=== PATIENT | male | born 1965 | race Caucasian/White ===

== ENCOUNTER → 2017-08-13 12:47 | Outpatient (CLI) | payer MEDICAID, SELFPAY ==
[2017-08-13 14:33] LABS: Absolute Lymphocyte Count 1.48 X10^3/ul (0.83-4.51); Basophil# 0.02 X10^3/uL; Basophil% 0.2 % (0-1); Eosinophil# 0.46 X10^3/uL; Eosinophils% 3.9 % (0-5); Hematocrit 51.7 % (40-54); Hemoglobin 17.4 g/dl (13.0-16.5); Lymphocyte # 1.48 X10^3/ul (4.0); Lymphocyte % 12.6 % (19-41); Mean Corp Hgb Conc 33.7 g/gl (32-36); Mean Corpuscular Hgb 31.1 pg (27.0-32.0); Mean Corpuscular Volume 92.3 fL (80-94); Mean Platelet Vol. 11.7 fl (6.2-12.0); Neutrophil % 76.9 % (47-70); POSITIVE COUNT NO; POSITIVE DIFFERENTIAL NO; POSITIVE MORPHOLOGY NO; Platelet Count 194 K/mm3 (150-450); RBC Distribution Width CV 15.6 % (11.6-14.6); RBC Distribution Width SD 52.6 fl (35.1-43.9); White Blood Count 11.7 K/mm3 (4.4-11.0)
[2017-08-13 14:40] LABS: Hemoglobin A1c 6.8 % (4.2-6.3)
[2017-08-13 14:49] LABS: ALB/GLOB Ratio 0.7 RATIO (0.9-2.4); AST(SGOT) 23 U/L (15-37); Alanine Aminotransfer ALT/SGPT 30 U/L (16-61); Albumin, Serum 3.4 g/dL (3.2-5.0); Alkaline Phosphatase 85 U/L (45-117); Anion Gap 10 (5-15); BUN 13 mg/dL (7-18); BUN/Creat Ratio 13.3 RATIO (10-20); Calcium,Total 8.8 mg/dL (8.5-10.1); Chloride 102 mmol/L (98-107); Cholesterol 190 mg/dL (200); Creatinine, Serum 0.98 mg/dL (0.70-1.30); EST Glomerular Filtration Rate 86 mL/min (>60); Est Glom Filt Rate - Afr Amer 104 mL/min (>60); Globulin 4.8 g/dL (2.2-4.2); Glucose 110 mg/dL (74-106); High Density Lipoprotein 32 mg/dL; Potassium 4.3 mmol/L (3.5-5.1); Protein, Total 8.2 g/dL (6.4-8.2); Sodium Level 139 mmol/L (136-145); Thyroid Stim Hormone (TSH) 0.92 uIU/mL (0.358-3.74)
[2017-08-14 12:23] LABS: Vitamin D,25 Hydroxy 32.2 ng/mL (29.95-100.01)
== END ==
PROVIDERS: Family Provider Family Medicine; PCP Family Medicine; Visit Provider Family Medicine
DX: M54.9 Dorsalgia, unspecified (principal); I73.9 Peripheral vascular disease, unspecified; R73.09 Other abnormal glucose
CPT/HCPCS: 36415; 80053; 82306; 82465; 83036; 83718; 84443; 85025

== ENCOUNTER 2018-04-28 09:37 | Emergency (ER) | payer MEDICAID, SELFPAY ==
[2018-04-28 09:38] VITALS: BP 185/101; PULSE 85; RESP 24; TEMP 36.6; O2SAT 97; BMI 60.7
--- NOTE | 2018-04-28 10:00 | VDLE_ITS ---
Reason For Study: LEG SWELLING Procedure LEFT Exam performed portable in ED. GSV is normal. A preliminary report was called and/or faxed CFV is compressible, spontaneous, phasic, to Dr. Garcia. competent, and demonstrates normal augmentation. FV is compressible, spontaneous, phasic, competent and demonstrates normal augmentation. POP V is compressible, spontaneous, phasic, competent and demonstrates normal augmentation. T/P Trunk is compressible. PTV is compressible. LT PerV is compressible. Hypoechoic structure noted Lt medial pop space measuring 5.0 x 1.3 cm in transverse. Non-vascular. Interpretation Summary Deep veins of the left lower extremity are patent and compressible segmentally. There is no evidence of left lower extremity deep vein thrombosis. Valvular competence appears intact within the proximal deep venous system on the left . The left greater saphenous vein appears patent and compressible segmentally. A non-vascular, hypoechoic structure is noted in the left medial popliteal space, measuring 5.0 cm x 1.3 cm. This probably represents a popliteal cyst. Clinical correlation is advised. Ordering Physician: Froy Garcia Referring Physician: Mark Anthony Marcelo MD Performed By: Janki Manzano RVT
--- NOTE | 2018-04-28 10:03 | ED.VISSUMM ---
- ER Visit Summary Date of Service: 04/28/18 Chief Complaint: Left-sided hip pain History of Present Illness: The patient is a 53 M presenting for evaluation secondary to left-sided hip pain. Patient reports that over the course of the last 3 days he had atraumatic onset of left sided hip pain. Patient does endorse that he has had some increased mobility recently as he recently moved, but he denies any trip slips falls or other inciting factors. Patient states that he has a continuous ache in his left hip that is worse with movement and has been causing him some sleep difficulty. He states he is never really had any prior similar episodes in the past. He denies any recent injections or surgeries. Denies any unexplained fevers night sweats or unintended weight loss. He denies any radiation to the legs weakness or paresthesias. Patient does state that he has some asymmetric swelling of the left leg which he has somewhat had in the past but this seems worse than typical. He denies any history of DVT or PE. Review of systems otherwise negative. Physical Examination: Vital signs notable blood pressure 185/101. Morbidly obese male no acute distress sitting on the side of bed. Head normocephalic. Heart regular rate and rhythm no murmurs. Lung sounds clear. Abdomen was soft. Lower extremity exam shows reproducible tenderness to palpation near the left SI joint. 5 out of 5 strength of the hip knee ankle and foot. There is pain with internal and external rotation and hip. 2+ left-sided lower extremity edema with 1+ right-sided lower extremity edema. Chronic skin changes noted bilaterally. Test Results: Hip and pelvis x-ray shows a questionable avulsion of the left inferior pubic ramus. Left leg duplex was found to be negative Emergency Department Course and Treatment: Patient presented secondary to to hip pain. Patient's legs were found to be asymmetrically swollen so I did perform a duplex ultrasound that was negative. Hip and pelvis x-ray shows a possible avulsion of the patient's inferior pubic ramus, but this is atraumatic hip pain, and the patient has very reproducible pain in his SI area versus his left buttock. I do not believe that the cause of the patient's symptoms and it likely is chronic. Patient will be placed on a course of anti-inflammatories as well as a muscle relaxer. He was recommended range of motion and follow-up with primary care. Disposition: Discharge Impression: 1. Left hip strain This note was generated with [employer] dictation software. It may contain incorrect words, spelling, and punctuation that were not noted in review of the chart prior to signing ED Disposition - Plan for ED Patient: Disposition: Home or Assisted Living Diagnosis: Strain of left hip Instructions: ED Sprain Hip Prescriptions: Naproxen [Naprosyn] 500 mg PO BID PRN #20 tab Cyclobenzaprine [Flexeril] 10 mg PO TID PRN #20 tab PRN Reason: Muscle Spasm Referrals: Mark Anthony Marcelo MD [Primary Care Provider] - 3-5 Days if not improving
[2018-04-28] MEDS: Ketorolac 30 MG/ML Syringe IM (10:14)
--- NOTE | 2018-04-28 10:20 | RAD_ITS ---
STUDY: X-RAY - LEFT HIP REASON FOR EXAM: Male, 53 years old. 2 day history of acute left hip pain. TECHNIQUE: 2 views of the hip. COMPARISON: None. FINDINGS: Normal femoral head, neck, intertrochanteric region and visualized proximal femur. Normal acetabulum. Normal hip joint. Tiny bony density seen adjacent to the inferior pubic ramus on the left side. This may represent an avulsion fracture. RAD/HIP, UNI W/ Pelvis 2-3 Views IMPRESSION: Possible tiny avulsion fracture involving the inferior pubic ramus on the left side. Electronically Signed: Diony Denney MD at 10:53 EST , Service support ,
[2018-04-28 11:37] VITALS: BP 149/93; RESP 17
== END 2018-04-28 11:38 | disposition home or self-care (01) ==
PROVIDERS: Emergency Provider Emergency Medicine; Family Provider Family Medicine; PCP Family Medicine
DX: S76.012A Strain of muscle, fascia and tendon of left hip, initial encounter (principal); X50.3XXA Overexertion from repetitive movements, initial encounter; Y93.E6 Activity, residential relocation; Y92.9 Unspecified place or not applicable; Y99.9 Unspecified external cause status; E66.01 Morbid (severe) obesity due to excess calories; R60.0 Localized edema; E11.9 Type 2 diabetes mellitus without complications; Z72.0 Tobacco use
CPT/HCPCS: 73502; 93971; 96372; 99282

== ENCOUNTER 2018-05-28 17:44 | Emergency (ER) | payer MEDICAID, SELFPAY ==
[2018-05-28 17:44] VITALS: BP 160/85; PULSE 89; RESP 20; TEMP 36.3; O2SAT 97; BMI 60.7
[2018-05-28] MEDS: Morphine 4 MG/ML Syringe IM (19:34)
--- NOTE | 2018-05-28 19:34 | RAD_ITS ---
STUDY: X-RAY - PELVIS AND LEFT HIP REASON FOR EXAM: Male, 53 years old. Left hip pain. TECHNIQUE: 4 views of the pelvis and hip. COMPARISON: Pelvis and left hip, April 28, 2018. FINDINGS: There is a non-specific bowel gas pattern. Normal visualized soft tissue structures. There are degenerative changes of the lumbar spine. Normal bilateral iliac wings, sacroiliac joints and visualized sacrum. Normal bilateral superior and inferior pubic rami. Normal pubic symphysis. Normal bilateral ischial tuberosities. Densities in small bony density adjacent to the left tissue tuberosity. Normal visualized left femoral head. Normal left acetabulum. There is mild articular joint space narrowing of the left hip. RAD/HIP, UNI W/ Pelvis 2-3 Views IMPRESSION: Mild degenerative change left hip no fracture or dislocation. There is no change from April 28, 2018. Electronically Signed: Ayad Fontaine DO at 19:49 EDT Tel [phone], Service support ,
[2018-05-28 19:36] VITALS: BP 150/92; PULSE 91; RESP 20; O2SAT 96
--- NOTE | 2018-05-28 20:07 | ED.DCSUM_ITS ---
- ER Visit Summary Date of Service: 05/28/18 Chief Complaint: Left hip pain History of Present Illness: The patient is a 53 M who presents with left hip pain that began yesterday. Patient states that he has had similar pain in the past and was diagnosed with a muscular strain. Patient states the pain became worse again yesterday. Patient describes the pain is sharp, aching, and stabbing. Patient states pain is worse with movement. Patient states he has weakness in his right leg but not his left. Patient admits to some low back pain. Physical Examination: Vital signs are stable. Patient is afebrile. Patient is in no acute distress. Musculoskeletal exam reveals tenderness over the posterior aspect of the left hip. There is no deformity noted. There is no pain with internal and external rotation. There is some edema of the lower extremities bilaterally, worse on the left. There is no calf tenderness.. Pedal pulses are equal bilaterally. Sensation was intact to light touch in all digits. Capillary refill was less than 2 seconds in all digits. The remaining physical exam is within normal limits. Test Results: X-rays of the left hip were obtained. There is no acute fracture. There is some degenerative arthritis noted. This was interpreted by the radiologist and reviewed by myself. Emergency Department Course and Treatment: Patient was given an injection of morphine here. Patient felt better on reevaluation. Patient was able to ambulate here in the emergency department. Patient was instructed to use ice to the area. Patient was given a prescription for short course of [place]. Patient was instructed to follow-up with his primary care physician in 5-7 days. Patient understood and was agreeable with the plan. All questions were answered. Disposition: Discharge home Impression: Left hip strain This note was generated with [employer] dictation software. It may contain incorrect words, spelling, and punctuation that were not noted in review of the chart prior to signing ED Disposition - Plan for ED Patient: Disposition: Home or Assisted Living Diagnosis: Morbid obesity, Muscle strain of left hip Instructions: ED Sprain Hip Prescriptions: Hydrocodone Bitart/Apap 5-325 [[place] 5MG-325MG] 1 tab PO Q6H PRN PRN 3 Days #10 tab PRN Reason: Pain Referrals: Mark Anthony Marcelo MD [Primary Care Provider] -
[2018-05-28 21:54] VITALS: BP 140/91; PULSE 92; RESP 15; O2SAT 94
== END 2018-05-28 21:56 | disposition home or self-care (01) ==
PROVIDERS: Emergency Provider Emergency Medicine; Family Provider Family Medicine; PCP Family Medicine
DX: S76.012A Strain of muscle, fascia and tendon of left hip, initial encounter (principal); X58.XXXA Exposure to other specified factors, initial encounter; Y93.9 Activity, unspecified; Y92.89 Other specified places as the place of occurrence of the external cause; Y99.9 Unspecified external cause status; E66.9 Obesity, unspecified; E11.9 Type 2 diabetes mellitus without complications; Z72.0 Tobacco use; M54.5 Low back pain; R53.1 Weakness; M16.12 Unilateral primary osteoarthritis, left hip
CPT/HCPCS: 73502; 96372; 99282

== ENCOUNTER 2018-07-12 17:40 | Emergency (ER) | payer MEDICAID, SELFPAY ==
[2018-07-12 17:41] VITALS: BP 143/89; PULSE 89; RESP 18; TEMP 36.5; O2SAT 96; BMI 54.0
--- NOTE | 2018-07-12 18:56 | CT_ITS ---
STUDY: CT OF THE HIP WITHOUT CONTRAST, RIGHT REASON FOR EXAM: Male, 53 years old. Pain RADIATION DOSAGE (If Supplied By Facility): CTDIvol = ( 47.54 ) mGy, DLP = ( 1697.59 ) mGycm. Individualized dose optimization techniques were used for this CT.? TECHNIQUE: Axial CT images of the hip were performed without contrast followed by sagittal and coronal reconstructions. Individualized dose optimization techniques were used for this CT. COMPARISON: None. FINDINGS: Degenerative sacroiliac joint changes. Moderate right hip osteoarthritis. 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 No acute fractures. Pelvic sidewall is intact. Surrounding musculature is intact. No fluid collections are seen. CT/Extremity Lower without Contra IMPRESSION: Moderate right hip osteoarthritis. 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 Consider MRI correlation if clinically indicated. Degenerative sacroiliac joint changes. Electronically Signed: Bernardino Gifford MD at 19:40 EDT Tel , Service support ,
--- NOTE | 2018-07-12 18:59 | ED.DCSUM_ITS ---
- ER Visit Summary Date of Service: 07/12/18 Chief Complaint: Right hip pain History of Present Illness: The patient is a 53 M who presents for right hip pain for 3 days. Patient denies any trauma to the hip. He has a history of chronic left hip pain, but for the last 3 days he has been having severe right- sided hip pain, which is new for him. Pain radiates to the right knee and sometimes up the back to the right shoulder. It is worse with walking and weightbearing. Worse with movement. She has been trying his home pain regimen, which includes Flexeril and nonnarcotic pain medications without any relief. He saw his primary care doctor today and had a CT of the hip ordered, however the outpatient radiology service was closed when he arrived. Physical Examination: Patient is awake and alert sitting in bed, appears uncomfortable, afebrile and hemodynamically stable. Patient has midline tenderness in the sacral region and the paraspinal musculature of the right lower back. Tenderness to palpation of the right hip. Pain with any range of motion. Sensation, motor and circulation intact distally. Exam significantly limited secondary to body habitus. Test Results: Clinical Impression(s) from Imaging Studies Lower Extremity CT 07/12/18 18:56 IMPRESSION: Moderate right hip osteoarthritis. 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 Consider MRI correlation if clinically indicated. Degenerative sacroiliac joint changes. Electronically Signed: Bernardino Gifford MD at 19:40 EDT Tel , Service support , Medications Given Discontinued Medications Hydrocodone Bitart/Acetaminophen ([place] 5mg-325mg) 2 tablet PO X1 ONE Stop: 07/12/18 18:58 Last Admin: 07/12/18 19:11 Dose: 2 tablet Emergency Department Course and Treatment: Patient had a outpatient CT of the right hip ordered by his primary care doctor, however the outpatient radiology center was closed when patient arrived. He was supposed to be seen as an outpatient in the emergency department. This was discussed with the patient, and he opted for ER evaluation. Patient was given a [place] for his pain. CT of the right hip was performed and showed osteoarthritis and mild avascular necrosis. There was no pathologic fractures. Patient was feeling better after the pain medication. He was advised to follow-up with his primary care doctor regarding the results and further management. Patient was given a small prescription for [place] for his severe pain so that he can ambulate, as he is having significant pain with weightbearing. Patient discharged home. Treatment Plan: [] Disposition: [] Impression: Degenerative changes of the right hip, severe right hip pain This note was generated with [employer] dictation software. It may contain incorrect words, spelling, and punctuation that were not noted in review of the chart prior to signing ED Disposition - Plan for ED Patient: Disposition: Home or Assisted Living Instructions: ED Degenerative Joint Disease Prescriptions: Hydrocodone Bitart/Apap 5-325 [[place] 5MG-325MG] 1 tab PO Q6H PRN PRN 3 Days #10 tab PRN Reason: Pain Referrals: Mark Anthony Marcelo MD [Primary Care Provider] - As soon as possible Additional Instructions: Continue your pain medications that you normally take for your back and hip pain. You may use the norco for severe pain. Please follow-up with Dr. Marcelo as soon as possible to discuss the results of your CT scan and to discuss the next step in managing your hip pain. If you have any worsening of your condition or any new concerning symptoms, please return immediately to the emergency department for another evaluation.
[2018-07-12] MEDS: HYDROcodone Bitartrate/Apap 5/325 Tablet PO (19:11)
[2018-07-12 20:20] VITALS: RESP 18
[2018-07-12 20:58] VITALS: RESP 18
== END 2018-07-12 20:59 | disposition home or self-care (01) ==
PROVIDERS: Emergency Provider Emergency Medicine; Family Provider Family Medicine; PCP Family Medicine
DX: M25.551 Pain in right hip (principal); M87.9 Osteonecrosis, unspecified; M16.11 Unilateral primary osteoarthritis, right hip
CPT/HCPCS: 73700; 99283

== ENCOUNTER → 2018-07-17 07:59 | Outpatient (CLI) | payer MEDICAID, SELFPAY ==
[2018-07-12 17:41] VITALS: BMI 54.0
--- NOTE | 2018-07-17 08:05 | MRI_ITS ---
We are attempting to reach Mark Anthony Marcelo to discuss findings. An addendum with communication details will be sent when the communication is complete. STUDY: MRI RIGHT HIP REASON FOR EXAM: Male, 53 years old. Pain. TECHNIQUE: Standardized fat and water weighted pulse sequences were obtained in all 3 orthogonal planes. COMPARISON: None. FINDINGS: Normal hip joint without articular joint space narrowing. Normal acetabulum. Normal labrum. Bone marrow edema is identified in the right femoral head and neck, right superior pubic ramus, right acetabulum, and in both iliac bones near the sacroiliac joint. Normal gluteus minimus, medius and iliopsoas tendons and distal insertions. There is no trochanteric, iliopsoas or iliopectineal bursitis. Normal pubic symphysis. Normal ischial tuberosity. Normal origin of the hamstring tendons. Normal visualized soft tissue structures of the pelvis. MRI/Lower Ext Joint Only (Routine) IMPRESSION: Patchy areas of bone marrow edema as described. Underlying neoplasm is a possibility. Electronically Signed: Macario Robbins, at 10:57 EDT Tel , Service support ,
== END ==
PROVIDERS: Family Provider Family Medicine; PCP Family Medicine; Referring Provider Family Medicine; Visit Provider Family Medicine
DX: M87.051 Idiopathic aseptic necrosis of right femur (principal)
CPT/HCPCS: 73721

== ENCOUNTER → 2018-07-21 09:24 | Outpatient (CLI) | payer MEDICAID, SELFPAY ==
[2018-07-12 17:41] VITALS: BMI 54.0
--- NOTE | 2018-07-21 09:27 | NM_ITS ---
CLINICAL: 53-year-old male with reported history of right hip and lower extremity pain. WHOLE BODY 99m Tc MDP RADIONUCLIDE BONE SCINTIGRAPHY COMPARISON: Plain film radiograph report left hip 05/28/2018, CT of the right hip report 07/12/2018 FINDINGS: Following the intravenous administration of 25.5 mCi of 99m Tc MDP, whole body bone images reveal: 1. Increased radiopharmaceutical concentration is defined in the distal left clavicle, the right proximal clavicle, the right occipital calvarium, the right posterior sixth rib, the right mid-distal femoral diaphysis and metaphysis, the left proximal tibial metaphysis, the left sacroiliac joint and sacral ala, posterior sacrum and right sacroiliac joint. 2. Facilitated uptake is noted in the right proximal femur to include the femoral head and neck. 3. An increase in tracer distribution is visualized in the lateral glenohumeral compartments of both shoulders, the acromioclavicular and sternoclavicular compartment of the right shoulder, bilateral knees. 4. The remaining skeletal structures are scintigraphically unremarkable with normal-appearing renal images and urinary bladder activity identified. Enhanced radiotracer concentration is definably bilateral maxillary and left mandible most consistent with periodontal disease and/or periostitis. NM/Bone Scan Whole Body IMPRESSION: 1. The increased radiopharmaceutical concentration identified in the distal left clavicle, right proximal clavicle, right occipital skull, right posterior sixth rib, right mid to distal femoral diaphysis and distal right femoral metaphysis, the left proximal tibial metaphysis, bilateral sacroiliac joints, posterior segment left sacral ala likely represents osseous metastatic disease. Correlation with plain film radiography may be of benefit in the right femur, bilateral clavicles. 2. Femoral head and neck increased uptake likely represents the rib vascularization phase of osteonecrosis corresponding to the anatomic findings described on CT of the right hip report dated 07/12/2018. 3. Degenerative arthritis appears expressed in the bilateral shoulders, right and left knees. Electronically Signed: Amrit Wilson DO at 14:51 EDT Tel , Service support ,
== END ==
PROVIDERS: Family Provider Family Medicine; PCP Family Medicine; Referring Provider Family Medicine; Visit Provider Family Medicine
DX: R93.89 Abnormal findings on diagnostic imaging of other specified body structures (principal)
CPT/HCPCS: 78306

== ENCOUNTER → 2018-07-21 13:27 | Outpatient (CLI) | payer MEDICAID, SELFPAY ==
[2018-07-12 17:41] VITALS: BMI 54.0
[2018-07-21 15:41] LABS: Absolute Lymphocyte Count 1.04 X10^3/ul (0.83-4.51); Absolute Neutrophil Count 8.5 X10^3/uL (2.0-7.7); Basophil# 0.03 X10^3/uL; Basophil% 0.3 % (0-1); Eosinophils% 1.9 % (0-5); Hematocrit 45.3 % (40-54); Hemoglobin 15.2 g/dl (13.0-16.5); Lymphocyte # 1.04 X10^3/ul (4.0); Lymphocyte % 9.8 % (19-41); Mean Corp Hgb Conc 33.6 g/gl (32-36); Mean Corpuscular Hgb 30.2 pg (27.0-32.0); Mean Corpuscular Volume 89.9 fL (80-94); Mean Platelet Vol. 11.3 fl (6.2-12.0); Monocyte# 0.83 X10^3/uL; Monocyte% 7.8 % (0-10); Neutrophil # 8.47 X10^3/uL (2.7-7.7); Neutrophil % 79.7 % (47-70); Platelet Count 291 K/mm3 (150-450); RBC Distribution Width CV 15.5 % (11.6-14.6); RBC Distribution Width SD 51.1 fl (35.1-43.9); Red Blood Count 5.04 M/mm3 (4.6-6.2); White Blood Count 10.6 K/mm3 (4.4-11.0)
[2018-07-21 15:42] LABS: POSITIVE COUNT NO; POSITIVE DIFFERENTIAL NO; POSITIVE MORPHOLOGY NO
[2018-07-21 15:55] LABS: ALB/GLOB Ratio 0.6 RATIO (0.9-2.4); AST(SGOT) 29 U/L (15-37); Alanine Aminotransfer ALT/SGPT 27 U/L (16-61); Albumin, Serum 2.9 g/dL (3.2-5.0); Alkaline Phosphatase 114 U/L (45-117); Anion Gap 8 (5-15); BUN 12 mg/dL (7-18); BUN/Creat Ratio 13.7 RATIO (10-20); Calcium,Total 9.2 mg/dL (8.5-10.1); Chloride 102 mmol/L (98-107); Creatinine, Serum 0.88 mg/dL (0.70-1.30); EST Glomerular Filtration Rate 97 mL/min (>60); Est Glom Filt Rate - Afr Amer 118 mL/min (>60); Glucose 102 mg/dL (74-106); Potassium 4.2 mmol/L (3.5-5.1); Protein, Total 7.9 g/dL (6.4-8.2); Sodium Level 137 mmol/L (136-145)
[2018-07-21 15:58] LABS: Erythrocyte Sedimentation Rate 86 mm/hr (0-20)
[2018-07-23 16:07] LABS: PROEL- A/G Ratio 0.7 (0.7-1.7); PROEL- Albumin 2.9 g/dL (2.9-4.4); PROEL- Alpha-1 Globulin 0.4 g/dL (0.0-0.4); PROEL- Alpha-2 Globulin 1.3 g/dL (0.4-1.0); PROEL- Beta Globulin 1.3 g/dL (0.7-1.3); PROEL- Gamma Globulin 1.2 g/dL (0.4-1.8); PROEL- Globulin, Total 4.3 g/dL (2.2-3.9); PROEL- TOTAL PROTEIN 7.2 g/dL (6.0-8.5)
[2018-07-26 13:48] LABS: Complement C3 212 mg/dL (82-167)
[2018-07-27 10:48] LABS: ANTINUCLEAR ANTIBODIES DIRECT Negative (Negative)
== END ==
PROVIDERS: Family Provider Family Medicine; PCP Family Medicine; Referring Provider Family Medicine; Visit Provider Family Medicine
DX: R93.89 Abnormal findings on diagnostic imaging of other specified body structures (principal)
CPT/HCPCS: 36415; 78306; 80053; 84165; 85025; 85652; 86038; 86140; 86160

== ENCOUNTER 2018-07-26 17:16 | Inpatient (IN) | payer MEDICAID, SELFPAY ==
[2018-07-26 17:17] VITALS: BP 116/90; PULSE 63; RESP 14; TEMP 37.1; O2SAT 96; BMI 53.1
[2018-07-26 17:24] VITALS: BP 119/88; PULSE 110; RESP 15; O2SAT 98
--- NOTE | 2018-07-26 17:26 | ED.RN ---
pt was asked about home medications. he states dr chand recently prescribed him Vicodin 5-325 mg po q4hrs prn for pain. pt states i have been taking one every couple hours. pt was asked if he is taking them as perscribed. he stated no. i'm taking one tablet sooner that i'm supposed to. im only taking one tablet thought.' pt was explain that taking to many vicoden could result in an overdose that could kill him. he was instructed to never take meds more that perscribed. elizabeth silvestre rn [id number]
[2018-07-26] MEDS: Morphine 4 MG/ML Syringe IV (18:34)
[2018-07-26] MEDS: Ondansetron 4 MG/2 ML Vial IV (18:34)
--- NOTE | 2018-07-26 18:46 | ED.DCSUM_ITS ---
- ER Visit Summary Date of Service: 07/26/18 Chief Complaint: Right hip pain History of Present Illness: The patient is a 53 M presenting with right hip pain. He states that this has been ongoing for several months. He has been having a work-up by his primary care physician. He recently had a bone scan w [facility] he states showed bone cancer. This is a new diagnosis. He is unsure who is supposed to follow-up with. He has been taking hydrocodone at home and has continued pain. He denies trauma. Denies other complaints. Physical Examination: Vitals are stable. Patient is afebrile. Alert no acute distress. HEENT exam is unremarkable. Neck is supple. Lungs are clear and equal bilaterally. Heart is regular rate and rhythm. Abdomen is soft nontender nondistended. Extremities right lateral hip tenderness with painful range of motion. Normal distal pulse. Skin is warm and dry. No focal neurologic deficit. Remainder of exam is unremarkable. Emergency Department Course and Treatment: Patient was given morphine, Zofran IV. Right hip x-ray shows degenerative changes. CBC, chemistries unremarkable. Discussed with Dr. Marcelo his primary care physician. He is in the beginning stages of working up for metastatic cancer. Patient has been unable to ambulate at home. He missed his last appointment because he was unable to ambulate. Discussed with the hospitalist for admission. Disposition: Admission Impression: Right hip pain, metastatic lesions, inability to ambulate This note was generated with [employer] dictation software. It may contain incorrect words, spelling, and punctuation that were not noted in review of the chart prior to signing ED Disposition - Plan for ED Patient: Referrals: Mark Anthony Marcelo MD [Primary Care Provider] -
--- NOTE | 2018-07-26 18:47 | RAD_ITS ---
STUDY: X-RAY - PELVIS AND RIGHT HIP REASON FOR EXAM: Male, 53 years old. Pain. History of bone cancer. TECHNIQUE: 4 views of the pelvis and hip. COMPARISON: 05/28/2018 FINDINGS: There is no fracture or dislocation in the pelvis or right hip. There is stable moderate degenerative changes in the right hip. RAD/HIP, UNI W/ Pelvis 2-3 Views IMPRESSION: No fracture or dislocation in the pelvis or right hip. Stable moderate degenerative changes. Electronically Signed: Hadley Saunders, at 19:02 EDT Tel , Service support ,
[2018-07-26 18:54] LABS: Absolute Lymphocyte Count 1.13 X10^3/ul (0.83-4.51); Absolute Neutrophil Count 8.3 X10^3/uL (2.0-7.7); Basophil# 0.02 X10^3/uL; Basophil% 0.2 % (0-1); Eosinophil# 0.21 X10^3/uL; Hematocrit 43.9 % (40-54); Lymphocyte # 1.13 X10^3/ul (4.0); Lymphocyte % 10.7 % (19-41); Mean Corp Hgb Conc 34.2 g/gl (32-36); Mean Corpuscular Hgb 30.1 pg (27.0-32.0); Mean Platelet Vol. 10.9 fl (6.2-12.0); Monocyte# 0.93 X10^3/uL; Monocyte% 8.8 % (0-10); Neutrophil # 8.26 X10^3/uL (2.7-7.7); Neutrophil % 77.8 % (47-70); Platelet Count 250 K/mm3 (150-450); RBC Distribution Width CV 15.4 % (11.6-14.6); RBC Distribution Width SD 49.6 fl (35.1-43.9); Red Blood Count 4.99 M/mm3 (4.6-6.2); White Blood Count 10.6 K/mm3 (4.4-11.0)
[2018-07-26 18:55] LABS: POSITIVE COUNT NO; POSITIVE DIFFERENTIAL NO; POSITIVE MORPHOLOGY NO
[2018-07-26 20:06] LABS: Anion Gap 5 (5-15); BUN 10 mg/dL (7-18); BUN/Creat Ratio 13.8 RATIO (10-20); Calcium,Total 9.3 mg/dL (8.5-10.1); Chloride 102 mmol/L (98-107); Creatinine, Serum 0.72 mg/dL (0.70-1.30); EST Glomerular Filtration Rate 121 mL/min (>60); Est Glom Filt Rate - Afr Amer 146 mL/min (>60); Estimated Creatinine Clearance 127.82 ml/min; Glucose 102 mg/dL (74-106); Potassium 4.1 mmol/L (3.5-5.1); Sodium Level 135 mmol/L (136-145)
--- NOTE | 2018-07-26 21:20 | PCM.HP.STD ---
Problem List (1) History of anxiety Status: Chronic (2) Tobacco user Status: Chronic (3) Obstructive sleep apnea syndrome Status: Chronic (4) Morbid obesity Status: Chronic (5) Depression Status: Chronic (6) Benign essential hypertension Status: Chronic (7) Metastasis Status: Acute History of Present Illness Date of Admission: 07/26/18 Chief Complaint: right hip pain The patient is a 53 year old M with a significant history of anxiety disorder; tobacco use; obstructive sleep apnea; morbid obesity; hyperlipidemia; depression; benign essential hypertension; COPD; who presented to the emergency department with 1 month history of progressively worsening right hip pain. His pain improves with laying on his stomach. He was taking hydrocodone at home but that has not been helping. Patient began having left hip pain about 2 months ago. His pain then moved to his right hip. Patient reported that outpatient bone scan showed probable cancer in multiple bones including his hips; shoulders; neck; ribs and other places. Outpatient, he was supposed to have a chest x-ray but because of pain that could not be done. The Emergency department doctor reportedly discussed with the case of patient PCP. Reportedly he was supposed to have a CT-guided biopsy of his right hip. Patient denies seeing any oncologist at this point. Past Medical History Past Medical History (Chronic Problems): Chronic Problems History of anxiety (Chronic) Tobacco user (Chronic) Obstructive sleep apnea syndrome (Chronic) Chronic obstructive lung disease (Chronic) Morbid obesity (Chronic) Hyperlipidemia (Chronic) Depression (Chronic) Benign essential hypertension (Chronic) Allergies METAL Allergy (Uncoded 07/26/18 17:22) Unknown Home Medications: Ambulatory Orders Medication Instructions Recorded Aspirin 325 mg PO Q4H PRN PRN 04/28/18 Cyclobenzaprine [Flexeril] 10 mg PO TID PRN #20 tab 04/28/18 Ibuprofen [Motrin] 400 mg PO Q6H PRN PRN 04/28/18 Hydrocodone/Acetaminophen 5 - 325 mg PO Q4H PRN PRN 07/26/18 [Hydrocodone-Acetamin 5-325 mg] Naproxen [Naprosyn] 500 mg PO BID PRN PRN 07/26/18 Albuterol Sulfate [Albuterol 2 puff Q4H PRN PRN 07/27/18 Sulfate Hfa] Celecoxib 200 mg PO DAILY 07/27/18 Fluticasone Propionate 2 spray NASAL BID 07/27/18 Nortriptyline HCl 50 mg PO QHS 07/27/18 Surgical History: appendectomy, herniorrhaphy - x2, - - Hand surgery Lives: With Family Smoking Status: Current every day smoker - *Family History Maternal History Items: - - Leukemia Paternal History Items: Cancer - lung, - Review of Systems Constitutional: Denies: Chills, Fever, Weight Change HEENT: Denies: Head Aches, Sinus Congestion, Sinus Drainage Cardiovascular: Denies: Chest Pain, Palpitations Respiratory: Denies: Cough, Shortness of breath at rest, Sputum production Gastrointestinal: Denies: Abdominal Pain, Nausea, Vomiting Genitourinary: Denies: Dysuria Musculoskeletal: Reports: Joint Pain - R hip, Joint Tenderness - R hip Skin: Denies: Rash, Wounds Neurological: Denies: Numbness, Tingling, Focal weakness Psychiatric: Denies: Anxiety, Depression, Homicidal Ideations, Suicidal Ideations Hematologic/ Lymphatic: Denies: Easy Bruising, Easy Bleeding VTE Information - Inpt Only VTE Present on Admission: No VTE Mechan Device Prophylaxis: None VTE Pharm Prophylaxis ordered?: Yes Patient Problems: Active and Suspected Problems Metastasis (Acute) - Physical Exam General: Alert, Oriented x3, Cooperative HEENT: Atraumatic, PERRLA, EOMI, Normocephalic Neck: Supple, No JVD, Negative Carotid Bruits Lungs: Clear to auscultation, Normal air movement Cardiovascular: Regular rate, No murmurs Abdomen: Bowel Sounds Present, Soft, Non Tender Extremities: No edema, Capillary Refill Less than 3 Seconds, Tenderness - R hip Skin: No rashes, No breakdown Musculoskeletal: No Tenderness to Palpation of Joints or Extremities Neurological: Cranial nerves II-XII grossly intact Psych/Mental Status: Normal Affect, Appropriate Vital Signs Temp Pulse Resp BP Pulse Ox 98.7 F 110 H 15 119/88 H 98 07/26/18 17:17 07/26/18 17:24 07/26/18 17:24 07/26/18 17:24 07/26/18 17:24 Oxygen Delivery Method Room Air Weight: 172.819 kg Body Mass Index (BMI) 53.1 Laboratory Tests Past 24 Hrs 07/26/18 07/26/18 07/26/18 18:30 18:30 19:10 WBC 10.6 RBC 4.99 Hgb 15.0 Hct 43.9 MCV 88.0 MCH 30.1 MCHC 34.2 RDW 15.4 H RDW Differential 49.6 H Plt Count 250 MPV 10.9 Immature Gran % (Auto) 0.500 Neut % (Auto) 77.8 H Lymph % (Auto) 10.7 L [place] % (Auto) 8.8 Eos % (Auto) 2.0 Baso % (Auto) 0.2 Absolute Neuts (auto) 8.3 H Absolute Lymphs (auto) 1.13 Total Counted Not Reportable Sodium Cancelled 135 L Potassium Cancelled 4.1 Chloride Cancelled 102 Carbon Dioxide Cancelled 28.0 Anion Gap Cancelled 5 BUN Cancelled 10 Creatinine Cancelled 0.72 Estim Creat Clear Calc Cancelled 127.82 Est GFR (MDRD) Af Amer Cancelled 146 Est GFR (MDRD) Non-Af Cancelled 121 BUN/Creatinine Ratio Cancelled 13.8 Glucose Cancelled 102 Calcium Cancelled 9.3 Assessment/Plan All Active Problems Metastasis (Acute) The patient is a 53 year old M with a significant history of anxiety disorder; tobacco use; obstructive sleep apnea; morbid obesity; hyperlipidemia; depression; benign essential hypertension; COPD; who presented to the emergency department with 1 month history of progressively worsening right hip pain; and with bone scan of probable cancer in multiple bones but with unknown primary. Probable metastatic cancer. Will obtain a CT of patient's abdomen and chest. And will consult oncologist at this time. CT guided biopsy of R hip planned outpatient not ordered at this time. We will continue his home Vicodin and add PRN morphine. Home Celebrex continued. Naproxen as needed ordered Muscle spasms Flexeril continued COPD Stable Home albuterol continued. JACK Home bipap ordered. Tobacco abuse Counselled Nicotine patch DVT prophylaxis Subcutaneous Lovenox ordered. Code Visit Inpatient E&M: 00578 Init Hosp L3
[2018-07-26 21:42] VITALS: BP 128/72; PULSE 98; RESP 18; O2SAT 93
[2018-07-26 23:14] VITALS: BMI 51.7
[2018-07-26 23:30] VITALS: BP 155/89; PULSE 90; RESP 18; TEMP 36.9; O2SAT 94
--- NOTE | 2018-07-26 23:40 | CT_ITS ---
HISTORY: SUSPECTED METASTATIC CANCER EXAMINATION: CT Chest WO/W Contrast TECHNIQUE: Helically acquired images were obtained of the chest both before and following IV contrast. A radiation dose optimization technique was used for this scan. IV Contrast dosage and agent: 100 Isovue 300 COMPARISON: Two-view chest 05/29/2014 FINDINGS: Left perihilar and left upper lobe large irregular mass which measures approximately 10.5 x 8.1 x 8.3 cm. The mass occludes the left upper lobe bronchus and encases the left upper lobe pulmonary artery and there is perifocal tumoral infiltrate. The mass abuts and shows apparent soft tissue infiltration of the left hilum and upper left pericardium. No pericardial effusion. Numerous bulky lymph nodes compatible with annie metastases involving the prevascular mediastinum. The largest prevascular lymph node measures approximately 3.6 x 2.7 cm. The left upper lobe mass abuts both prevascular and left hilar lymph nodes and accurate measurement of the individual nodes at these locales is difficult. Right paratracheal enlarged lymph node measuring 3.1 x 2.9 cm. Chronic lung disease with bilateral centrilobular emphysema together with paramediastinal distal lobular emphysema. No focal infiltrates or lesions within the right lung. No pleural effusion. Bony lesion with pathologic comminuted fracture of the medial right clavicle. Small sclerotic lesion within the T3 vertebral body posteriorly on the right. CT/Chest W/WO Contrast IMPRESSION: 1. Left perihilar and left upper lobe large irregular tumor in the 10 cm diameter range with secondary soft tissue invasion of the left hilum and upper left mediastinum. 2. Multiple bulky mediastinal and left hilar lymph nodes compatible with annie metastases. 3. Chronic lung disease with centrilobular and distal lobular emphysema. 4. Metastatic bone disease including pathologic fracture of the medial right clavicle. Individualized dose optimization techniques were used for this CT. at 0650 Reported and signed by: Jerry Ruiz MD Electronically Signed: Jerry Ruiz, at 6:49 EDT Tel , Service support ,
--- NOTE | 2018-07-26 23:40 | CT_ITS ---
HISTORY: SUSPECTED METASTATIC CANCER EXAMINATION: CT Abdomen WO/W Contrast TECHNIQUE: Helically acquired images were obtained of the abdomen both before and after IV contrast. A radiation dose optimization technique was used for this scan. IV Contrast dosage and agent: 100 Isovue 300 Oral contrast: None. COMPARISON: None FINDINGS: Lower thorax: No pleural effusion. Generalized hepatosplenomegaly. The posterior segment of the right hepatic lobe, medial aspect, shows a solitary oval hypodense lesion measuring 1.5 x 1.2 cm in keeping with a small cyst or other benign process. The gallbladder is contracted. No biliary dilatation. No focal splenic lesion. Normal pancreas. Ptosis of the right kidney which is likely secondary to hepatomegaly. Bilateral renal excretion of contrast without evidence of hydronephrosis, pyelonephritis, or suspicious renal lesion. Adrenal glands are not enlarged. Abdominal aorta is atherosclerotic and is normal in caliber. Patent IVC. No ascites or retroperitoneal lymph node enlargement. GI tract: No obstruction. Pelvic CT scanning not performed. Bones: Osteolytic lesion of the posterior left ilium compatible with a metastasis. This lesion is incompletely visualized and measures over 5 cm. Additional incompletely visualized osteolytic lesion of the posterior right ilium. L4-5 degenerative disc disease and spondylosis. Chronic appearing Schmorl's node of the L3 inferior endplate. CT/Abdomen W/WO IV Contrast IMPRESSION: 1. No free fluid or acute abdominal disease identified. Pelvic CT scanning not performed. 2. Hepatosplenomegaly. Small, solitary right hepatic lobe lesion, probably benign. 3. No abdominal lymphadenopathy. 4. Bilateral iliac osteolytic lesions, incompletely visualized and larger on the left, compatible with metastases. Individualized dose optimization techniques were used for this CT. at 0732 Reported and signed by: Jerry Ruiz MD Electronically Signed: Jerry Ruiz, at 7:31 EDT Tel , Service support ,
[2018-07-27] VITALS (8 sets, daily range): BP systolic 122–151; BP diastolic 64–91; PULSE 81–89; RESP 18; TEMP 36.6–37.1; O2SAT 91–98
[2018-07-27] MEDS: Morphine 2 MG/ML Syringe IV ×2 (01:36→09:54)
--- NOTE | 2018-07-27 07:44 | CPS ---
pt has own BIPAP for HS & prn use.
[2018-07-27] MEDS: Nystatin Powder 15gm Bottle 1 APPLIC TOPICAL ×2 (09:42→22:20)
[2018-07-27] MEDS: Enoxaparin 40 MG/0.4 ML Syringe SC (09:43)
[2018-07-27] MEDS: Senna/Docusate Sodium 1 Tablet 2 TABLET PO ×2 (09:43→22:21)
[2018-07-27] MEDS: Fluticasone 0.05% 1 SPRAY NASAL.SRY 2 SPRAY NASAL ×2 (09:46→22:19)
[2018-07-27] MEDS: Celecoxib 200 MG Capsule PO (09:47)
[2018-07-27] MEDS: 0.9% NaCl Peripheral Flush Adult/Peds IV (09:55)
--- NOTE | 2018-07-27 10:58 | PCM.PN.HOSP ---
Patient Problems: Active and Suspected Problems Metastasis (Acute) Subjective: Still having significant bone pain, and states that the narcotics are not touching his pain. Otherwise he says that he is breathing at his baseline Vitals/I&O's: Vital Signs Temp Pulse Resp BP Pulse Ox 98.3 F 87 18 122/64 H 98 07/27/18 08:00 07/27/18 08:00 07/27/18 10:00 07/27/18 08:00 07/27/18 08:00 Oxygen Delivery Method Bi-pap Weight: 371 lb Body Mass Index (BMI) 51.7 Intake and Output for Last 24 Hours 07/25/18 07/26/18 07/27/18 23:59 23:59 23:59 Intake Total 400 / 400 Output Total 1300 / 1300 Balance -900 / -900 General: Alert, Oriented x3, Cooperative, No apparent distress HEENT: Atraumatic, PERRLA, EOMI, Normocephalic Oral: Dry Mucosa Neck: Supple, No JVD Lungs: Normal air movement, Wheezes - Mild Cardiovascular: Regular rate, Regular Rhythm, Normal S1, Normal S2, No murmurs Abdomen: Soft, Non Tender, Non-Distended, No Hepato-splenomegaly Extremities: No edema, Capillary Refill Less than 3 Seconds Skin: No rashes, No breakdown Musculoskeletal: Tenderness - Most of the pain is in his right hip Neurological: Neuro grossly intact, Sensory exam intact to light touch and pain Psych/Mental Status: Normal Affect, Appropriate Laboratory Results 07/26/18 18:30: WBC 10.6, RBC 4.99, Hgb 15.0, Hct 43.9, MCV 88.0, MCH 30.1, MCHC 34.2, RDW 15.4 H, RDW Differential 49.6 H, Plt Count 250, MPV 10.9, Immature Gran % (Auto) 0.500, Neut % (Auto) 77.8 H, Lymph % (Auto) 10.7 L, [place] % (Auto) 8.8, Eos % (Auto) 2.0, Baso % (Auto) 0.2, Absolute Neuts (auto) 8.3 H, Absolute Lymphs (auto) 1.13, Total Counted Not Reportable 07/26/18 18:30: Sodium Cancelled, Potassium Cancelled, Chloride Cancelled, Carbon Dioxide Cancelled, Anion Gap Cancelled, BUN Cancelled, Creatinine Cancelled, Estim Creat Clear Calc Cancelled, Est GFR (MDRD) Af Amer Cancelled, Est GFR (MDRD) Non-Af Cancelled, BUN/Creatinine Ratio Cancelled, Glucose Cancelled, Calcium Cancelled 07/26/18 19:10: Sodium 135 L, Potassium 4.1, Chloride 102, Carbon Dioxide 28.0, Anion Gap 5, BUN 10, Creatinine 0.72, Estim Creat Clear Calc 127.82, Est GFR (MDRD) Af Amer 146, Est GFR (MDRD) Non-Af 121, BUN/Creatinine Ratio 13.8, Glucose 102, Calcium 9.3 Current Medications Hydrocodone Bitart/Acetaminophen ([place] 5mg-325mg) 1 tablet PO Q4H PRN PRN PRN Reason: MODERATE PAIN (4-5/10) Albuterol Sulfate (Ventolin Aerosols) 2.5 mg INHALATION Q2H PRN PRN PRN Reason: sob or wheezes Celecoxib (Celebrex) 200 mg PO DAILY [facility] Last Admin: 07/27/18 09:47 Dose: 200 mg Cyclobenzaprine HCl (Flexeril) 10 mg PO TID PRN PRN PRN Reason: MUSCLE SPASM [facility] Dextrose (D50w Syringe) 0 gm IV X1 PRN; Protocol PRN Reason: Hypoglycemia Enoxaparin Sodium (Lovenox) 40 mg SC DAILY@1000 [facility] Last Admin: 07/27/18 09:43 Dose: 40 mg Fluticasone Propionate (Flonase Nasal [place]) 2 spray NASAL BID [facility] Last Admin: 07/27/18 09:46 Dose: 2 spray Glucagon () 1 mg IM .X1 PRN PRN Reason: Hypoglycemia Morphine Sulfate () 4 mg IV Q3H PRN PRN PRN Reason: Severe pain (7-10/10) Naproxen (Naprosyn) 500 mg PO Q8H PRN PRN PRN Reason: MILD PAIN (1-3/10) Nicotine (Nicoderm Cq (Pbkc)) 21 mg TRANSDERM. DAILY [facility] Last Admin: 07/27/18 09:42 Dose: 21 mg Nortriptyline HCl (Pamelor) 50 mg PO QHS [facility] Nystatin (Mycostatin Powder) 1 applic TOPICAL BID [facility]; Protocol Last Admin: 07/27/18 09:42 Dose: 1 applicatio Ondansetron HCl (Zofran) 4 mg IV Q8H PRN PRN PRN Reason: NAUSEA/VOMITING Senna/Docusate Sodium (Senokot-S, Libby-Colace) 2 tablet PO BID [facility]IE Last Admin: 07/27/18 09:43 Dose: 2 tablet Sodium Chloride () 5 - 15 ml IV UD PRN PRN Reason: SALINE FLUSH Last Admin: 07/27/18 09:55 Dose: 10 ml Medical Necessity - Tobacco Use Smoking Status: Current every day smoker Tobacco Use: Cigarettes Assessment/Plan All Active Problems Metastasis (Acute) 1. Likely metastatic cancer to the bone primary appears to be in the lung/COPD/JACK/tobacco abuse -CT of the chest shows a large 10 cm mass encapsulating the main left bronchus -CT of the abdomen consistent with bone mets -He is on Celebrex at home, will increase his morphine from 2 mg to 4 mg and continue his Vicodin as well -Could run 4 mg twice daily dosing to help control any bone pain if possible -Will discuss the case with pulmonology to see if they would be able to do a bronchial biopsy of this lung mass given its more central location and his body habitus would likely be a difficult procedure for radiology -We will continue with his home aerosols as well as his BiPAP for his JACK. -Discussed the necessity of smoking cessation and will provide a nicotine patch while in the hospital -Pending consultation from oncology 2. Morbid obesity -Discussed lifestyle modification since his BMI is 51 DVT: Lovenox Code Visit Inpatient E&M: 21109 Subs Hosp L2
--- NOTE | 2018-07-27 11:03 | PN_ITS ---
Patient Problems: Active and Suspected Problems Metastasis (Acute) Subjective: Still having significant bone pain, and states that the narcotics are not touching his pain. Otherwise he says that he is breathing at his baseline Vitals/I&O's: Vital Signs Temp Pulse Resp BP Pulse Ox 98.3 F 87 18 122/64 H 98 07/27/18 08:00 07/27/18 08:00 07/27/18 10:00 07/27/18 08:00 07/27/18 08:00 Oxygen Delivery Method Bi-pap Weight: 371 lb Body Mass Index (BMI) 51.7 Intake and Output for Last 24 Hours 07/25/18 07/26/18 07/27/18 23:59 23:59 23:59 Intake Total 400 / 400 Output Total 1300 / 1300 Balance -900 / -900 General: Alert, Oriented x3, Cooperative, No apparent distress HEENT: Atraumatic, PERRLA, EOMI, Normocephalic Oral: Dry Mucosa Neck: Supple, No JVD Lungs: Normal air movement, Wheezes - Mild Cardiovascular: Regular rate, Regular Rhythm, Normal S1, Normal S2, No murmurs Abdomen: Soft, Non Tender, Non-Distended, No Hepato-splenomegaly Extremities: No edema, Capillary Refill Less than 3 Seconds Skin: No rashes, No breakdown Musculoskeletal: Tenderness - Most of the pain is in his right hip Neurological: Neuro grossly intact, Sensory exam intact to light touch and pain Psych/Mental Status: Normal Affect, Appropriate Laboratory Results 07/26/18 18:30: WBC 10.6, RBC 4.99, Hgb 15.0, Hct 43.9, MCV 88.0, MCH 30.1, MCHC 34.2, RDW 15.4 H, RDW Differential 49.6 H, Plt Count 250, MPV 10.9, Immature Gran % (Auto) 0.500, Neut % (Auto) 77.8 H, Lymph % (Auto) 10.7 L, [place] % (Auto) 8.8, Eos % (Auto) 2.0, Baso % (Auto) 0.2, Absolute Neuts (auto) 8.3 H, Absolute Lymphs (auto) 1.13, Total Counted Not Reportable 07/26/18 18:30: Sodium Cancelled, Potassium Cancelled, Chloride Cancelled, Carbon Dioxide Cancelled, Anion Gap Cancelled, BUN Cancelled, Creatinine Cancelled, Estim Creat Clear Calc Cancelled, Est GFR (MDRD) Af Amer Cancelled, Est GFR (MDRD) Non-Af Cancelled, BUN/Creatinine Ratio Cancelled, Glucose Cancelled, Calcium Cancelled 07/26/18 19:10: Sodium 135 L, Potassium 4.1, Chloride 102, Carbon Dioxide 28.0, Anion Gap 5, BUN 10, Creatinine 0.72, Estim Creat Clear Calc 127.82, Est GFR (MDRD) Af Amer 146, Est GFR (MDRD) Non-Af 121, BUN/Creatinine Ratio 13.8, Glucose 102, Calcium 9.3 Current Medications Hydrocodone Bitart/Acetaminophen ([place] 5mg-325mg) 1 tablet PO Q4H PRN PRN PRN Reason: MODERATE PAIN (4-5/10) Albuterol Sulfate (Ventolin Aerosols) 2.5 mg INHALATION Q2H PRN PRN PRN Reason: sob or wheezes Celecoxib (Celebrex) 200 mg PO DAILY [facility] Last Admin: 07/27/18 09:47 Dose: 200 mg Cyclobenzaprine HCl (Flexeril) 10 mg PO TID PRN PRN PRN Reason: MUSCLE SPASM [facility] Dextrose (D50w Syringe) 0 gm IV X1 PRN; Protocol PRN Reason: Hypoglycemia Enoxaparin Sodium (Lovenox) 40 mg SC DAILY@1000 [facility] Last Admin: 07/27/18 09:43 Dose: 40 mg Fluticasone Propionate (Flonase Nasal [place]) 2 spray NASAL BID [facility] Last Admin: 07/27/18 09:46 Dose: 2 spray Glucagon () 1 mg IM .X1 PRN PRN Reason: Hypoglycemia Morphine Sulfate () 4 mg IV Q3H PRN PRN PRN Reason: Severe pain (7-10/10) Naproxen (Naprosyn) 500 mg PO Q8H PRN PRN PRN Reason: MILD PAIN (1-3/10) Nicotine (Nicoderm Cq (Pbkc)) 21 mg TRANSDERM. DAILY [facility] Last Admin: 07/27/18 09:42 Dose: 21 mg Nortriptyline HCl (Pamelor) 50 mg PO QHS [facility] Nystatin (Mycostatin Powder) 1 applic TOPICAL BID [facility]; Protocol Last Admin: 07/27/18 09:42 Dose: 1 applicatio Ondansetron HCl (Zofran) 4 mg IV Q8H PRN PRN PRN Reason: NAUSEA/VOMITING Senna/Docusate Sodium (Senokot-S, [place]-Colace) 2 tablet PO BID [facility] Last Admin: 07/27/18 09:43 Dose: 2 tablet Sodium Chloride () 5 - 15 ml IV UD PRN PRN Reason: SALINE FLUSH Last Admin: 07/27/18 09:55 Dose: 10 ml Medical Necessity - Tobacco Use Smoking Status: Current every day smoker Tobacco Use: Cigarettes Assessment/Plan All Active Problems Metastasis (Acute) 1. Likely metastatic cancer to the bone primary appears to be in the lung/COPD/JACK/tobacco abuse -CT of the chest shows a large 10 cm mass encapsulating the main left bronchus -CT of the abdomen consistent with bone mets -He is on Celebrex at home, will increase his morphine from 2 mg to 4 mg and continue his Vicodin as well -Could run 4 mg twice daily dosing to help control any bone pain if possible -Will discuss the case with pulmonology to see if they would be able to do a bronchial biopsy of this lung mass given its more central location and his body habitus would likely be a difficult procedure for radiology -We will continue with his home aerosols as well as his BiPAP for his JACK. -Discussed the necessity of smoking cessation and will provide a nicotine patch while in the hospital -Pending consultation from oncology 2. Morbid obesity -Discussed lifestyle modification since his BMI is 51 DVT: Lovenox Code Visit Inpatient E&M: 75055 Subs Hosp L2
[2018-07-27] MEDS: dexAMETHasone 4 MG Tablet PO ×2 (11:36→16:44)
--- NOTE | 2018-07-27 13:45 | CASEMGMT ---
RN ESPERANZA Face to Face with patient for initial transition planning/care coordination assessment. RN CM introduced self and role at [facility]. Patient lying in bed, alert and oriented. Patient willing to participate in assessment and is able to answer all questions appropriately. Care providers, pharmacy, and demographics verified. Patient wishes to discharge home but is willing to go to SNF if necessary at discharge. Patient states he has no further needs or concerns at this time. CM to follow for discharge planning needs that may arise. PCP: Mark Anthony Marcelo Specialists: None Preferred Pharmacy: [facility] Insurance: [employer] Prescription Benefit: yes Living Will/HPOA: none LNOK: daughters Living Arrangements: Patient states he is currently living with daughter in her garage. Patient states that daughter is losing her house and not sure what will happen. Transportation: Friends or uses his motorized scooter DME/HHC: Patient has bipap and motorized scooter Patient would like to talk to DIANA regarding resources for housing. DIANA Man updated regarding request for resources. Disposition Plan: TBD by course of treatment. Jayla ZALDIVAR, RN, CM
--- NOTE | 2018-07-27 14:34 | ONC.CONS.INP ---
Consult Referring Physician: Dr.N. Rodgers Consult Results: Disseminated Malignancy Subjective Date of Service:: 07/27/18 Chief Complaint: right hip pain History of Present Illness: 53-year-old man presented to the ER with progressive low back pain over 1 to 2 months duration. He had a bone scan as outpatient on 07/21/2018 which showed increase activity in the distal left clavicle right proximal clavicle right occipital skull multiple ribs right mid to distal femoral bone left femoral bone bilateral sacral iliac joints likely representing metastatic disease. He was scheduled for biopsy as outpatient but Pain in the lower back became unbearable so came to the ER. He had a CT scan of the chest abdomen and pelvis yesterday 07/26/2018 which showed a 10 cm left perihilar and left upper lobe mass, bulky mediastinal and left hilar adenopathy, metastatic bone disease involving right clavicle, hepatosplenomegaly, small right hepatic lesion, bilateral iliac lytic lesions. Asked to see patient for further management. Past Medical History: Chronic Problems History of anxiety (Chronic) Tobacco user (Chronic) Obstructive sleep apnea syndrome (Chronic) Chronic obstructive lung disease (Chronic) Morbid obesity (Chronic) Hyperlipidemia (Chronic) Depression (Chronic) Benign essential hypertension (Chronic) Past Medical/Surgical History: Past Medical History - Most Recent Inpatient Visit Past Medical History Start: 07/26/18 23:14 Text: Status: Complete Freq: ONCE Protocol: Document 07/26/18 23:14 [facility] (Rec: 07/26/18 23:38 [facility] [id number]) BMI Required to complete PMH What is Patient's BMI 51.7 Past Medical History Unable History Recalled No Query Text:Pt Unable/Family Not Present Neurologic Medical History Hx Stroke/TIA No Hx Dementia/Alzheimer's No Hx Parkinson's Disease No Hx Seizures No Hx Multiple Sclerosis No Hx Migraines No Cardiac Medical History VTE Present on Admission No Hx of Deep Vein Thrombosis/VTE/PE No Hx Hypertension Yes Hx Chest Pain/Angina No Hx Heart Attack No Hx Cardiac Surgery/Stents/Etc. No Hx Heart Failure No Hx Pacemaker/AICD No Hx Irregular Heartbeat and/or Afib No Hx Anticoagulant Therapy Yes Query Text:(Coumadin, Aspirin, Plavix, Xarelto, etc.) Hx Pain in Legs when Walking/Leg Cramps Yes Respiratory Medical History Hx COPD Yes Hx Emphysema No Hx Smoking Yes Smoking Status Current every day smoker Tobacco Use Cigarettes Packs Smoked per Day 2 Hx Tobacco Use in last 12 months Yes Sent to [facility] Yes Hx of Pipe Smoking No Hx Sleep Apnea Yes: bipap CPAP No BIPAP Yes STOP Results Positive GI Medical History Hx Ulcer No Hx Hepatitis No Hx Cirrhosis No Hx GI Bleed No Hx Unplanned Weight Loss No Genitourinary Medical History Indwelling Catheter in Place on Arrival/ No Admission Hx Renal Disease No Hx Dialysis No Musculoskeletal History Hx Arthritis No Hx Rheumatoid Arthritis No Endocrine Medical History Hx Diabetes Yes: borderline Hx Thyroid Disease No Hematologic Medical History Hx of Blood Transfusion No Hx of Transfusion in last 3 Months No Ever experience any problems with No transfusion(s)? Hx of Preganancy in last 3 Months N/A Nurse Filling Out Transfusion & JGATCHALI Questions: Date: 07/26/18 Time: 23:37 Psycho/Social Medical History Hx Depression Yes Hx Anxiety Yes Hx Behavior Disorder No Hx Alcohol Use No Hx Substance Use Yes: WEED Other Medical History Hx Blood Disorders No Hx Anemia No Hx Cancer No Hx Drug Resistant Organism No Wound/Pressure Injury Present on Arrival No /Admission Query Text:If yes, chart assessment in Shift/Clinical Findings Central Line/PICC/VAD Present on Arrival No /Admission Antibiotics within last 7 days? No Methicillin Resistant Staphylococcus aureus Screening Active MRSA No Risk for Readmission Number of Risk Factors 6 At Risk for Readmission Patient is At Risk For Readmission Patient is eligible for Call Back Y Maternal Family History: - - Leukemia Paternal Family History: Cancer - lung, - - Social History Lives: With Family Smoking Status: Current every day smoker Tobacco Use: Cigarettes Allergies/Adverse Reactions: Allergy/AdvReac Type Severity Reaction Status Date / Time METAL Allergy Unknown Uncoded 07/26/18 17:22 Review of Systems Constitutional:: Denies: Fever, Sweats, Weight loss, Appetite change, Chills Cardiovascular:: Denies: Chest pain, Palpitations, Dyspnea on exertion, Orthopnea, PND, Shortness of breath Respiratory: Reports: - - uses CPAP,. Denies: Cough, Hemoptysis, Shortness of Breath, Wheezing Gastrointestinal:: Denies: Abdominal pain, Nausea, Vomiting, Diarrhea, Constipation, Hematochezia Genitourinary: Denies: Dysuria, Hematuria, 15, Flank pain Musculoskeletal:: Reports: - - Uses walker at home.. Denies: Back pain, Myalgia, Arthralgia Skin: Denies: Rash, Skin Changes, Wounds Neurological:: Denies: Headache, Dizziness, Visual changes, Tinnitus, Hearing loss Psychiatric: Denies: Anxiety, Depression, Homicidal Ideations, Suicidal Ideations Vital Signs Height 5 ft 11 in Weight: 168.283 kg Weight in Pounds 371.0 lbs Pulse Ox 98 Temperature 98.3 F Pulse Rate 87 Respiratory Rate 18 Blood Pressure 122/64 Blood Pressure Position Semi-Fowlers - Physical Exam General: Alert, Oriented x3, Cooperative, - - Obese HEENT: Atraumatic, PERRLA, EOMI, Normocephalic Oropharynx:: Poor dentition Neck:: Supple, Trachea midline. Negative for: JVD, bilateral Cardiac:: Regular rate, Regular rhythm, Normal S1, Normal S2. Negative for: Murmur Lungs: Clear to auscultation, Excusion symmetrical. Negative for: Rhonchi, Wheezes Abdomen:: Bowel sounds x 4, Soft, Non-tender, Non-distended. Negative for: Hepatosplenomegaly Neurological: Neuro grossly intact Lymphatics:: Negative for: Cervical lymphadenopathy, Supraclavicular lymphadenopathy, Axillary lymphadenopathy Laboratory Data: Laboratory Tests 07/26/18 07/26/18 07/26/18 Range/Units 19:10 18:30 18:30 WBC 10.6 (4.4-11.0) K/mm3 RBC 4.99 (4.6-6.2) M/mm3 Hgb 15.0 (13.0-16.5) g/dl Hct 43.9 (40-54) % MCV 88.0 (80-94) fL MCH 30.1 (27.0-32.0) pg MCHC 34.2 (32-36) g/gl RDW 15.4 H (11.6-14.6) % RDW Differential 49.6 H (35.1-43.9) fl Plt Count 250 (150-450) K/mm3 MPV 10.9 (6.2-12.0) fl Immature Gran % (Auto) 0.500 (0.0-0.9) % Neut % (Auto) 77.8 H (47-70) % Lymph % (Auto) 10.7 L (19-41) % Lee % (Auto) 8.8 (0-10) % Eos % (Auto) 2.0 (0-5) % Baso % (Auto) 0.2 (0-1) % Absolute Neuts (auto) 8.3 H (2.0-7.7) X10^3/uL Absolute Lymphs (auto) 1.13 (0.83-4.51) X10^3/ul Total Counted Not Reportable Sodium 135 L Cancelled Potassium 4.1 Cancelled Chloride 102 Cancelled Carbon Dioxide 28.0 Cancelled Anion Gap 5 Cancelled BUN 10 Cancelled Creatinine 0.72 Cancelled Estim Creat Clear Calc 127.82 Cancelled Est GFR (MDRD) Af Amer 146 Cancelled Est GFR (MDRD) Non-Af 121 Cancelled BUN/Creatinine Ratio 13.8 Cancelled Glucose 102 Cancelled Calcium 9.3 Cancelled Diagnostic Data: Diagnostic Data Hip/Pelvis X-Ray 07/26/18 18:47 IMPRESSION: No fracture or dislocation in the pelvis or right hip. Stable moderate degenerative changes. Electronically Signed: Hadley Saunders, at 19:02 EDT Tel , Service support , Abdomen CT 07/26/18 23:40 IMPRESSION: 1. No free fluid or acute abdominal disease identified. Pelvic CT scanning not performed. 2. Hepatosplenomegaly. Small, solitary right hepatic lobe lesion, probably benign. 3. No abdominal lymphadenopathy. 4. Bilateral iliac osteolytic lesions, incompletely visualized and larger on the left, compatible with metastases. Individualized dose optimization techniques were used for this CT. at 0732 Reported and signed by: Jerry Ruiz MD Electronically Signed: Jerry Ruiz, at 7:31 EDT Tel , Service support , Chest CT 07/26/18 23:40 IMPRESSION: 1. Left perihilar and left upper lobe large irregular tumor in the 10 cm diameter range with secondary soft tissue invasion of the left hilum and upper left mediastinum. 2. Multiple bulky mediastinal and left hilar lymph nodes compatible with annie metastases. 3. Chronic lung disease with centrilobular and distal lobular emphysema. 4. Metastatic bone disease including pathologic fracture of the medial right clavicle. Individualized dose optimization techniques were used for this CT. 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 Right Femur metastasis-needs Orthopedic evaluation. Pain in sacral area due to metastatic disease. FOB + biopsy is pending. Suggestions: 1. Obtain Orthopedic consult for evaluation of Femur lesion. 2. Obtain Radiation Oncology consult for bony pain. 3. Proceed with Biopsy. 4. Will follow with further management suggestions based on Biopsy result. Thank you. Medications: Prescriptions This Visit Medication Instructions Recorded Hydrocodone/Acetaminophen 5 - 325 mg PO Q4H PRN PRN 07/26/18 [Hydrocodone-Acetamin 5-325 mg] Naproxen [Naprosyn] 500 mg PO BID PRN PRN 07/26/18 Albuterol Sulfate [Albuterol 2 puff Q4H PRN PRN 07/27/18 Sulfate Hfa] Celecoxib 200 mg PO DAILY 07/27/18 Fluticasone Propionate 2 spray NASAL BID 07/27/18 Nortriptyline HCl 50 mg PO QHS 07/27/18 Medications Added to Medication List This Visit Category Date Time Status Celecoxib [Celebrex] Med 07/27/18 10:00 Active 200 mg PO DAILY Dexamethasone [Decadron] Med 07/27/18 10:56 Active 4 mg PO BIDCM Enoxaparin [Lovenox] Med 07/27/18 10:00 Active 40 mg SC DAILY@1000 Fluticasone 0.05% [Flonase Nasal [place]] Med 07/27/18 10:00 Active 2 spray NASAL BID Nortriptyline HCl [Pamelor] Med 07/27/18 22:00 Active 50 mg PO QHS Nystatin Powder [Mycostatin Powder] Med 07/27/18 10:00 Active 1 applic TOPICAL BID Senna/Docusate Sodium [Senokot-S, Libby-Colace] Med 07/27/18 10:00 Active 2 tablet PO BID morphine Inj Med 07/27/18 10:56 Active 4 mg IV Q3H PRN PRN Primary Care Provider: Mark Anthony Marcelo MD Referring Provider: Gilson Lopez MD - Problem List (1) Disseminated cancer Status: Acute Code Visit Office Visits / Consults: [id number] IP Consult L5
--- NOTE | 2018-07-27 14:39 | CON.PCM_ITS ---
Consult Referring Physician: Dr.N. Rodgers Consult Results: Disseminated Malignancy Subjective Date of Service:: 07/27/18 Chief Complaint: right hip pain History of Present Illness: 53-year-old man presented to the ER with progressive low back pain over 1 to 2 months duration. He had a bone scan as outpatient on 07/21/2018 which showed increase activity in the distal left clavicle right proximal clavicle right occipital skull multiple ribs right mid to distal femoral bone left femoral bone bilateral sacral iliac joints likely representing metastatic disease. He was scheduled for biopsy as outpatient but Pain in the lower back became unbearable so came to the ER. He had a CT scan of the chest abdomen and pelvis yesterday 07/26/2018 which showed a 10 cm left perihilar and left upper lobe mass, bulky mediastinal and left hilar adenopathy, metastatic bone disease involving right clavicle, hepatosplenomegaly, small right hepatic lesion, bilateral iliac lytic lesions. Asked to see patient for further management. Past Medical History: Chronic Problems History of anxiety (Chronic) Tobacco user (Chronic) Obstructive sleep apnea syndrome (Chronic) Chronic obstructive lung disease (Chronic) Morbid obesity (Chronic) Hyperlipidemia (Chronic) Depression (Chronic) Benign essential hypertension (Chronic) Past Medical/Surgical History: Past Medical History - Most Recent Inpatient Visit Past Medical History Start: 07/26/18 23:14 Text: Status: Complete Freq: ONCE Protocol: Document 07/26/18 23:14 [facility] (Rec: 07/26/18 23:38 [facility] [id number]) BMI Required to complete PMH What is Patient's BMI 51.7 Past Medical History Unable History Recalled No Query Text:Pt Unable/Family Not Present Neurologic Medical History Hx Stroke/TIA No Hx Dementia/Alzheimer's No Hx Parkinson's Disease No Hx Seizures No Hx Multiple Sclerosis No Hx Migraines No Cardiac Medical History VTE Present on Admission No Hx of Deep Vein Thrombosis/VTE/PE No Hx Hypertension Yes Hx Chest Pain/Angina No Hx Heart Attack No Hx Cardiac Surgery/Stents/Etc. No Hx Heart Failure No Hx Pacemaker/AICD No Hx Irregular Heartbeat and/or Afib No Hx Anticoagulant Therapy Yes Query Text:(Coumadin, Aspirin, Plavix, Xarelto, etc.) Hx Pain in Legs when Walking/Leg Cramps Yes Respiratory Medical History Hx COPD Yes Hx Emphysema No Hx Smoking Yes Smoking Status Current every day smoker Tobacco Use Cigarettes Packs Smoked per Day 2 Hx Tobacco Use in last 12 months Yes Sent to [facility] Yes Hx of Pipe Smoking No Hx Sleep Apnea Yes: bipap CPAP No BIPAP Yes STOP Results Positive GI Medical History Hx Ulcer No Hx Hepatitis No Hx Cirrhosis No Hx GI Bleed No Hx Unplanned Weight Loss No Genitourinary Medical History Indwelling Catheter in Place on Arrival/ No Admission Hx Renal Disease No Hx Dialysis No Musculoskeletal History Hx Arthritis No Hx Rheumatoid Arthritis No Endocrine Medical History Hx Diabetes Yes: borderline Hx Thyroid Disease No Hematologic Medical History Hx of Blood Transfusion No Hx of Transfusion in last 3 Months No Ever experience any problems with No transfusion(s)? Hx of Preganancy in last 3 Months N/A Nurse Filling Out Transfusion & JGATCHALI Questions: Date: 07/26/18 Time: 23:37 Psycho/Social Medical History Hx Depression Yes Hx Anxiety Yes Hx Behavior Disorder No Hx Alcohol Use No Hx Substance Use Yes: WEED Other Medical History Hx Blood Disorders No Hx Anemia No Hx Cancer No Hx Drug Resistant Organism No Wound/Pressure Injury Present on Arrival No /Admission Query Text:If yes, chart assessment in Shift/Clinical Findings Central Line/PICC/VAD Present on Arrival No /Admission Antibiotics within last 7 days? No Methicillin Resistant Staphylococcus aureus Screening Active MRSA No Risk for Readmission Number of Risk Factors 6 At Risk for Readmission Patient is At Risk For Readmission Patient is eligible for Call Back Y Maternal Family History: - - Leukemia Paternal Family History: Cancer - lung, - - Social History Lives: With Family Smoking Status: Current every day smoker Tobacco Use: Cigarettes Allergies/Adverse Reactions: Allergy/AdvReac Type Severity Reaction Status Date / Time METAL Allergy Unknown Uncoded 07/26/18 17:22 Review of Systems Constitutional:: Denies: Fever, Sweats, Weight loss, Appetite change, Chills Cardiovascular:: Denies: Chest pain, Palpitations, Dyspnea on exertion, Orthopnea, PND, Shortness of breath Respiratory: Reports: - - uses CPAP,. Denies: Cough, Hemoptysis, Shortness of Breath, Wheezing Gastrointestinal:: Denies: Abdominal pain, Nausea, Vomiting, Diarrhea, Const ipation, Hematochezia Genitourinary: Denies: Dysuria, Hematuria, 15, Flank pain Musculoskeletal:: Reports: - - Uses walker at home.. Denies: Back pain, Myalgia, Arthralgia Skin: Denies: Rash, Skin Changes, Wounds Neurological:: Denies: Headache, Dizziness, Visual changes, Tinnitus, Hearing loss Psychiatric: Denies: Anxiety, Depression, Homicidal Ideations, Suicidal Ideations Vital Signs Height 5 ft 11 in Weight: 168.283 kg Weight in Pounds 371.0 lbs Pulse Ox 98 Temperature 98.3 F Pulse Rate 87 Respiratory Rate 18 Blood Pressure 122/64 Blood Pressure Position Semi-Fowlers - Physical Exam General: Alert, Oriented x3, Cooperative, - - Obese HEENT: Atraumatic, PERRLA, EOMI, Normocephalic Oropharynx:: Poor dentition Neck:: Supple, Trachea midline. Negative for: JVD, bilateral Cardiac:: Regular rate, Regular rhythm, Normal S1, Normal S2. Negative for: Murmur Lungs: Clear to auscultation, Excusion symmetrical. Negative for: Rhonchi, Wheezes Abdomen:: Bowel sounds x 4, Soft, Non-tender, Non-distended. Negative for: Hepatosplenomegaly Neurological: Neuro grossly intact Lymphatics:: Negative for: Cervical lymphadenopathy, Supraclavicular lymphadenopathy, Axillary lymphadenopathy Laboratory Data: Laboratory Tests 07/26/18 07/26/18 07/26/18 Range/Units 19:10 18:30 18:30 WBC 10.6 (4.4-11.0) K/mm3 RBC 4.99 (4.6-6.2) M/mm3 Hgb 15.0 (13.0-16.5) g/dl Hct 43.9 (40-54) % MCV 88.0 (80-94) fL MCH 30.1 (27.0-32.0) pg MCHC 34.2 (32-36) g/gl RDW 15.4 H (11.6-14.6) % RDW Differential 49.6 H (35.1-43.9) fl Plt Count 250 (150-450) K/mm3 MPV 10.9 (6.2-12.0) fl Immature Gran % (Auto) 0.500 (0.0-0.9) % Neut % (Auto) 77.8 H (47-70) % Lymph % (Auto) 10.7 L (19-41) % [place] % (Auto) 8.8 (0-10) % Eos % (Auto) 2.0 (0-5) % Baso % (Auto) 0.2 (0-1) % Absolute Neuts (auto) 8.3 H (2.0-7.7) X10^3/uL Absolute Lymphs (auto) 1.13 (0.83-4.51) X10^3/ul Total Counted Not Reportable Sodium 135 L Cancelled Potassium 4.1 Cancelled Chloride 102 Cancelled Carbon Dioxide 28.0 Cancelled Anion Gap 5 Cancelled BUN 10 Cancelled Creatinine 0.72 Cancelled Estim Creat Clear Calc 127.82 Cancelled Est GFR (MDRD) Af Amer 146 Cancelled Est GFR (MDRD) Non-Af 121 Cancelled BUN/Creatinine Ratio 13.8 Cancelled Glucose 102 Cancelled Calcium 9.3 Cancelled Diagnostic Data: Diagnostic Data Hip/Pelvis X-Ray 07/26/18 18:47 IMPRESSION: No fracture or dislocation in the pelvis or right hip. Stable moderate degenerative changes. Electronically Signed: Hadley Saunders, at 19:02 EDT Tel , Service support , Abdomen CT 07/26/18 23:40 IMPRESSION: 1. No free fluid or acute abdominal disease identified. Pelvic CT scanning not performed. 2. Hepatosplenomegaly. Small, solitary right hepatic lobe lesion, probably benign. 3. No abdominal lymphadenopathy. 4. Bilateral iliac osteolytic lesions, incompletely visualized and larger on the left, compatible with metastases. Individualized dose optimization techniques were used for this CT. at 0732 Reported and signed by: Jerry Ruiz MD Electronically Signed: Jerry Ruiz, at 7:31 EDT Tel , Service support , Chest CT 07/26/18 23:40 IMPRESSION: 1. Left perihilar and left upper lobe large irregular tumor in the 10 cm diameter range with secondary soft tissue invasion of the left hilum and upper left mediastinum. 2. Multiple bulky mediastinal and left hilar lymph nodes compatible with annie metastases. 3. Chronic lung disease with centrilobular and distal lobular emphysema. 4. Metastatic bone disease including pathologic fracture of the medial right clavicle. Individualized dose optimization techniques were used for this CT. 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 Right Femur metastasis-needs Orthopedic evaluation. Pain in sacral area due to metastatic disease. FOB + biopsy is pending. Suggestions: 1. Obtain Orthopedic consult for evaluation of Femur lesion. 2. Obtain Radiation Oncology consult for bony pain. 3. Proceed with Biopsy. 4. Will follow with further management suggestions based on Biopsy result. Thank you. Medications: Prescriptions This Visit Medication Instructions Recorded Hydrocodone/Acetaminophen 5 - 325 mg PO Q4H PRN PRN 07/26/18 [Hydrocodone-Acetamin 5-325 mg] Naproxen [Naprosyn] 500 mg PO BID PRN PRN 07/26/18 Albuterol Sulfate [Albuterol 2 puff Q4H PRN PRN 07/27/18 Sulfate Hfa] Celecoxib 200 mg PO DAILY 07/27/18 Fluticasone Propionate 2 spray NASAL BID 07/27/18 Nortriptyline HCl 50 mg PO QHS 07/27/18 Medications Added to Medication List This Visit Category Date Time Status Celecoxib [Celebrex] Med 07/27/18 10:00 Active 200 mg PO DAILY Dexamethasone [Decadron] Med 07/27/18 10:56 Active 4 mg PO BIDCM Enoxaparin [Lovenox] Med 07/27/18 10:00 Active 40 mg SC DAILY@1000 Fluticasone 0.05% [Flonase Nasal [place]] Med 07/27/18 10:00 Active 2 spray NASAL BID Nortriptyline HCl [Pamelor] Med 07/27/18 22:00 Active 50 mg PO QHS Nystatin Powder [Mycostatin Powder] Med 07/27/18 10:00 Active 1 applic TOPICAL BID Senna/Docusate Sodium [Senokot-S, Libby-Colace] Med 07/27/18 10:00 Active 2 tablet PO BID morphine Inj Med 07/27/18 10:56 Active 4 mg IV Q3H PRN PRN Primary Care Provider: Mark Anthony Marcelo MD Referring Provider: Gilson Lopez MD - Problem List (1) Disseminated cancer Status: Acute Code Visit Office Visits / Consults: [id number] IP Consult L5
--- NOTE | 2018-07-27 15:22 | CHAPLAIN ---
patient was sleeping with his C-pap machine and this gin operator left him a calling card
--- NOTE | 2018-07-27 16:19 | PCM.CONS.PUL ---
Problem List (1) Disseminated cancer Status: Acute (2) Benign essential hypertension Status: Chronic (3) Chronic obstructive lung disease Status: Chronic Qualifiers: COPD type: emphysema Emphysema type: centrilobular Qualified Code(s): J43.2 - Centrilobular emphysema (4) Depression Status: Chronic Qualifiers: Depression Type: major depressive disorder (5) History of anxiety Status: Chronic (6) Hyperlipidemia Status: Chronic (7) Morbid obesity Status: Chronic (8) Obstructive sleep apnea syndrome Status: Chronic (9) Tobacco user Status: Chronic Reason for Consult Date of Consultation: 07/27/18 Reason for Consultation: Lung mass History of Present Illness: The patient is a 53 year old M, with past medical history listed below, who presented to the [facility] emergency room on 07/27/2018 secondary to progressive low back pain over the last 1 to 2 months. Patient had had a bone scan as an outpatient showing multiple lesions and was supposed to have a biopsy as an outpatient. However, patient stated the pain in the lower back became unbearable so he came to the ER for evaluation. In the ER, a arellano CT was obtained showing a 10 cm left hilar/left upper lobe mass with bulky mediastinal lymphadenopathy. Patient also has a large R for lymph node noted. Some metastatic disease was appreciated of the right clavicle, right hepatic lobe and bilateral iliac lesions. The pulmonary consult was obtained for possible bronchoscopy. Patient does report a 50+-pack-year smoking history, but denies any hemoptysis, unintentional weight loss or chest pain. Patient has had significant back pain and clavicular pain. Patient states his family history is also significant for malignancy and his father in his 60s from metastatic cancer. Patient denies any alcohol use. Patient does smoke marijuana occasionally. Patient reports a history of COPD treated by his primary care physician. Patient states he is never had a pulmonary function test. Patient does have obstructive sleep apnea and is compliant with his therapy. Patient does have lower extremity edema at baseline, but does not believe this is significantly worse compared to previous. Review of systems otherwise negative x10 systems. Past Medical History Past Medical History (Chronic Problems): Chronic Problems History of anxiety (Chronic) Tobacco user (Chronic) Obstructive sleep apnea syndrome (Chronic) Chronic obstructive lung disease (Chronic) Morbid obesity (Chronic) Hyperlipidemia (Chronic) Depression (Chronic) Benign essential hypertension (Chronic) Allergies METAL Allergy (Uncoded 07/26/18 17:22) Unknown Home Medications: Ambulatory Orders Medication Instructions Recorded Aspirin 325 mg PO Q4H PRN PRN 04/28/18 Cyclobenzaprine [Flexeril] 10 mg PO TID PRN #20 tab 04/28/18 Ibuprofen [Motrin] 400 mg PO Q6H PRN PRN 04/28/18 Hydrocodone/Acetaminophen 5 - 325 mg PO Q4H PRN PRN 07/26/18 [Hydrocodone-Acetamin 5-325 mg] Naproxen [Naprosyn] 500 mg PO BID PRN PRN 07/26/18 Albuterol Sulfate [Albuterol 2 puff Q4H PRN PRN 07/27/18 Sulfate Hfa] Celecoxib 200 mg PO DAILY 07/27/18 Fluticasone Propionate 2 spray NASAL BID 07/27/18 Nortriptyline HCl 50 mg PO QHS 07/27/18 Surgical History: appendectomy, herniorrhaphy - x2, - - Hand surgery Lives: With Family Smoking Status: Current every day smoker Tobacco Use: Cigarettes - *Family History Maternal History Items: - - Leukemia Paternal History Items: Cancer - lung, - Patient Problems: Active and Suspected Problems Metastasis (Acute) Disseminated cancer (Acute) - Physical Exam General: Alert, Oriented x3, Cooperative, No apparent distress, - - Morbidly obese. HEENT: Atraumatic, PERRLA, EOMI, Normocephalic, - - Scleral injection with some drooping of bilateral lower lids Oral: Moist Mucosa, No Gingival or Mucosal Lesions/ Ulcerations, - - Poor dentition Neck: Supple, No JVD, No Nodes, Trachea Midline, - - Webbed neck. Lungs: No rhonchi, No wheeze, No rales, Diminished, - - Symmetric expansion. No dullness to percussion. Cardiovascular: Regular rate, Regular Rhythm, Normal S1, Normal S2, No murmurs, No rub noted, No Gallop Abdomen: Bowel Sounds Present, Soft, Non Tender, Non-Distended, Obese Extremities: No cyanosis, Clubbing, Edema Skin: No rashes, - - Venous stasis changes of lower extremities Musculoskeletal: No Tenderness to Palpation of Joints or Extremities Lymphatic: No Cervical, Supraclavicular, or Inguinal Adenopathy Neurological: Cranial nerves II-XII grossly intact, Neuro grossly intact, Motor Exam 5/5 strength throughout Psych/Mental Status: Anxious, Flat Affect Vital Signs Temp Pulse Resp BP Pulse Ox 37.1 C 89 18 136/77 H 98 07/27/18 15:15 07/27/18 15:15 07/27/18 15:15 07/27/18 15:15 07/27/18 15:15 Oxygen Delivery Method Room Air Weight: 168.283 kg Body Mass Index (BMI) 51.7 Intake and Output for Last 24 Hours 07/25/18 07/26/18 07/27/18 23:59 23:59 23:59 Intake Total 1500 / 1500 Output Total 2099 / 2099 Balance -600 / -600 Laboratory Tests Past 24 Hrs 07/26/18 07/26/18 07/26/18 18:30 18:30 19:10 WBC 10.6 RBC 4.99 Hgb 15.0 Hct 43.9 MCV 88.0 MCH 30.1 MCHC 34.2 RDW 15.4 H RDW Differential 49.6 H Plt Count 250 MPV 10.9 Immature Gran % (Auto) 0.500 Neut % (Auto) 77.8 H Lymph % (Auto) 10.7 L [place] % (Auto) 8.8 Eos % (Auto) 2.0 Baso % (Auto) 0.2 Absolute Neuts (auto) 8.3 H Absolute Lymphs (auto) 1.13 Total Counted Not Reportable Sodium Cancelled 135 L Potassium Cancelled 4.1 Chloride Cancelled 102 Carbon Dioxide Cancelled 28.0 Anion Gap Cancelled 5 BUN Cancelled 10 Creatinine Cancelled 0.72 Estim Creat Clear Calc Cancelled 127.82 Est GFR (MDRD) Af Amer Cancelled 146 Est GFR (MDRD) Non-Af Cancelled 121 BUN/Creatinine Ratio Cancelled 13.8 Glucose Cancelled 102 Calcium Cancelled 9.3 Clinical Impression(s) from Imaging Studies Hip/Pelvis X-Ray 07/26/18 18:47 IMPRESSION: No fracture or dislocation in the pelvis or right hip. Stable moderate degenerative changes. Electronically Signed: Hadley Saunders, at 19:02 EDT Tel , Service support , Abdomen CT 07/26/18 23:40 IMPRESSION: 1. No free fluid or acute abdominal disease identified. Pelvic CT scanning not performed. 2. Hepatosplenomegaly. Small, solitary right hepatic lobe lesion, probably benign. 3. No abdominal lymphadenopathy. 4. Bilateral iliac osteolytic lesions, incompletely visualized and larger on the left, compatible with metastases. Individualized dose optimization techniques were used for this CT. at 0732 Reported and signed by: Jerry Ruiz MD Electronically Signed: Jerry Ruiz, at 7:31 EDT Tel , Service support , Chest CT 07/26/18 23:40 IMPRESSION: 1. Left perihilar and left upper lobe large irregular tumor in the 10 cm diameter range with secondary soft tissue invasion of the left hilum and upper left mediastinum. 2. Multiple bulky mediastinal and left hilar lymph nodes compatible with annie metastases. 3. Chronic lung disease with centrilobular and distal lobular emphysema. 4. Metastatic bone disease including pathologic fracture of the medial right clavicle. Individualized dose optimization techniques were used for this CT. at 0650 Reported and signed by: Jerry Ruiz MD Electronically Signed: Jerry Ruiz, at 6:49 EDT Tel , Service support , Assessment/Plan All Active Problems Metastasis (Acute) Disseminated cancer (Acute) RECOMMENDATIONS: 1. Possible bronchoscopy candidate 2. Continue aggressive pain control 3. Walking oximetry prior to discharge 4. Please notify me if her bronchoscopy should be scheduled after review of all available options. IMPRESSIONS: 1. Left hilar mass Patient with a large left hilar mass that appears to have an endobronchial sign. Patient also has multiple probable metastatic lesions indicating probable stage IV disease. Given advanced stage, it would likely not be necessary to proceed with endobronchial ultrasound and patient would be amenable to a standard bronchoscopy with endobronchial biopsies. There is some discussion about patient possibly having evaluation by orthopedics. Did review bronchoscopy at length including the risks, benefits and alternatives with the patient and he is amenable to completing this. This can be completed as an outpatient if pain can be controlled and discharged. Did discuss with the patient about all possible avenues, but patient reports that he definitely wants to be aggressive at this stage. Would defer to care team. This can be completed as an inpatient if felt this would benefit the patient. 2. Probable COPD/morbid obesity/tobacco abuse/marijuana use/obstructive sleep apnea Complicates care, management, recovery and prognosis. Patient may benefit from transition to DuoNeb therapy if developing worsening shortness of breath. Would recommend aggressive DVT prophylaxis as tumor does appear to be encircling the pulmonary artery. Code Visit Inpatient E&M: 00757 Init Hosp L2
--- NOTE | 2018-07-27 16:31 | CON.PCM_ITS ---
Problem List (1) Disseminated cancer Status: Acute (2) Benign essential hypertension Status: Chronic (3) Chronic obstructive lung disease Status: Chronic Qualifiers: COPD type: emphysema Emphysema type: centrilobular Qualified Code(s): J43.2 - Centrilobular emphysema (4) Depression Status: Chronic Qualifiers: Depression Type: major depressive disorder (5) History of anxiety Status: Chronic (6) Hyperlipidemia Status: Chronic (7) Morbid obesity Status: Chronic (8) Obstructive sleep apnea syndrome Status: Chronic (9) Tobacco user Status: Chronic Reason for Consult Date of Consultation: 07/27/18 Reason for Consultation: Lung mass History of Present Illness: The patient is a 53 year old M, with past medical history listed below, who presented to the [facility] emergency room on 07/27/2018 secondary to progressive low back pain over the last 1 to 2 months. Patient had had a bone scan as an outpatient showing multiple lesions and was supposed to have a biopsy as an outpatient. However, patient stated the pain in the lower back became unbearable so he came to the ER for evaluation. In the ER, a arellano CT was obtained showing a 10 cm left hilar/left upper lobe mass with bulky mediastinal lymphadenopathy. Patient also has a large R for lymph node noted. Some metastatic disease was appreciated of the right clavicle, right hepatic lobe and bilateral iliac lesions. The pulmonary consult was obtained for possible bronchoscopy. Patient does report a 50+-pack-year smoking history, but denies any hemoptysis, unintentional weight loss or chest pain. Patient has had significant back pain and clavicular pain. Patient states his family history is also significant for malignancy and his father in his 60s from metastatic cancer. Patient denies any alcohol use. Patient does smoke marijuana occasionally. Patient reports a history of COPD treated by his primary care physician. Patient states he is never had a pulmonary function test. Patient does have obstructive sleep apnea and is compliant with his therapy. Patient does have lower extremity edema at baseline, but does not believe this is significantly worse compared to previous. Review of systems otherwise negative x10 systems. Past Medical History Past Medical History (Chronic Problems): Chronic Problems History of anxiety (Chronic) Tobacco user (Chronic) Obstructive sleep apnea syndrome (Chronic) Chronic obstructive lung disease (Chronic) Morbid obesity (Chronic) Hyperlipidemia (Chronic) Depression (Chronic) Benign essential hypertension (Chronic) Allergies METAL Allergy (Uncoded 07/26/18 17:22) Unknown Home Medications: Ambulatory Orders Medication Instructions Recorded Aspirin 325 mg PO Q4H PRN PRN 04/28/18 Cyclobenzaprine [Flexeril] 10 mg PO TID PRN #20 tab 04/28/18 Ibuprofen [Motrin] 400 mg PO Q6H PRN PRN 04/28/18 Hydrocodone/Acetaminophen 5 - 325 mg PO Q4H PRN PRN 07/26/18 [Hydrocodone-Acetamin 5-325 mg] Naproxen [Naprosyn] 500 mg PO BID PRN PRN 07/26/18 Albuterol Sulfate [Albuterol 2 puff Q4H PRN PRN 07/27/18 Sulfate Hfa] Celecoxib 200 mg PO DAILY 07/27/18 Fluticasone Propionate 2 spray NASAL BID 07/27/18 Nortriptyline HCl 50 mg PO QHS 07/27/18 Surgical History: appendectomy, herniorrhaphy - x2, - - Hand surgery Lives: With Family Smoking Status: Current every day smoker Tobacco Use: Cigarettes - *Family History Maternal History Items: - - Leukemia Paternal History Items: Cancer - lung, - Patient Problems: Active and Suspected Problems Metastasis (Acute) Disseminated cancer (Acute) - Physical Exam General: Alert, Oriented x3, Cooperative, No apparent distress, - - Morbidly obese. HEENT: Atraumatic, PERRLA, EOMI, Normocephalic, - - Scleral injection with some drooping of bilateral lower lids Oral: Moist Mucosa, No Gingival or Mucosal Lesions/ Ulcerations, - - Poor dentition Neck: Supple, No JVD, No Nodes, Trachea Midline, - - Webbed neck. Lungs: No rhonchi, No wheeze, No rales, Diminished, - - Symmetric expansion. No dullness to percussion. Cardiovascular: Regular rate, Regular Rhythm, Normal S1, Normal S2, No murmurs, No rub noted, No Gallop Abdomen: Bowel Sounds Present, Soft, Non Tender, Non-Distended, Obese Extremities: No cyanosis, Clubbing, Edema Skin: No rashes, - - Venous stasis changes of lower extremities Musculoskeletal: No Tenderness to Palpation of Joints or Extremities Lymphatic: No Cervical, Supraclavicular, or Inguinal Adenopathy Neurological: Cranial nerves II-XII grossly intact, Neuro grossly intact, Motor Exam 5/5 strength throughout Psych/Mental Status: Anxious, Flat Affect Vital Signs Temp Pulse Resp BP Pulse Ox 37.1 C 89 18 136/77 H 98 07/27/18 15:15 07/27/18 15:15 07/27/18 15:15 07/27/18 15:15 07/27/18 15:15 Oxygen Delivery Method Room Air Weight: 168.283 kg Body Mass Index (BMI) 51.7 Intake and Output for Last 24 Hours 07/25/18 07/26/18 07/27/18 23:59 23:59 23:59 Intake Total 1500 / 1500 Output Total 2099 / 2099 Balance -600 / -600 Laboratory Tests Past 24 Hrs 07/26/18 07/26/18 07/26/18 18:30 18:30 19:10 WBC 10.6 RBC 4.99 Hgb 15.0 Hct 43.9 MCV 88.0 MCH 30.1 MCHC 34.2 RDW 15.4 H RDW Differential 49.6 H Plt Count 250 MPV 10.9 Immature Gran % (Auto) 0.500 Neut % (Auto) 77.8 H Lymph % (Auto) 10.7 L [place] % (Auto) 8.8 Eos % (Auto) 2.0 Baso % (Auto) 0.2 Absolute Neuts (auto) 8.3 H Absolute Lymphs (auto) 1.13 Total Counted Not Reportable Sodium Cancelled 135 L Potassium Cancelled 4.1 Chloride Cancelled 102 Carbon Dioxide Cancelled 28.0 Anion Gap Cancelled 5 BUN Cancelled 10 Creatinine Cancelled 0.72 Estim Creat Clear Calc Cancelled 127.82 Est GFR (MDRD) Af Amer Cancelled 146 Est GFR (MDRD) Non-Af Cancelled 121 BUN/Creatinine Ratio Cancelled 13.8 Glucose Cancelled 102 Calcium Cancelled 9.3 Clinical Impression(s) from Imaging Studies Hip/Pelvis X-Ray 07/26/18 18:47 IMPRESSION: No fracture or dislocation in the pelvis or right hip. Stable moderate degenerative changes. Electronically Signed: Hadley Saunders, at 19:02 EDT Tel , Service support , Abdomen CT 07/26/18 23:40 IMPRESSION: 1. No free fluid or acute abdominal disease identified. Pelvic CT scanning not performed. 2. Hepatosplenomegaly. Small, solitary right hepatic lobe lesion, probably benign. 3. No abdominal lymphadenopathy. 4. Bilateral iliac osteolytic lesions, incompletely visualized and larger on the left, compatible with metastases. Individualized dose optimization techniques were used for this CT. at 0732 Reported and signed by: Jerry Ruiz MD Electronically Signed: Jerry Ruiz, at 7:31 EDT Tel , Service support , Chest CT 07/26/18 23:40 IMPRESSION: 1. Left perihilar and left upper lobe large irregular tumor in the 10 cm diameter range with secondary soft tissue invasion of the left hilum and upper left mediastinum. 2. Multiple bulky mediastinal and left hilar lymph nodes compatible with annie metastases. 3. Chronic lung disease with centrilobular and distal lobular emphysema. 4. Metastatic bone disease including pathologic fracture of the medial right clavicle. Individualized dose optimization techniques were used for this CT. at 0650 Reported and signed by: Jerry Ruiz MD Electronically Signed: Jerry Ruiz, at 6:49 EDT Tel , Service support , Assessment/Plan All Active Problems Metastasis (Acute) Disseminated cancer (Acute) RECOMMENDATIONS: 1. Possible bronchoscopy candidate 2. Continue aggressive pain control 3. Walking oximetry prior to discharge 4. Please notify me if her bronchoscopy should be scheduled after review of all available options. IMPRESSIONS: 1. Left hilar mass Patient with a large left hilar mass that appears to have an endobronchial sign. Patient also has multiple probable metastatic lesions indicating probable stage IV disease. Given advanced stage, it would likely not be necessary to proceed with endobronchial ultrasound and patient would be amenable to a standard bronchoscopy with endobronchial biopsies. There is some discussion about patient possibly having evaluation by orthopedics. Did review bronchoscopy at length including the risks, benefits and alternatives with the patient and he is amenable to completing this. This can be completed as an outpatient if pain can be controlled and discharged. Did discuss with the patient about all possible avenues, but patient reports that he definitely wants to be aggressive at this stage. Would defer to care team. This can be completed as an inpatient if felt this would benefit the patient. 2. Probable COPD/morbid obesity/tobacco abuse/marijuana use/obstructive sl eep apnea Complicates care, management, recovery and prognosis. Patient may benefit from transition to DuoNeb therapy if developing worsening shortness of breath. Would recommend aggressive DVT prophylaxis as tumor does appear to be encircling the pulmonary artery. Code Visit Inpatient E&M: 68982 Init Hosp L2
--- NOTE | 2018-07-27 16:41 | RAD_ITS ---
STUDY: X-RAY - RIGHT FEMUR REASON FOR STUDY: Male, 53 years old. Lung cancer. Evaluate for metastasis. TECHNIQUE: 4 view(s) of the femur. COMPARISON: Bone scan dated 07/21/2018. FINDINGS: There are lytic lesions noted in the mid and distal femur which are suspicious for metastasis. There is no acute fracture. There are mild degenerative changes in the right knee and right hip. The visualized soft tissues are unremarkable. RAD/Femur Min 2 Views IMPRESSION: Lytic lesions noted in the mid and distal femur which are suspicious for metastasis. Electronically Signed: Hadley Saunders, at 18:17 EDT Tel , Service support ,
--- NOTE | 2018-07-27 17:40 | CT_ITS ---
STUDY: CT RIGHT FEMUR WITHOUT CONTRAST REASON FOR EXAM: Male, 53 years old. Increasing hip pain RADIATION DOSAGE (If Supplied By Facility): CTDIvol = ( 50.71 ) mGy, DLP = ( 3171.40 ) mGycm TECHNIQUE: Transaxial CT imaging of the femur was performed. Sagittal and coronal images were reconstructed. Individualized dose optimization techniques were used for this CT. COMPARISON: None. FINDINGS: There is mildly diffusely increased sclerosis with tiny lucent foci of the femoral head which may be consistent with neoplasm.. There is also mottled appearance with foci of cortical radiolucency and increased intramedullary sclerosis within the mid to distal femoral shaft also consistent with neoplasm Normal visualized soft tissue structure. CT/Extremity Lower without Contra IMPRESSION: Findings which may be consistent with metastatic disease involving the right femoral head and mid to distal femoral shaft Electronically Signed: Jayson Parra MD at 19:28 EDT , Service support ,
[2018-07-27] MEDS: Nortriptyline 25 MG Capsule 50 MG PO (22:21)
[2018-07-27] MEDS: Naproxen 250 MG Tablet 500 MG PO (22:24)
[2018-07-28 04:12] VITALS: BP 127/69; PULSE 77; RESP 18; TEMP 36.8; O2SAT 96
[2018-07-28 06:11] LABS: Absolute Lymphocyte Count 0.97 X10^3/ul (0.83-4.51); Absolute Neutrophil Count 7.8 X10^3/uL (2.0-7.7); Basophil# 0.01 X10^3/uL; Basophil% 0.1 % (0-1); Eosinophil# 0.01 X10^3/uL; Eosinophils% 0.1 % (0-5); Hematocrit 46.3 % (40-54); Hemoglobin 15.4 g/dl (13.0-16.5); Lymphocyte # 0.97 X10^3/ul (4.0); Lymphocyte % 10.4 % (19-41); Mean Corp Hgb Conc 33.3 g/gl (32-36); Mean Corpuscular Hgb 29.5 pg (27.0-32.0); Mean Corpuscular Volume 88.7 fL (80-94); Mean Platelet Vol. 10.9 fl (6.2-12.0); Monocyte# 0.45 X10^3/uL; Monocyte% 4.8 % (0-10); Neutrophil # 7.83 X10^3/uL (2.7-7.7); Neutrophil % 84.3 % (47-70); Platelet Count 251 K/mm3 (150-450); RBC Distribution Width CV 15.1 % (11.6-14.6); RBC Distribution Width SD 48.8 fl (35.1-43.9); Red Blood Count 5.22 M/mm3 (4.6-6.2); White Blood Count 9.3 K/mm3 (4.4-11.0)
[2018-07-28 06:12] LABS: POSITIVE COUNT NO; POSITIVE DIFFERENTIAL NO; POSITIVE MORPHOLOGY NO
[2018-07-28 06:14] LABS: International Normalized Ratio 1.1; Partial Thromboplast Time 38.1 Seconds (24.1-36.2); Prothrombin Time (Protime)PT. 13.7 SECONDS (11.7-14.9)
[2018-07-28 06:36] LABS: Anion Gap 3 (5-15); BUN 16 mg/dL (7-18); BUN/Creat Ratio 21.8 RATIO (10-20); Calcium,Total 9.6 mg/dL (8.5-10.1); Chloride 101 mmol/L (98-107); Creatinine, Serum 0.73 mg/dL (0.70-1.30); EST Glomerular Filtration Rate 119 mL/min (>60); Est Glom Filt Rate - Afr Amer 144 mL/min (>60); Estimated Creatinine Clearance 126.07 ml/min; Glucose 114 mg/dL (74-106); Potassium 4.4 mmol/L (3.5-5.1); Sodium Level 134 mmol/L (136-145)
[2018-07-28 07:27] VITALS: O2SAT 92
--- NOTE | 2018-07-28 08:24 | PCM.PN.PUL ---
Patient Problems: Active and Suspected Problems Metastasis (Acute) Disseminated cancer (Acute) Subjective: Patient did well overnight. Patient does report the pain is much improved compared to previous. Patient states he was able to sit in a chair for prolonged time yesterday, which is a significant improvement. Patient does report that he had some night sweats overnight, but does not believe this was associated with fever. Patient is tolerating p.o. Patient is able to stand on his own. Objective: CT scan of the leg was personally reviewed. Patient does have significant bone mets - Physical Exam General: Alert, Oriented x3, Cooperative, - - Morbidly obese. Web neck noted. HEENT: Atraumatic, PERRLA, EOMI, Normocephalic, - - Patient with mild chemosis noted of the left eye. Oral: Moist Mucosa, No Gingival or Mucosal Lesions/ Ulcerations Neck: Supple, No Nodes, Trachea Midline, - - JVD difficult to assess secondary to body habitus Lungs: No rhonchi, No wheeze, No rales, Diminished Cardiovascular: Regular rate, Regular Rhythm, Normal S1, Normal S2, No murmurs, No rub noted, No Gallop Abdomen: Bowel Sounds Present, Soft, Non Tender, Non-Distended, Obese Extremities: No clubbing, No cyanosis, Edema Skin: - - No significant change compared to previous Musculoskeletal: No Tenderness to Palpation of Joints or Extremities Lymphatic: No Cervical, Supraclavicular, or Inguinal Adenopathy Neurological: Cranial nerves II-XII grossly intact, Neuro grossly intact, Motor Exam 5/5 strength throughout Psych/Mental Status: Alert and oriented to time, place, person, mood and affect Vital Signs Temp Pulse Resp BP Pulse Ox 36.8 C 77 18 127/69 H 92 07/28/18 04:12 07/28/18 04:12 07/28/18 04:12 07/28/18 04:12 07/28/18 07:27 Oxygen Delivery Method Room Air Weight: 168.283 kg Body Mass Index (BMI) 51.7 Intake and Output for Last 24 Hours 07/26/18 07/27/18 07/28/18 23:59 23:59 23:59 Intake Total 3000 / 3000 250 / 250 Output Total 2100 / 2100 Balance 900 / 900 250 / 250 Laboratory Tests Past 24 Hrs 07/28/18 07/28/18 07/28/18 05:14 05:14 05:14 WBC 9.3 RBC 5.22 Hgb 15.4 Hct 46.3 MCV 88.7 MCH 29.5 MCHC 33.3 RDW 15.1 H RDW Differential 48.8 H Plt Count 251 MPV 10.9 Immature Gran % (Auto) 0.300 Neut % (Auto) 84.3 H Lymph % (Auto) 10.4 L [place] % (Auto) 4.8 Eos % (Auto) 0.1 Baso % (Auto) 0.1 Absolute Neuts (auto) 7.8 H Absolute Lymphs (auto) 0.97 Total Counted Not Reportable PT 13.7 INR 1.1 APTT 38.1 H Sodium 134 L Potassium 4.4 Chloride 101 Carbon Dioxide 30.0 Anion Gap 3 L BUN 16 Creatinine 0.73 Estim Creat Clear Calc 126.07 Est GFR (MDRD) Af Amer 144 Est GFR (MDRD) Non-Af 119 BUN/Creatinine Ratio 21.8 H Glucose 114 H Calcium 9.6 Clinical Impression(s) from Imaging Studies Femur X-Ray 07/27/18 16:41 IMPRESSION: Lytic lesions noted in the mid and distal femur which are suspicious for metastasis. Electronically Signed: Hadley Saunders at 18:17 EDT Tel , Service support , Lower Extremity CT 07/27/18 17:40 IMPRESSION: Findings which may be consistent with metastatic disease involving the right femoral head and mid to distal femoral shaft Electronically Signed: Jayson Parra MD at 19:28 EDT , Service support , Medical Necessity - Tobacco Use Smoking Status: Current every day smoker Tobacco Use: Cigarettes Assessment/Plan All Active Problems Metastasis (Acute) Disseminated cancer (Acute) RECOMMENDATIONS: 1. Possible bronchoscopy candidate 2. Await orthopedic determination 3. Walking oximetry prior to discharge 4. Please notify me if her bronchoscopy should be scheduled after review of all available options. IMPRESSIONS: 1. Left hilar mass Patient with a large left hilar mass that appears to have an endobronchial sign. Patient also has multiple probable metastatic lesions indicating probable stage IV disease. Given advanced stage, it would likely not be necessary to proceed with endobronchial ultrasound and patient would be amenable to a standard bronchoscopy with endobronchial biopsies. Would wait on orthopedic assessment. If they plan to have surgery for stabilization of the femur, this could be both diagnostic and therapeutic. Bronchoscopy would only be diagnostic and may not be necessary if surgery was recommended by orthopedics. We will continue to follow peripherally. Pain is much controlled at this time. Patient can be seen as an outpatient for bronchoscopy if requested. 2. Probable COPD/morbid obesity/tobacco abuse/marijuana use/obstructive sleep apnea Complicates care, management, recovery and prognosis. Patient may benefit from transition to DuoNeb therapy if developing worsening shortness of breath. Would recommend aggressive DVT prophylaxis as tumor does appear to be encircling the pulmonary artery. Code Visit Inpatient E&M: 16143 Subs Hosp L2
--- NOTE | 2018-07-28 08:27 | PN_ITS ---
Patient Problems: Active and Suspected Problems Metastasis (Acute) Disseminated cancer (Acute) Subjective: Patient did well overnight. Patient does report the pain is much improved compared to previous. Patient states he was able to sit in a chair for prolonged time yesterday, which is a significant improvement. Patient does r eport that he had some night sweats overnight, but does not believe this was associated with fever. Patient is tolerating p.o. Patient is able to stand on his own. Objective: CT scan of the leg was personally reviewed. Patient does have significant bone mets - Physical Exam General: Alert, Oriented x3, Cooperative, - - Morbidly obese. Web neck noted. HEENT: Atraumatic, PERRLA, EOMI, Normocephalic, - - Patient with mild chemosis noted of the left eye. Oral: Moist Mucosa, No Gingival or Mucosal Lesions/ Ulcerations Neck: Supple, No Nodes, Trachea Midline, - - JVD difficult to assess secondary to body habitus Lungs: No rhonchi, No wheeze, No rales, Diminished Cardiovascular: Regular rate, Regular Rhythm, Normal S1, Normal S2, No murmurs, No rub noted, No Gallop Abdomen: Bowel Sounds Present, Soft, Non Tender, Non-Distended, Obese Extremities: No clubbing, No cyanosis, Edema Skin: - - No significant change compared to previous Musculoskeletal: No Tenderness to Palpation of Joints or Extremities Lymphatic: No Cervical, Supraclavicular, or Inguinal Adenopathy Neurological: Cranial nerves II-XII grossly intact, Neuro grossly intact, Motor Exam 5/5 strength throughout Psych/Mental Status: Alert and oriented to time, place, person, mood and affect Vital Signs Temp Pulse Resp BP Pulse Ox 36.8 C 77 18 127/69 H 92 07/28/18 04:12 07/28/18 04:12 07/28/18 04:12 07/28/18 04:12 07/28/18 07:27 Oxygen Delivery Method Room Air Weight: 168.283 kg Body Mass Index (BMI) 51.7 Intake and Output for Last 24 Hours 07/26/18 07/27/18 07/28/18 23:59 23:59 23:59 Intake Total 3000 / 3000 250 / 250 Output Total 2100 / 2100 Balance 900 / 900 250 / 250 Laboratory Tests Past 24 Hrs 07/28/18 07/28/18 07/28/18 05:14 05:14 05:14 WBC 9.3 RBC 5.22 Hgb 15.4 Hct 46.3 MCV 88.7 MCH 29.5 MCHC 33.3 RDW 15.1 H RDW Differential 48.8 H Plt Count 251 MPV 10.9 Immature Gran % (Auto) 0.300 Neut % (Auto) 84.3 H Lymph % (Auto) 10.4 L [place] % (Auto) 4.8 Eos % (Auto) 0.1 Baso % (Auto) 0.1 Absolute Neuts (auto) 7.8 H Absolute Lymphs (auto) 0.97 Total Counted Not Reportable PT 13.7 INR 1.1 APTT 38.1 H Sodium 134 L Potassium 4.4 Chloride 101 Carbon Dioxide 30.0 Anion Gap 3 L BUN 16 Creatinine 0.73 Estim Creat Clear Calc 126.07 Est GFR (MDRD) Af Amer 144 Est GFR (MDRD) Non-Af 119 BUN/Creatinine Ratio 21.8 H Glucose 114 H Calcium 9.6 Clinical Impression(s) from Imaging Studies Femur X-Ray 07/27/18 16:41 IMPRESSION: Lytic lesions noted in the mid and distal femur which are suspicious for metastasis. Electronically Signed: Hadley Saunders at 18:17 EDT Tel , Service support , Lower Extremity CT 07/27/18 17:40 IMPRESSION: Findings which may be consistent with metastatic disease involving the right femoral head and mid to distal femoral shaft Electronically Signed: Jayson Parra MD at 19:28 EDT , Service support , Medical Necessity - Tobacco Use Smoking Status: Current every day smoker Tobacco Use: Cigarettes Assessment/Plan All Active Problems Metastasis (Acute) Disseminated cancer (Acute) RECOMMENDATIONS: 1. Possible bronchoscopy candidate 2. Await orthopedic determination 3. Walking oximetry prior to discharge 4. Please notify me if her bronchoscopy should be scheduled after review of all available options. IMPRESSIONS: 1. Left hilar mass Patient with a large left hilar mass that appears to have an endobronchial sign. Patient also has multiple probable metastatic lesions indicating probable stage IV disease. Given advanced stage, it would likely not be necessary to proceed with endobronchial ultrasound and patient would be amenable to a sta ndard bronchoscopy with endobronchial biopsies. Would wait on orthopedic assessment. If they plan to have surgery for stabilization of the femur, this could be both diagnostic and therapeutic. Bronchoscopy would only be diagnostic and may not be necessary if surgery was recommended by orthopedics. We will continue to follow peripherally. Pain is much controlled at this time. Patient can be seen as an outpatient for bronchoscopy if requested. 2. Probable COPD/morbid obesity/tobacco abuse/marijuana use/obstructive sleep apnea Complicates care, management, recovery and prognosis. Patient may benefit from transition to DuoNeb therapy if developing worsening shortness of breath. Would recommend aggressive DVT prophylaxis as tumor does appear to be encircling the pulmonary artery. Code Visit Inpatient E&M: 31972 Subs Hosp L2
--- NOTE | 2018-07-28 08:31 | PCM.PN.HOSP ---
Patient Problems: Active and Suspected Problems Metastasis (Acute) Disseminated cancer (Acute) Subjective: He slept well for the first time in several days, and says that his pain is significantly improved after the Decadron. Vitals/I&O's: Vital Signs Temp Pulse Resp BP Pulse Ox 98.3 F 77 18 127/69 H 92 07/28/18 04:12 07/28/18 04:12 07/28/18 04:12 07/28/18 04:12 07/28/18 07:27 Oxygen Delivery Method Room Air Weight: 371 lb Body Mass Index (BMI) 51.7 Intake and Output for Last 24 Hours 07/26/18 07/27/18 07/28/18 23:59 23:59 23:59 Intake Total 3000 / 3000 250 / 250 Output Total 2100 / 2100 Balance 900 / 900 250 / 250 General: Alert, Oriented x3, Cooperative, No apparent distress HEENT: Atraumatic, PERRLA, EOMI, Normocephalic Oral: Dry Mucosa Neck: Supple Lungs: Normal air movement, no wheeze, no rales, diminished Cardiovascular: Regular rate, Regular Rhythm, Normal S1, Normal S2, No murmurs Abdomen: Soft, Non Tender, Non-Distended, No Hepato-splenomegaly Extremities: No edema, Capillary Refill Less than 3 Seconds Skin: No rashes, No breakdown Musculoskeletal: Tenderness - Most of the pain is in his right hip, though much improved Neurological: Neuro grossly intact, Sensory exam intact to light touch and pain Psych/Mental Status: Normal Affect, Appropriate Laboratory Results 07/28/18 05:14: WBC 9.3, RBC 5.22, Hgb 15.4, Hct 46.3, MCV 88.7, MCH 29.5, MCHC 33.3, RDW 15.1 H, RDW Differential 48.8 H, Plt Count 251, MPV 10.9, Immature Gran % (Auto) 0.300, Neut % (Auto) 84.3 H, Lymph % (Auto) 10.4 L, [place] % (Auto) 4.8, Eos % (Auto) 0.1, Baso % (Auto) 0.1, Absolute Neuts (auto) 7.8 H, Absolute Lymphs (auto) 0.97, Total Counted Not Reportable 07/28/18 05:14: PT 13.7, INR 1.1, APTT 38.1 H 07/28/18 05:14: Sodium 134 L, Potassium 4.4, Chloride 101, Carbon Dioxide 30.0, Anion Gap 3 L, BUN 16, Creatinine 0.73, Estim Creat Clear Calc 126.07, Est GFR (MDRD) Af Amer 144, Est GFR (MDRD) Non-Af 119, BUN/Creatinine Ratio 21.8 H, Glucose 114 H, Calcium 9.6 Current Medications Hydrocodone Bitart/Acetaminophen ([place] 5mg-325mg) 1 tablet PO Q4H PRN PRN PRN Reason: MODERATE PAIN (4-5/10) Albuterol Sulfate (Ventolin Aerosols) 2.5 mg INHALATION Q2H PRN PRN PRN Reason: sob or wheezes Celecoxib (Celebrex) 200 mg PO DAILY [facility] Last Admin: 07/27/18 09:47 Dose: 200 mg Cyclobenzaprine HCl (Flexeril) 10 mg PO TID PRN PRN PRN Reason: MUSCLE SPASM [facility] Last Admin: 07/27/18 16:44 Dose: 4 mg Dextrose (D50w Syringe) 0 gm IV X1 PRN; Protocol PRN Reason: Hypoglycemia Enoxaparin Sodium (Lovenox) 40 mg SC DAILY@1000 [facility] Last Admin: 07/27/18 09:43 Dose: 40 mg Fluticasone Propionate (Flonase Nasal [place]) 2 spray NASAL BID [facility] Last Admin: 07/27/18 22:19 Dose: 2 spray Glucagon () 1 mg IM .X1 PRN PRN Reason: Hypoglycemia Morphine Sulfate () 4 mg IV Q3H PRN PRN PRN Reason: Severe pain (7-10/10) Nicotine (Nicoderm Cq (Pbkc)) 21 mg TRANSDERM. DAILY [facility] Last Admin: 07/27/18 20:11 Dose: 21 mg Nortriptyline HCl (Pamelor) 50 mg PO QHS [facility] Last Admin: 07/27/18 22:21 Dose: 50 mg Nystatin (Mycostatin Powder) 1 applic TOPICAL BID [facility]; Protocol Last Admin: 07/27/18 22:20 Dose: 1 applicatio Ondansetron HCl (Zofran) 4 mg IV Q8H PRN PRN PRN Reason: NAUSEA/VOMITING Senna/Docusate Sodium (Senokot-S, Libby-Colace) 2 tablet PO BID [facility] Last Admin: 07/27/18 22:21 Dose: 2 tablet Sodium Chloride () 5 - 15 ml IV UD PRN PRN Reason: SALINE FLUSH Last Admin: 07/27/18 09:55 Dose: 10 ml Medical Necessity - Tobacco Use Smoking Status: Current every day smoker Tobacco Use: Cigarettes Assessment/Plan All Active Problems Metastasis (Acute) Disseminated cancer (Acute) 1. Likely metastatic cancer to the bone primary appears to be in the lung/COPD/JACK/tobacco abuse -CT of the chest shows a large 10 cm mass encapsulating the main left bronchus -CT of the abdomen consistent with bone mets -He is on Celebrex at home, continue with morphine 4 mg and continue his Vicodin as well, discontinue naproxen continue with nortriptyline -Could run 4 mg twice daily dosing to help control any bone pain if possible -Given the extent of disease in his right hip will see if orthopedic surgery is able to pin his hip and obtain a bone biopsy at the same time if they are unable to perform a biopsy then we will proceed with bronchial biopsy by pulmonology -We will continue with his home aerosols as well as his BiPAP for his JACK. -Discussed the necessity of smoking cessation and will provide a nicotine patch while in the hospital 2. Morbid obesity -Discussed lifestyle modification since his BMI is 51 DVT: Lovenox Code Visit Inpatient E&M: 96535 Subs Hosp L2
--- NOTE | 2018-07-28 08:34 | PN_ITS ---
Patient Problems: Active and Suspected Problems Metastasis (Acute) Disseminated cancer (Acute) Subjective: He slept well for the first time in several days, and says that his pain is significantly improved after the Decadron. Vitals/I&O's: Vital Signs Temp Pulse Resp BP Pulse Ox 98.3 F 77 18 127/69 H 92 07/28/18 04:12 07/28/18 04:12 07/28/18 04:12 07/28/18 04:12 07/28/18 07:27 Oxygen Delivery Method Room Air Weight: 371 lb Body Mass Index (BMI) 51.7 Intake and Output for Last 24 Hours 07/26/18 07/27/18 07/28/18 23:59 23:59 23:59 Intake Total 3000 / 3000 250 / 250 Output Total 2100 / 2100 Balance 900 / 900 250 / 250 General: Alert, Oriented x3, Cooperative, No apparent distress HEENT: Atraumatic, PERRLA, EOMI, Normocephalic Oral: Dry Mucosa Neck: Supple Lungs: Normal air movement, no wheeze, no rales, diminished Cardiovascular: Regular rate, Regular Rhythm, Normal S1, Normal S2, No murmurs Abdomen: Soft, Non Tender, Non-Distended, No Hepato-splenomegaly Extremities: No edema, Capillary Refill Less than 3 Seconds Skin: No rashes, No breakdown Musculoskeletal: Tenderness - Most of the pain is in his right hip, though much improved Neurological: Neuro grossly intact, Sensory exam intact to light touch and pain Psych/Mental Status: Normal Affect, Appropriate Laboratory Results 07/28/18 05:14: WBC 9.3, RBC 5.22, Hgb 15.4, Hct 46.3, MCV 88.7, MCH 29.5, MCHC 33.3, RDW 15.1 H, RDW Differential 48.8 H, Plt Count 251, MPV 10.9, Immature Gran % (Auto) 0.300, Neut % (Auto) 84.3 H, Lymph % (Auto) 10.4 L, [place] % (Auto) 4.8, Eos % (Auto) 0.1, Baso % (Auto) 0.1, Absolute Neuts (auto) 7.8 H, Absolute Lymphs (auto) 0.97, Total Counted Not Reportable 07/28/18 05:14: PT 13.7, INR 1.1, APTT 38.1 H 07/28/18 05:14: Sodium 134 L, Potassium 4.4, Chloride 101, Carbon Dioxide 30.0, Anion Gap 3 L, BUN 16, Creatinine 0.73, Estim Creat Clear Calc 126.07, Est GFR (MDRD) Af Amer 144, Est GFR (MDRD) Non-Af 119, BUN/Creatinine Ratio 21.8 H, Glucose 114 H, Calcium 9.6 Current Medications Hydrocodone Bitart/Acetaminophen ([place] 5mg-325mg) 1 tablet PO Q4H PRN PRN PRN Reason: MODERATE PAIN (4-5/10) Albuterol Sulfate (Ventolin Aerosols) 2.5 mg INHALATION Q2H PRN PRN PRN Reason: sob or wheezes Celecoxib (Celebrex) 200 mg PO DAILY [facility] Last Admin: 07/27/18 09:47 Dose: 200 mg Cyclobenzaprine HCl (Flexeril) 10 mg PO TID PRN PRN PRN Reason: MUSCLE SPASM [facility] Last Admin: 07/27/18 16:44 Dose: 4 mg Dextrose (D50w Syringe) 0 gm IV X1 PRN; Protocol PRN Reason: Hypoglycemia Enoxaparin Sodium (Lovenox) 40 mg SC DAILY@1000 [facility] Last Admin: 07/27/18 09:43 Dose: 40 mg Fluticasone Propionate (Flonase Nasal [place]) 2 spray NASAL BID [facility] Last Admin: 07/27/18 22:19 Dose: 2 spray Glucagon () 1 mg IM .X1 PRN PRN Reason: Hypoglycemia Morphine Sulfate () 4 mg IV Q3H PRN PRN PRN Reason: Severe pain (7-10/10) Nicotine (Nicoderm Cq (Pbkc)) 21 mg TRANSDERM. DAILY [facility] Last Admin: 07/27/18 20:11 Dose: 21 mg Nortriptyline HCl (Pamelor) 50 mg PO QHS [facility] Last Admin: 07/27/18 22:21 Dose: 50 mg Nystatin (Mycostatin Powder) 1 applic TOPICAL BID [facility]; Protocol Last Admin: 07/27/18 22:20 Dose: 1 applicatio Ondansetron HCl (Zofran) 4 mg IV Q8H PRN PRN PRN Reason: NAUSEA/VOMITING Senna/Docusate Sodium (Senokot-S, Libby-Colace) 2 tablet PO BID [facility] Last Admin: 07/27/18 22:21 Dose: 2 tablet Sodium Chloride () 5 - 15 ml IV UD PRN PRN Reason: SALINE FLUSH Last Admin: 07/27/18 09:55 Dose: 10 ml Medical Necessity - Tobacco Use Smoking Status: Current every day smoker Tobacco Use: Cigarettes Assessment/Plan All Active Problems Metastasis (Acute) Disseminated cancer (Acute) 1. Likely metastatic cancer to the bone primary appears to be in the lung/COPD/JACK/tobacco abuse -CT of the chest shows a large 10 cm mass encapsulating the main left bronchus -CT of the abdomen consistent with bone mets -He is on Celebrex at home, continue with morphine 4 mg and continue his Vicodin as well, discontinue naproxen continue with nortriptyline -Could run 4 mg twice daily dosing to help control any bone pain if possible -Given the extent of disease in his right hip will see if orthopedic surgery is able to pin his hip and obtain a bone biopsy at the same time if they are unable to perform a biopsy then we will proceed with bronchial biopsy by pulmonology -We will continue with his home aerosols as well as his BiPAP for his JACK. -Discussed the necessity of smoking cessation and will provide a nicotine patch while in the hospital 2. Morbid obesity -Discussed lifestyle modification since his BMI is 51 DVT: Lovenox Code Visit Inpatient E&M: 76059 Subs Hosp L2
[2018-07-28] MEDS: Celecoxib 200 MG Capsule PO (09:15)
[2018-07-28] MEDS: dexAMETHasone 4 MG Tablet PO ×2 (09:15→16:17)
[2018-07-28] MEDS: Fluticasone 0.05% 1 SPRAY NASAL.SRY 2 SPRAY NASAL ×2 (09:15→22:35)
[2018-07-28] MEDS: Enoxaparin 40 MG/0.4 ML Syringe SC (09:16)
[2018-07-28] MEDS: Nystatin Powder 15gm Bottle 1 APPLIC TOPICAL ×2 (09:16→22:35)
[2018-07-28] MEDS: Senna/Docusate Sodium 1 Tablet 2 TABLET PO ×2 (09:17→22:36)
[2018-07-28 10:10] VITALS: BP 135/68; PULSE 73; RESP 18; TEMP 36.4; O2SAT 95
--- NOTE | 2018-07-28 10:20 | PCM.CONS.GEN ---
Reason for Consult Date of Consultation: 07/28/18 History of Present Illness: The patient is a 53 year old M [] Past Medical History Past Medical History (Chronic Problems): Chronic Problems History of anxiety (Chronic) Tobacco user (Chronic) Obstructive sleep apnea syndrome (Chronic) Chronic obstructive lung disease (Chronic) Morbid obesity (Chronic) Hyperlipidemia (Chronic) Depression (Chronic) Benign essential hypertension (Chronic) Allergies METAL Allergy (Uncoded 07/26/18 17:22) Unknown Home Medications: Ambulatory Orders Medication Instructions Recorded Aspirin 325 mg PO Q4H PRN PRN 04/28/18 Cyclobenzaprine [Flexeril] 10 mg PO TID PRN #20 tab 04/28/18 Ibuprofen [Motrin] 400 mg PO Q6H PRN PRN 04/28/18 Hydrocodone/Acetaminophen 5 - 325 mg PO Q4H PRN PRN 07/26/18 [Hydrocodone-Acetamin 5-325 mg] Naproxen [Naprosyn] 500 mg PO BID PRN PRN 07/26/18 Albuterol Sulfate [Albuterol 2 puff Q4H PRN PRN 07/27/18 Sulfate Hfa] Celecoxib 200 mg PO DAILY 07/27/18 Fluticasone Propionate 2 spray NASAL BID 07/27/18 Nortriptyline HCl 50 mg PO QHS 07/27/18 Surgical History: appendectomy, herniorrhaphy - x2, - - Hand surgery Lives: With Family Smoking Status: Current every day smoker Tobacco Use: Cigarettes - *Family History Maternal History Items: - - Leukemia Paternal History Items: Cancer - lung, - Patient Problems: Active and Suspected Problems Metastasis (Acute) Disseminated cancer (Acute) - Physical Exam Vital Signs Temp Pulse Resp BP Pulse Ox 98.3 F 77 18 127/69 H 92 07/28/18 04:12 07/28/18 04:12 07/28/18 04:12 07/28/18 04:12 07/28/18 07:27 Oxygen Delivery Method CPAP Weight: 371 lb Body Mass Index (BMI) 51.7 Intake and Output for Last 24 Hours 07/26/18 07/27/18 07/28/18 23:59 23:59 23:59 Intake Total 3000 / 3000 250 / 250 Output Total 2100 / 2100 Balance 900 / 900 250 / 250 Laboratory Tests Past 24 Hrs 07/28/18 07/28/18 07/28/18 05:14 05:14 05:14 WBC 9.3 RBC 5.22 Hgb 15.4 Hct 46.3 MCV 88.7 MCH 29.5 MCHC 33.3 RDW 15.1 H RDW Differential 48.8 H Plt Count 251 MPV 10.9 Immature Gran % (Auto) 0.300 Neut % (Auto) 84.3 H Lymph % (Auto) 10.4 L [place] % (Auto) 4.8 Eos % (Auto) 0.1 Baso % (Auto) 0.1 Absolute Neuts (auto) 7.8 H Absolute Lymphs (auto) 0.97 Total Counted Not Reportable PT 13.7 INR 1.1 APTT 38.1 H Sodium 134 L Potassium 4.4 Chloride 101 Carbon Dioxide 30.0 Anion Gap 3 L BUN 16 Creatinine 0.73 Estim Creat Clear Calc 126.07 Est GFR (MDRD) Af Amer 144 Est GFR (MDRD) Non-Af 119 BUN/Creatinine Ratio 21.8 H Glucose 114 H Calcium 9.6 Assessment/Plan All Active Problems Metastasis (Acute) Disseminated cancer (Acute) We will discuss with Dr. Kumar potential plan for doing bronchoscopy and antegrade nail at the same time next Ordering skeletal survey to determine if other pain other or any lesions another limb next Small lesion in femoral head is not collapse most likely due to an antegrade nail plus or minus bone biopsy versus sending reamings will discuss with Dr. Kumar at the time of surgery as well would prefer diagnosis with primary as well confirmation with mets via bone biopsy with dr ewing, discussed with both physicians and dr kumar will get biopsy and then kaylin will confirm mets to bone most likely in ilium. if confirmed thursday am, will proceed with hip nailing on thursday afternoon. will send reamings from right femoral nail as well on thursday. CAT scan and x-rays reviewed and show lytic metastasis most probable from lung etiology but awaiting definitive diagnosis Discussed with primary care hospitalist agreed with plan will discuss with Dr. Kumar to coordinate surgery Patient is not having any pain today most likely from the fact that he is on steroids and his pain is controlled with increased narcotics there is a questionable dispo as his daughter is being evicted from her home not sure where he will live postoperatively this needs to be addressed by social work as well next Call with concerns This note was generated with Jovan dictation software. It may contain incorrect words, spelling, and punctuation that were not noted in checking the note before signing.
--- NOTE | 2018-07-28 11:00 | CASEMGMT ---
Social Work Note SW met with pt regarding housing resources and newly diagnosed cancer. SW met with pt, introduced self and role at [facility]. Pt is alert and orientated x4. SW spent much time with pt discussing housing resources and cancer diagnosis. Pt states that he is living with his youngest daughter Nallely and her children. Pt states that Nallely was renting a home with the mindset she was going to eventually buy the house. Pt states that the person Nallely is currently renting off however, is wanting Nallely and pt to move out of the home. Pt states that Nallely has been looking for places and is trying to decide on a place. Pt states if it comes to it, Nallely could move in with her grandfather. Pt states that he wouldn't be able to do though that as the grandfather is his ex-'s father and his ex- is currently living in there. Pt then states that he and his ex- were together and then and then was together again but states he hasn't had much contact with her since last summer. DIANA provided pt with housing resources including [facility] Housing information, rentals that may be available, and [facility] [employer] and encouraged pt to give resources to his daughter if she needs additional resources for housing. DIANA then spoke with pt regarding cancer diagnosis. PT states that a cancer diagnosis was just confirmed a few days ago. Pt states I am handling it. Pt states that he has told all of his children. Pt states he has three daughters and a son. Pt states that he feels like he has good support and that his children will support him. Pt states that he believes God's timing is everything. Pt asked this worker about making sure his children get the things that he wants them to have. SW encouraged pt to complete Living Will with a dietetic tech to decide what he wants his children to get. Pt asked this worker about SSI and how that will be affected. SW encouraged pt to call Social Security, social security number was provided to pt, in regards to his SSI. SW also educated pt on counseling and support groups if he feels he needs it. Pt states understanding, denied additional needs or concerns at this time. Jayla Man OPERATIONS SUPERVISOR CHEMICAL CLEANING, PRORATION CLERK
--- NOTE | 2018-07-28 15:15 | CHAPLAIN ---
Type of Pastoral Visit _x__ Initial Visit ___ Follow-up Visit ___ On-call Visit ___ General Patient Visit ___ Spiritual Assessment ___ Family Conference ___ Bereavement ___ Rapid Response ___ Code Blue ___ Other (describe below) Pastoral Care Referral From _x__ Patient ___ Family ___ Nurse ___ Physician ___ Electronic Engineering Draftsperson ___ Thermometer Maker ___ Other (describe below) Sacrament/Intervention _x__ Active listening ___ Anointing ___ Holiness ___ Bereavement ___ Communion _x__ Eduarda exploration ___ _x__ Life review _x__ Prayer ___ Reconciliation ___ Sacrament of Sick _x__ Supportive presence ___ Wedding ___ Other (describe below) Pastoral Comments patient presented some life review and health history then asked about spiritual matters and end of life issues; pt requested reading material and had a question to review and for the sugar cane planter machine operator to return with an answer
[2018-07-28 16:10] VITALS: BP 158/89; PULSE 95; RESP 18; TEMP 36.6; O2SAT 95
[2018-07-28 22:32] VITALS: BP 126/87; PULSE 75; RESP 18; TEMP 36.4; O2SAT 93
[2018-07-28] MEDS: Nortriptyline 25 MG Capsule 50 MG PO (22:36)
[2018-07-29] VITALS (11 sets, daily range): BP systolic 109–155; BP diastolic 57–99; PULSE 63–75; RESP 16–18; TEMP 36.2–36.7; O2SAT 95–99; BMI 52.2
--- NOTE | 2018-07-29 | LUNG_PTH ---
PATIENT: UNIQUE MOLINA LOC: MS3 U#:[id number] AGE/SX: 53/M ROOM: [facility] [place] RE07/26/[address]: Dr. Katina Nelson MD : 1965 BED: 1 DIS: 08/05/2018 SPEC #: [id number] RECD: 07/30/18 09:08 STATUS: TIERA ELENITA #: [id number] PATTIE: 07/29/18 00:[address]: Nagi Kumar DEPT: SURGICAL PATHOLOGY RECD BY: Roscoe Alberts ENTERED: 07/30/18 09:09 SP TYPE: LUNG BX OTHR DR: DO Dr. Nagi Hutchins MD Dr. Eric Smith, MD Dr. Elizabeth Yu, MD Dr. Joseph Agyepong, MD Dr. Joseph Prah, MD Dr. Nicholas F Kotsonis, MD Dr. Safdar Khan, MD Tissues: Bronchus of left lower lobe Procedures: Surgery Specimen Level IV Comments: @ Ordering doctor for SUIV edited from to @ by RGOOD at 07/30/18 1532 @ Submitting doctor edited from to @ by RGOOD at 07/30/18 1532 HEADER OPERATION: Bronchoscopy with biopsies PRE-OP DIAGNOSIS: Lung mass TISSUE SUBMITTED: Endobronchial biopsy POOJA MICROSCOPIC DIAGNOSIS Endobronchial mass, biopsy: Squamous cell carcinoma. AM:ericka 08/02/18 COMMENT Immunohistochemistry ([id number]) supports the above diagnosis. Case has been reviewed in consultation with Dr. Scanlon who concurs with the above diagnosis. IDC:CE MICROSCOPIC DESCRIPTION Slides are reviewed. GROSS DESCRIPTION Received in fixative is one container labeled with the patient's name and designated endobronchial biopsy left upper lobe. The specimen consists of multiple irregular fragments of reddish-brown soft tissue that in aggregate measure 0.6 x 0.2 x 0.1 cm. The specimen is totally submitted in one cassette. / CE:ericka 07/30/18 TC:0 CPT: 78250
--- NOTE | 2018-07-29 | IMM_PTH ---
PATIENT: UNIQUE MOLINA LOC: MS3 U#:[id number] AGE/SX: 53/M ROOM: [facility] [place] RE07/26/[address]: Dr. Katina Nelson MD : 1965 BED: 1 DIS: 08/05/2018 SPEC #: [id number] RECD: 08/02/18 10:38 STATUS: TIERA REQ #: [id number] PATTIE: 07/29/18 00:[address]: Nagi Kumar DEPT: IMMUNOHISTOCHEMISTRY RECD BY: Cristel Owens ENTERED: 08/02/18 10:41 SP TYPE: IMMUNO OTHR DR: DO Dr. Katina Hutchins MD Dr. Eric Smith, MD Dr. Elizabeth Yu, MD Dr. Joseph Agyepong, MD Dr. Joseph Prah, MD Dr. Safdar Khan, MD Tissues: Bronchus of left upper lobe Procedures: Synapto (add) NAPSIN A (add) CD56 (add) CEA (add) CHROMO (add) CK14 (add) CK20 (add) CK5-6 (add) CK7 (add) CK8 (add) KI-67 (add) P53 (add) TTF1 (add) NEUROFIL (add) Pankeratin (initial) P40 (add) NSE (add) PHYSICIAN & INSTITUTION [place] [phone] SPECIMEN INFORMATION: Tissue Source: Bronchial washings POOJA Clinical Info: Lung mass Specimen Number: [id number] CPT code: 91808, 70863 x16 METHODOLOGY: Deparaffinized sections of prefer/formalin-fixed tissue or PAP/DQ stained slides are incubated with monoclonal/polyclonal antibodies/oligonucleotide probes. Localization is made via biotin free immunoperoxidase method. Appropriate controls are performed and reacted as expected. Results on target cell population are indicated in the following table: RESULTS: ANTIBODY / CLONE RESULT AE1-3 (AE1/AE3/PCK26) positive CK7 (OV-TL12/30) negative CK8 (24ulqoZ36) positive CK20 (KS20.8) negative P40 (BC28) positive CD56 (123C3.D5) negative Chromo (LK2H10) negative Synapto (polyclonal) negative Neurofil (2F11) negative NSE Neuron Specific Enolase negative TTF-1 (8G7G3/1) negative Napsin A (Rabbit Polyclonal) negative CK5-6 (D5 & 1684) positive CK14 (LL002) positive, focal Ki-67 (30-9) positive, low-rare CEA (11-7/TF-3HB-1) negative P53 (DO-7) negative These tests were developed and their performance characteristics determined by [facility]. They may not have been cleared or approved by the U.S. Food and Drug Administration. The FDA has determined that such clearance or approval is not necessary. INTERPRETATION: Bronchial washings POOJA (cell block): Consistent with squamous cell carcinoma. Case has been reviewed in consultation with Dr. Scanlon who concurs with the above diagnosis. IDC:CE AM:ericka 08/03/18
--- NOTE | 2018-07-29 | FLU_PTH ---
PATIENT: UNIQUE MOLINA LOC: MS3 U#:[id number] AGE/SX: 53/M ROOM: [facility] [place] RE07/26/[address]: Dr. Katina Nelson MD : 1965 BED: 1 DIS: 08/05/2018 SPEC #: [id number] RECD: 07/30/18 09:08 STATUS: TIERA REQ #: [id number] PATTIE: 07/29/18 00:[address]: Nagi Kumar DEPT: CYTOLOGY RECD BY: Roscoe Alberts ENTERED: 07/30/18 09:08 SP TYPE: Fluid OTHR DR: DO Dr. Nagi Hutchins MD Dr. Eric Smith, MD Dr. Elizabeth Yu, MD Dr. Joseph Agyepong, MD Dr. Joseph Prah, MD Dr. Nicholas F Kotsonis, MD Dr. Safdar Khan, MD Tissues: Bronchus of left lower lobe Procedures: Special Stain Group II Surgery Specimen Level IV Cytospin Fluid Comments: @ Ordering doctor for SSII edited from to @ by RGOOD at 07/30/18 153 @ Ordering doctor for SUIV edited from to @ by RGOOD at 07/30/18 153 @ Ordering doctor for CYSPIN edited from to @ by ELROY at 07/30/18 153 @ Submitting doctor edited from to @ by RGOOD at 07/30/18 1532 HEADER OPERATION: Bronchoscopy with biopsies PRE-OP DIAGNOSIS: Mass TISSUE SUBMITTED: Bronchial washings POOJA DIAGNOSIS CYTOLOGY Bronchial washings, left upper lobe of lung (cytospin and cell block): Squamous cell carcinoma. AM:ericka 08/02/18 COMMENT Immunohistochemistry ([id number]) supports the above diagnosis. Please correlate with [id number] and [id number]. Case has been reviewed in consultation with Dr. Scanlon who concurs with the above diagnosis. IDC:CE CYTOLOGY STUDY Slides are reviewed. CYTOLOGY GROSS Received is 10 ml of red cloudy fluid labeled with the patient's name and and designated per the requisition as POOJA. Submitted for cytology preparation including cell block. 07/30/18 TC:0 CPT: 44927, 62449
--- NOTE | 2018-07-29 | IMM_PTH ---
PATIENT: UNIQUE MOLINA LOC: MS3 U#:[id number] AGE/SX: 53/M ROOM: [facility] [place] RE07/26/[address]: Dr. Katina Nelson MD : 1965 BED: 1 DIS: 08/05/2018 SPEC #: [id number] RECD: 08/02/18 10:42 STATUS: SOUJunior REQ #: [id number] PATTIE: 07/29/18 00:[address]: Nagi Kumar DEPT: IMMUNOHISTOCHEMISTRY RECD BY: Cristel Owens ENTERED: 08/02/18 10:49 SP TYPE: IMMUNO OTHR DR: DO Dr. Katina Hutchins MD Dr. Eric Smith, MD Dr. Elizabeth Yu, MD Dr. Joseph Agyepong, MD Dr. Joseph Prah, MD Dr. Safdar Khan, MD Tissues: Bronchus of left upper lobe Procedures: Synapto (add) NAPSIN A (add) CD56 (add) CEA (add) CHROMO (add) CK14 (add) CK20 (add) CK5-6 (add) CK7 (add) CK8 (add) KI-67 (add) P53 (add) TTF1 (add) NEUROFIL (add) Pankeratin (initial) P40 (add) NSE (add) PHYSICIAN & INSTITUTION [place] [id number] SPECIMEN INFORMATION: Tissue Source: Endobronchial biopsy POOJA Clinical Info: Lung mass Specimen Number: [id number] CPT code: 77249, 68813 x16 METHODOLOGY: Deparaffinized sections of prefer/formalin-fixed tissue or PAP/DQ stained slides are incubated with monoclonal/polyclonal antibodies/oligonucleotide probes. Localization is made via biotin free immunoperoxidase method. Appropriate controls are performed and reacted as expected. Results on target cell population are indicated in the following table: RESULTS: ANTIBODY / CLONE RESULT AE1-3 (AE1/AE3/PCK26) positive CK7 (OV-TL12/30) positive, focal CK8 (38syqrN85) positive, focal CK20 (KS20.8) negative P40 (BC28) positive CD56 (123C3.D5) negative Chromo (LK2H10) negative Synapto (polyclonal) negative Neurofil (2F11) negative NSE Neuron Specific Enolase negative TTF-1 (8G7G3/1) negative Napsin A (Rabbit Polyclonal) negative CK5-6 (D5 & 1684) positive CK14 (LL002) positive Ki-67 (30-9) positive, moderate CEA (11-7/TF-3HB-1) negative P53 (DO-7) negative These tests were developed and their performance characteristics determined by [facility]. They may not have been cleared or approved by the U.S. Food and Drug Administration. The FDA has determined that such clearance or approval is not necessary. INTERPRETATION: POOJA, endobronchial biopsy: Consistent with squamous cell carcinoma. Case has been reviewed in consultation with Dr. Scanlon who concurs with the above diagnosis. IDC:CE AM:ericka 08/03/18
--- NOTE | 2018-07-29 05:55 | EKG12_ITS ---
Test Reason : AM EKG Blood Pressure : / mmHG Vent. Rate : 071 BPM Atrial Rate : 071 BPM P-R Int : 154 ms QRS Dur : 104 ms QT Int : 374 ms P-R-T Axes : 070 053 017 degrees QTc Int : 406 ms Normal sinus rhythm Normal ECG When compared with ECG of 06-JAN-2008 19:37, QT has shortened Confirmed by RUPA CHAO ([id number]), editorial writer GUME PATEL ([id number]) on 08/02/2018 4:47:52 PM Referred By: Gilson Lopez Confirmed By:MARIAN CHAO
[2018-07-29] MEDS: HYDROcodone Bitartrate/Apap 5/325 Tablet PO ×2 (06:17→21:37)
[2018-07-29 06:24] LABS: Absolute Lymphocyte Count 1.16 X10^3/ul (0.83-4.51); Absolute Neutrophil Count 10.2 X10^3/uL (2.0-7.7); Basophil# 0.01 X10^3/uL; Basophil% 0.1 % (0-1); Eosinophil# 0.03 X10^3/uL; Eosinophils% 0.2 % (0-5); Hemoglobin 15.1 g/dl (13.0-16.5); Lymphocyte # 1.16 X10^3/ul (4.0); Lymphocyte % 9.5 % (19-41); Mean Corp Hgb Conc 32.8 g/gl (32-36); Mean Corpuscular Hgb 28.7 pg (27.0-32.0); Mean Corpuscular Volume 87.3 fL (80-94); Mean Platelet Vol. 10.9 fl (6.2-12.0); Monocyte# 0.72 X10^3/uL; Monocyte% 5.9 % (0-10); Neutrophil % 83.6 % (47-70); Platelet Count 282 K/mm3 (150-450); RBC Distribution Width SD 48.6 fl (35.1-43.9); Red Blood Count 5.27 M/mm3 (4.6-6.2); White Blood Count 12.2 K/mm3 (4.4-11.0)
[2018-07-29 06:26] LABS: POSITIVE COUNT NO; POSITIVE DIFFERENTIAL NO; POSITIVE MORPHOLOGY NO
[2018-07-29 06:34] LABS: Anion Gap 10 (5-15); BUN 19 mg/dL (7-18); BUN/Creat Ratio 23.8 RATIO (10-20); Calcium,Total 8.9 mg/dL (8.5-10.1); Chloride 102 mmol/L (98-107); EST Glomerular Filtration Rate 108 mL/min (>60); Est Glom Filt Rate - Afr Amer 130 mL/min (>60); Estimated Creatinine Clearance 115.04 ml/min; Glucose 179 mg/dL (74-106); Potassium 4.1 mmol/L (3.5-5.1); Sodium Level 137 mmol/L (136-145)
--- NOTE | 2018-07-29 09:39 | PCM.PN.PUL ---
Patient Problems: Active and Suspected Problems Metastasis (Acute) Disseminated cancer (Acute) Subjective: Patient did well overnight. Patient states pain is still very well controlled. No nausea or vomiting has been reported. Patient has been able to ambulate to the bathroom. Discussed with orthopedic surgeon. Patient needs to have a diagnosis prior to proceeding with pinning. Will proceed with bronchoscopy with anesthesia support this afternoon. Pending will not be taken place. Patient reportedly to have a CT-guided biopsy tomorrow. - Physical Exam General: Alert, Oriented x3, Cooperative, No apparent distress, - - Morbidly obese. Webbed neck. HEENT: Atraumatic, PERRLA, EOMI, Normocephalic, - - Chemosis of the left eye improved. Oral: Moist Mucosa, No Gingival or Mucosal Lesions/ Ulcerations Neck: Supple, No Nodes, Trachea Midline, - - Difficult to assess JVD Lungs: No rhonchi, No wheeze, No rales, Diminished, - - Symmetric expansion. No dullness to percussion. Cardiovascular: Regular rate, Regular Rhythm, Normal S1, Normal S2, No murmurs, No rub noted, No Gallop Abdomen: Bowel Sounds Present, Soft, Non Tender, Non-Distended, Obese Extremities: No clubbing, No cyanosis, Edema Skin: - - Venous stasis changes of the lower extremities Musculoskeletal: No Tenderness to Palpation of Joints or Extremities Lymphatic: No Cervical, Supraclavicular, or Inguinal Adenopathy Neurological: Cranial nerves II-XII grossly intact, Neuro grossly intact, Motor Exam 5/5 strength throughout Psych/Mental Status: Alert and oriented to time, place, person, mood and affect Vital Signs Temp Pulse Resp BP Pulse Ox 36.4 C L 75 18 143/87 H 96 07/29/18 05:07 07/29/18 05:07 07/29/18 05:07 07/29/18 05:07 07/29/18 05:07 Oxygen Delivery Method Room Air Weight: 168.283 kg Body Mass Index (BMI) 51.7 Intake and Output for Last 24 Hours 07/27/18 07/28/18 07/29/18 23:59 23:59 23:59 Intake Total 3000 / 3000 250 / 250 542 / 542 Output Total 2100 / 2100 Balance 900 / 900 250 / 250 542 / 542 Laboratory Tests Past 24 Hrs 07/29/18 07/29/18 05:25 05:25 WBC 12.2 H RBC 5.27 Hgb 15.1 Hct 46.0 MCV 87.3 MCH 28.7 MCHC 32.8 RDW 15.0 H RDW Differential 48.6 H Plt Count 282 MPV 10.9 Immature Gran % (Auto) 0.700 Neut % (Auto) 83.6 H Lymph % (Auto) 9.5 L [place] % (Auto) 5.9 Eos % (Auto) 0.2 Baso % (Auto) 0.1 Absolute Neuts (auto) 10.2 H Absolute Lymphs (auto) 1.16 Total Counted Not Reportable Sodium 137 Potassium 4.1 Chloride 102 Carbon Dioxide 25.0 Anion Gap 10 BUN 19 H Creatinine 0.80 Estim Creat Clear Calc 115.04 Est GFR (MDRD) Af Amer 130 Est GFR (MDRD) Non-Af 108 BUN/Creatinine Ratio 23.8 H Glucose 179 H Calcium 8.9 Medical Necessity - Tobacco Use Smoking Status: Current every day smoker Tobacco Use: Cigarettes Assessment/Plan All Active Problems Metastasis (Acute) Disseminated cancer (Acute) RECOMMENDATIONS: 1. Proceed with bronchoscopy today 2. Await CT-guided biopsy 3. Walking oximetry prior to discharge 4. Await results of biopsy IMPRESSIONS: 1. Left hilar mass Patient with a large left hilar mass that appears to have an endobronchial sign. Patient also has multiple probable metastatic lesions indicating probable stage IV disease. Given advanced stage, it would likely not be necessary to proceed with endobronchial ultrasound and patient would be amenable to a standard bronchoscopy with endobronchial biopsies. Will proceed with bronchoscopy for determination of primary using anesthesia support and moderate sedation. 2. Probable COPD/morbid obesity/tobacco abuse/marijuana use/obstructive sleep apnea Complicates care, management, recovery and prognosis. Patient may benefit from transition to DuoNeb therapy if developing worsening shortness of breath. Would recommend aggressive DVT prophylaxis as tumor does appear to be encircling the pulmonary artery. Code Visit Inpatient E&M: 70600 Subs Hosp L2
[2018-07-29] MEDS: Fluticasone 0.05% 1 SPRAY NASAL.SRY 2 SPRAY NASAL ×2 (10:28→21:40)
[2018-07-29] MEDS: Nystatin Powder 15gm Bottle 1 APPLIC TOPICAL ×2 (10:30→21:40)
[2018-07-29] MEDS: 0.9% NaCl Peripheral Flush Adult/Peds IV (11:10)
--- NOTE | 2018-07-29 13:01 | PCM.PN.HOSP ---
Patient Problems: Active and Suspected Problems Metastasis (Acute) Disseminated cancer (Acute) Subjective: Pain is at a 3 out of 10 today and is still a lot better than what it had been. Vitals/I&O's: Vital Signs Temp Pulse Resp BP Pulse Ox 97.9 F 63 18 155/99 H 98 07/29/18 11:00 07/29/18 11:00 07/29/18 11:00 07/29/18 11:00 07/29/18 11:00 Oxygen Delivery Method Room Air Weight: 375 lb Body Mass Index (BMI) 52.2 Intake and Output for Last 24 Hours 07/27/18 07/28/18 07/29/18 23:59 23:59 23:59 Intake Total 3000 / 3000 250 / 250 542 / 542 Output Total 2100 / 2100 Balance 900 / 900 250 / 250 542 / 542 General: Alert, Oriented x3, Cooperative, No apparent distress HEENT: Atraumatic, PERRLA, EOMI, Normocephalic Oral: Dry Mucosa Neck: Supple Lungs: Normal air movement, no wheeze, no rales, diminished Cardiovascular: Regular rate, Regular Rhythm, Normal S1, Normal S2, No murmurs Abdomen: Soft, Non Tender, Non-Distended, No Hepato-splenomegaly Extremities: No edema, Capillary Refill Less than 3 Seconds Skin: No rashes, No breakdown Musculoskeletal: Tenderness - Most of the pain is in his right hip, though much improved Neurological: Neuro grossly intact, Sensory exam intact to light touch and pain Psych/Mental Status: Normal Affect, Appropriate Laboratory Results 07/29/18 05:25: WBC 12.2 H, RBC 5.27, Hgb 15.1, Hct 46.0, MCV 87.3, MCH 28.7, MCHC 32.8, RDW 15.0 H, RDW Differential 48.6 H, Plt Count 282, MPV 10.9, Immature Gran % (Auto) 0.700, Neut % (Auto) 83.6 H, Lymph % (Auto) 9.5 L, [place] % (Auto) 5.9, Eos % (Auto) 0.2, Baso % (Auto) 0.1, Absolute Neuts (auto) 10.2 H, Absolute Lymphs (auto) 1.16, Total Counted Not Reportable 07/29/18 05:25: Sodium 137, Potassium 4.1, Chloride 102, Carbon Dioxide 25.0, Anion Gap 10, BUN 19 H, Creatinine 0.80, Estim Creat Clear Calc 115.04, Est GFR (MDRD) Af Amer 130, Est GFR (MDRD) Non-Af 108, BUN/Creatinine Ratio 23.8 H, Glucose 179 H, Calcium 8.9 Current Medications Hydrocodone Bitart/Acetaminophen ([place] 5mg-325mg) 1 tablet PO Q4H PRN PRN PRN Reason: MODERATE PAIN (4-5/10) Last Admin: 07/29/18 06:17 Dose: 1 tablet Albuterol Sulfate (Ventolin Aerosols) 2.5 mg INHALATION Q2H PRN PRN PRN Reason: sob or wheezes Celecoxib (Celebrex) 200 mg PO DAILY [facility] Last Admin: 07/28/18 09:15 Dose: 200 mg Cyclobenzaprine HCl (Flexeril) 10 mg PO TID PRN PRN PRN Reason: MUSCLE SPASM Dexamethasone (Decadron) 4 mg PO DAILY@0800 [facility] Dextrose (D50w Syringe) 0 gm IV X1 PRN; Protocol PRN Reason: Hypoglycemia Enoxaparin Sodium (Lovenox) 40 mg SC DAILY@1000 [facility] Last Admin: 07/28/18 09:16 Dose: 40 mg Fluticasone Propionate (Flonase Nasal [place]) 2 spray NASAL BID [facility] Last Admin: 07/29/18 10:28 Dose: 2 spray Glucagon () 1 mg IM .X1 PRN PRN Reason: Hypoglycemia Morphine Sulfate () 4 mg IV Q3H PRN PRN PRN Reason: Severe pain (7-10/10) Nicotine (Nicoderm Cq (Pbkc)) 21 mg TRANSDERM. DAILY [facility] Last Admin: 07/28/18 09:20 Dose: 21 mg Nortriptyline HCl (Pamelor) 50 mg PO QHS [facility] Last Admin: 07/28/18 22:36 Dose: 50 mg Nystatin (Mycostatin Powder) 1 applic TOPICAL BID [facility]; Protocol Last Admin: 07/29/18 10:30 Dose: 1 applicatio Ondansetron HCl (Zofran) 4 mg IV Q8H PRN PRN PRN Reason: NAUSEA/VOMITING Senna/Docusate Sodium (Senokot-S, Libby-Colace) 2 tablet PO BID ALIE Last Admin: 07/28/18 22:36 Dose: 2 tablet Sodium Chloride () 5 - 15 ml IV UD PRN PRN Reason: SALINE FLUSH Last Admin: 07/29/18 11:10 Dose: 10 ml Medical Necessity - Tobacco Use Smoking Status: Current every day smoker Tobacco Use: Cigarettes Assessment/Plan All Active Problems Metastasis (Acute) Disseminated cancer (Acute) 1. Likely metastatic cancer to the bone primary appears to be in the lung/COPD/JACK/tobacco abuse -CT of the chest shows a large 10 cm mass encapsulating the main left bronchus -CT of the abdomen consistent with bone mets -He is on Celebrex at home, continue with morphine 4 mg and continue his Vicodin as well, discontinue naproxen continue with nortriptyline -Decadron 4 mg daily to control the bone pain -We will perform a bronc today for biopsy of the lung mass, and will have radiology perform a biopsy of 1 of his bone mets, and if it truly is metastasis then we can proceed with nailing of his right leg -We will continue with his home aerosols as well as his BiPAP for his JACK. -Discussed the necessity of smoking cessation and will provide a nicotine patch while in the hospital 2. Morbid obesity -Discussed lifestyle modification since his BMI is 51 DVT: Lovenox Code Visit Inpatient E&M: 24978 Subs Hosp L2
--- NOTE | 2018-07-29 13:04 | PN_ITS ---
Patient Problems: Active and Suspected Problems Metastasis (Acute) Disseminated cancer (Acute) Subjective: Pain is at a 3 out of 10 today and is still a lot better than what it had been. Vitals/I&O's: Vital Signs Temp Pulse Resp BP Pulse Ox 97.9 F 63 18 155/99 H 98 07/29/18 11:00 07/29/18 11:00 07/29/18 11:00 07/29/18 11:00 07/29/18 11:00 Oxygen Delivery Method Room Air Weight: 375 lb Body Mass Index (BMI) 52.2 Intake and Output for Last 24 Hours 07/27/18 07/28/18 07/29/18 23:59 23:59 23:59 Intake Total 3000 / 3000 250 / 250 542 / 542 Output Total 2100 / 2100 Balance 900 / 900 250 / 250 542 / 542 General: Alert, Oriented x3, Cooperative, No apparent distress HEENT: Atraumatic, PERRLA, EOMI, Normocephalic Oral: Dry Mucosa Neck: Supple Lungs: Normal air movement, no wheeze, no rales, diminished Cardiovascular: Regular rate, Regular Rhythm, Normal S1, Normal S2, No murmurs Abdomen: Soft, Non Tender, Non-Distended, No Hepato-splenomegaly Extremities: No edema, Capillary Refill Less than 3 Seconds Skin: No rashes, No breakdown Musculoskeletal: Tenderness - Most of the pain is in his right hip, though much improved Neurological: Neuro grossly intact, Sensory exam intact to light touch and pain Psych/Mental Status: Normal Affect, Appropriate Laboratory Results 07/29/18 05:25: WBC 12.2 H, RBC 5.27, Hgb 15.1, Hct 46.0, MCV 87.3, MCH 28.7, MCHC 32.8, RDW 15.0 H, RDW Differential 48.6 H, Plt Count 282, MPV 10.9, Immature Gran % (Auto) 0.700, Neut % (Auto) 83.6 H, Lymph % (Auto) 9.5 L, [place] % (Auto) 5.9, Eos % (Auto) 0.2, Baso % (Auto) 0.1, Absolute Neuts (auto) 10.2 H, Absolute Lymphs (auto) 1.16, Total Counted Not Reportable 07/29/18 05:25: Sodium 137, Potassium 4.1, Chloride 102, Carbon Dioxide 25.0, Anion Gap 10, BUN 19 H, Creatinine 0.80, Estim Creat Clear Calc 115.04, Est GFR (MDRD) Af Amer 130, Est GFR (MDRD) Non-Af 108, BUN/Creatinine Ratio 23.8 H, Glucose 179 H, Calcium 8.9 Current Medications Hydrocodone Bitart/Acetaminophen ([place] 5mg-325mg) 1 tablet PO Q4H PRN PRN PRN Reason: MODERATE PAIN (4-5/10) Last Admin: 07/29/18 06:17 Dose: 1 tablet Albuterol Sulfate (Ventolin Aerosols) 2.5 mg INHALATION Q2H PRN PRN PRN Reason: sob or wheezes Celecoxib (Celebrex) 200 mg PO DAILY [facility] Last Admin: 07/28/18 09:15 Dose: 200 mg Cyclobenzaprine HCl (Flexeril) 10 mg PO TID PRN PRN PRN Reason: MUSCLE SPASM Dexamethasone (Decadron) 4 mg PO DAILY@0800 [facility] Dextrose (D50w Syringe) 0 gm IV X1 PRN; Protocol PRN Reason: Hypoglycemia Enoxaparin Sodium (Lovenox) 40 mg SC DAILY@1000 [facility] Last Admin: 07/28/18 09:16 Dose: 40 mg Fluticasone Propionate (Flonase Nasal [place]) 2 spray NASAL BID [facility] Last Admin: 07/29/18 10:28 Dose: 2 spray Glucagon () 1 mg IM .X1 PRN PRN Reason: Hypoglycemia Morphine Sulfate () 4 mg IV Q3H PRN PRN PRN Reason: Severe pain (7-10/10) Nicotine (Nicoderm Cq (Pbkc)) 21 mg TRANSDERM. DAILY [facility] Last Admin: 07/28/18 09:20 Dose: 21 mg Nortriptyline HCl (Pamelor) 50 mg PO QHS [facility] Last Admin: 07/28/18 22:36 Dose: 50 mg Nystatin (Mycostatin Powder) 1 applic TOPICAL BID [facility]; Protocol Last Admin: 07/29/18 10:30 Dose: 1 applicatio Ondansetron HCl (Zofran) 4 mg IV Q8H PRN PRN PRN Reason: NAUSEA/VOMITING Senna/Docusate Sodium (Senokot-S, Libby-Colace) 2 tablet PO BID [facility] Last Admin: 07/28/18 22:36 Dose: 2 tablet Sodium Chloride () 5 - 15 ml IV UD PRN PRN Reason: SALINE FLUSH Last Admin: 07/29/18 11:10 Dose: 10 ml Medical Necessity - Tobacco Use Smoking Status: Current every day smoker Tobacco Use: Cigarettes Assessment/Plan All Active Problems Metastasis (Acute) Disseminated cancer (Acute) 1. Likely metastatic cancer to the bone primary appears to be in the lung/COPD/JACK/tobacco abuse -CT of the chest shows a large 10 cm mass encapsulating the main left bronchus -CT of the abdomen consistent with bone mets -He is on Celebrex at home, continue with morphine 4 mg and continue his Vicodin as well, discontinue naproxen continue with nortriptyline -Decadron 4 mg daily to control the bone pain -We will perform a bronc today for biopsy of the lung mass, and will have radiology perform a biopsy of 1 of his bone mets, and if it truly is metastasis then we can proceed with nailing of his right leg -We will continue with his home aerosols as well as his BiPAP for his JACK. -Discussed the necessity of smoking cessation and will provide a nicotine patch while in the hospital 2. Morbid obesity -Discussed lifestyle modification since his BMI is 51 DVT: Lovenox Code Visit Inpatient E&M: 31011 Subs Hosp L2
[2018-07-29 14:31] LABS: Cytology, Body Fluid / CSF SEE PATHOLOGY REPORT
--- NOTE | 2018-07-29 14:37 | OP.ENDO_ITS ---
Patient Name: Jose Rodriguez Procedure Date: 07/29/2018 12:15 PM Date of : 1965 Age: 53 Procedure: Bronchoscopy Indications: Left upper lobe mass, Left upper lobe lung mass suspicious for cancer Providers: Nagi Kumar MD Referring MD: Gilson Lopez Medicines: Lidocaine applied to nares and subglottic space, Lidocaine 2% Nebulizer 2.5 mL, Lidocaine 2% applied to the tracheobronchial tree 7 mL, Monitored Anesthesia Care Complications: No immediate complications Procedure: Pre-Anesthesia Assessment: - A History and Physical has been performed. The patient's medications, allergies and sensitivities have been reviewed. - The risks and benefits of the procedure and the sedation options and risks were discussed with the patient. All questions were answered and informed consent was obtained. - Patient identification and proposed procedure were verified prior to the procedure by the physician, the nurse and the anesthesiologist. The procedure was verified in the procedure room. - The anesthesia plan was to use monitored anesthesia care (MAC). After I obtained informed consent, the scope was passed under direct vision. Throughout the procedure, the patient's blood pressure, pulse, and oxygen saturations were monitored continuously. The bronchoscope was introduced through the left nostril and advanced to the tracheobronchial tree of both lungs. The procedure was extremely difficult due to the presence of excessive secretions, the patient's respiratory instability (hypoxia) and the patient's body habitus. Successful completion of the procedure was aided by performing the maneuvers documented (below) in this report and receiving assistance from Anesthesiology. The patient tolerated the procedure fairly well. Moderate Sedation: An independent trained observer was present and continuously monitored the patient. Moderate (conscious) sedation was administered by the endoscopy nurse and supervised by the endoscopist. The patient's oxygen saturation, heart rate, blood pressure and response to care were monitored. Findings: The nasopharynx/oropharynx showed significant redundant tissue with dynamic collapse. The larynx appears normal. The vocal cords appear normal. The subglottic space is normal. The trachea is of normal caliber. The lucho is sharp. The tracheobronchial tree of the right lung was examined to at least the first subsegmental level. Bronchial mucosa and anatomy in the right lung are normal; there are no endobronchial lesions, and no secretions. Endobronchial biopsies of a mass were performed in the left upper lobe using a forceps and sent for routine cytology and histopathology examination. 7 were obtained. LLL was normal in all segments and subsegments. Impression: - Left upper lobe mass - Left upper lobe lung mass suspicious for cancer - The airway examination of the right lung was normal. - An endobronchial biopsy was performed. - Left upper lobe mass - Washings were obtained. Recommendation: - Await biopsy and washing results. - Bronchial hygiene. Procedure Code(s): --- Professional --- 09581, Bronchoscopy, rigid or flexible, including fluoroscopic guidance, when performed; with bronchial or endobronchial biopsy(s), single or multiple sites Diagnosis Code(s): --- Professional --- R91.8, Other nonspecific abnormal finding of lung field CPT copyright 2017 [employer]. All rights reserved. The codes documented in this report are preliminary and upon search engine marketing strategist review may be revised to meet current compliance requirements. MD Nagi Meyer MD 07/29/2018 2:36:54 PM This report has been signed electronically. Number of Addenda: 0 Note Initiated On: 07/29/2018 12:15 PM
--- NOTE | 2018-07-29 14:50 | RAD_ITS ---
STUDY: X-RAY - RIGHT RADIUS AND ULNA REASON FOR EXAM: Male, 53 years old. Right-sided forearm pain. Possible metastatic disease. TECHNIQUE: AP and lateral view(s) of the forearm. COMPARISON: Prior comparable comparison studies are not available for review at this time. FINDINGS: Angiocath is visible within the distal lateral forearm. The soft tissues are otherwise within normal limits. Normal visualized radius. Normal visualized ulna. There is no demonstrated destructive osseous lesion. There is no demonstrated acute fracture. RAD/Forearm 2 Views IMPRESSION: No radiographic evidence for fracture. Electronically Signed: Marissa Watkins MD at 19:11 EDT , Service support ,
--- NOTE | 2018-07-29 14:50 | RAD_ITS ---
STUDY: X-RAY - LEFT TIBIA AND FIBULA REASON FOR EXAM: Male, 53 years old. Left-sided leg pain and possible metastatic disease. TECHNIQUE: AP and lateral view(s) of the tibia and fibula were obtained. COMPARISON: None. FINDINGS: There appears be some fragmentation of the tibial tubercle. This may be the result of previous trauma. The tibia otherwise appears to be within normal limits. The distal femur has a grossly normal appearance. There are degenerative changes of the knee. Normal visualized fibula. There is no demonstrated destructive osseous lesion. There is soft tissue swelling of ankle. RAD/Tibia & Fibula 2 Views IMPRESSION: No radiographic evidence of suggest metastatic disease. Electronically Signed: Marissa Watkins MD at 19:21 EDT , Service support ,
--- NOTE | 2018-07-29 14:50 | RAD_ITS ---
STUDY: X-RAY - LEFT RADIUS AND ULNA REASON FOR EXAM: Male, 53 years old. Left-sided forearm pain and possible metastatic disease. TECHNIQUE: AP and lateral view(s) of the forearm. COMPARISON: Prior comparable comparison studies are not available for review at this time. FINDINGS: There is no demonstrated soft tissue swelling. Normal visualized radius. Normal visualized ulna. There is no demonstrated destructive osseous lesion. RAD/Forearm 2 Views IMPRESSION: No radiographic evidence of metastatic disease. Electronically Signed: Marissa Watkins MD at 19:15 EDT , Service support ,
--- NOTE | 2018-07-29 14:50 | RAD_ITS ---
STUDY: X-RAY - LEFT FEMUR REASON FOR STUDY: Male, 53 years old. Left-sided femur pain and possible metastatic disease. TECHNIQUE: AP and lateral view(s) of the femur. COMPARISON: None. FINDINGS: Normal visualized femur. Normal visualized soft tissue structure. There is no demonstrated fracture or destructive process. There mild degenerative changes of the hip and knee. RAD/Femur Min 2 Views IMPRESSION: No definite radiographic evidence for metastatic disease. Electronically Signed: Marissa Watkins MD at 19:14 EDT , Service support ,
--- NOTE | 2018-07-29 14:50 | RAD_ITS ---
STUDY: X-RAY - RIGHT HUMERUS REASON FOR EXAM: Male, 53 years old. Pain. Evaluate for metastatic carcinoma. TECHNIQUE: 3 view(s) of the humerus. COMPARISON: None. FINDINGS: Normal visualized humerus. No lytic lesions are identified. There is no demonstrated soft tissue abnormality. RAD/Humerus min 2 Views IMPRESSION: No radiographic evidence of metastatic disease. Electronically Signed: Onur Chaudhary MD at 16:58 EDT , Service support ,
--- NOTE | 2018-07-29 14:50 | RAD_ITS ---
STUDY: X-RAY - LEFT HUMERUS REASON FOR EXAM: Pain, probable metastatic cancer. TECHNIQUE: 2 view(s) of the humerus. COMPARISON: None. FINDINGS: Normal visualized humerus. There is no demonstrated fracture or osseous destructive process. There is no demonstrated soft tissue abnormality. RAD/Humerus min 2 Views IMPRESSION: Unremarkable x-ray examination of the left humerus. Electronically Signed: Jonas Lacy MD at 15:35 EDT Tel , Service support ,
--- NOTE | 2018-07-29 14:50 | RAD_ITS ---
STUDY: X-RAY - RIGHT TIBIA AND FIBULA REASON FOR EXAM: Male, 53 years old. Right-sided leg pain and possible metastatic disease. TECHNIQUE: AP and lateral view(s) of the tibia and fibula were obtained. COMPARISON: Prior comparison studies are not available for review at this time. FINDINGS: There is a geographic lytic lesion within the proximal tibia possibly representing a metastatic focus. Normal visualized fibula. There are degenerative changes at the knee involving the patellofemoral articulation, medial and lateral femoral tibial compartments. There is a prominent os trigonum. There is mild soft tissue swelling about the ankle. RAD/Tibia & Fibula 2 Views IMPRESSION: 1. Lytic process involving the proximal tibia may represent a metastatic focus. 2. Degenerative arthropathy of the knee. Electronically Signed: Marissa Watkins MD at 19:18 EDT , Service support ,
[2018-07-29] MEDS: Celecoxib 200 MG Capsule PO (15:41)
[2018-07-29] MEDS: Enoxaparin 40 MG/0.4 ML Syringe SC (15:42)
[2018-07-29] MEDS: Senna/Docusate Sodium 1 Tablet 2 TABLET PO ×2 (15:42→21:39)
[2018-07-29 15:58] LABS: Color/Body Fluid RED; Source- Body Fluid BRONCHIAL LAVAGE
[2018-07-29 16:06] LABS: White Blood Count/Body Fluid 1400 /mm3
[2018-07-29 16:07] LABS: Appearance/Body Fluid TURBID
[2018-07-29 16:22] LABS: Body Fluid QC Type(s) BF3Q
[2018-07-29 17:54] LABS: Lymphocytes 55 %; Neutrophil (Segs) 45 %
[2018-07-29] MEDS: Nortriptyline 25 MG Capsule 50 MG PO (21:39)
[2018-07-30] VITALS (18 sets, daily range): BP systolic 109–158; BP diastolic 63–104; PULSE 70–87; RESP 11–80; TEMP 36.2–36.7; O2SAT 90–99; BMI 52.2
--- NOTE | 2018-07-30 | IMM_PTH ---
PATIENT: UNIQUE MOLINA LOC: MS3 U#:[id number] AGE/SX: 53/M [place] [facility] [place]: Dr. Katina Nelson MD : 1965 BED: 1 DIS: 08/05/2018 SPEC #: [id number] RECD: 08/02/18 10:49 STATUS: SOUT REQ #: [id number] PATTIE: 07/30/18 00:[address]: Katina Nelson DEPT: IMMUNOHISTOCHEMISTRY RECD BY: Cristel Owens ENTERED: 08/02/18 10:54 SP TYPE: IMMUNO OTHR DR: DO Dr. Nagi Hutchins MD Dr. Eric Smith, MD Dr. Elizabeth Yu, MD Dr. Joseph Agyepong, MD Dr. Joseph Prah, MD Dr. Safdar Khan, MD Tissues: Hip, NOS Procedures: Synapto (add) NAPSIN A (add) CD56 (add) CEA (add) CHROMO (add) CK14 (add) CK20 (add) CK5-6 (add) CK7 (add) CK8 (add) KI-67 (add) P53 (add) TTF1 (add) 34BE12 (add) NEUROFIL (add) Pankeratin (initial) P40 (add) NSE (add) PHYSICIAN & INSTITUTION [place] [id number] SPECIMEN INFORMATION: Tissue Source: Left posterior iliac crest Clinical Info: Pelvic bone mass Specimen Number: [id number] CPT code: 20092, 74945 x17 METHODOLOGY: Deparaffinized sections of prefer/formalin-fixed tissue or PAP/DQ stained slides are incubated with monoclonal/polyclonal antibodies/oligonucleotide probes. Localization is made via biotin free immunoperoxidase method. Appropriate controls are performed and reacted as expected. Results on target cell population are indicated in the following table: RESULTS: ANTIBODY / CLONE RESULT AE1-3 (AE1/AE3/PCK26) negative CK7 (OV-TL12/30) negative CK8 (22nhxnO64) negative CK20 (KS20.8) negative P40 (BC28) negative CD56 (123C3.D5) positive Chromo (LK2H10) positive, dim Synapto (polyclonal) positive Neurofil (2F11) negative NSE Neuron Specific Enolase positive TTF-1 (8G7G3/1) negative Napsin A (Rabbit Polyclonal) negative CK5-6 (D5 & 1684) negative CK14 (LL002) negative Ki-67 (30-9) positive, high CEA (11-7/TF-3HB-1) negative P53 (DO-7) negative 34BE12 (34BE12) negative These tests were developed and their performance characteristics determined by [facility]. They may not have been cleared or approved by the U.S. Food and Drug Administration. The FDA has determined that such clearance or approval is not necessary. INTERPRETATION: Left hip, CT-guided biopsy: Consistent with metastatic neuroendocrine carcinoma. AM:ericka 08/04/18 Comment: TTF-1 is negative and hence a lung primary is not favored.
--- NOTE | 2018-07-30 | ASPIGT_PTH ---
PATIENT: UNIQUE MOLINA LOC: MS3 U#:[id number] AGE/SX: 53/M ROOM: [facility] [place]07/26/[address]: Dr. Katina Nelson MD : 1965 BED: 1 DIS: 08/05/2018 SPEC #: [id number] RECD: 08/02/18 07:23 STATUS: TIERA REQ #: [id number] PATTIE: 07/30/18 00:[address]: Katina Nelson DEPT: SURGICAL PATHOLOGY RECD BY: Roscoe Alberts ENTERED: 08/02/18 07:24 SP TYPE: ASP RAD OTHR DR: DO Dr. Nagi Hutchins MD Dr. Eric Smith, MD Dr. Elizabeth Yu, MD Dr. Joseph Agyepong, MD Dr. Joseph Prah, MD Dr. Safdar Khan, MD Tissues: Iliac crest Procedures: FNA Specimen Adequacy Special Stain Group II Surgery Specimen Level IV Imprint (control) HEADER OPERATION: CT-guided left hip biopsy PRE-OP DIAGNOSIS: Pelvic bone lesion/mass TISSUE SUBMITTED: Left posterior iliac crest 18 gauge core x5 (8 DQ, 7 paps) MICROSCOPIC DIAGNOSIS Left posterior iliac crest, CT-guided core biopsy: Metastatic neuroendocrine carcinoma. See Comment. AM:ericka 08/02/18 COMMENT The specimen is evaluated at the time of crush prep by Dr. Morillo. 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 Immunohistochemistry ([id number]) supports the above diagnosis and shows a neuroendocrine neoplasm with high Ki67 index, TTF-1 is negative on the tumor cells. A metastatic lung primary is a possibility. 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 Clinical correlation is suggested. Case has been reviewed in consultation with Dr. Scanlon who concurs with the above diagnosis. IDC:CE MICROSCOPIC DESCRIPTION Slides are reviewed. GROSS DESCRIPTION Received in fixative is one container labeled with the patient's name and designated left hip/pelvis. The specimen consists of multiple elongated cores of light tran soft tissue. Each core has an average length of 1 cm and a maximal diameter of <0.1 cm. The specimen is totally submitted in one cassette. / AM:ericka 07/30/18 TC:0 CPT: 09443, 53603
--- NOTE | 2018-07-30 | IMM_PTH ---
PATIENT: UNIQUE MOLINA LOC: MS3 U#:[id number] AGE/SX: 53/M ROOM: [facility] RE07/26/[address]: Dr. Katina Nelson MD : 1965 BED: 1 DIS: 08/05/2018 SPEC #: [id number] RECD: 08/04/18 14:25 STATUS: TIERA REQ #: [id number] PATTIE: 07/30/18 00:[address]: Shelly Saldivar DEPT: IMMUNOHISTOCHEMISTRY RECD BY: Cristel Owens ENTERED: 08/04/18 14:28 SP TYPE: IMMUNO OTHR DR: MD Dr. Nagi Miller MD Dr. Eric Smith, MD Dr. Elizabeth Yu, MD Dr. Joseph Agyepong, MD Dr. Joseph Prah, MD Dr. Safdar Khan, MD Tissues: Hip, NOS Procedures: Synapto (add) CD45 (add) CD56 (add) CEA (add) CHROMO (add) CK20 (add) CK5-6 (add) CK7 (add) CK8 (add) KI-67 (add) P53 (add) NEUROFIL (add) Pankeratin (initial) P40 (add) NSE (add) PHYSICIAN & [place] [id number] SPECIMEN INFORMATION: Tissue Source: Right hip reamings Clinical Info: Right femur metastatic lesions Specimen Number: [id number] #6 CPT code: 79474, 20039 x14 METHODOLOGY: Deparaffinized sections of prefer/formalin-fixed tissue or PAP/DQ stained slides are incubated with monoclonal/polyclonal antibodies/oligonucleotide probes. Localization is made via biotin free immunoperoxidase method. Appropriate controls are performed and reacted as expected. Results on target cell population are indicated in the following table: RESULTS: ANTIBODY / CLONE RESULT Block 6 AE1-3 (AE1/AE3/PCK26) negative CK7 (OV-TL12/30) negative CK8 (73bwqeP86) positive, focal, dim CK20 (KS20.8) negative CD45 (RP2/18) negative P40 (BC28) negative CD56 (123C3.D5) positive Chromo (LK2H10) negative Synapto (polyclonal) positive Neurofil (2F11) negative NSE Neuron Specific Enolase positive, dim CK5-6 (D5 & 1684) negative Ki-67 (30-9) positive, low CEA (11-7/TF-3HB-1) positive, dim P53 (DO-7) negative These tests were developed and their performance characteristics determined by [facility]. They may not have been cleared or approved by the U.S. Food and Drug Administration. The FDA has determined that such clearance or approval is not necessary. INTERPRETATION: Right hip reamings: Crushed atypical epithelial cells with neuroendocrine phenotype. AM:ericka 08/05/18
[2018-07-30] MEDS: 0.9% NaCl Peripheral Flush Adult/Peds IV ×4 (01:52→23:05)
[2018-07-30] MEDS: Morphine 2 MG/ML Syringe 4 MG IV ×3 (01:52→23:05)
[2018-07-30] MEDS: HYDROcodone Bitartrate/Apap 5/325 Tablet PO ×2 (04:15→21:52)
[2018-07-30 06:17] LABS: Absolute Lymphocyte Count 1.87 X10^3/ul (0.83-4.51); Absolute Neutrophil Count 6.9 X10^3/uL (2.0-7.7); Basophil# 0.02 X10^3/uL; Basophil% 0.2 % (0-1); Eosinophil# 0.18 X10^3/uL; Eosinophils% 1.8 % (0-5); Hemoglobin 14.8 g/dl (13.0-16.5); Lymphocyte # 1.87 X10^3/ul (4.0); Lymphocyte % 18.9 % (19-41); Mean Corp Hgb Conc 32.9 g/gl (32-36); Mean Corpuscular Hgb 29.4 pg (27.0-32.0); Mean Corpuscular Volume 89.3 fL (80-94); Monocyte# 0.85 X10^3/uL; Monocyte% 8.6 % (0-10); Neutrophil # 6.86 X10^3/uL (2.7-7.7); Neutrophil % 69.6 % (47-70); Platelet Count 234 K/mm3 (150-450); RBC Distribution Width CV 15.2 % (11.6-14.6); RBC Distribution Width SD 49.3 fl (35.1-43.9); Red Blood Count 5.04 M/mm3 (4.6-6.2); White Blood Count 9.9 K/mm3 (4.4-11.0)
[2018-07-30 06:20] LABS: POSITIVE COUNT NO; POSITIVE DIFFERENTIAL NO; POSITIVE MORPHOLOGY NO
[2018-07-30 06:31] LABS: Anion Gap 8 (5-15); BUN 19 mg/dL (7-18); BUN/Creat Ratio 24.9 RATIO (10-20); Calcium,Total 8.9 mg/dL (8.5-10.1); Chloride 104 mmol/L (98-107); Creatinine, Serum 0.76 mg/dL (0.70-1.30); EST Glomerular Filtration Rate 114 mL/min (>60); Est Glom Filt Rate - Afr Amer 138 mL/min (>60); Glucose 82 mg/dL (74-106); Potassium 4.4 mmol/L (3.5-5.1); Sodium Level 138 mmol/L (136-145)
--- NOTE | 2018-07-30 08:00 | PCM.PN.PUL ---
Patient Problems: Active and Suspected Problems Metastasis (Acute) Disseminated cancer (Acute) Subjective: Patient did well overnight. No acute issues were reported. Patient has no recollection of the procedure yesterday. No chest pain or hemoptysis has been reported. Patient believes that his breathing is at his baseline. Objective: Fungating mass noted in the left upper lobe. Multiple biopsies were taken. Unable to pass the scope following biopsies. Patient would likely not be a stent candidate at this time. - Physical Exam General: Alert, Oriented x3, Cooperative, No apparent distress, - - Morbidly obese. No conversational dyspnea. HEENT: Atraumatic, PERRLA, EOMI, Normocephalic, - - Slight scleral injection without icterus Oral: Moist Mucosa, No Gingival or Mucosal Lesions/ Ulcerations Neck: Supple, No JVD, No Nodes, Trachea Midline Lungs: No rhonchi, No wheeze, No rales, Diminished - Left apex, - - Symmetric expansion. No dullness to percussion. Cardiovascular: Regular rate, Regular Rhythm, Normal S1, Normal S2, No murmurs, No rub noted, No Gallop Abdomen: Bowel Sounds Present, Soft, Non Tender, Non-Distended, Obese Extremities: No cyanosis, Edema Skin: - - No change from previous Musculoskeletal: No Tenderness to Palpation of Joints or Extremities Lymphatic: No Cervical, Supraclavicular, or Inguinal Adenopathy Neurological: Cranial nerves II-XII grossly intact, Neuro grossly intact, Motor Exam 5/5 strength throughout Psych/Mental Status: Alert and oriented to time, place, person, mood and affect Vital Signs Temp Pulse Resp BP Pulse Ox 36.2 C L 71 18 122/72 H 96 07/30/18 01:48 07/30/18 01:48 07/30/18 01:48 07/30/18 01:48 07/30/18 01:56 Oxygen Flow Rate (L/min) 2 Oxygen Delivery Method Room Air Weight: 170.097 kg Body Mass Index (BMI) 52.2 Intake and Output for Last 24 Hours 07/28/18 07/29/18 07/30/18 23:59 23:59 23:59 Intake Total 250 / 250 1342 / 1342 1100 / 1100 Balance 250 / 250 1342 / 1342 1100 / 1100 Laboratory Tests Past 24 Hrs 07/29/18 07/29/18 07/30/18 14:00 14:00 05:38 WBC 9.9 RBC 5.04 Hgb 14.8 Hct 45.0 MCV 89.3 MCH 29.4 MCHC 32.9 RDW 15.2 H RDW Differential 49.3 H Plt Count 234 MPV 11.0 Immature Gran % (Auto) 0.900 Neut % (Auto) 69.6 Lymph % (Auto) 18.9 L [place] % (Auto) 8.6 Eos % (Auto) 1.8 Baso % (Auto) 0.2 Absolute Neuts (auto) 6.9 Absolute Lymphs (auto) 1.87 Total Counted Not Reportable Sodium Potassium Chloride Carbon Dioxide Anion Gap BUN Creatinine Estim Creat Clear Calc Est GFR (MDRD) Af Amer Est GFR (MDRD) Non-Af BUN/Creatinine Ratio Glucose Calcium Fluid Source BRONCHIAL LAVAGE Fluid Color RED Fluid Appearance TURBID Fluid WBC 1400 Fluid RBC 395871 Fluid Tot Cell Count TNP Fluid Neutrophils 45 Fluid Lymphocytes 55 Fl Pathologist Comment May follow Fluid Comment 2 Not Reportable Miscellaneous Cytology Pending 07/30/18 05:38 WBC RBC Hgb Hct MCV MCH MCHC RDW RDW Differential Plt Count MPV Immature Gran % (Auto) Neut % (Auto) Lymph % (Auto) [place] % (Auto) Eos % (Auto) Baso % (Auto) Absolute Neuts (auto) Absolute Lymphs (auto) Total Counted Sodium 138 Potassium 4.4 Chloride 104 Carbon Dioxide 26.0 Anion Gap 8 BUN 19 H Creatinine 0.76 Estim Creat Clear Calc 121.10 Est GFR (MDRD) Af Amer 138 Est GFR (MDRD) Non-Af 114 BUN/Creatinine Ratio 24.9 H Glucose 82 Calcium 8.9 Fluid Source Fluid Color Fluid Appearance Fluid WBC Fluid RBC Fluid Tot Cell Count Fluid Neutrophils Fluid Lymphocytes Fl Pathologist Comment Fluid Comment 2 Miscellaneous Cytology Clinical Impression(s) from Imaging Studies Femur X-Ray 07/29/18 14:50 IMPRESSION: No definite radiographic evidence for metastatic disease. Electronically Signed: Marissa Watkins MD at 19:14 EDT , Service support , Forearm X-Ray 07/29/18 14:50 IMPRESSION: No radiographic evidence of metastatic disease. Electronically Signed: Marissa Watkins MD at 19:15 EDT , Service support , Forearm X-Ray 07/29/18 14:50 IMPRESSION: No radiographic evidence for fracture. Electronically Signed: Marissa Watkins MD at 19:11 EDT , Service support , Humerus X-Ray 07/29/18 14:50 IMPRESSION: Unremarkable x-ray examination of the left humerus. Electronically Signed: Jonas Lacy MD at 15:35 EDT Tel , Service support , Humerus X-Ray 07/29/18 14:50 IMPRESSION: No radiographic evidence of metastatic disease. Electronically Signed: Onur Chaudhary MD at 16:58 EDT , Service support , Tibia/Fibula X-Ray 07/29/18 14:50 IMPRESSION: No radiographic evidence of suggest metastatic disease. Electronically Signed: Marissa Watkins MD at 19:21 EDT , Service support , Tibia/Fibula X-Ray 07/29/18 14:50 IMPRESSION: 1. Lytic process involving the proximal tibia may represent a metastatic focus. 2. Degenerative arthropathy of the knee. Electronically Signed: Marissa Watkins MD at 19:18 EDT , Service support , Medical Necessity - Tobacco Use Smoking Status: Current every day smoker Tobacco Use: Cigarettes Assessment/Plan All Active Problems Metastasis (Acute) Disseminated cancer (Acute) RECOMMENDATIONS: 1. Continue with supportive care 2. Await CT-guided biopsy 3. Walking oximetry prior to discharge 4. Await results of biopsy IMPRESSIONS: 1. Left hilar mass High clinical suspicion for malignancy. Multiple biopsies were taken. Left upper lobe bronchus was completely obstructed, even after the biopsies. Patient would likely not be a stent candidate at this time. This could be reevaluated in the future following intervention such as chemotherapy or radiation. Patient does not appear to have any complications from the therapy. We will follow peripherally pending results of the biopsy. 2. Probable COPD/morbid obesity/tobacco abuse/marijuana use/obstructive sleep apnea Complicates care, management, recovery and prognosis. Patient may benefit from transition to DuoNeb therapy if developing worsening shortness of breath. Would recommend aggressive DVT prophylaxis as tumor does appear to be encircling the pulmonary artery. Code Visit Inpatient E&M: 17631 Subs Hosp L2
--- NOTE | 2018-07-30 08:03 | PN_ITS ---
Patient Problems: Active and Suspected Problems Metastasis (Acute) Disseminated cancer (Acute) Subjective: Patient did well overnight. No acute issues were reported. Patient has no recollection of the procedure yesterday. No chest pain or hemoptysis has been reported. Patient believes that his breathing is at his baseline. Objective: Fungating mass noted in the left upper lobe. Multiple biopsies were taken. Unable to pass the scope following biopsies. Patient would likely not be a stent candidate at this time. - Physical Exam General: Alert, Oriented x3, Cooperative, No apparent distress, - - Morbidly obese. No conversational dyspnea. HEENT: Atraumatic, PERRLA, EOMI, Normocephalic, - - Slight scleral injection without icterus Oral: Moist Mucosa, No Gingival or Mucosal Lesions/ Ulcerations Neck: Supple, No JVD, No Nodes, Trachea Midline Lungs: No rhonchi, No wheeze, No rales, Diminished - Left apex, - - Symmetric expansion. No dullness to percussion. Cardiovascular: Regular rate, Regular Rhythm, Normal S1, Normal S2, No murmurs, No rub noted, No Gallop Abdomen: Bowel Sounds Present, Soft, Non Tender, Non-Distended, Obese Extremities: No cyanosis, Edema Skin: - - No change from previous Musculoskeletal: No Tenderness to Palpation of Joints or Extremities Lymphatic: No Cervical, Supraclavicular, or Inguinal Adenopathy Neurological: Cranial nerves II-XII grossly intact, Neuro grossly intact, Motor Exam 5/5 strength throughout Psych/Mental Status: Alert and oriented to time, place, person, mood and affect Vital Signs Temp Pulse Resp BP Pulse Ox 36.2 C L 71 18 122/72 H 96 07/30/18 01:48 07/30/18 01:48 07/30/18 01:48 07/30/18 01:48 07/30/18 01:56 Oxygen Flow Rate (L/min) 2 Oxygen Delivery Method Room Air Weight: 170.097 kg Body Mass Index (BMI) 52.2 Intake and Output for Last 24 Hours 07/28/18 07/29/18 07/30/18 23:59 23:59 23:59 Intake Total 250 / 250 1342 / 1342 1100 / 1100 Balance 250 / 250 1342 / 1342 1100 / 1100 Laboratory Tests Past 24 Hrs 07/29/18 07/29/18 07/30/18 14:00 14:00 05:38 WBC 9.9 RBC 5.04 Hgb 14.8 Hct 45.0 MCV 89.3 MCH 29.4 MCHC 32.9 RDW 15.2 H RDW Differential 49.3 H Plt Count 234 MPV 11.0 Immature Gran % (Auto) 0.900 Neut % (Auto) 69.6 Lymph % (Auto) 18.9 L [place] % (Auto) 8.6 Eos % (Auto) 1.8 Baso % (Auto) 0.2 Absolute Neuts (auto) 6.9 Absolute Lymphs (auto) 1.87 Total Counted Not Reportable Sodium Potassium Chloride Carbon Dioxide Anion Gap BUN Creatinine Estim Creat Clear Calc Est GFR (MDRD) Af Amer Est GFR (MDRD) Non-Af BUN/Creatinine Ratio Glucose Calcium Fluid Source BRONCHIAL [place]AVAGE Fluid Color RED Fluid Appearance TURBID Fluid WBC 1400 Fluid RBC [id number] Fluid Tot Cell Count TNP Fluid Neutrophils 45 Fluid Lymphocytes 55 Fl Pathologist Comment May follow Fluid Comment 2 Not Reportable Miscellaneous Cytology Pending 07/30/18 05:38 WBC RBC Hgb Hct MCV MCH MCHC RDW RDW Differential Plt Count MPV Immature Gran % (Auto) Neut % (Auto) Lymph % (Auto) [place] % (Auto) Eos % (Auto) Baso % (Auto) Absolute Neuts (auto) Absolute Lymphs (auto) Total Counted Sodium 138 Potassium 4.4 Chloride 104 Carbon Dioxide 26.0 Anion Gap 8 BUN 19 H Creatinine 0.76 Estim Creat Clear Calc 121.10 Est GFR (MDRD) Af Amer 138 Est GFR (MDRD) Non-Af 114 BUN/Creatinine Ratio 24.9 H Glucose 82 Calcium 8.9 Fluid Source Fluid Color Fluid Appearance Fluid WBC Fluid RBC Fluid Tot Cell Count Fluid Neutrophils Fluid Lymphocytes Fl Pathologist Comment Fluid Comment 2 Miscellaneous Cytology Clinical Impression(s) from Imaging Studies Femur X-Ray 07/29/18 14:50 IMPRESSION: No definite radiographic evidence for metastatic disease. Electronically Signed: Marissa Watkins MD at 19:14 EDT , Service support , Forearm X-Ray 07/29/18 14:50 IMPRESSION: No radiographic evidence of metastatic disease. Electronically Signed: Marissa Watkins MD at 19:15 EDT , Service support , Forearm X-Ray 07/29/18 14:50 IMPRESSION: No radiographic evidence for fracture. Electronically Signed: Marissa Watkins MD at 19:11 EDT , Service support , Humerus X-Ray 07/29/18 14:50 IMPRESSION: Unremarkable x-ray examination of the left humerus. Electronically Signed: Jonas Lacy MD at 15:35 EDT Tel , Service support , Humerus X-Ray 07/29/18 14:50 IMPRESSION: No radiographic evidence of metastatic disease. Electronically Signed: Onur Chaudhary MD at 16:58 EDT , Service support , Tibia/Fibula X-Ray 07/29/18 14:50 IMPRESSION: No radiographic evidence of suggest metastatic disease. Electronically Signed: Marissa Watkins MD at 19:21 EDT , Service support , Tibia/Fibula X-Ray 07/29/18 14:50 IMPRESSION: 1. Lytic process involving the proximal tibia may represent a metastatic focus. 2. Degenerative arthropathy of the knee. Electronically Signed: Marissa Watkins MD at 19:18 EDT , Service support , Medical Necessity - Tobacco Use Smoking Status: Current every day smoker Tobacco Use: Cigarettes Assessment/Plan All Active Problems Metastasis (Acute) Disseminated cancer (Acute) RECOMMENDATIONS: 1. Continue with supportive care 2. Await CT-guided biopsy 3. Walking oximetry prior to discharge 4. Await results of biopsy IMPRESSIONS: 1. Left hilar mass High clinical suspicion for malignancy. Multiple biopsies were taken. Left upper lobe bronchus was completely obstructed, even after the biopsies. Patient would likely not be a stent candidate at this time. This could be reevaluated in the future following intervention such as chemotherapy or radiation. Patient does not appear to have any complications from the therapy. We will follow peripherally pending results of the biopsy. 2. Probable COPD/morbid obesity/tobacco abuse/marijuana use/obstructive sleep apnea Complicates care, management, recovery and prognosis. Patient may benefit from transition to DuoNeb therapy if developing worsening shortness of breath. Would recommend aggressive DVT prophylaxis as tumor does appear to be encircling the pulmonary artery. Code Visit Inpatient E&M: 25092 Subs Hosp L2
[2018-07-30] MEDS: dexAMETHasone 4 MG Tablet PO (08:22)
[2018-07-30] MEDS: Fluticasone 0.05% 1 SPRAY NASAL.SRY 2 SPRAY NASAL (10:49)
--- NOTE | 2018-07-30 11:03 | PCM.PN.HOSP ---
Patient Problems: Active and Suspected Problems Metastasis (Acute) Disseminated cancer (Acute) Subjective: Says he is a bit increased leg pain today compared to yesterday. He underwent his bronchus biopsy yesterday and tolerated that procedure fairly well. Vitals/I&O's: Vital Signs Temp Pulse Resp BP Pulse Ox 97.7 F L 70 18 117/63 98 07/30/18 07:48 07/30/18 07:48 07/30/18 07:48 07/30/18 07:48 07/30/18 07:48 Oxygen Flow Rate (L/min) 2 Oxygen Delivery Method Room Air Weight: 375 lb Body Mass Index (BMI) 52.2 Intake and Output for Last 24 Hours 07/28/18 07/29/18 07/30/18 23:59 23:59 23:59 Intake Total 250 / 250 1342 / 1342 1100 / 1100 Balance 250 / 250 1342 / 1342 1100 / 1100 General: Alert, Oriented x3, Cooperative, No apparent distress HEENT: Atraumatic, PERRLA, EOMI, Normocephalic Oral: Dry Mucosa Neck: Supple Lungs: Normal air movement, no wheeze, no rales, diminished Cardiovascular: Regular rate, Regular Rhythm, Normal S1, Normal S2, No murmurs Abdomen: Soft, Non Tender, Non-Distended, No Hepato-splenomegaly Extremities: No edema, Capillary Refill Less than 3 Seconds Skin: No rashes, No breakdown Musculoskeletal: Tenderness - Most of the pain is in his right hip, though much improved Neurological: Neuro grossly intact, Sensory exam intact to light touch and pain Psych/Mental Status: Normal Affect, Appropriate Laboratory Results 07/29/18 14:00: Fluid Source BRONCHIAL LAVAGE, Fluid Color RED, Fluid Appearance TURBID, Fluid WBC 1400, Fluid RBC [id number], Fluid Tot Cell Count TNP, Fluid Neutrophils 45, Fluid Lymphocytes 55, Fl Pathologist Comment May follow, Fluid Comment 2 Not Reportable 07/29/18 14:00: Miscellaneous Cytology Pending 07/30/18 05:38: WBC 9.9, RBC 5.04, Hgb 14.8, Hct 45.0, MCV 89.3, MCH 29.4, MCHC 32.9, RDW 15.2 H, RDW Differential 49.3 H, Plt Count 234, MPV 11.0, Immature Gran % (Auto) 0.900, Neut % (Auto) 69.6, Lymph % (Auto) 18.9 L, [place] % (Auto) 8.6, Eos % (Auto) 1.8, Baso % (Auto) 0.2, Absolute Neuts (auto) 6.9, Absolute Lymphs (auto) 1.87, Total Counted Not Reportable 07/30/18 05:38: Sodium 138, Potassium 4.4, Chloride 104, Carbon Dioxide 26.0, Anion Gap 8, BUN 19 H, Creatinine 0.76, Estim Creat Clear Calc 121.10, Est GFR (MDRD) Af Amer 138, Est GFR (MDRD) Non-Af 114, BUN/Creatinine Ratio 24.9 H, Glucose 82, Calcium 8.9 Current Medications Hydrocodone Bitart/Acetaminophen ([place] 5mg-325mg) 1 tablet PO Q4H PRN PRN PRN Reason: MODERATE PAIN (4-5/10) Last Admin: 07/30/18 04:15 Dose: 1 tablet Albuterol Sulfate (Ventolin Aerosols) 2.5 mg INHALATION Q2H PRN PRN PRN Reason: sob or wheezes Celecoxib (Celebrex) 200 mg PO DAILY [facility] Last Admin: 07/30/18 10:18 Dose: Not Given Cyclobenzaprine HCl (Flexeril) 10 mg PO TID PRN PRN PRN Reason: MUSCLE SPASM Last Admin: 07/30/18 08:22 Dose: 10 mg Dexamethasone (Decadron) 4 mg PO DAILY@0800 [facility] Last Admin: 07/30/18 08:22 Dose: 4 mg Dextrose (D50w Syringe) 0 gm IV X1 PRN; Protocol PRN Reason: Hypoglycemia Enoxaparin Sodium (Lovenox) 40 mg SC DAILY@1000 [facility] Last Admin: 07/30/18 10:18 Dose: Not Given Fluticasone Propionate (Flonase Nasal [place]) 2 spray NASAL BID [facility] Last Admin: 07/30/18 10:49 Dose: 2 spray Glucagon () 1 mg IM .X1 PRN PRN Reason: Hypoglycemia Morphine Sulfate () 4 mg IV Q3H PRN PRN PRN Reason: Severe pain (7-10/10) Last Admin: 07/30/18 08:23 Dose: 4 mg Nicotine (Nicoderm Cq (Pbkc)) 21 mg TRANSDERM. DAILY [facility] Last Admin: 07/30/18 10:49 Dose: 21 mg Nortriptyline HCl (Pamelor) 50 mg PO QHS [facility] Last Admin: 07/29/18 21:39 Dose: 50 mg Nystatin (Mycostatin Powder) 1 applic TOPICAL BID [facility]; Protocol Last Admin: 07/30/18 10:19 Dose: Not Given Ondansetron HCl (Zofran) 4 mg IV Q8H PRN PRN PRN Reason: NAUSEA/VOMITING Senna/Docusate Sodium (Senokot-S, Libby-Colace) 2 tablet PO BID [facility] Last Admin: 07/30/18 10:19 Dose: Not Given Sodium Chloride () 5 - 15 ml IV UD PRN PRN Reason: SALINE FLUSH Last Admin: 07/30/18 08:23 Dose: 10 ml Medical Necessity - Tobacco Use Smoking Status: Current every day smoker Tobacco Use: Cigarettes Assessment/Plan All Active Problems Metastasis (Acute) Disseminated cancer (Acute) 1. Likely metastatic cancer to the bone primary appears to be in the lung/COPD/JACK/tobacco abuse -CT of the chest shows a large 10 cm mass encapsulating the main left bronchus -CT of the abdomen consistent with bone mets -He is on Celebrex at home, continue with morphine 4 mg and continue his Vicodin as well, discontinue naproxen continue with nortriptyline -Decadron 4 mg daily to control the bone pain -Plan is for OR today for pinning of his right leg for stability, if he tolerates the procedure well we will plan on discharge home tomorrow -We will continue with his home aerosols as well as his BiPAP for his JACK. -Discussed the necessity of smoking cessation -He will follow-up with oncology as an outpatient to go over pathology and prognosis as well as treatment possibilities. 2. Morbid obesity -Discussed lifestyle modification since his BMI is 51 DVT: Lovenox Code Visit Inpatient E&M: 96097 Subs Hosp L2
--- NOTE | 2018-07-30 11:07 | PN_ITS ---
Patient Problems: Active and Suspected Problems Metastasis (Acute) Disseminated cancer (Acute) Subjective: Says he is a bit increased leg pain today compared to yesterday. He underwent his bronchus biopsy yesterday and tolerated that procedure fairly well. Vitals/I&O's: Vital Signs Temp Pulse Resp BP Pulse Ox 97.7 F L 70 18 117/63 98 07/30/18 07:48 07/30/18 07:48 07/30/18 07:48 07/30/18 07:48 07/30/18 07:48 Oxygen Flow Rate (L/min) 2 Oxygen Delivery Method Room Air Weight: 375 lb Body Mass Index (BMI) 52.2 Intake and Output for Last 24 Hours 07/28/18 07/29/18 07/30/18 23:59 23:59 23:59 Intake Total 250 / 250 1342 / 1342 1100 / 1100 Balance 250 / 250 1342 / 1342 1100 / 1100 General: Alert, Oriented x3, Cooperative, No apparent distress HEENT: Atraumatic, PERRLA, EOMI, Normocephalic Oral: Dry Mucosa Neck: Supple Lungs: Normal air movement, no wheeze, no rales, diminished Cardiovascular: Regular rate, Regular Rhythm, Normal S1, Normal S2, No murmurs Abdomen: Soft, Non Tender, Non-Distended, No Hepato-splenomegaly Extremities: No edema, Capillary Refill Less than 3 Seconds Skin: No rashes, No breakdown Musculoskeletal: Tenderness - Most of the pain is in his right hip, though much improved Neurological: Neuro grossly intact, Sensory exam intact to light touch and pain Psych/Mental Status: Normal Affect, Appropriate Laboratory Results 07/29/18 14:00: Fluid Source BRONCHIAL LAV[place], Fluid Color RED, Fluid Appearance TURBID, Fluid WBC 1400, Fluid RBC [id number], Fluid Tot Cell Count TNP, Fluid Neutrophils 45, Fluid Lymphocytes 55, Fl Pathologist Comment May follow, Fluid Comment 2 Not Reportable 07/29/18 14:00: Miscellaneous Cytology Pending 07/30/18 05:38: WBC 9.9, RBC 5.04, Hgb 14.8, Hct 45.0, MCV 89.3, MCH 29.4, MCHC 32.9, RDW 15.2 H, RDW Differential 49.3 H, Plt Count 234, MPV 11.0, Immature Gran % (Auto) 0.900, Neut % (Auto) 69.6, Lymph % (Auto) 18.9 L, [place] % (Auto) 8.6, Eos % (Auto) 1.8, Baso % (Auto) 0.2, Absolute Neuts (auto) 6.9, Absolute Lymphs (auto) 1.87, Total Counted Not Reportable 07/30/18 05:38: Sodium 138, Potassium 4.4, Chloride 104, Carbon Dioxide 26.0, Anion Gap 8, BUN 19 H, Creatinine 0.76, Estim Creat Clear Calc 121.10, Est GFR (MDRD) Af Amer 138, Est GFR (MDRD) Non-Af 114, BUN/Creatinine Ratio 24.9 H, Glucose 82, Calcium 8.9 Current Medications Hydrocodone Bitart/Acetaminophen ([place] 5mg-325mg) 1 tablet PO Q4H PRN PRN PRN Reason: MODERATE PAIN (4-5/10) Last Admin: 07/30/18 04:15 Dose: 1 tablet Albuterol Sulfate (Ventolin Aerosols) 2.5 mg INHALATION Q2H PRN PRN PRN Reason: sob or wheezes Celecoxib (Celebrex) 200 mg PO DAILY [facility] Last Admin: 07/30/18 10:18 Dose: Not Given Cyclobenzaprine HCl (Flexeril) 10 mg PO TID PRN PRN PRN Reason: MUSCLE SPASM Last Admin: 07/30/18 08:22 Dose: 10 mg Dexamethasone (Decadron) 4 mg PO DAILY@0800 [facility] Last Admin: 07/30/18 08:22 Dose: 4 mg Dextrose (D50w Syringe) 0 gm IV X1 PRN; Protocol PRN Reason: Hypoglycemia Enoxaparin Sodium (Lovenox) 40 mg SC DAILY@1000 [facility] Last Admin: 07/30/18 10:18 Dose: Not Given Fluticasone Propionate (Flonase Nasal [place]) 2 spray NASAL BID [facility] Last Admin: 07/30/18 10:49 Dose: 2 spray Glucagon () 1 mg IM .X1 PRN PRN Reason: Hypoglycemia Morphine Sulfate () 4 mg IV Q3H PRN PRN PRN Reason: Severe pain (7-10/10) Last Admin: 07/30/18 08:23 Dose: 4 mg Nicotine (Nicoderm Cq (Pbkc)) 21 mg TRANSDERM. DAILY [facility] Last Admin: 07/30/18 10:49 Dose: 21 mg Nortriptyline HCl (Pamelor) 50 mg PO QHS [facility] Last Admin: 07/29/18 21:39 Dose: 50 mg Nystatin (Mycostatin Powder) 1 applic TOPICAL BID [facility]; Protocol Last Admin: 07/30/18 10:19 Dose: Not Given Ondansetron HCl (Zofran) 4 mg IV Q8H PRN PRN PRN Reason: NAUSEA/VOMITING Senna/Docusate Sodium (Senokot-S, Libby-Colace) 2 tablet PO BID [facility] Last Admin: 07/30/18 10:19 Dose: Not Given Sodium Chloride () 5 - 15 ml IV UD PRN PRN Reason: SALINE FLUSH Last Admin: 07/30/18 08:23 Dose: 10 ml Medical Necessity - Tobacco Use Smoking Status: Current every day smoker Tobacco Use: Cigarettes Assessment/Plan All Active Problems Metastasis (Acute) Disseminated cancer (Acute) 1. Likely metastatic cancer to the bone primary appears to be in the lung/COPD/JACK/tobacco abuse -CT of the chest shows a large 10 cm mass encapsulating the main left bronchus -CT of the abdomen consistent with bone mets -He is on Celebrex at home, continue with morphine 4 mg and continue his Vicodin as well, discontinue naproxen continue with nortriptyline -Decadron 4 mg daily to control the bone pain -Plan is for OR today for pinning of his right leg for stability, if he lópez ates the procedure well we will plan on discharge home tomorrow -We will continue with his home aerosols as well as his BiPAP for his JACK. -Discussed the necessity of smoking cessation -He will follow-up with oncology as an outpatient to go over pathology and prognosis as well as treatment possibilities. 2. Morbid obesity -Discussed lifestyle modification since his BMI is 51 DVT: Lovenox Code Visit Inpatient E&M: 41658 Subs Hosp L2
--- NOTE | 2018-07-30 11:31 | CT_ITS ---
PROCEDURE: CT GUIDED biopsy of the posterior aspect of the left iliac bone. DATE: July 30, 2018 INDICATION: Male, 53 years old. Metastatic bone disease. PHYSICIAN: Diony Denney M.D. RADIATION DOSAGE (If Supplied By Facility): CTDIvol = ( 23.5 ) mGy, DLP = ( 1053.12 ) mGycm. Individualized dose optimization techniques were utilized. PROCEDURE: The risks, benefits, and alternatives to the procedure were explained to the patient. The specific risk of hemorrhage requiring further treatment or intervention was detailed and accepted. Follow-up instructions were discussed with the patient as well. Written informed consent was obtained. The patient was brought into the CT suite and placed in the prone position. . An appropriate entry site was identified. The overlying skin was prepped and draped in the usual sterile fashion. 1% lidocaine was administered subcutaneously for local anesthesia. Conscious sedation was performed. The patient received 3 mg of Versed and 75 mcg of fentanyl intravenously. Conscious sedation was started at 2:35 PM and terminated at 3:00 PM. The patient was independently monitored by the department nurse. Under CT guidance, a total of 4 passes were performed utilizing an 18-gauge core biopsy needle. The specimens were then placed in the appropriate fluid and transported to the laboratory for analysis. Hemostasis was obtained. The patient tolerated the procedure well without immediate complications. CT/Biopsy/Inj or Needle Placement IMPRESSION: Successful CT guided biopsy of the posterior aspect of the left iliac bone., as described above. Electronically Signed: Diony Denney, at 7:58 EDT , Service support ,
[2018-07-30 13:41] LABS: Bedside Glucose 116 mg/dL (70-110)
--- NOTE | 2018-07-30 14:30 | BON_PTH ---
PATIENT: UNIQUE MOLINA LOC: MS3 U#:[id number] AGE/SX: 53/M ROOM: [facility] [place] RE07/26/[address]: Dr. Katina Nelson MD : 1965 BED: 1 DIS: 08/05/2018 SPEC #: [id number] RECD: 08/02/18 10:17 STATUS: TIERA REQ #: [id number] PATTIE: 07/30/18 14:[address]: Shelly Saldivar DEPT: SURGICAL PATHOLOGY RECD BY: Deniz Cespedes ENTERED: 08/02/18 12:36 SP TYPE: Bone OTHR DR: DO Dr. Katina Hutchins MD Dr. Bruce Arthur, MD Dr. Eric Smith, MD Dr. Elizabeth Yu, MD Dr. Joseph Agyepong, MD Dr. Joseph Prah, MD Dr. Safdar Khan, MD Tissues: Hip, NOS Procedures: Surgery Specimen Level IV Comments: @ Ordering doctor for DEC edited from to @ by ELROY at 08/03/18 0851 @ Ordering doctor for IV edited from to @ by ELROY at 08/03/18 0851 @ Submitting doctor edited from to @ by ELROY at 08/03/18 0851 HEADER OPERATION: Hip nail, antegrade cephalomedullary PRE-OP DIAGNOSIS: Right femur metastatic lesions/painful leg TISSUE SUBMITTED: Right hip reamings MICROSCOPIC DIAGNOSIS Right hip/femur reamings: Crushed atypical epithelial cells with neuroendocrine phenotype. See comment. AM:ericka 08/05/18 COMMENT Sections show markedly crushed epithelioid cells which on immunohistochemistry ([id number]) show neuroendocrine features. 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 Clinical correlation is suggested. MICROSCOPIC DESCRIPTION Slides are reviewed. GROSS DESCRIPTION Received in fixative is one container labeled with the patient's name and designated right hip reamings. The specimen consists of multiple irregular and friable fragments of reddish-tran soft tissue that in aggregate measure 7 x 4.5 x 1 cm. The specimen is totally submitted in seven cassettes. / AM:erikca 08/02/18 TC:0 CPT: 97047
[2018-07-30] MEDS: Midazolam 2 MG/2 ML Syringe IV ×2 (14:35→14:56)
[2018-07-30] MEDS: fentaNYL 100 MCG/2 ML Ampul IV ×2 (14:36→14:57)
[2018-07-30 14:55] LABS: Pathologist Comment/Body Fluid Reviewed
--- NOTE | 2018-07-30 15:24 | PCM.OPRPT ---
Report of Operation Date of Procedure: 07/30/18 Pre-Operative Diagnosis: right femur metastatic lesions/ painful leg Post-Operative Diagnosis: same Surgery/Procedure Performed:: right prophylactic anterograde femoral nailing Type of Anesthesia:: General Anesthesiologist: Kane Driver Specimen's removed: reaming of femoral shaft Estimated Blood Loss (mL): 150 ebl Fluids Replaced: 1500 cc lr Description of Procedure: Preop note Patient is a 53-year-old male with right leg pain and back pain who had been seen as an outpatient for a mass of his lungs there is been to be getting outpatient biopsy however due to his increased pain he was admitted after being seen in the emergency room. During his course of stay patient has had a bronchoscopy with the biopsy of large mass as well as CT-guided biopsy of his left iliac and to confirm his primary. Due to the fact that he had right femur pain Ortho was consulted x-rays CT was evaluated shows multiple lytic lesions of his femoral shaft small in his femoral head of the was not collapsed nonactive on bone scan pain had no other patient had no other pain in any of his joints however he was on comfortable steroids and narcotics however Dread admission patient states the only pain he was having was in his right leg. Patient is a morbidly obese male with questionable lung cancer with mets and pain in his right femur with pain was at rest worse with weightbearing localized again to his right leg. CT shows lytic lesions encompassing greater than 50% of his canal encroaching is in the cortices on the more proximal lesion and risk for impending fracture. Risks benefits and alternatives surgery discussed with patient. Risks including but not limited to blood loss, blood clot, infection, neurovascular, failure procedure, loss of life and loss of limb. Due to the nature of this disease due to the fact that patient is having pain at rest worse with weightbearing even today as his steroids have been cut a little bit he is having increased leg pain the decision was made to proceed with prophylactic right antegrade femoral neck femoral nailing. Operative note Patient seen in preop holding area. Right leg was marked. Patient states laying in bed he still had pain rating down his right femur that had decreased his Decadron. Risk benefits and alternatives surgery discussed with patient as above. Consult and H&P were reviewed. Patient brought to the operating placed supine the operating table. Sign, anesthesia, antibiotics were measured. Right leg was prepped and draped in usual sterile fashion with a placed in the fracture table with the left leg flexed and externally rotated. We then used a guidewire to ascertain the level of our insertion site for our nail. We able to extend the incision proximally distally from the about 4 fingerbreadths above the greater choke about 3-1/2 to 4 cm incision. We then use a guidewire down the level of her left stroke we then opened up with an opening reamer down the level of the lesser trochanter quite hard bone and was difficult to get our reaming kate down to the level of the patella however we did do so. We took multiple images in AP and lateral to confirm placement of our guide kate. We then reamed over the guidewire guide kate starting with an 8 going up to -03/17 we then measured it to be 410 mm nail we placed at 11 x 400 mm nail after reaming to . We sent the reamings to pathology for further evaluation specimen. Please note that throughout the reaming he did encounter quite hard bone and had some heat produced during this. Not no excessive bleeding. Abnormal. After drilling and placing her nail we then drilled up into the femoral head he had quite hard bone and did kick is a little bit more posterior than I would have liked however it was adequate placement. We measured about 95 and placed a 90mm Synthes screw into the head. We then did perfect circles and placed 2 locking screws distal. We took multiple images in AP and lateral planes ensure good placement of all of her nails and screws and which we did have good placement. We then irrigated all the incision sites with copious amounts of sterile saline. We closed the skin with figueroa distally and proximally with 2-0 Vicryl subcutaneously and closing the space and then figueroa. Patient tolerated procedure well there are no comp occasions transferred to recovery room in stable condition. Postoperative note Weight-bear as tolerated right leg Call with increased pain numbness tingling or further issues arise Patient pretty hard bone so is a good thing that we did this prophylactically as of yet fracture through the bones were made for a very difficult case. [facility] This was discussed with family. This note was generated with [employer] software. It may contain incorrect words, spelling, and punctuation that were not noted in checking the note before signing. Grafts/Implants Used: synthes 11 by 400 nail, 90 screw
--- NOTE | 2018-07-30 16:20 | RAD_ITS ---
STUDY: X-RAY -RIGHT HIP REASON FOR EXAM: Male, 53 years old. Operative guidance for right femur medullary kate insertion TECHNIQUE: 17 fluoroscopic views of the right femur. COMPARISON: July 27, 2018 FINDINGS: Numerous fluoroscopic images of the right femur show localization of surgical instruments and placement of a right femoral medullary kate with distal interlocking screws. There is a fixation screw of the femoral neck. There is gross radiographic alignment. RAD/Hip Min 2 Views (Portable) IMPRESSION: Fluoroscopic guidance for right femoral medullary kate placement. Please see procedural report. Electronically Signed: Corey Shipman MD at 9:04 EDT , Service support ,
[2018-07-30] MEDS: Mupirocin Ointment 22gm Tube 1 APPLIC (17:00)
--- NOTE | 2018-07-30 19:23 | RAD_ITS ---
STUDY: X-RAY - PELVIS AND RIGHT HIP REASON FOR EXAM: Male, 53 years old. Lung cancer status post intramedullary kate. Follow-up. TECHNIQUE: 6 views of the pelvis and hip. COMPARISON: July 27, 2018 FINDINGS: There is a non-specific bowel gas pattern. Normal visualized soft tissue structures. Normal bilateral iliac wings, sacroiliac joints and visualized sacrum. Normal bilateral superior and inferior pubic rami. Normal pubic symphysis. Normal bilateral ischial tuberosities. Intramedullary kate with interlocking femoral screw has been placed in the right femur. No complications are noted. Lytic lesions present on the prior study are still present. RAD/Hip Min 2 Views (Portable) IMPRESSION: Placement of intramedullary kate with interlocking femoral screw with no complications. Electronically Signed: Onur Chaudhary MD at 14:14 EDT , Service support ,
[2018-07-30] MEDS: Cefazolin 1 GM/50 ML BAG IV (22:40)
[2018-07-30] MEDS: Nortriptyline 25 MG Capsule 50 MG PO (22:40)
--- NOTE | 2018-07-30 23:06 | NURSING ---
PT REFUSING MAJORITY OF MD ORDERS FOR HIP SURGERY PROTOCOL. PT EXTREMELY UNCOMFORTABLE LAYING ON BACK, PT ONLY FINDING RELIEF LAYING ON LEFT SIDE.
[2018-07-31] VITALS (8 sets, daily range): BP systolic 106–139; BP diastolic 62–90; PULSE 77–96; RESP 18–20; TEMP 36.7–37.1; O2SAT 92–97
[2018-07-31] MEDS: Morphine 2 MG/ML Syringe 4 MG IV (02:15)
[2018-07-31] MEDS: Ondansetron 4 MG/2 ML Vial IV (02:15)
[2018-07-31] MEDS: 0.9% NaCl Peripheral Flush Adult/Peds IV ×3 (02:15→22:18)
[2018-07-31] MEDS: HYDROcodone Bitartrate/Apap 5/325 Tablet PO ×4 (04:59→20:55)
[2018-07-31] MEDS: Morphine 4 MG/ML Syringe IV ×3 (05:22→22:18)
[2018-07-31] MEDS: Cefazolin 1 GM/50 ML BAG IV (05:26)
--- NOTE | 2018-07-31 08:51 | RAD_ITS ---
STUDY: X-RAY CHEST REASON FOR EXAM: Male, 53 years old. SOB TECHNIQUE: Frontal view of the chest COMPARISON: CT chest July 27, 2018. FINDINGS: There is a left upper lobe consolidation/mass corresponding to that seen on comparison CT evaluation. The right lung is clear. There are no pleural effusions. There is no pneumothorax. The heart is normal in size. The visualized osseous structures are within normal limits. RAD/Chest PA and Lateral IMPRESSION: Left upper lobe consolidation/mass corresponding to that seen on comparison CT evaluation. Electronically Signed: Jayson Corrales, at 10:07 EDT Tel , Service support ,
--- NOTE | 2018-07-31 08:51 | PCM.PN.PUL ---
Patient Problems: Active and Suspected Problems Metastasis (Acute) Disseminated cancer (Acute) Subjective: Patient did okay overnight. Patient is reporting significantly more pain following orthopedic procedure. Patient is also required supplemental oxygen to maintain appropriate saturations. Patient overall feels no worsening dyspnea, but states that he has significant pain and has not moved that much. Patient is not reporting any hemoptysis. Patient did wear his Pap machine overnight. - Physical Exam General: Alert, Oriented x3, Cooperative, - - Mild to moderate distress secondary to pain HEENT: Atraumatic, PERRLA, EOMI, Normocephalic, - - Slight scleral injection without icterus Oral: Moist Mucosa, No Gingival or Mucosal Lesions/ Ulcerations Neck: Supple, No Nodes, Trachea Midline, - - Unable to assess JVD secondary to body habitus Lungs: No rhonchi, No wheeze, No rales, Diminished, - - Symmetric expansion. No dullness to percussion. Cardiovascular: Normal S1, Normal S2, No murmurs, No rub noted, No Gallop, Tachycardic Abdomen: Bowel Sounds Present, Soft, Non Tender, Non-Distended, Obese Extremities: No cyanosis, Edema Skin: Incision - Clean, dry and intact, - - No change from previous Musculoskeletal: No Tenderness to Palpation of Joints or Extremities Lymphatic: No Cervical, Supraclavicular, or Inguinal Adenopathy Neurological: Cranial nerves II-XII grossly intact, Neuro grossly intact Psych/Mental Status: Anxious, Restless Vital Signs Temp Pulse Resp BP Pulse Ox 37.1 C 77 18 106/62 95 07/31/18 08:21 07/31/18 08:21 07/31/18 08:21 07/31/18 08:21 07/31/18 08:21 Oxygen Flow Rate (L/min) [7] 2 Oxygen Flow Rate (L/min) [6] 2 Oxygen Flow Rate (L/min) [5] 2 Oxygen Flow Rate (L/min) [4] 2 Oxygen Flow Rate (L/min) [3] 2 Oxygen Flow Rate (L/min) [2] 2 Oxygen Flow Rate (L/min) [1 ( 2 Initial Baseline)] Oxygen Flow Rate (L/min) 3 Oxygen Delivery Method [7] Nasal Cannula Oxygen Delivery Method [6] Nasal Cannula Oxygen Delivery Method [5] Nasal Cannula Oxygen Delivery Method [4] Nasal Cannula Oxygen Delivery Method [3] Nasal Cannula Oxygen Delivery Method [2] Nasal Cannula Oxygen Delivery Method [1 ( Nasal Cannula Initial Baseline)] Oxygen Delivery Method CPAP Weight: 170.097 kg Body Mass Index (BMI) 52.2 Intake and Output for Last 24 Hours 07/29/18 07/30/18 07/31/18 23:59 23:59 23:59 Intake Total 1342 / 1342 2900 / 2900 2799 / 2799 Output Total 2050 / 2050 2800 / 2800 Balance 1342 / 1342 850 / 850 -1 / -1 Laboratory Tests Past 24 Hrs 07/29/18 07/30/18 14:00 14:45 Fl Pathologist Comment Reviewed Miscellaneous Test Pending POC Glucose 07/30/18 13:37 POC Glucose 116 H Medical Necessity - Tobacco Use Smoking Status: Current every day smoker Tobacco Use: Cigarettes Assessment/Plan All Active Problems Metastasis (Acute) Disseminated cancer (Acute) RECOMMENDATIONS: 1. Continue with supportive care 2. Obtain chest x-ray 3. Walking oximetry prior to discharge 4. Await results of biopsy IMPRESSIONS: 1. Left hilar mass High clinical suspicion for malignancy. Multiple biopsies were taken. Left upper lobe bronchus was completely obstructed, even after the biopsies. Patient would likely not be a stent candidate at this time. This could be reevaluated in the future following intervention such as chemotherapy or radiation. Patient with new oxygen requirement overnight. Unclear if this is related to pain medications versus obstruction of the left upper lobe. Will obtain a PA and lateral chest x-ray for evaluation. Patient was encouraged to continue with incentive spirometer and out of bed as tolerated. Patient will need a walking oximetry prior to discharge. Biopsy results are not available at this time. 2. Probable COPD/morbid obesity/tobacco abuse/marijuana use/obstructive sleep apnea Complicates care, management, recovery and prognosis. Patient may benefit from transition to DuoNeb therapy if developing worsening shortness of breath. Would recommend aggressive DVT prophylaxis as tumor does appear to be encircling the pulmonary artery. Code Visit Inpatient E&M: 06987 Subs Hosp L2
[2018-07-31] MEDS: Fluticasone 0.05% 1 SPRAY NASAL.SRY 2 SPRAY NASAL ×2 (09:05→20:54)
[2018-07-31] MEDS: Enoxaparin 40 MG/0.4 ML Syringe SC (09:05)
[2018-07-31] MEDS: Senna/Docusate Sodium 1 Tablet 2 TABLET PO ×2 (09:05→20:54)
[2018-07-31] MEDS: dexAMETHasone 4 MG Tablet PO (09:06)
[2018-07-31] MEDS: Celecoxib 200 MG Capsule PO (09:06)
--- NOTE | 2018-07-31 11:36 | PCM.PN.HOSP ---
Patient Problems: Active and Suspected Problems Metastasis (Acute) Disseminated cancer (Acute) Subjective: Complains of incisional site pain as well as sacral pain after the procedure. Still better than what it was when he came in. He is having some shortness of breath after his biopsy on and the OR procedure yesterday. We will continue on supplemental oxygen, chest x-ray that was obtained was unremarkable. Vitals/I&O's: Vital Signs Temp Pulse Resp BP Pulse Ox 98.7 F 77 18 106/62 95 07/31/18 08:21 07/31/18 08:21 07/31/18 08:21 07/31/18 08:21 07/31/18 08:21 Oxygen Flow Rate (L/min) [7] 2 Oxygen Flow Rate (L/min) [6] 2 Oxygen Flow Rate (L/min) [5] 2 Oxygen Flow Rate (L/min) [4] 2 Oxygen Flow Rate (L/min) [3] 2 Oxygen Flow Rate (L/min) [2] 2 Oxygen Flow Rate (L/min) [1 ( 2 Initial Baseline)] Oxygen Flow Rate (L/min) 3 Oxygen Delivery Method [7] Nasal Cannula Oxygen Delivery Method [6] Nasal Cannula Oxygen Delivery Method [5] Nasal Cannula Oxygen Delivery Method [4] Nasal Cannula Oxygen Delivery Method [3] Nasal Cannula Oxygen Delivery Method [2] Nasal Cannula Oxygen Delivery Method [1 ( Nasal Cannula Initial Baseline)] Oxygen Delivery Method CPAP Weight: 375 lb Body Mass Index (BMI) 52.2 Intake and Output for Last 24 Hours 07/29/18 07/30/18 07/31/18 23:59 23:59 23:59 Intake Total 1342 / 1342 2900 / 2900 2799 / 2799 Output Total 2049 2800 / 2800 Balance 1342 / 1342 850 / 850 -1 / -1 General: Alert, Oriented x3, Cooperative, No apparent distress HEENT: Atraumatic, PERRLA, EOMI, Normocephalic Oral: Dry Mucosa Neck: Supple Lungs: Normal air movement, no wheeze, no rales, diminished Cardiovascular: Regular rate, Regular Rhythm, Normal S1, Normal S2, No murmurs Abdomen: Soft, Non Tender, Non-Distended, No Hepato-splenomegaly Extremities: No edema, Capillary Refill Less than 3 Seconds Skin: No rashes, No breakdown Musculoskeletal: Tenderness - Most of the pain is in his right hip, though much improved Neurological: Neuro grossly intact, Sensory exam intact to light touch and pain Psych/Mental Status: Normal Affect, Appropriate Laboratory Results 07/29/18 14:00: Fl Pathologist Comment Reviewed 07/30/18 13:37: POC Glucose 116 H 07/30/18 14:45: Miscellaneous Test Pending Current Medications Hydrocodone Bitart/Acetaminophen ([place] 5mg-325mg) 1 tablet PO Q4H PRN PRN PRN Reason: MODERATE PAIN (4-5/10) Last Admin: 07/31/18 04:59 Dose: 1 tablet Albuterol Sulfate (Ventolin Aerosols) 2.5 mg INHALATION Q2H PRN PRN PRN Reason: sob or wheezes Celecoxib (Celebrex) 200 mg PO DAILY [facility] Last Admin: 07/31/18 09:06 Dose: 200 mg Cyclobenzaprine HCl (Flexeril) 10 mg PO TID PRN PRN PRN Reason: MUSCLE SPASM Last Admin: 07/31/18 06:05 Dose: 10 mg Dexamethasone (Decadron) 4 mg PO DAILY@0800 [facility] Last Admin: 07/31/18 09:06 Dose: 4 mg Dextrose (D50w Syringe) 0 gm IV X1 PRN; Protocol PRN Reason: Hypoglycemia Enoxaparin Sodium (Lovenox) 40 mg SC DAILY@1000 [facility] Last Admin: 07/31/18 09:05 Dose: 40 mg Fluticasone Propionate (Flonase Nasal [place]) 2 spray NASAL BID [facility] Last Admin: 07/31/18 09:05 Dose: 2 spray Glucagon () 1 mg IM .X1 PRN PRN Reason: Hypoglycemia Morphine Sulfate () 4 mg IV Q3H PRN PRN PRN Reason: Severe pain (7-10/10) Last Admin: 07/31/18 05:22 Dose: 4 mg Nicotine (Nicoderm Cq (Pbkc)) 21 mg TRANSDERM. DAILY [facility] Last Admin: 07/30/18 10:49 Dose: 21 mg Nortriptyline HCl (Pamelor) 50 mg PO QHS [facility] Last Admin: 07/30/18 22:40 Dose: 50 mg Nystatin (Mycostatin Powder) 1 applic TOPICAL BID [facility]; Protocol Last Admin: 07/30/18 22:32 Dose: Not Given Ondansetron HCl (Zofran) 4 mg IV Q8H PRN PRN PRN Reason: NAUSEA/VOMITING Last Admin: 07/31/18 02:15 Dose: 4 mg Senna/Docusate Sodium (Senokot-S, Libby-Colace) 2 tablet PO BID [facility] Last Admin: 07/31/18 09:05 Dose: 2 tablet Sodium Chloride () 5 - 15 ml IV UD PRN PRN Reason: SALINE FLUSH Last Admin: 07/31/18 05:23 Dose: 10 ml Medical Necessity - Tobacco Use Smoking Status: Current every day smoker Tobacco Use: Cigarettes Assessment/Plan All Active Problems Metastasis (Acute) Disseminated cancer (Acute) 1. Likely metastatic cancer to the bone primary appears to be in the lung/COPD/JACK/tobacco abuse/status post right femur pinning postop day 1 -CT of the chest shows a large 10 cm mass encapsulating the main left bronchus -CT of the abdomen consistent with bone mets -He is on Celebrex at home, continue with morphine 4 mg and continue his Vicodin as well, discontinue naproxen continue with nortriptyline -Decadron 4 mg daily to control the bone pain -Continue with pain control after his pending. Will have PT/OT evaluate patient for possible SNF placement -We will continue with his home aerosols as well as his BiPAP for his JACK. -Discussed the necessity of smoking cessation -He will follow-up with oncology as an outpatient to go over pathology and prognosis as well as treatment possibilities. 2. Morbid obesity -Discussed lifestyle modification since his BMI is 51 DVT: Lovenox Code Visit Inpatient E&M: 32772 Subs Hosp L2
--- NOTE | 2018-07-31 11:40 | PN_ITS ---
Patient Problems: Active and Suspected Problems Metastasis (Acute) Disseminated cancer (Acute) Subjective: Complains of incisional site pain as well as sacral pain after the procedure. Still better than what it was when he came in. He is having some shortness of breath after his biopsy on and the OR procedure yesterday. We will continue on supplemental oxygen, chest x-ray that was obtained was unremarkable. Vitals/I&O's: Vital Signs Temp Pulse Resp BP Pulse Ox 98.7 F 77 18 106/62 95 07/31/18 08:21 07/31/18 08:21 07/31/18 08:21 07/31/18 08:21 07/31/18 08:21 Oxygen Flow Rate (L/min) [7] 2 Oxygen Flow Rate (L/min) [6] 2 Oxygen Flow Rate (L/min) [5] 2 Oxygen Flow Rate (L/min) [4] 2 Oxygen Flow Rate (L/min) [3] 2 Oxygen Flow Rate (L/min) [2] 2 Oxygen Flow Rate (L/min) [1 ( 2 Initial Baseline)] Oxygen Flow Rate (L/min) 3 Oxygen Delivery Method [7] Nasal Cannula Oxygen Delivery Method [6] Nasal Cannula Oxygen Delivery Method [5] Nasal Cannula Oxygen Delivery Method [4] Nasal Cannula Oxygen Delivery Method [3] Nasal Cannula Oxygen Delivery Method [2] Nasal Cannula Oxygen Delivery Method [1 ( Nasal Cannula Initial Baseline)] Oxygen Delivery Method CPAP Weight: 375 lb Body Mass Index (BMI) 52.2 Intake and Output for Last 24 Hours 07/29/18 07/30/18 07/31/18 23:59 23:59 23:59 Intake Total 1342 / 1342 2900 / 2900 2799 / 2799 Output Total 2049 2800 / 2800 Balance 1342 / 1342 850 / 850 -1 / -1 General: Alert, Oriented x3, Cooperative, No apparent distress HEENT: Atraumatic, PERRLA, EOMI, Normocephalic Oral: Dry Mucosa Neck: Supple Lungs: Normal air movement, no wheeze, no rales, diminished Cardiovascular: Regular rate, Regular Rhythm, Normal S1, Normal S2, No murmurs Abdomen: Soft, Non Tender, Non-Distended, No Hepato-splenomegaly Extremities: No edema, Capillary Refill Less than 3 Seconds Skin: No rashes, No breakdown Musculoskeletal: Tenderness - Most of the pain is in his right hip, though much improved Neurological: Neuro grossly intact, Sensory exam intact to light touch and pain Psych/Mental Status: Normal Affect, Appropriate Laboratory Results 07/29/18 14:00: Fl Pathologist Comment Reviewed 07/30/18 13:37: POC Glucose 116 H 07/30/18 14:45: Miscellaneous Test Pending Current Medications Hydrocodone Bitart/Acetaminophen ([place] 5mg-325mg) 1 tablet PO Q4H PRN PRN PRN Reason: MODERATE PAIN (4-5/10) Last Admin: 07/31/18 04:59 Dose: 1 tablet Albuterol Sulfate (Ventolin Aerosols) 2.5 mg INHALATION Q2H PRN PRN PRN Reason: sob or wheezes Celecoxib (Celebrex) 200 mg PO DAILY [facility] Last Admin: 07/31/18 09:06 Dose: 200 mg Cyclobenzaprine HCl (Flexeril) 10 mg PO TID PRN PRN PRN Reason: MUSCLE SPASM Last Admin: 07/31/18 06:05 Dose: 10 mg Dexamethasone (Decadron) 4 mg PO DAILY@0800 [facility] Last Admin: 07/31/18 09:06 Dose: 4 mg Dextrose (D50w Syringe) 0 gm IV X1 PRN; Protocol PRN Reason: Hypoglycemia Enoxaparin Sodium (Lovenox) 40 mg SC DAILY@1000 [facility] Last Admin: 07/31/18 09:05 Dose: 40 mg Fluticasone Propionate (Flonase Nasal [place]) 2 spray NASAL BID [facility] Last Admin: 07/31/18 09:05 Dose: 2 spray Glucagon () 1 mg IM .X1 PRN PRN Reason: Hypoglycemia Morphine Sulfate () 4 mg IV Q3H PRN PRN PRN Reason: Severe pain (7-10/10) Last Admin: 07/31/18 05:22 Dose: 4 mg Nicotine (Nicoderm Cq (Pbkc)) 21 mg TRANSDERM. DAILY [facility] Last Admin: 07/30/18 10:49 Dose: 21 mg Nortriptyline HCl (Pamelor) 50 mg PO QHS [facility] Last Admin: 07/30/18 22:40 Dose: 50 mg Nystatin (Mycostatin Powder) 1 applic TOPICAL BID [facility]; Protocol Last Admin: 07/30/18 22:32 Dose: Not Given Ondansetron HCl (Zofran) 4 mg IV Q8H PRN PRN PRN Reason: NAUSEA/VOMITING Last Admin: 07/31/18 02:15 Dose: 4 mg Senna/Docusate Sodium (Senokot-S, [place]-Colace) 2 tablet PO BID [facility] Last Admin: 07/31/18 09:05 Dose: 2 tablet Sodium Chloride () 5 - 15 ml IV UD PRN PRN Reason: SALINE FLUSH Last Admin: 07/31/18 05:23 Dose: 10 ml Medical Necessity - Tobacco Use Smoking Status: Current every day smoker Tobacco Use: Cigarettes Assessment/Plan All Active Problems Metastasis (Acute) Disseminated cancer (Acute) 1. Likely metastatic cancer to the bone primary appears to be in the lung/COPD/JACK/tobacco abuse/status post right femur pinning postop day 1 -CT of the chest shows a large 10 cm mass encapsulating the main left bronchus -CT of the abdomen consistent with bone mets -He is on Celebrex at home, continue with morphine 4 mg and continue his Vicodin as well, discontinue naproxen continue with nortriptyline -Decadron 4 mg daily to control the bone pain -Continue with pain control after his pending. Will have PT/OT evaluate patient for possible SNF placement -We will continue with his home aerosols as well as his BiPAP for his JACK. -Discussed the necessity of smoking cessation -He will follow-up with oncology as an outpatient to go over pathology and prognosis as well as treatment possibilities. 2. Morbid obesity -Discussed lifestyle modification since his BMI is 51 DVT: Lovenox Code Visit Inpatient E&M: 00874 Subs Hosp L2
[2018-07-31] MEDS: Nystatin Powder 15gm Bottle 1 APPLIC TOPICAL ×2 (11:43→20:55)
--- NOTE | 2018-07-31 13:37 | CM.UR ---
Was alerted by JOHANA Nolan that patient will probably need SNF placement. Patient had femur pinning yesterday. States he is essentially homeless. States he lives in his daughter's garage and she is being evicted from the rental home. DIANA already gave resources to patient but Jose feels with surgery he should go to SNF in meantime. Alerted DIANA Sanchez. Noe Khan RN, CCM.
--- NOTE | 2018-07-31 13:40 | CASEMGMT ---
Social Work MS3 Consult for: SNF placement Referral source: RN ESPERANZA/physician Summary: This principal technical writer informed that patient has been living with daughter and the daughter is about to be evicted. Concern for patient's discharge destination, having stable housing and need for continued care after discharge. Concern voiced that in light of social issues discharge to home may not be adequate at this time to meet patient's medical needs. Noted therapy recommendations for continued skilled therapy and that patient is 20% weightbearing on one leg. Met with patient in room. Also present was a friend whom the patient stated could stay. Patient confirms housing situation is tenuous at this point, that nursing home the goal would be to return to daughter's home. Patient reports the daughter was recently approved for the rapid rehousing program through [employer], but the daughter has not yet found a new place to live. Patient reports belief that could benefit from going somewhere for continued therapy and rehab. Educated patient that can look into this option, that patient would need to make a choice and then social work coordinator would make referrals. Educated that facilities will have to determine whether can meet patient's needs and then if so, will have to get insurance authorization. Plan: Possible SNF placement. Patient given a list of SNF's from patient's insurance website. Patient was informed, and voiced understanding, to provide 3 choices. Social work to follow up after the weekend. -ABDIRASHID Shane, INTERNET MARKETING INTERN
--- NOTE | 2018-07-31 13:51 | PCM.PN.ORT ---
Subjective: patient seen and examined today. no complaints other than pain in sacral area. no bowel movement, not passing gas yet, no abdominal pain, fever, chills or other constitutional symptoms. pain mostly in sacral area today, leg about the same. pt was able to stand with PT for 3 minutes, no issues. bassett still in. - Physical Exam General: Alert, Oriented x3, Cooperative HEENT: Atraumatic, PERRLA, EOMI, Normocephalic Neck: Supple, No JVD, Negative Carotid Bruits Lungs: Clear to auscultation, Normal air movement Cardiovascular: Regular rate, No murmurs Abdomen: Bowel Sounds Present, Soft, Non Tender Extremities: No edema, Capillary Refill Less than 3 Seconds Skin: No rashes, No breakdown Musculoskeletal: No Tenderness to Palpation of Joints or Extremities Neurological: Cranial nerves II-XII grossly intact Psych/Mental Status: Normal Affect, Appropriate Vital Signs Temp Pulse Resp BP Pulse Ox 98.7 F 77 18 106/62 95 07/31/18 08:21 07/31/18 08:21 07/31/18 08:21 07/31/18 08:21 07/31/18 08:21 Oxygen Flow Rate (L/min) [7] 2 Oxygen Flow Rate (L/min) [6] 2 Oxygen Flow Rate (L/min) [5] 2 Oxygen Flow Rate (L/min) [4] 2 Oxygen Flow Rate (L/min) [3] 2 Oxygen Flow Rate (L/min) [2] 2 Oxygen Flow Rate (L/min) [1 ( 2 Initial Baseline)] Oxygen Flow Rate (L/min) 3 Oxygen Delivery Method [7] Nasal Cannula Oxygen Delivery Method [6] Nasal Cannula Oxygen Delivery Method [5] Nasal Cannula Oxygen Delivery Method [4] Nasal Cannula Oxygen Delivery Method [3] Nasal Cannula Oxygen Delivery Method [2] Nasal Cannula Oxygen Delivery Method [1 ( Nasal Cannula Initial Baseline)] Oxygen Delivery Method CPAP Weight: 375 lb Body Mass Index (BMI) 52.2 Intake and Output for Last 24 Hours 07/29/18 07/30/18 07/31/18 23:59 23:59 23:59 Intake Total 1342 / 1342 2900 / 2900 2799 / 2799 Output Total 2049 / 2049 2800 / 2800 Balance 1342 / 1342 850 / 850 -1 / -1 Laboratory Tests Past 24 Hrs 07/29/18 07/30/18 14:00 14:45 Fl Pathologist Comment Reviewed Miscellaneous Test Pending Medical Necessity - Tobacco Use Smoking Status: Current every day smoker Tobacco Use: Cigarettes Assessment/Plan All Active Problems Metastasis (Acute) Disseminated cancer (Acute) 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 reamings from right femoral nail sent. Call with concerns This note was generated with [employer] dictation software. It may contain incorrect words, spelling, and punctuation that were not noted in checking the note before signing. mirels criteria for preop prophylactic nailing was 11 pod1 s/p right intramedullary prophylactic nailing dispo pending ancef wbat right leg xrays reviewed show good alignment/bypassed mets pt c/o most pain in sacral area today/ radiation eval for treatment PT - ok to keep bassett in one more day as not ambulatory and diff d/t obesity to move call with concerns, follow up in 2 weeks- if inpatient i can see in hospital with repeat xrays, if not will see as outpatient in clinic [phone]
[2018-07-31] MEDS: Nortriptyline 25 MG Capsule 50 MG PO (20:54)
[2018-08-01] VITALS (7 sets, daily range): BP systolic 117–133; BP diastolic 68–79; PULSE 80–103; RESP 16–18; TEMP 36.7–36.9; O2SAT 93–95
[2018-08-01] MEDS: HYDROcodone Bitartrate/Apap 5/325 Tablet PO ×3 (03:59→20:00)
[2018-08-01] MEDS: Morphine 4 MG/ML Syringe IV ×3 (06:53→17:39)
[2018-08-01] MEDS: 0.9% NaCl Peripheral Flush Adult/Peds IV ×3 (06:54→17:40)
[2018-08-01] MEDS: Fluticasone 0.05% 1 SPRAY NASAL.SRY 2 SPRAY NASAL ×2 (07:41→19:59)
[2018-08-01] MEDS: Senna/Docusate Sodium 1 Tablet 2 TABLET PO ×2 (07:42→19:59)
[2018-08-01] MEDS: Nystatin Powder 15gm Bottle 1 APPLIC TOPICAL ×2 (07:42→20:00)
[2018-08-01] MEDS: dexAMETHasone 4 MG Tablet PO (07:43)
[2018-08-01] MEDS: Celecoxib 200 MG Capsule PO (07:43)
--- NOTE | 2018-08-01 09:48 | PCM.PN.PUL ---
Patient Problems: Active and Suspected Problems Metastasis (Acute) Disseminated cancer (Acute) Subjective: Patient did well overnight. Patient was given a room air challenge on my evaluation and denied any shortness of breath. Patient states his pain is better controlled, but I still feel a little unstable with moving around. No hemoptysis has been reported. Objective: Chest x-ray did show some slightly increased infiltrate with volume loss in the left upper lobe - Physical Exam General: Alert, Oriented x3, Cooperative, No apparent distress, - - Morbidly obese. HEENT: Atraumatic, PERRLA, EOMI, Normocephalic, - - No scleral icterus, but does have some injection Oral: Moist Mucosa, No Gingival or Mucosal Lesions/ Ulcerations, - - Poor dentition Neck: Supple, No JVD, No Nodes, Trachea Midline Lungs: No rhonchi, No wheeze, No rales, Diminished - Left apex Cardiovascular: Regular rate, Regular Rhythm, Normal S1, Normal S2, No murmurs, No rub noted, No Gallop Abdomen: Bowel Sounds Present, Soft, Non Tender, Non-Distended, Obese Extremities: No cyanosis, Edema Skin: - - No significant change from previous Musculoskeletal: No Tenderness to Palpation of Joints or Extremities Lymphatic: No Cervical, Supraclavicular, or Inguinal Adenopathy Neurological: Cranial nerves II-XII grossly intact, Neuro grossly intact, Motor Exam 5/5 strength throughout Psych/Mental Status: Alert and oriented to time, place, person, mood and affect Vital Signs Temp Pulse Resp BP Pulse Ox 36.8 C 80 18 117/68 94 08/01/18 04:00 08/01/18 07:22 08/01/18 04:00 08/01/18 04:00 08/01/18 07:08 Oxygen Flow Rate (L/min) [7] 2 Oxygen Flow Rate (L/min) [6] 2 Oxygen Flow Rate (L/min) [5] 2 Oxygen Flow Rate (L/min) [4] 2 Oxygen Flow Rate (L/min) [3] 2 Oxygen Flow Rate (L/min) [2] 2 Oxygen Flow Rate (L/min) [1 ( 2 Initial Baseline)] Oxygen Flow Rate (L/min) 3 Oxygen Delivery Method [7] Nasal Cannula Oxygen Delivery Method [6] Nasal Cannula Oxygen Delivery Method [5] Nasal Cannula Oxygen Delivery Method [4] Nasal Cannula Oxygen Delivery Method [3] Nasal Cannula Oxygen Delivery Method [2] Nasal Cannula Oxygen Delivery Method [1 ( Nasal Cannula Initial Baseline)] Oxygen Delivery Method Room Air Weight: 170.097 kg Body Mass Index (BMI) 52.2 Intake and Output for Last 24 Hours 07/30/18 07/31/18 08/01/18 23:59 23:59 23:59 Intake Total 2900 / 2900 4249 / 4249 800 / 800 Output Total 2049 / 2049 16693 / 83167 2200 / 2200 Balance 850 / 850 -6276 / -6276 -1400 / -1400 Clinical Impression(s) from Imaging Studies Hip X-Ray 07/30/18 19:23 IMPRESSION: Placement of intramedullary kate with interlocking femoral screw with no complications. Electronically Signed: Onur Chaudhary MD at 14:14 EDT , Service support , Chest X-Ray 07/31/18 08:51 IMPRESSION: Left upper lobe consolidation/mass corresponding to that seen on comparison CT evaluation. Electronically Signed: Jayson Corrales, at 10:07 EDT Tel , Service support , Medical Necessity - Tobacco Use Smoking Status: Current every day smoker Tobacco Use: Cigarettes Assessment/Plan All Active Problems Metastasis (Acute) Disseminated cancer (Acute) RECOMMENDATIONS: 1. Continue with supportive care 2. Increase activity as tolerated 3. Walking oximetry prior to discharge 4. Await results of biopsy IMPRESSIONS: 1. Left hilar mass High clinical suspicion for malignancy. Multiple biopsies were taken. Left upper lobe bronchus was completely obstructed, even after the biopsies. Patient would likely not be a stent candidate at this time. This could be reevaluated in the future following intervention such as chemotherapy or radiation. Patient with new oxygen requirement overnight. Unclear if this is related to pain medications versus obstruction of the left upper lobe. Chest x-ray shows some slight decreased recruitment of the left upper lobe, but patient is being given a room air challenge at this time. Patient could be given a walking oximetry and discharged on supplemental oxygen if indicated. Can follow-up with biopsy results as an outpatient. Mynor to discharge from a pulmonary perspective if potential oxygen requirements are addressed. 2. Probable COPD/morbid obesity/tobacco abuse/marijuana use/obstructive sleep apnea Complicates care, management, recovery and prognosis. Patient may benefit from transition to DuoNeb therapy if developing worsening shortness of breath. Would recommend aggressive DVT prophylaxis as tumor does appear to be encircling the pulmonary artery. Code Visit Inpatient E&M: 07682 Subs Hosp L2
--- NOTE | 2018-08-01 09:51 | PN_ITS ---
Patient Problems: Active and Suspected Problems Metastasis (Acute) Disseminated cancer (Acute) Subjective: Patient did well overnight. Patient was given a room air challenge on my evaluation and denied any shortness of breath. Patient states his pain is better controlled, but I still feel a little unstable with moving around. No hemoptysis has been reported. Objective: Chest x-ray did show some slightly increased infiltrate with volume loss in the left upper lobe - Physical Exam General: Alert, Oriented x3, Cooperative, No apparent distress, - - Morbidly obese. HEENT: Atraumatic, PERRLA, EOMI, Normocephalic, - - No scleral icterus, but does have some injection Oral: Moist Mucosa, No Gingival or Mucosal Lesions/ Ulcerations, - - Poor dentition Neck: Supple, No JVD, No Nodes, Trachea Midline Lungs: No rhonchi, No wheeze, No rales, Diminished - Left apex Cardiovascular: Regular rate, Regular Rhythm, Normal S1, Normal S2, No murmurs, No rub noted, No Gallop Abdomen: Bowel Sounds Present, Soft, Non Tender, Non-Distended, Obese Extremities: No cyanosis, Edema Skin: - - No significant change from previous Musculoskeletal: No Tenderness to Palpation of Joints or Extremities Lymphatic: No Cervical, Supraclavicular, or Inguinal Adenopathy Neurological: Cranial nerves II-XII grossly intact, Neuro grossly intact, Motor Exam 5/5 strength throughout Psych/Mental Status: Alert and oriented to time, place, person, mood and affect Vital Signs Temp Pulse Resp BP Pulse Ox 36.8 C 80 18 117/68 94 08/01/18 04:00 08/01/18 07:22 08/01/18 04:00 08/01/18 04:00 08/01/18 07:08 Oxygen Flow Rate (L/min) [7] 2 Oxygen Flow Rate (L/min) [6] 2 Oxygen Flow Rate (L/min) [5] 2 Oxygen Flow Rate (L/min) [4] 2 Oxygen Flow Rate (L/min) [3] 2 Oxygen Flow Rate (L/min) [2] 2 Oxygen Flow Rate (L/min) [1 ( 2 Initial Baseline)] Oxygen Flow Rate (L/min) 3 Oxygen Delivery Method [7] Nasal Cannula Oxygen Delivery Method [6] Nasal Cannula Oxygen Delivery Method [5] Nasal Cannula Oxygen Delivery Method [4] Nasal Cannula Oxygen Delivery Method [3] Nasal Cannula Oxygen Delivery Method [2] Nasal Cannula Oxygen Delivery Method [1 ( Nasal Cannula Initial Baseline)] Oxygen Delivery Method Room Air Weight: 170.097 kg Body Mass Index (BMI) 52.2 Intake and Output for Last 24 Hours 07/30/18 07/31/18 08/01/18 23:59 23:59 23:59 Intake Total 2900 / 2900 4249 / 4249 800 / 800 Output Total 2049 / 2049 65868 / 94642 2200 / 2200 Balance 850 / 850 -6276 / -6276 -1400 / -1400 Clinical Impression(s) from Imaging Studies Hip X-Ray 07/30/18 19:23 IMPRESSION: Placement of intramedullary kate with interlocking femoral screw with no complications. Electronically Signed: Onur Chaudhary MD at 14:14 EDT , Service support , Chest X-Ray 07/31/18 08:51 IMPRESSION: Left upper lobe consolidation/mass corresponding to that seen on comparison CT evaluation. Electronically Signed: Jayson Corrales, at 10:07 EDT Tel , Service support , Medical Necessity - Tobacco Use Smoking Status: Current every day smoker Tobacco Use: Cigarettes Assessment/Plan All Active Problems Metastasis (Acute) Disseminated cancer (Acute) RECOMMENDATIONS: 1. Continue with supportive care 2. Increase activity as tolerated 3. Walking oximetry prior to discharge 4. Await results of biopsy IMPRESSIONS: 1. Left hilar mass High clinical suspicion for malignancy. Multiple biopsies were taken. Left upper lobe bronchus was completely obstructed, even after the biopsies. Patient would likely not be a stent candidate at this time. This could be reevaluated in the future following intervention such as chemotherapy or radiation. Patient with new oxygen requirement overnight. Unclear if this is related to pain medications versus obstruction of the left upper lobe. Chest x- ray shows some slight decreased recruitment of the left upper lobe, but patient is being given a room air challenge at this time. Patient could be given a walking oximetry and discharged on supplemental oxygen if indicated. Can follow-up with biopsy results as an outpatient. Mynor to discharge from a pulmonary perspective if potential oxygen requirements are addressed. 2. Probable COPD/morbid obesity/tobacco abuse/marijuana use/obstructive sleep apnea Complicates care, management, recovery and prognosis. Patient may benefit from transition to DuoNeb therapy if developing worsening shortness of breath. Would recommend aggressive DVT prophylaxis as tumor does appear to be encircling the pulmonary artery. Code Visit Inpatient E&M: 45104 Subs Hosp L2
[2018-08-01] MEDS: Enoxaparin 40 MG/0.4 ML Syringe SC (10:16)
--- NOTE | 2018-08-01 10:37 | PCM.PN.HOSP ---
Patient Problems: Active and Suspected Problems Metastasis (Acute) Disseminated cancer (Acute) Subjective: Pain in his tailbone now is is more significant source. He is a little bit worried about putting weight on his right leg though he does note that this is mostly a mental concern versus an actual physical one. Vitals/I&O's: Vital Signs Temp Pulse Resp BP Pulse Ox 98.2 F 103 H 16 122/79 H 93 08/01/18 10:11 08/01/18 10:11 08/01/18 10:11 08/01/18 10:11 08/01/18 10:11 Oxygen Flow Rate (L/min) [7] 2 Oxygen Flow Rate (L/min) [6] 2 Oxygen Flow Rate (L/min) [5] 2 Oxygen Flow Rate (L/min) [4] 2 Oxygen Flow Rate (L/min) [3] 2 Oxygen Flow Rate (L/min) [2] 2 Oxygen Flow Rate (L/min) [1 ( 2 Initial Baseline)] Oxygen Flow Rate (L/min) 3 Oxygen Delivery Method [7] Nasal Cannula Oxygen Delivery Method [6] Nasal Cannula Oxygen Delivery Method [5] Nasal Cannula Oxygen Delivery Method [4] Nasal Cannula Oxygen Delivery Method [3] Nasal Cannula Oxygen Delivery Method [2] Nasal Cannula Oxygen Delivery Method [1 ( Nasal Cannula Initial Baseline)] Oxygen Delivery Method Room Air Weight: 375 lb Body Mass Index (BMI) 52.2 Intake and Output for Last 24 Hours 07/30/18 07/31/18 08/01/18 23:59 23:59 23:59 Intake Total 2900 / 2900 4249 / 4249 800 / 800 Output Total 2049 43808 / 27601 2200 / 2200 Balance 850 / 850 -6276 / -6276 -1400 / -1400 General: Alert, Oriented x3, Cooperative, No apparent distress HEENT: Atraumatic, PERRLA, EOMI, Normocephalic Oral: Dry Mucosa Neck: Supple Lungs: Normal air movement, no wheeze, no rales, diminished Cardiovascular: Regular rate, Regular Rhythm, Normal S1, Normal S2, No murmurs Abdomen: Soft, Non Tender, Non-Distended, No Hepato-splenomegaly Extremities: No edema, Capillary Refill Less than 3 Seconds Skin: No rashes, No breakdown Musculoskeletal: Tenderness -right hip with palpation, though he states that now a lot of his pain is more in his tailbone Neurological: Neuro grossly intact, Sensory exam intact to light touch and pain Psych/Mental Status: Normal Affect, Appropriate Current Medications Hydrocodone Bitart/Acetaminophen ([place] 5mg-325mg) 1 tablet PO Q4H PRN PRN PRN Reason: MODERATE PAIN (4-5/10) Last Admin: 08/01/18 03:59 Dose: 1 tablet Albuterol Sulfate (Ventolin Aerosols) 2.5 mg INHALATION Q2H PRN PRN PRN Reason: sob or wheezes Celecoxib (Celebrex) 200 mg PO DAILY [facility] Last Admin: 08/01/18 07:43 Dose: 200 mg Cyclobenzaprine HCl (Flexeril) 10 mg PO TID PRN PRN PRN Reason: MUSCLE SPASM Last Admin: 07/31/18 06:05 Dose: 10 mg Dexamethasone (Decadron) 4 mg PO DAILY@0800 [facility] Last Admin: 08/01/18 07:43 Dose: 4 mg Dextrose (D50w Syringe) 0 gm IV X1 PRN; Protocol PRN Reason: Hypoglycemia Enoxaparin Sodium (Lovenox) 40 mg SC DAILY@1000 [facility] Last Admin: 08/01/18 10:16 Dose: 40 mg Fluticasone Propionate (Flonase Nasal [place]) 2 spray NASAL BID [facility] Last Admin: 08/01/18 07:41 Dose: 2 spray Glucagon () 1 mg IM .X1 PRN PRN Reason: Hypoglycemia Morphine Sulfate () 4 mg IV Q3H PRN PRN PRN Reason: Severe pain (7-10/10) Last Admin: 08/01/18 06:53 Dose: 4 mg Nicotine (Nicoderm Cq (Pbkc)) 21 mg TRANSDERM. DAILY [facility] Last Admin: 08/01/18 10:15 Dose: 21 mg Nortriptyline HCl (Pamelor) 50 mg PO QHS [facility] Last Admin: 07/31/18 20:54 Dose: 50 mg Nystatin (Mycostatin Powder) 1 applic TOPICAL BID [facility]; Protocol Last Admin: 08/01/18 07:42 Dose: 1 applicatio Ondansetron HCl (Zofran) 4 mg IV Q8H PRN PRN PRN Reason: NAUSEA/VOMITING Last Admin: 07/31/18 02:15 Dose: 4 mg Senna/Docusate Sodium (Senokot-S, Libby-Colace) 2 tablet PO BID ALIE Last Admin: 08/01/18 07:42 Dose: 2 tablet Sodium Chloride () 5 - 15 ml IV UD PRN PRN Reason: SALINE FLUSH Last Admin: 08/01/18 06:54 Dose: 15 ml Medical Necessity - Tobacco Use Smoking Status: Current every day smoker Tobacco Use: Cigarettes Assessment/Plan All Active Problems Metastasis (Acute) Disseminated cancer (Acute) 1. Likely metastatic cancer to the bone primary appears to be in the lung/COPD/JACK/tobacco abuse/status post right femur pinning postop day 2 -CT of the chest shows a large 10 cm mass encapsulating the main left bronchus -CT of the abdomen consistent with bone mets -He is on Celebrex at home, continue with morphine 4 mg and continue his Vicodin as well, discontinue naproxen continue with nortriptyline -Decadron 4 mg daily to control the bone pain -Continue with pain control after his pending. Will have PT/OT evaluate patient for possible SNF placement he is weightbearing as tolerated on his right leg -We will continue with his home aerosols as well as his BiPAP for his JACK. -Discussed the necessity of smoking cessation -He will follow-up with oncology as an outpatient to go over pathology and prognosis as well as treatment possibilities. 2. Morbid obesity -Discussed lifestyle modification since his BMI is 51 DVT: Lovenox Code Visit Inpatient E&M: 24269 Subs Hosp L2
--- NOTE | 2018-08-01 10:40 | PN_ITS ---
Patient Problems: Active and Suspected Problems Metastasis (Acute) Disseminated cancer (Acute) Subjective: Pain in his tailbone now is is more significant source. He is a little bit worried about putting weight on his right leg though he does note that this is mostly a mental concern versus an actual physical one. Vitals/I&O's: Vital Signs Temp Pulse Resp BP Pulse Ox 98.2 F 103 H 16 122/79 H 93 08/01/18 10:11 08/01/18 10:11 08/01/18 10:11 08/01/18 10:11 08/01/18 10:11 Oxygen Flow Rate (L/min) [7] 2 Oxygen Flow Rate (L/min) [6] 2 Oxygen Flow Rate (L/min) [5] 2 Oxygen Flow Rate (L/min) [4] 2 Oxygen Flow Rate (L/min) [3] 2 Oxygen Flow Rate (L/min) [2] 2 Oxygen Flow Rate (L/min) [1 ( 2 Initial Baseline)] Oxygen Flow Rate (L/min) 3 Oxygen Delivery Method [7] Nasal Cannula Oxygen Delivery Method [6] Nasal Cannula Oxygen Delivery Method [5] Nasal Cannula Oxygen Delivery Method [4] Nasal Cannula Oxygen Delivery Method [3] Nasal Cannula Oxygen Delivery Method [2] Nasal Cannula Oxygen Delivery Method [1 ( Nasal Cannula Initial Baseline)] Oxygen Delivery Method Room Air Weight: 375 lb Body Mass Index (BMI) 52.2 Intake and Output for Last 24 Hours 07/30/18 07/31/18 08/01/18 23:59 23:59 23:59 Intake Total 2900 / 2900 4249 / 4249 800 / 800 Output Total 2049 91321 / 80177 2200 / 2200 Balance 850 / 850 -6276 / -6276 -1400 / -1400 General: Alert, Oriented x3, Cooperative, No apparent distress HEENT: Atraumatic, PERRLA, EOMI, Normocephalic Oral: Dry Mucosa Neck: Supple Lungs: Normal air movement, no wheeze, no rales, diminished Cardiovascular: Regular rate, Regular Rhythm, Normal S1, Normal S2, No murmurs Abdomen: Soft, Non Tender, Non-Distended, No Hepato-splenomegaly Extremities: No edema, Capillary Refill Less than 3 Seconds Skin: No rashes, No breakdown Musculoskeletal: Tenderness -right hip with palpation, though he states that now a lot of his pain is more in his tailbone Neurological: Neuro grossly intact, Sensory exam intact to light touch and pain Psych/Mental Status: Normal Affect, Appropriate Current Medications Hydrocodone Bitart/Acetaminophen ([place] 5mg-325mg) 1 tablet PO Q4H PRN PRN PRN Reason: MODERATE PAIN (4-5/10) Last Admin: 08/01/18 03:59 Dose: 1 tablet Albuterol Sulfate (Ventolin Aerosols) 2.5 mg INHALATION Q2H PRN PRN PRN Reason: sob or wheezes Celecoxib (Celebrex) 200 mg PO DAILY [facility] Last Admin: 08/01/18 07:43 Dose: 200 mg Cyclobenzaprine HCl (Flexeril) 10 mg PO TID PRN PRN PRN Reason: MUSCLE SPASM Last Admin: 07/31/18 06:05 Dose: 10 mg Dexamethasone (Decadron) 4 mg PO DAILY@0800 [facility] Last Admin: 08/01/18 07:43 Dose: 4 mg Dextrose (D50w Syringe) 0 gm IV X1 PRN; Protocol PRN Reason: Hypoglycemia Enoxaparin Sodium (Lovenox) 40 mg SC DAILY@1000 [facility] Last Admin: 08/01/18 10:16 Dose: 40 mg Fluticasone Propionate (Flonase Nasal [place]) 2 spray NASAL BID [facility] Last Admin: 08/01/18 07:41 Dose: 2 spray Glucagon () 1 mg IM .X1 PRN PRN Reason: Hypoglycemia Morphine Sulfate () 4 mg IV Q3H PRN PRN PRN Reason: Severe pain (7-10/10) Last Admin: 08/01/18 06:53 Dose: 4 mg Nicotine (Nicoderm Cq (Pbkc)) 21 mg TRANSDERM. DAILY [facility] Last Admin: 08/01/18 10:15 Dose: 21 mg Nortriptyline HCl (Pamelor) 50 mg PO QHS [facility] Last Admin: 07/31/18 20:54 Dose: 50 mg Nystatin (Mycostatin Powder) 1 applic TOPICAL BID [facility]; Protocol Last Admin: 08/01/18 07:42 Dose: 1 applicatio Ondansetron HCl (Zofran) 4 mg IV Q8H PRN PRN PRN Reason: NAUSEA/VOMITING Last Admin: 07/31/18 02:15 Dose: 4 mg Senna/Docusate Sodium (Senokot-S, Libby-Colace) 2 tablet PO BID ALIE Last Admin: 08/01/18 07:42 Dose: 2 tablet Sodium Chloride () 5 - 15 ml IV UD PRN PRN Reason: SALINE FLUSH Last Admin: 08/01/18 06:54 Dose: 15 ml Medical Necessity - Tobacco Use Smoking Status: Current every day smoker Tobacco Use: Cigarettes Assessment/Plan All Active Problems Metastasis (Acute) Disseminated cancer (Acute) 1. Likely metastatic cancer to the bone primary appears to be in the lung/COPD/JACK/tobacco abuse/status post right femur pinning postop day 2 -CT of the chest shows a large 10 cm mass encapsulating the main left bronchus -CT of the abdomen consistent with bone mets -He is on Celebrex at home, continue with morphine 4 mg and continue his Vicodin as well, discontinue naproxen continue with nortriptyline -Decadron 4 mg daily to control the bone pain -Continue with pain control after his pending. Will have PT/OT evaluate patient for possible SNF placement he is weightbearing as tolerated on his right leg -We will continue with his home aerosols as well as his BiPAP for his JACK. -Discussed the necessity of smoking cessation -He will follow-up with oncology as an outpatient to go over pathology and prognosis as well as treatment possibilities. 2. Morbid obesity -Discussed lifestyle modification since his BMI is 51 DVT: Lovenox Code Visit Inpatient E&M: 77496 Subs Hosp L2
[2018-08-01] MEDS: Nortriptyline 25 MG Capsule 50 MG PO (20:00)
[2018-08-02] VITALS (8 sets, daily range): BP systolic 114–151; BP diastolic 65–86; PULSE 78–108; RESP 16–20; TEMP 36.2–36.9; O2SAT 91–96
[2018-08-02] MEDS: HYDROcodone Bitartrate/Apap 5/325 Tablet PO ×3 (01:44→10:01)
[2018-08-02] MEDS: Nystatin Powder 15gm Bottle 1 APPLIC TOPICAL ×2 (08:48→21:33)
[2018-08-02] MEDS: Fluticasone 0.05% 1 SPRAY NASAL.SRY 2 SPRAY NASAL ×2 (08:48→21:32)
[2018-08-02] MEDS: Senna/Docusate Sodium 1 Tablet 2 TABLET PO ×2 (08:49→21:34)
[2018-08-02] MEDS: Enoxaparin 40 MG/0.4 ML Syringe SC (08:49)
[2018-08-02] MEDS: dexAMETHasone 4 MG Tablet PO (08:50)
[2018-08-02] MEDS: Celecoxib 200 MG Capsule PO (08:50)
--- NOTE | 2018-08-02 09:57 | PN_ITS ---
Patient Problems: Active and Suspected Problems Metastasis (Acute) Disseminated cancer (Acute) Subjective: Patient notes discomfort primarily to the tailbone as well as right lower extremity status post right intramedullary prophylactic nailing per surgery. Discussed current presentation with plan discharge to assisted facility for ongoing PT and OT with plan follow-up with oncology, pulmonary medicine as well as orthopedic surgery following discharge with pending pathology status post biopsy with noted preliminarily small cells consistent with either lymphoma versus non-small cell lung cancer awaiting final pathology. Patient denies fevers, chills, nausea, emesis, abdominal pain, chest pain or dyspnea. Objective: Physical Examination: General: awake, alert, oriented x 3 and cooperative, seated upright in bed, notes ongoing discomfort primarily at the tailbone and right lower extremity. Skin: normal color, turgor, no icterus, cyanosis. HEENT: AT/NC, EOMI, PERRLA, mildly dry MM. Lungs: CTA bilaterally, moderate effort, mild decrease BL bases, no rales, ronchi or wheezing distant given habitus. Heart: Regular rate and rhythm; no gallop, rub audible. Abdomen: soft, morbidly obese, NTTP, ND, normal BS, distant bowel sounds however likely given habitus. Extremities: no cyanosis, clubbing, status post right intramedullary prophylactic nailing. Neurological: patient awake, alert, oriented x 3; cognitive function intact; pupils equally reactive to light and accomodation; cranial nerves II-XII grossly normal, moving all 4 extremities; however, extremely limited given habitus, severe pain with metastatic disease status post right intramedullary prophylactic nailing, strength accordingly severely globally decreased. Psychiatric: affect appears fatigued appearance, no acute evidence of depressive or anxiety feelings. Vitals/I&O's: Vital Signs Temp Pulse Resp BP Pulse Ox 97.9 F 86 20 H 117/65 96 08/02/18 08:30 08/02/18 08:30 08/02/18 08:30 08/02/18 08:30 08/02/18 08:30 Oxygen Flow Rate (L/min) [7] 2 Oxygen Flow Rate (L/min) [6] 2 Oxygen Flow Rate (L/min) [5] 2 Oxygen Flow Rate (L/min) [4] 2 Oxygen Flow Rate (L/min) [3] 2 Oxygen Flow Rate (L/min) [2] 2 Oxygen Flow Rate (L/min) [1 ( 2 Initial Baseline)] Oxygen Flow Rate (L/min) 3 Oxygen Delivery Method [7] Nasal Cannula Oxygen Delivery Method [6] Nasal Cannula Oxygen Delivery Method [5] Nasal Cannula Oxygen Delivery Method [4] Nasal Cannula Oxygen Delivery Method [3] Nasal Cannula Oxygen Delivery Method [2] Nasal Cannula Oxygen Delivery Method [1 ( Nasal Cannula Initial Baseline)] Oxygen Delivery Method Nasal Cannula Weight: 375 lb Body Mass Index (BMI) 52.2 Intake and Output for Last 24 Hours 07/31/18 08/01/18 08/02/18 23:59 23:59 23:59 Intake Total 4249 / 4249 2120 / 2120 1000 / 1000 Output Total 81706 / 25537 2575 / 2575 Balance -6276 / -6276 -455 / -455 1000 / 1000 Current Medications Hydrocodone Bitart/Acetaminophen ([place] 5mg-325mg) 1 tablet PO Q4H PRN PRN PRN Reason: MODERATE PAIN (4-5/10) Last Admin: 08/02/18 05:52 Dose: 1 tablet Albuterol Sulfate (Ventolin Aerosols) 2.5 mg INHALATION Q2H PRN PRN PRN Reason: sob or wheezes Celecoxib (Celebrex) 200 mg PO DAILY [facility] Last Admin: 08/02/18 08:50 Dose: 200 mg Cyclobenzaprine HCl (Flexeril) 10 mg PO TID PRN PRN PRN Reason: MUSCLE SPASM Last Admin: 08/02/18 08:48 Dose: 10 mg Dexamethasone (Decadron) 4 mg PO DAILY@0800 [facility] Last Admin: 08/02/18 08:50 Dose: 4 mg Dextrose (D50w Syringe) 0 gm IV X1 PRN; Protocol PRN Reason: Hypoglycemia Enoxaparin Sodium (Lovenox) 40 mg SC DAILY@1000 [facility] Last Admin: 08/02/18 08:49 Dose: 40 mg Fluticasone Propionate (Flonase Nasal Manning) 2 spray NASAL BID [facility] Last Admin: 08/02/18 08:48 Dose: 2 spray Glucagon () 1 mg IM .X1 PRN PRN Reason: Hypoglycemia Morphine Sulfate () 4 mg IV Q3H PRN PRN PRN Reason: Severe pain (7-10/10) Last Admin: 08/01/18 17:39 Dose: 4 mg Nicotine (Nicoderm Cq (Pbkc)) 21 mg TRANSDERM. DAILY [facility] Last Admin: 08/02/18 08:49 Dose: 21 mg Nortriptyline HCl (Pamelor) 50 mg PO QHS [facility] Last Admin: 08/01/18 20:00 Dose: 50 mg Nystatin (Mycostatin Powder) 1 applic TOPICAL BID ALIE; Protocol Last Admin: 08/02/18 08:48 Dose: 1 applicatio Ondansetron HCl (Zofran) 4 mg IV Q8H PRN PRN PRN Reason: NAUSEA/VOMITING Last Admin: 07/31/18 02:15 Dose: 4 mg Senna/Docusate Sodium (Senokot-S, Libby-Colace) 2 tablet PO BID [facility]IE Last Admin: 08/02/18 08:49 Dose: 2 tablet Sodium Chloride () 5 - 15 ml IV UD PRN PRN Reason: SALINE FLUSH Last Admin: 08/01/18 17:40 Dose: 10 ml Medical Necessity - Tobacco Use Smoking Status: Current every day smoker Tobacco Use: Cigarettes Assessment/Plan All Active Problems Metastasis (Acute) Disseminated cancer (Acute) The patient is a 53 y/o M w/ PMHx: JACK on CPAP q HS, Morbid Obesity, Chronic COPD, HTN, HLD, Depression and Anxiety Allergic Rhinitis who presents to the [facility] ED on 07/26/18 with history of 1 month progressively worsening right hip discomfort as well as coccyx pain. (1) Metastatic cancer w/ notable suspicious for lymphoma versus non-small cell lung cancer, awaiting pathology: Patient admitted to medical surgical floor, pulmonary following for left hilar mass with imaging noting a left upper lobe bronchus completely obstructive even following biopsies and noted patient likely not a stent candidate with plan for future reevaluation for intervention including chemotherapy and/or radiation with oxygenation needs with plan follow- up outpatient following biopsy results., awaiting final pathology status post biopsy posterior aspect left iliac bone, plain film of the femur upon presentation with lytic lesions in the mid and distal femur suspicious for metastatic disease with orthopedic surgery consulted status post right i ntramedullary prophylactic nailing with skeletal survey negative except for proximal tibial lesion with no evidence of collapse on CT, Continued on oral Decadron, transition from hydrocodone to oxycodone regimen, consideration palliative consultation to which patient is amenable, transition from prophylactic to therapeutic Lovenox given high risk with current immobility, metastatic cancer, noted tumor encircling pulmonary artery per pulmonary recommendations. WBAT, PT, OT, CM, awaiting SNF placement. Discussed follow-up and thus far pulmonary noting 2 weeks (2) Chronic COPD: ATC duonebs, PRN albuterol, HOB, IS parameters. (3) Morbid Obesity: Weight loss and lifestyle changes encouraged, nutrition consulted. (4) Tobacco Abuse: Encouraged cessation, inpatient consultation per RT, NR if desired. (5) Intertrigo: Continue topical nystatin powder. (6) Allergic rhinitis: Continue home Flonase regimen. (7) Hypertension: Not on regimen, BP normal range, continue to trend and add agents as needed. (8) Hyperlipidemia: Not on regimen, defer to outpatient. (9) Anxiety and depression: Not on regimen, current mood appropriate response for acute presentation, will benefit from continued evaluations and addition of regimen/therapy as needed. (10) JACK: CPAP nightly. (11) DVT prophylaxis: SCDs, positions to therapeutic Lovenox given recent operative intervention, immobility and metastatic cancer state with high risk for VTE as well as per pulmonary recommendation secondary to tumor encircling pulmonary artery as well. Code Visit Inpatient E&M: 99843 Subs Hosp L2
--- NOTE | 2018-08-02 10:13 | PN_ITS ---
Patient Problems: Active and Suspected Problems Metastasis (Acute) Disseminated cancer (Acute) Subjective: The patient was seen and examined at the bedside this morning. Events from the last 24 hours have been reviewed. The patient is currently afebrile, hemodynamically stable and maintaining appropriate oxygen saturations on 3 L/min via nasal cannula. The patient is awaiting disposition to senior living facility upon finalized pathology results. Objective: The patient's most recent lab work, culture data and imaging studies have all been personally reviewed. - Physical Exam General: Alert, Cooperative, No apparent distress HEENT: Atraumatic, PERRLA, Normocephalic Oral: No Gingival or Mucosal Lesions/ Ulcerations Neck: Supple, Negative Hepatojugular Reflux, Trachea Midline Lungs: No rhonchi, No wheeze, No rales, Diminished Cardiovascular: Regular rate, Regular Rhythm, Normal S1, Normal S2, No murmurs Abdomen: Bowel Sounds Present, Soft, Non Tender, Obese Extremities: No clubbing, No cyanosis, Edema Skin: No breakdown Musculoskeletal: No Muscle Wasting Lymphatic: No Cervical, Supraclavicular, or Inguinal Adenopathy Neurological: Neuro grossly intact Psych/Mental Status: Normal Affect, Appropriate Vital Signs Temp Pulse Resp BP Pulse Ox 97.9 F 86 20 H 117/65 96 08/02/18 08:30 08/02/18 08:30 08/02/18 08:30 08/02/18 08:30 08/02/18 08:30 Oxygen Flow Rate (L/min) [7] 2 Oxygen Flow Rate (L/min) [6] 2 Oxygen Flow Rate (L/min) [5] 2 Oxygen Flow Rate (L/min) [4] 2 Oxygen Flow Rate (L/min) [3] 2 Oxygen Flow Rate (L/min) [2] 2 Oxygen Flow Rate (L/min) [1 ( 2 Initial Baseline)] Oxygen Flow Rate (L/min) 3 Oxygen Delivery Method [7] Nasal Cannula Oxygen Delivery Method [6] Nasal Cannula Oxygen Delivery Method [5] Nasal Cannula Oxygen Delivery Method [4] Nasal Cannula Oxygen Delivery Method [3] Nasal Cannula Oxygen Delivery Method [2] Nasal Cannula Oxygen Delivery Method [1 ( Nasal Cannula Initial Baseline)] Oxygen Delivery Method Nasal Cannula Weight: 375 lb Body Mass Index (BMI) 52.2 Intake and Output for Last 24 Hours 07/31/18 08/01/1819 23:59 23:59 23:59 Intake Total 4249 / 4249 2120 / 2120 1000 / 1000 Output Total 01450 / 01742 2575 / 2575 Balance -6276 / -6276 -455 / -455 1000 / 1000 Clinical Impression(s) from Imaging Studies Hip/Pelvis X-Ray 07/26/18 18:47 IMPRESSION: No fracture or dislocation in the pelvis or right hip. Stable moderate degenerative changes. Electronically Signed: Hadley Raesocorro, at 19:02 EDT Tel , Service support , Abdomen CT 07/26/18 23:40 IMPRESSION: 1. No free fluid or acute abdominal disease identified. Pelvic CT scanning not performed. 2. Hepatosplenomegaly. Small, solitary right hepatic lobe lesion, probably benign. 3. No abdominal lymphadenopathy. 4. Bilateral iliac osteolytic lesions, incompletely visualized and larger on the left, compatible with metastases. Individualized dose optimization techniques were used for this CT. at 0732 Reported and signed by: Jerry Ruiz MD Electronically Signed: Jerry Ruiz, at 7:31 EDT Tel , Service support , Chest CT 07/26/18 23:40 IMPRESSION: 1. Left perihilar and left upper lobe large irregular tumor in the 10 cm diameter range with secondary soft tissue invasion of the left hilum and upper left mediastinum. 2. Multiple bulky mediastinal and left hilar lymph nodes compatible with annie metastases. 3. Chronic lung disease with centrilobular and distal lobular emphysema. 4. Metastatic bone disease including pathologic fracture of the medial right clavicle. Individualized dose optimization techniques were used for this CT. at 0650 Reported and signed by: Jerry Ruiz MD Electronically Signed: Jerry Ruiz, at 6:49 EDT Tel , Service support , Femur X-Ray 07/27/18 16:41 IMPRESSION: Lytic lesions noted in the mid and distal femur which are suspicious for metastasis. Electronically Signed: Hadley Saunders, at 18:17 EDT Tel , Service support , Lower Extremity CT 07/27/18 17:40 IMPRESSION: Findings which may be consistent with metastatic disease involving the right femoral head and mid to distal femoral shaft Electronically Signed: Jayson Parra MD at 19:28 EDT , Service support , Femur X-Ray 07/29/18 14:50 IMPRESSION: No definite radiographic evidence for metastatic disease. Electronically Signed: Marissa Watkins MD at 19:14 EDT , Service support , Forearm X-Ray 07/29/18 14:50 IMPRESSION: No radiographic evidence of metastatic disease. Electronically Signed: Marissa Watkins MD at 19:15 EDT , Service support , Forearm X-Ray 07/29/18 14:50 IMPRESSION: No radiographic evidence for fracture. Electronically Signed: Marissa Watkins MD at 19:11 EDT , Service support , Humerus X-Ray 07/29/18 14:50 IMPRESSION: Unremarkable x-ray examination of the left humerus. Electronically Signed: Jonas Lacy MD at 15:35 EDT Tel , Service support , Humerus X-Ray 07/29/18 14:50 IMPRESSION: No radiographic evidence of metastatic disease. Electronically Signed: Onur Chaudhary MD at 16:58 EDT , Service support , Tibia/Fibula X-Ray 07/29/18 14:50 IMPRESSION: No radiographic evidence of suggest metastatic disease. Electronically Signed: Marissa Watkins MD at 19:21 EDT , Service support , Tibia/Fibula X-Ray 07/29/18 14:50 IMPRESSION: 1. Lytic process involving the proximal tibia may represent a metastatic focus. 2. Degenerative arthropathy of the knee. Electronically Signed: Marissa Watkins MD at 19:18 EDT , Service support , Biopsy CT 07/30/18 11:31 IMPRESSION: Successful CT guided biopsy of the posterior aspect of the left iliac bone., as described above. Electronically Signed: Diony Denney, at 7:58 EDT , Service support , Hip X-Ray 07/30/18 16:20 IMPRESSION: Fluoroscopic guidance for right femoral medullary kate placement. Please see procedural report. Electronically Signed: Corey Shipman MD at 9:04 EDT , Service support , Hip X-Ray 07/30/18 19:23 IMPRESSION: Placement of intramedullary kate with interlocking femoral screw with no complications. Electronically Signed: Onur Chaudhary MD at 14:14 EDT , Service support , Chest X-Ray 07/31/18 08:51 IMPRESSION: Left upper lobe consolidation/mass corresponding to that seen on comparison CT evaluation. Electronically Signed: Jayson Corrales, at 10:07 EDT Tel , Service support , Medical Necessity - Tobacco Use Smoking Status: Current every day smoker Tobacco Use: Cigarettes Assessment/Plan All Active Problems Metastasis (Acute) Disseminated cancer (Acute) RECOMMENDATIONS: 1. Continue with supportive care 2. Increase activity as tolerated 3. Walking oximetry prior to discharge 4. Await results of biopsy 5. Follow-up in the pulmonary medicine clinic within 2 weeks of discharge from the hospital. IMPRESSIONS: 1. Left hilar mass High clinical suspicion for malignancy. Multiple biopsies were taken. Left upper lobe bronchus was completely obstructed, even after the biopsies. Patient would likely not be a stent candidate at this time. This could be reevaluated in the future following intervention such as chemotherapy or radiation. Continue to wean supplemental oxygen as tolerated. Perform walking oximetry study prior to consideration for discharge from the hospital. The patient should follow-up in the pulmonary medicine clinic within 2 weeks of discharge. 2. Probable COPD/morbid obesity/tobacco abuse/marijuana use/obstructive sleep apnea Complicates care, management, recovery and prognosis. Patient may benefit from transition to DuoNeb therapy if developing worsening shortness of breath. This note was generated with [employer] dictation software. It may contain incorrect words, spelling, and punctuation that were not noted in checking the note before signing. Code Visit Inpatient E&M: 90901 Subs Hosp L2
--- NOTE | 2018-08-02 10:23 | CASEMGMT ---
Addendum entered by Jayla Man 08/02/18 13:52: SW received call from Kellie at [facility] stating she is able to accept pt and will submit for pre-cert. Original Note: Social Work Note SW met with pt to confirm discharge plans. Pt is alert and orientated x4. Pt confirms he is agreeable to SNF, states that his daughter was going to look at SNF for pt. Pt gave this worker permission to call his daughter's in regards to SNF placement. SW placed a call to pt's daughter Nallely. Per Jazmine, pt's other daughter June is the daughter that was going to look at SNF for pt and told this worker to call June. SW placed a call to June, June states she just spoke with pt last night regarding SNF and is currently in [place] and hasn't had time to look at SNF yet. SW verbally reviewed list of in network SNF facilities with June and reviewed Medicare ratings with June. Shavonne does states that she has been to [facility] before and that she liked it there and is agreeable to referral being sent to [facility] as first choice, [place] as second choice and [facility] as third choice. DIANA explained referral process and that pt will need pre-cert. June states understanding. DIANA faxed referral to Kellie at [facility] and placed a call to Kellie in regards to referral. SW waiting for call back. Plan: [facility] pending acceptance and pre-cert Jayla Man POULTRY PICKING MACHINE TENDER, MEALS ON WHEELS DRIVER
[2018-08-02 11:30] LABS: Magnesium 1.9 mg/dL (1.6-2.6); Phosphorus 3.6 mg/dL (2.5-4.9)
[2018-08-02] MEDS: oxyCODONE 5 MG Tablet PO ×3 (11:54→23:54)
[2018-08-02] MEDS: Ipratropium/Albuterol Sulfate 3 ML AMPUL.NEB INHALATION ×2 (13:26→19:27)
--- NOTE | 2018-08-02 14:16 | CASEMGMT ---
Addendum entered by Jayla Man 08/02/18 16:14: SW placed a call to pt's daughter June, updated her on pt's acceptance to [facility] pending pre-cert. SW completed convalescent 7000 in [place]. Original on pt's chart. Green sheet on chart in the event pre-cert is obtained today. Plan: [facility] pending pre-cert Original Note: Social Work Note SW met with pt and updated him on that this worker spoke with his daughter June who stated [facility] as first choice and was agreeable to referral being sent. Pt states understanding, states oh that fine, less that I have to worry about. Pt agreeable to [facility]. SW informed pt that [facility] is able to accept and that pre-cert will need to be obtained. SW informed pt that he will be at [facility] until pre-cert is obtained. Pt states understanding. SW explained to pt that once pt gets to [facility] updates will be sent to pt's insurance which will determine how long insurance will pay for pt to be at [facility]. SW explained that there will be a SW at [facility] that will be able to assist pt with any home going needs once he is discharged home. Pt asked this worker about resources for her daughter as her son may be on the Autism Spectrum. SW encouraged pt to encourage her daughter to speak to her child's school for support and resources regarding Autism. Pt states understanding. SW continued to offer emotional support for pt regarding cancer diagnosis during conversation. Plan: [facility] pending pre-cert Jayla Man PROMOTIONAL MARKETING ANALYST, GROUP INSURANCE SPECIAL AGENT
--- NOTE | 2018-08-02 16:26 | CHAPLAIN ---
Type of Pastoral Visit ___ Initial Visit _x__ Follow-up Visit ___ On-call Visit ___ General Patient Visit ___ Spiritual Assessment ___ Family Conference ___ Bereavement ___ Rapid Response ___ Code Blue ___ Other (describe below) Pastoral Care Referral From _x__ Patient ___ Family ___ Nurse ___ Physician ___ Nurse Clinician ___ Senior Mechanical Design Engineer ___ Other (describe below) Sacrament/Intervention _x__ Active listening ___ Anointing ___ Jehovah'S Witness ___ Bereavement ___ Communion _x__ Eduarda exploration ___ _x__ Life review _x__ Prayer ___ Reconciliation ___ Sacrament of Sick _x__ Supportive presence ___ Wedding ___ Other (describe below) Pastoral Comments patient speaks of some anxious moments considering ECF placement and how he will adjust; pt speaks of bucket list ideas, people he has told about his illness, sadness about his illness; prayer and presence of woods laborer were welcomed
[2018-08-02] MEDS: Nortriptyline 25 MG Capsule 50 MG PO (21:34)
[2018-08-02] MEDS: Famotidine 20 MG Tablet PO (21:34)
[2018-08-02] MEDS: Enoxaparin 100 MG/ML Syringe 170 MG SC (21:46)
[2018-08-03] VITALS (8 sets, daily range): BP systolic 124–151; BP diastolic 65–106; PULSE 82–105; RESP 18–21; TEMP 36.1–36.8; O2SAT 92–98
[2018-08-03] MEDS: oxyCODONE 5 MG Tablet PO ×3 (04:33→16:08)
[2018-08-03 06:28] LABS: Anion Gap 6 (5-15); BUN 13 mg/dL (7-18); BUN/Creat Ratio 19.8 RATIO (10-20); Calcium,Total 8.8 mg/dL (8.5-10.1); Chloride 100 mmol/L (98-107); Creatinine, Serum 0.66 mg/dL (0.70-1.30); EST Glomerular Filtration Rate 136 mL/min (>60); Est Glom Filt Rate - Afr Amer 164 mL/min (>60); Estimated Creatinine Clearance 139.44 ml/min; Glucose 118 mg/dL (74-106); Potassium 4.1 mmol/L (3.5-5.1); Sodium Level 136 mmol/L (136-145)
[2018-08-03 06:38] LABS: Absolute Lymphocyte Count 1.48 X10^3/ul (0.83-4.51); Absolute Neutrophil Count 9.8 X10^3/uL (2.0-7.7); Basophil# 0.01 X10^3/uL; Basophil% 0.1 % (0-1); Eosinophil# 0.15 X10^3/uL; Eosinophils% 1.2 % (0-5); Hematocrit 41.3 % (40-54); Hemoglobin 13.5 g/dl (13.0-16.5); Lymphocyte # 1.48 X10^3/ul (4.0); Lymphocyte % 11.5 % (19-41); Mean Corp Hgb Conc 32.7 g/gl (32-36); Mean Corpuscular Hgb 29.2 pg (27.0-32.0); Mean Corpuscular Volume 89.2 fL (80-94); Mean Platelet Vol. 11.2 fl (6.2-12.0); Monocyte# 1.27 X10^3/uL; Monocyte% 9.9 % (0-10); Neutrophil # 9.78 X10^3/uL (2.7-7.7); Neutrophil % 76.1 % (47-70); POSITIVE COUNT NO; POSITIVE DIFFERENTIAL NO; POSITIVE MORPHOLOGY NO; Platelet Count 201 K/mm3 (150-450); RBC Distribution Width SD 48.5 fl (35.1-43.9); Red Blood Count 4.63 M/mm3 (4.6-6.2); White Blood Count 12.8 K/mm3 (4.4-11.0)
[2018-08-03] MEDS: Ipratropium/Albuterol Sulfate 3 ML AMPUL.NEB INHALATION ×3 (06:39→18:37)
[2018-08-03] MEDS: Celecoxib 200 MG Capsule PO (07:58)
[2018-08-03] MEDS: Famotidine 20 MG Tablet PO ×2 (07:58→21:08)
[2018-08-03] MEDS: Senna/Docusate Sodium 1 Tablet 2 TABLET PO ×2 (07:58→21:08)
[2018-08-03] MEDS: dexAMETHasone 4 MG Tablet PO (07:58)
[2018-08-03] MEDS: Fluticasone 0.05% 1 SPRAY NASAL.SRY 2 SPRAY NASAL ×2 (07:59→21:08)
[2018-08-03] MEDS: Nystatin Powder 15gm Bottle 1 APPLIC TOPICAL ×2 (07:59→21:08)
[2018-08-03] MEDS: Enoxaparin 100 MG/ML Syringe 170 MG SC ×2 (08:00→21:09)
--- NOTE | 2018-08-03 09:36 | PCM.TXEXTCAR ---
- Diet 07/31/18 08:18 Diet: Regular Diet Is pt able to select menu?: Yes Diet Comments: Advance as tolerated - Routine Orders/Code Status Enema Type: Fleetz Enema Frequency: Daily PRN Suppository Type: Dulcolax 10mg Suppository Frequency: Daily PRN Keep PO Greater than or Equal to (%): 92 Routine Lab Work: - - CBC, BMP in 1 week. Code Status: Full Code - Wound(s) BUE, BLE Wound Type: SCABS ALL OVER ADBOMEN Wound Type: SCABS Rt Femur Wound Type: Surgical Incision Dressing Change: Dry Sterile Dressing RIGHT HIP Wound Type: Surgical Incision Dressing Change: Dry Sterile Dressing rt femur distal Wound Type: Surgical Incision Dressing Change: Dry Sterile Dressing LOW MID BACK Wound Type: Puncture Dressing Change: Dry Sterile Dressing - Suggestions for Active Care Change Position every (hours): 2 Hours to sit in a chair: 6 Times a day to sit in chair: 3 - Therapies Weight Bearing: Full weight bearing Physical Therapy: Eval and Treat Occupational Therapy: Eval and Treat - Allergies/Procedures Done in Hospital Allergies/Adverse Reactions: Allergies METAL Allergy (Uncoded 07/26/18 17:22) Unknown Procedures: - - 07/30/18 right prophylactic anterograde femoral nailing, 07/30/18 CT guided biopsy of the posterior aspect of the left iliac bone, 07/29/18 Bronchoscopy (Left upper lobe mass, Left upper lobe lung mass) w/ endobronchial biopsy was performed and washings were obtained. - Type of Care/Length of Stay Estimated LOS: Convalescent Care Less Than 30 days Type of Care Needed: Skilled Rehab Potential: Fair Prognosis: Fair - Additional Orders/Day of Discharge Additional Orders: (1) Fall and aspiration precautions. (2) Continue home CPAP usage for JACK q HS and with naps. (3) Continue to encourage tobacco cessation with usage nicotine replacement with de-escalation during SNF stay if amenable. (4) If any concerns or questions regarding RLE please contact Orthopedic surgery. (5) Planned follow-up with Pulmonary to review pathology and ascertain course of care. H&P will serve as current which was dated: 07/26/18 Day of Discharge: 08/03/18 - Dietary and Speech Recommendations Dietitian Recommendations/Changes: Rec diet change to Cardiac/Carb-Controlled d/t pmhx and BMI - Follow Up Care Primary Care Physician: Mark Anthony Marcelo MD [Primary Care Provider] - Please follow up with your Primary Care Physician in: Follow-up within 3-5 days transition to SNF and 1-2 days SNF discharge. Please Follow Up With: Shelly Saldivar DO When: Follow-up in 2 weeks. Please Follow Up With: Nagi Kumar MD When: Follow-up in 2 weeks. Please Follow Up With: Palliative Care Dr. Wells When: Consider palliative consult at SNF.
--- NOTE | 2018-08-03 09:56 | DS.PCM_ITS ---
Discharge Date and Diagnosis - Problem List Patient Problems: Active and Suspected Problems Metastasis (Acute) Disseminated cancer (Acute) Date of Admission: 07/26/18 Date of Discharge: 08/03/18 - Primary Discharge Diagnosis Active and Suspected Problems (1) Metastatic cancer with Left Hilar Mass suspicious for lymphoma versus non- small cell lung cancer, awaiting pathology (2) Chronic COPD (3) Morbid Obesity (4) Tobacco Abuse (5) Intertrigo (6) Allergic rhinitis (7) Hypertension (8) Hyperlipidemia (9) Anxiety and depression (10) JACK - Secondary Discharge Diagnosis Chronic Problems History of anxiety (Chronic) Tobacco user (Chronic) Obstructive sleep apnea syndrome (Chronic) Chronic obstructive lung disease (Chronic) Morbid obesity (Chronic) Hyperlipidemia (Chronic) Depression (Chronic) Benign essential hypertension (Chronic) Hospital Course and Treatment Dr. Kumar/Rickey Pulmonary Dr. Saldivar Orthopedic surgery Operations: - - 07/30/18 right prophylactic anterograde femoral nailing, 07/30/18 CT guided biopsy of the posterior aspect of the left iliac bone, 07/29/18 Bronchoscopy (Left upper lobe mass, Left upper lobe lung mass) w/ endobronchial biopsy was performed and washings were obtained. Procedures: EKG Summary of Care Provided: The patient is a 53 y/o M w/ PMHx: JACK on CPAP q HS, Morbid Obesity, Chronic COPD, HTN, HLD, Depression and Anxiety Allergic Rhinitis who presented to the [facility] ED on 07/26/18 with history of 1 month progressively worsening right hip discomfort as well as coccyx pain. ED evaluation with noted recent bone scan outpatient per primary care physician secondary to ongoing right hip pain which demonstrated concern for cancer with ongoing debility prompting ED evaluation. Patient admitted to medical surgical floor, imaging pursued including CT abdomen, CT chest and CT right lower extremity with noted bilateral iliac osteolytic lesions consistent with metastatic disease and a left perihilar and left upper lobe large irregular tumor in a 10 cm diameter range with secondary soft tissue invasion of the left hilum and upper left mediastinum with multiple bulky mediastinal and left hilar lymph nodes compatible with annie metastases with chronic lung disease with centrilobular and distal lobular emphysema as well as metastatic bone disease including pathologic fracture of the medial right clavicle as well as metastatic disease involving the right femoral head and mid to distal femoral shaft. Further evaluation included 07/30/18 right prophylactic anterograde femoral nailing, 07/30/18 CT guided biopsy of the posterior aspect of the left iliac bone, 07/29/18 Bronchoscopy (Left upper lobe mass, Left upper lobe lung mass) w/ endobronchial biopsy was performed and washings were obtained. Patient maintained on oral and IV pain regimen as well as oral Decadron. Following surgical intervention and biopsy PT, OT evaluations as well as case management with plan to transition to intermediate facility for ongoing therapies while awaiting biopsy. Patient discharged to intermediate facility with follow-up with primary care physician, pulmonary medicine as well as orthopedic surgery. Encourage patient to consider palliative evaluation. CODE STATUS discussed during admission and patient preference to remain full code. DAY OF DISCHARGE PROGRESS NOTE: Subjective: Patient without acute event overnight per self and nursing report. Patient notes with regimen changes his pain is much better controlled and currently out of 4-5/10 and continues to decrease whereas been out of 10 out of 10 the day prior. Patient denies fever, chills, nausea, emesis, abdominal pain, chest pain or dyspnea. Does state that he has not pooped recently. Patient agreeable to discharge to SNF for ongoing therapy while awaiting pathology. Patient will be discharged with follow-up with primary care physician within 3-5 days as well as orthopedic surgery in 1 week and pulmonary medicine within 2 weeks. Objective: T 96.9, heart rate 85, BP 137/84, respiratory rate 18, 98% on room air. Physical Examination: General: awake, alert, oriented x 3 and cooperative, seated upright in bed, notes pain improved. Skin: normal color, turgor, no icterus, cyanosis s/p R prophylactic anterograde femoral nailing w/ dressings in place. HEENT: AT/NC, EOMI, PERRLA, mildly dry MM. Lungs: CTA bilaterally, moderate effort, moderate decrease BL bases, no rales, ronchi or wheezing distant given habitus. Heart: Regular rate and rhythm; no gallop, rub audible. Abdomen: soft, morbidly obese, NTTP, ND, normal BS, distant bowel sounds. Extremities: no cyanosis, clubbing, s/p R prophylactic anterograde femoral nailing w/ dressings in place. Neurological: patient awake, alert, oriented x 3; cognitive function intact; pupils equally reactive to light and accomodation; cranial nerves II-XII grossly normal, moving all 4 extremities; however, extremely limited given habitus and recent intervention s/p R prophylactic anterograde femoral nailing w/ dressings in place, strength accordingly severely globally decreased. Psychiatric: affect appears improved, no acute evidence of depressive or anxiety feelings. Assessment and Plan: Please see hospital summary above. Patient Problems: Active and Suspected Problems Metastasis (Acute) Disseminated cancer (Acute) - Physical Exam Vital Signs Temp Pulse Resp BP Pulse Ox 96.9 F L 85 18 137/84 H 98 08/03/18 08:15 08/03/18 08:15 08/03/18 08:15 08/03/18 08:15 08/03/18 08:15 Oxygen Flow Rate (L/min) [7] 2 Oxygen Flow Rate (L/min) [6] 2 Oxygen Flow Rate (L/min) [5] 2 Oxygen Flow Rate (L/min) [4] 2 Oxygen Flow Rate (L/min) [3] 2 Oxygen Flow Rate (L/min) [2] 2 Oxygen Flow Rate (L/min) [1 ( 2 Initial Baseline)] Oxygen Flow Rate (L/min) 2 Oxygen Delivery Method [7] Nasal Cannula Oxygen Delivery Method [6] Nasal Cannula Oxygen Delivery Method [5] Nasal Cannula Oxygen Delivery Method [4] Nasal Cannula Oxygen Delivery Method [3] Nasal Cannula Oxygen Delivery Method [2] Nasal Cannula Oxygen Delivery Method [1 ( Nasal Cannula Initial Baseline)] Oxygen Delivery Method Room Air Weight: 375 lb Body Mass Index (BMI) 52.2 Intake and Output for Last 24 Hours 08/01/18 08/02/18 08/03/18 23:59 23:59 23:59 Intake Total 2120 / 2120 2220 / 2220 500 / 500 Output Total 2575 / 2575 200 / 200 1400 / 1400 Balance -455 / -455 2019 / 2019 -900 / -900 Laboratory Tests Past 24 Hrs 08/02/18 08/03/18 08/03/18 10:45 05:12 05:12 WBC 12.8 H RBC 4.63 Hgb 13.5 Hct 41.3 MCV 89.2 MCH 29.2 MCHC 32.7 RDW 15.0 H RDW Differential 48.5 H Plt Count 201 MPV 11.2 Immature Gran % (Auto) 1.200 H Neut % (Auto) 76.1 H Lymph % (Auto) 11.5 L [place] % (Auto) 9.9 Eos % (Auto) 1.2 Baso % (Auto) 0.1 Absolute Neuts (auto) 9.8 H Absolute Lymphs (auto) 1.48 Total Counted Not Reportable Sodium 136 Potassium 4.1 Chloride 100 Carbon Dioxide 30.0 Anion Gap 6 BUN 13 Creatinine 0.66 L Estim Creat Clear Calc 139.44 Est GFR (MDRD) Af Amer 164 Est GFR (MDRD) Non-Af 136 BUN/Creatinine Ratio 19.8 Glucose 118 H Calcium 8.8 Phosphorus 3.6 Magnesium 1.9 Home Medications: Medications to take at Discharge Cyclobenzaprine [Flexeril] 10 mg PO TID PRN #20 tab 04/28/18 Celecoxib 200 mg PO DAILY 07/27/18 Fluticasone Propionate 2 spray NASAL BID 07/27/18 Nortriptyline HCl 50 mg PO QHS 07/27/18 Albuterol Aerosols [Ventolin Aerosols] 2.5 mg INHALATION Q2H PRN PRN vial.neb. 08/03/18 Dexamethasone [Decadron] 4 mg PO DAILY@0800 tablet 08/03/18 Enoxaparin [Lovenox] 170 mg SC BID syringe 08/03/18 Famotidine [Pepcid] 20 mg PO BID tablet 08/03/18 Ipratropium/Albuterol Sulfate [Duoneb] 3 ml INHALATION Q6HWA.RT ampul.neb 08/03/18 Nicotine [Nicoderm Cq] 21 mg TRANSDERM. DAILY patch 08/03/18 Nystatin Powder [Mycostatin Powder] 1 applic TOPICAL BID bottle 08/03/18 Oxycodone [Oxyir] 5 - 10 mg PO Q4H PRN PRN 3 Days #40 tab 08/03/18 Senna/Docusate Sodium [Senokot-S] 2 tablet PO BID tablet 08/03/18 Following Prescrptions Were Given to Patient: Oxycodone [Oxyir] 5 - 10 mg PO Q4H PRN PRN 3 Days #40 tab PRN Reason: Severe Pain (6-12/23) Primary Care Physician: Mark Anthony Marcelo MD [Primary Care Provider] - Please follow up with your Primary Care Physician in: Follow-up within 3-5 days transition to SNF and 1-2 days SNF discharge. Please Follow Up With: Shelly Saldivar DO When: Follow-up in 2 weeks. Please Follow Up With: Nagi Kumar MD When: Follow-up in 2 weeks. Please Follow Up With: Palliative Care Dr. Wells When: Consider palliative consult at SNF. Disposition: Shelter facility Minutes spent on discharge:: 35 Patient Condition:: Stable Medical Necessity - Tobacco Use Smoking Status: Current every day smoker Tobacco Use: Cigarettes Meaningful Use Info Meaningful Use Diagnoses (Choose all that apply): None applicable Code Visit Inpatient E&M: 53286 Disch Hosp
--- NOTE | 2018-08-03 10:26 | PN_ITS ---
Patient Problems: Active and Suspected Problems Metastasis (Acute) Disseminated cancer (Acute) Subjective: The patient was seen and examined at the bedside this morning. Events from the last 24 hours have been reviewed. The patient is currently afebrile, hemodynamically stable and maintaining appropriate oxygen saturations on room air. There are tentative plans for disposition to senior care facility today. Objective: The patient's most recent lab work, culture data and imaging studies have all been personally reviewed. Finalize pathology reports are still pending. - Physical Exam General: Alert, Cooperative, No apparent distress HEENT: Atraumatic, PERRLA, Normocephalic Oral: No Gingival or Mucosal Lesions/ Ulcerations Neck: Supple, No Nodes, Trachea Midline Lungs: No rhonchi, No wheeze, No rales, Diminished Cardiovascular: Regular rate, Regular Rhythm, Normal S1, Normal S2, No murmurs Abdomen: Bowel Sounds Present, Soft, Non Tender Extremities: No clubbing, No cyanosis Skin: No breakdown Musculoskeletal: No Muscle Wasting Lymphatic: No Cervical, Supraclavicular, or Inguinal Adenopathy Neurological: Cranial nerves II-XII grossly intact, Neuro grossly intact Psych/Mental Status: Normal Affect, Appropriate Vital Signs Temp Pulse Resp BP Pulse Ox 96.9 F L 85 18 137/84 H 98 08/03/18 08:15 08/03/18 08:15 08/03/18 08:15 08/03/18 08:15 08/03/18 08:15 Oxygen Flow Rate (L/min) [7] 2 Oxygen Flow Rate (L/min) [6] 2 Oxygen Flow Rate (L/min) [5] 2 Oxygen Flow Rate (L/min) [4] 2 Oxygen Flow Rate (L/min) [3] 2 Oxygen Flow Rate (L/min) [2] 2 Oxygen Flow Rate (L/min) [1 ( 2 Initial Baseline)] Oxygen Flow Rate (L/min) 2 Oxygen Delivery Method [7] Nasal Cannula Oxygen Delivery Method [6] Nasal Cannula Oxygen Delivery Method [5] Nasal Cannula Oxygen Delivery Method [4] Nasal Cannula Oxygen Delivery Method [3] Nasal Cannula Oxygen Delivery Method [2] Nasal Cannula Oxygen Delivery Method [1 ( Nasal Cannula Initial Baseline)] Oxygen Delivery Method Room Air Weight: 375 lb Body Mass Index (BMI) 52.2 Intake and Output for Last 24 Hours 0508/02/18 08/03/18 23:59 23:59 23:59 Intake Total 2120 / 2120 2220 / 2220 500 / 500 Output Total 2575 / 2575 200 / 200 1400 / 1400 Balance -455 / -455 2019 -900 / -900 Laboratory Tests Past 24 Hrs 08/02/18 08/03/18 08/03/18 10:45 05:12 05:12 WBC 12.8 H RBC 4.63 Hgb 13.5 Hct 41.3 MCV 89.2 MCH 29.2 MCHC 32.7 RDW 15.0 H RDW Differential 48.5 H Plt Count 201 MPV 11.2 Immature Gran % (Auto) 1.200 H Neut % (Auto) 76.1 H Lymph % (Auto) 11.5 L [place] % (Auto) 9.9 Eos % (Auto) 1.2 Baso % (Auto) 0.1 Absolute Neuts (auto) 9.8 H Absolute Lymphs (auto) 1.48 Total Counted Not Reportable Sodium 136 Potassium 4.1 Chloride 100 Carbon Dioxide 30.0 Anion Gap 6 BUN 13 Creatinine 0.66 L Estim Creat Clear Calc 139.44 Est GFR (MDRD) Af Amer 164 Est GFR (MDRD) Non-Af 136 BUN/Creatinine Ratio 19.8 Glucose 118 H Calcium 8.8 Phosphorus 3.6 Magnesium 1.9 Clinical Impression(s) from Imaging Studies Hip/Pelvis X-Ray 07/26/18 18:47 IMPRESSION: No fracture or dislocation in the pelvis or right hip. Stable moderate degenerative changes. Electronically Signed: Hadley Saunders, at 19:02 EDT Tel , Service support , Abdomen CT 07/26/18 23:40 IMPRESSION: 1. No free fluid or acute abdominal disease identified. Pelvic CT scanning not performed. 2. Hepatosplenomegaly. Small, solitary right hepatic lobe lesion, probably benign. 3. No abdominal lymphadenopathy. 4. Bilateral iliac osteolytic lesions, incompletely visualized and larger on the left, compatible with metastases. Individualized dose optimization techniques were used for this CT. at 0732 Reported and signed by: Jerry Ruiz MD Electronically Signed: Jerry Ruiz, at 7:31 EDT Tel , Service support , Chest CT 07/26/18 23:40 IMPRESSION: 1. Left perihilar and left upper lobe large irregular tumor in the 10 cm diameter range with secondary soft tissue invasion of the left hilum and upper left mediastinum. 2. Multiple bulky mediastinal and left hilar lymph nodes compatible with annie metastases. 3. Chronic lung disease with centrilobular and distal lobular emphysema. 4. Metastatic bone disease including pathologic fracture of the medial right clavicle. Individualized dose optimization techniques were used for this CT. at 0650 Reported and signed by: Jerry Ruiz MD Electronically Signed: Jerry Ruiz, at 6:49 EDT Tel , Service support , Femur X-Ray 07/27/18 16:41 IMPRESSION: Lytic lesions noted in the mid and distal femur which are suspicious for metastasis. Electronically Signed: Hadley Saunders, at 18:17 EDT Tel , Service support , Lower Extremity CT 07/27/18 17:40 IMPRESSION: Findings which may be consistent with metastatic disease involving the right femoral head and mid to distal femoral shaft Electronically Signed: Jayson Parra MD at 19:28 EDT , Service support , Femur X-Ray 07/29/18 14:50 IMPRESSION: No definite radiographic evidence for metastatic disease. Electronically Signed: Marissa Watkins MD at 19:14 EDT , Service support , Forearm X-Ray 07/29/18 14:50 IMPRESSION: No radiographic evidence of metastatic disease. Electronically Signed: Marissa Watkins MD at 19:15 EDT , Service support , Forearm X-Ray 07/29/18 14:50 IMPRESSION: No radiographic evidence for fracture. Electronically Signed: Marissa Watkins MD at 19:11 EDT , Service support , Humerus X-Ray 07/29/18 14:50 IMPRESSION: Unremarkable x-ray examination of the left humerus. Electronically Signed: Jonas Lacy MD at 15:35 EDT Tel , Service support , Humerus X-Ray 07/29/18 14:50 IMPRESSION: No radiographic evidence of metastatic disease. Electronically Signed: Onur Chaudhary MD at 16:58 EDT , Service support , Tibia/Fibula X-Ray 07/29/18 14:50 IMPRESSION: No radiographic evidence of suggest metastatic disease. Electronically Signed: Marissa Watkins MD at 19:21 EDT , Service support , Tibia/Fibula X-Ray 07/29/18 14:50 IMPRESSION: 1. Lytic process involving the proximal tibia may represent a metastatic focus. 2. Degenerative arthropathy of the knee. Electronically Signed: Marissa Watkins MD at 19:18 EDT , Service support , Biopsy CT 07/30/18 11:31 IMPRESSION: Successful CT guided biopsy of the posterior aspect of the left iliac bone., as described above. Electronically Signed: Diony Denney, at 7:58 EDT , Service support , Hip X-Ray 07/30/18 16:20 IMPRESSION: Fluoroscopic guidance for right femoral medullary kate placement. Please see procedural report. Electronically Signed: Corey Shipman MD at 9:04 EDT , Service support , Hip X-Ray 07/30/18 19:23 IMPRESSION: Placement of intramedullary kate with interlocking femoral screw with no complications. Electronically Signed: Onur Chaudhary MD at 14:14 EDT , Service support , Chest X-Ray 07/31/18 08:51 IMPRESSION: Left upper lobe consolidation/mass corresponding to that seen on comparison CT evaluation. Electronically Signed: Jayson Corrales at 10:07 EDT Tel , Service support , Medical Necessity - Tobacco Use Smoking Status: Current every day smoker Tobacco Use: Cigarettes Assessment/Plan All Active Problems Metastasis (Acute) Disseminated cancer (Acute) RECOMMENDATIONS: 1. Continue with supportive care 2. Increase activity as tolerated 3. Walking oximetry prior to discharge 4. Await results of biopsy 5. Follow-up in the pulmonary medicine clinic within 2 weeks of discharge from the hospital. IMPRESSIONS: 1. Left hilar mass High clinical suspicion for malignancy. Multiple biopsies were taken. Left upper lobe bronchus was completely obstructed, even after the biopsies. Patient would likely not be a stent candidate at this time. This could be reevaluated in the future following intervention such as chemotherapy or radiation. Continue to wean supplemental oxygen as tolerated. Perform walking oximetry study prior to consideration for discharge from the hospital. The patient should follow-up in the pulmonary medicine clinic within 2 weeks of discharge. 2. Probable COPD/morbid obesity/tobacco abuse/marijuana use/obstructive sleep apnea Complicates care, management, recovery and prognosis. Patient may benefit from transition to DuoNeb therapy if developing worsening shortness of breath. This note was generated with Driveation software. It may contain incorrect words, spelling, and punctuation that were not noted in checking the note before signing. Code Visit Inpatient E&M: 87038 Subs Hosp L2
--- NOTE | 2018-08-03 11:11 | CASEMGMT ---
Addendum entered by Jayla Man 08/03/18 14:43: DIANA placed a call to Cuca at [facility], let her know this worker is likely leaving for the day and to call [employer] number if pre-cert is obtained. [employer] number provided. Green sheet and HENS on pt's chart with transportation form. Original Note: Addendum entered by Jayla Man 08/03/18 13:32: DIANA placed a call to [facility], spoke with Cuca. Cuca states pre-cert is still pending and will let this worker know when pre-cert is obtained. Original Note: Addendum entered by Jayla Man 08/03/18 13:25: DIANA faxed updated clinicals to [facility]. Original Note: Social Work Note DIANA placed a call to Cuca at [facility], left message, asking if she has heard anything regarding pt's insurance. DIANA waiting for call back. Plan: [facility] pending pre-cert Jayla Man MSW, [employer]
[2018-08-03] MEDS: Polyethylene Glycol 3350 17 GM PACKET PO (13:21)
--- NOTE | 2018-08-03 15:23 | ONC.PN.INPT ---
- Problem List (1) Squamous cell carcinoma lung Status: Acute (2) Neuroendocrine carcinoma Status: Acute (3) Cancer, metastatic to bone Status: Acute Subjective Date of Service:: 08/03/18 53-year-old man presented to the ER with progressive low back pain over 1 to 2 months duration. He had a bone scan as outpatient on 07/21/2018 which showed increase activity in the distal left clavicle right proximal clavicle right occipital skull multiple ribs right mid to distal femoral bone left femoral bone bilateral sacral iliac joints likely representing metastatic disease. He was scheduled for biopsy as outpatient but Pain in the lower back became unbearable so came to the ER. He had a CT scan of the chest abdomen and pelvis yesterday 07/26/2018 which showed a 10 cm left perihilar and left upper lobe mass, bulky mediastinal and left hilar adenopathy, metastatic bone disease involving right clavicle, hepatosplenomegaly, small right hepatic lesion, bilateral iliac lytic lesions. Underwent bronchoscopy with biopsies 07/29/18, returned positive for squamous cell carcinoma. However, pathology associated with CT guided biopsy of left posterior iliac crest obtained 07/30/18 suggestive of a metastatic neuroendocrine carcinoma. Past Medical History: Chronic Problems History of anxiety (Chronic) Tobacco user (Chronic) Obstructive sleep apnea syndrome (Chronic) Chronic obstructive lung disease (Chronic) Morbid obesity (Chronic) Hyperlipidemia (Chronic) Depression (Chronic) Benign essential hypertension (Chronic) Past Medical History - Most Recent Inpatient Visit Past Medical History Start: 07/26/18 23:14 Text: Status: Complete Freq: ONCE Protocol: Document 07/26/18 23:14 VIKY (Rec: 07/26/18 23:38 [facility] [id number]) BMI Required to complete PMH What is Patient's BMI 51.7 Past Medical History Unable History Recalled No Query Text:Pt Unable/Family Not Present Neurologic Medical History Hx Stroke/TIA No Hx Dementia/Alzheimer's No Hx Parkinson's Disease No Hx Seizures No Hx Multiple Sclerosis No Hx Migraines No Cardiac Medical History VTE Present on Admission No Hx of Deep Vein Thrombosis/VTE/PE No Hx Hypertension Yes Hx Chest Pain/Angina No Hx Heart Attack No Hx Cardiac Surgery/Stents/Etc. No Hx Heart Failure No Hx Pacemaker/AICD No Hx Irregular Heartbeat and/or Afib No Hx Anticoagulant Therapy Yes Query Text:(Coumadin, Aspirin, Plavix, Xarelto, etc.) Hx Pain in Legs when Walking/Leg Cramps Yes Respiratory Medical History Hx COPD Yes Hx Emphysema No Hx Smoking Yes Smoking Status Current every day smoker Tobacco Use Cigarettes Packs Smoked per Day 2 Hx Tobacco Use in last 12 months Yes Sent to [facility] Yes Hx of Pipe Smoking No Hx Sleep Apnea Yes: bipap CPAP No BIPAP Yes STOP Results Positive GI Medical History Hx Ulcer No Hx Hepatitis No Hx Cirrhosis No Hx GI Bleed No Hx Unplanned Weight Loss No Genitourinary Medical History Indwelling Catheter in Place on Arrival/ No Admission Hx Renal Disease No Hx Dialysis No Musculoskeletal History Hx Arthritis No Hx Rheumatoid Arthritis No Endocrine Medical History Hx Diabetes Yes: borderline Hx Thyroid Disease No Hematologic Medical History Hx of Blood Transfusion No Hx of Transfusion in last 3 Months No Ever experience any problems with No transfusion(s)? Hx of Preganancy in last 3 Months N/A Nurse Filling Out Transfusion & JGATCHALI Questions: Date: 07/26/18 Time: 23:37 Psycho/Social Medical History Hx Depression Yes Hx Anxiety Yes Hx Behavior Disorder No Hx Alcohol Use No Hx Substance Use Yes: WEED Other Medical History Hx Blood Disorders No Hx Anemia No Hx Cancer No Hx Drug Resistant Organism No Wound/Pressure Injury Present on Arrival No /Admission Query Text:If yes, chart assessment in Shift/Clinical Findings Central Line/PICC/VAD Present on Arrival No /Admission Antibiotics within last 7 days? No Methicillin Resistant Staphylococcus aureus Screening Active MRSA No Risk for Readmission Number of Risk Factors 6 At Risk for Readmission Patient is At Risk For Readmission Patient is eligible for Call Back Y Maternal Family History: - - Leukemia Paternal Family History: Cancer - lung, - - Social History Lives: With Family Smoking Status: Current every day smoker Tobacco Use: Cigarettes Review of Systems Constitutional:: Reports: Fatigue, Weight loss - unintentional, estimates 70 lbs in the last 6 months. Denies: Fever, Sweats, Appetite change, Chills Cardiovascular:: Reports: Dyspnea on exertion. Denies: Chest pain, Palpitations, Orthopnea, PND, Shortness of breath Respiratory: Reports: Shortness of Breath. Denies: Cough, Hemoptysis, Wheezing Gastrointestinal:: Denies: Abdominal pain, Nausea, Vomiting, Diarrhea, Constipation, Melena, Hematochezia, Reflux Genitourinary: Reports: Urinary frequency. Denies: Dysuria, Hematuria, Flank pain Musculoskeletal:: Reports: Back pain - chronic. Denies: Myalgia, Arthralgia Skin: Denies: Rash, Skin Changes, Wounds Neurological:: Denies: Headache, Dizziness, Numbness, Tingling, Muscle weakness, Visual changes, Tinnitus, Hearing loss Psychiatric: Denies: Anxiety, Depression, Homicidal Ideations, Suicidal Ideations Vital Signs Height 5 ft 11 in Weight: 375 lb Weight in Pounds 375.0 lbs Pulse Ox 98 Temperature 96.9 F Pulse Rate [7] 81 Pulse Rate [6] 82 Pulse Rate [5] 80 Pulse Rate [4] 77 Pulse Rate [3] 77 Pulse Rate [2] 76 Pulse Rate [1 (Initial 75 Baseline)] Pulse Rate 105 Respiratory Rate [7] 12 Respiratory Rate [6] 15 Respiratory Rate [5] 80 Respiratory Rate [4] 11 Respiratory Rate [3] 12 Respiratory Rate [2] 13 Respiratory Rate [1 (Initial 17 Baseline)] Respiratory Rate 18 Blood Pressure [7] 141/101 Blood Pressure [6] 150/90 Blood Pressure [5] 152/91 Blood Pressure [4] 133/93 Blood Pressure [3] 145/97 Blood Pressure [2] 142/99 Blood Pressure [1 (Initial 157/93 Baseline)] Blood Pressure 137/84 Blood Pressure Position Sitting - Physical Exam General: Alert, Oriented x3, No apparent distress HEENT: Atraumatic, Normocephalic, - - wears glasses Oropharynx:: Poor dentition. Negative for: Dry mucosa Neck:: Supple, Trachea midline. Negative for: JVD, bilateral Cardiac:: Regular rate, Regular rhythm, Normal S1, Normal S2. Negative for: Murmur Lungs: Diminished, Excusion symmetrical. Negative for: Rhonchi, Wheezes, Tachypneic, Increased respiratory effort Abdomen:: Bowel sounds x 4, Soft, Non-tender, Non-distended. Negative for: Hepatosplenomegaly - difficult to discern d/t large body habitus Neurological: Neuro grossly intact Skin:: Negative for: Lesions, Rash, Petechiae, Ecchymosis Psychiatric:: Appropriate affect, Euthymic Lymphatics:: Negative for: Cervical lymphadenopathy, Supraclavicular lymphadenopathy, Axillary lymphadenopathy Laboratory Data: Laboratory Tests 08/03/18 08/03/18 Range/Units 05:12 05:12 WBC 12.8 H (4.4-11.0) K/mm3 RBC 4.63 (4.6-6.2) M/mm3 Hgb 13.5 (13.0-16.5) g/dl Hct 41.3 (40-54) % MCV 89.2 (80-94) fL MCH 29.2 (27.0-32.0) pg MCHC 32.7 (32-36) g/gl RDW 15.0 H (11.6-14.6) % RDW Differential 48.5 H (35.1-43.9) fl Plt Count 201 (150-450) K/mm3 MPV 11.2 (6.2-12.0) fl Immature Gran % (Auto) 1.200 H (0.0-0.9) % Neut % (Auto) 76.1 H (47-70) % Lymph % (Auto) 11.5 L (19-41) % [facility] % (Auto) 9.9 (0-10) % Eos % (Auto) 1.2 (0-5) % Baso % (Auto) 0.1 (0-1) % Absolute Neuts (auto) 9.8 H (2.0-7.7) X10^3/uL Absolute Lymphs (auto) 1.48 (0.83-4.51) X10^3/ul Total Counted Not Reportable Sodium 136 (136-145) mmol/L Potassium 4.1 (3.5-5.1) mmol/L Chloride 100 (98-107) mmol/L Carbon Dioxide 30.0 (21.0-32.0) mmol/L Anion Gap 6 (5-15) BUN 13 (7-18) mg/dL Creatinine 0.66 L (0.70-1.30) mg/dL Estim Creat Clear Calc 139.44 ml/min Est GFR (MDRD) Af Amer 164 (>60) mL/min Est GFR (MDRD) Non-Af 136 (>60) mL/min BUN/Creatinine Ratio 19.8 (10-20) RATIO Glucose 118 H (74-106) mg/dL Calcium 8.8 (8.5-10.1) mg/dL Diagnostic Data: Diagnostic Data Hip/Pelvis X-Ray 07/26/18 18:47 IMPRESSION: No fracture or dislocation in the pelvis or right hip. Stable moderate degenerative changes. Electronically Signed: Hadley Saunders, at 19:02 EDT Tel , Service support , Abdomen CT 07/26/18 23:40 IMPRESSION: 1. No free fluid or acute abdominal disease identified. Pelvic CT scanning not performed. 2. Hepatosplenomegaly. Small, solitary right hepatic lobe lesion, probably benign. 3. No abdominal lymphadenopathy. 4. Bilateral iliac osteolytic lesions, incompletely visualized and larger on the left, compatible with metastases. Individualized dose optimization techniques were used for this CT. at 0732 Reported and signed by: Jerry Ruiz MD Electronically Signed: Jerry Ruiz, at 7:31 EDT Tel , Service support , Chest CT 07/26/18 23:40 IMPRESSION: 1. Left perihilar and left upper lobe large irregular tumor in the 10 cm diameter range with secondary soft tissue invasion of the left hilum and upper left mediastinum. 2. Multiple bulky mediastinal and left hilar lymph nodes compatible with annie metastases. 3. Chronic lung disease with centrilobular and distal lobular emphysema. 4. Metastatic bone disease including pathologic fracture of the medial right clavicle. Individualized dose optimization techniques were used for this CT. at 0650 Reported and signed by: Jerry Ruiz MD Electronically Signed: Jerry Ruiz, at 6:49 EDT Tel , Service support , Lower Extremity CT 07/27/18 17:40 IMPRESSION: Findings which may be consistent with metastatic disease involving the right femoral head and mid to distal femoral shaft Electronically Signed: Jayson Parra MD at 19:28 EDT , Service support , Femur X-Ray 07/29/18 14:50 IMPRESSION: No definite radiographic evidence for metastatic disease. Electronically Signed: Marissa Watkins MD at 19:14 EDT , Service support , Forearm X-Ray 07/29/18 14:50 IMPRESSION: No radiographic evidence of metastatic disease. Electronically Signed: Marissa Watkins MD at 19:15 EDT , Service support , Humerus X-Ray 07/29/18 14:50 IMPRESSION: No radiographic evidence of metastatic disease. Electronically Signed: Onur Chaudhary MD at 16:58 EDT , Service support , Tibia/Fibula X-Ray 07/29/18 14:50 IMPRESSION: No radiographic evidence of suggest metastatic disease. Electronically Signed: Marissa Watkins MD at 19:21 EDT , Service support , Biopsy CT 07/30/18 11:31 IMPRESSION: Successful CT guided biopsy of the posterior aspect of the left iliac bone., as described above. Electronically Signed: Diony Denney, at 7:58 EDT , Service support , Hip X-Ray 07/30/18 19:23 IMPRESSION: Placement of intramedullary kate with interlocking femoral screw with no complications. Electronically Signed: Onur Chaudhary MD at 14:14 EDT , Service support , Chest X-Ray 07/31/18 08:51 IMPRESSION: Left upper lobe consolidation/mass corresponding to that seen on comparison CT evaluation. Electronically Signed: Jayson Corrales, at 10:07 EDT Tel , Service support , Assessment and Plan 1. Squamous cell carcinoma of the lung- Confirmed by tissue biopsy of endobronchial mass and POOJA washings during bronchoscopy on 07/29/18. He is not endorsing any focal neurologic symptoms at this time. 2. Cancer metastatic to bone- Biopsy of left posterior iliac crest obtained 07/30/18, pathology of which shows neuroendocrine carcinoma. Pain in sacral area continues. Patient with significant tobacco use history (2-3 packs per day since he was a teenager). The notion of a mixed tumor or two separate lung primaries is conceivable. Engaged in lengthy discussion explaining his pathology reports. Emotional support provided. Describes good support system at home by way of friends and children. He should be evaluated by Dr. Geiger at [facility] 1-2 days subsequent to discharge as he will require PET/CT, brain imaging and radiation oncology consultation. Case discussed with Dr. Geiger, who was in agreement with the aforementioned plan. Anamika Martinez, [employer], AOCNP Medications: Prescriptions This Visit Medication Instructions Recorded Celecoxib 200 mg PO DAILY 07/27/18 Fluticasone Propionate 2 spray NASAL BID 07/27/18 Nortriptyline HCl 50 mg PO QHS 07/27/18 Albuterol Aerosols [Ventolin 2.5 mg INHALATION Q2H PRN PRN 08/03/18 Aerosols] vial.neb. Dexamethasone [Decadron] 4 mg PO DAILY@0800 tablet 08/03/18 Enoxaparin [Lovenox] 170 mg SC BID syringe 08/03/18 Famotidine [Pepcid] 20 mg PO BID tablet 08/03/18 Ipratropium/Albuterol Sulfate 3 ml INHALATION Q6HWA.RT ampul.neb 08/03/18 [Duoneb] Nicotine [Nicoderm Cq] 21 mg TRANSDERM. DAILY patch 08/03/18 Nystatin Powder [Mycostatin Powder] 1 applic TOPICAL BID bottle 08/03/18 Oxycodone [Oxyir] 5 - 10 mg PO Q4H PRN PRN 3 Days 08/03/18 #40 tab Senna/Docusate Sodium [Senokot-S] 2 tablet PO BID tablet 08/03/18 Primary Care Provider: Mark Anthony Marcelo MD Referring Provider: Gilsno Lopez MD
--- NOTE | 2018-08-03 15:28 | PN_ITS ---
- Problem List (1) Squamous cell carcinoma lung Status: Acute (2) Neuroendocrine carcinoma Status: Acute (3) Cancer, metastatic to bone Status: Acute Subjective Date of Service:: 08/03/18 53-year-old man presented to the ER with progressive low back pain over 1 to 2 months duration. He had a bone scan as outpatient on 07/21/2018 which showed increase activity in the distal left clavicle right proximal clavicle right occipital skull multiple ribs right mid to distal femoral bone left femoral bone bilateral sacral iliac joints likely representing metastatic disease. He was scheduled for biopsy as outpatient but Pain in the lower back became unbearable so came to the ER. He had a CT scan of the chest abdomen and pelvis yesterday 07/26/2018 which showed a 10 cm left perihilar and left upper lobe mass, bulky mediastinal and left hilar adenopathy, metastatic bone disease involving right clavicle, hepatosplenomegaly, small right hepatic lesion, bilateral iliac lytic lesions. Underwent bronchoscopy with biopsies 07/29/18, returned positive for squamous cell carcinoma. However, pathology associated with CT guided biopsy of left posterior iliac crest obtained 07/30/18 suggestive of a metastatic neur oendocrine carcinoma. Past Medical History: Chronic Problems History of anxiety (Chronic) Tobacco user (Chronic) Obstructive sleep apnea syndrome (Chronic) Chronic obstructive lung disease (Chronic) Morbid obesity (Chronic) Hyperlipidemia (Chronic) Depression (Chronic) Benign essential hypertension (Chronic) Past Medical History - Most Recent Inpatient Visit Past Medical History Start: 07/26/18 23:14 Text: Status: Complete Freq: ONCE Protocol: Document 07/26/18 23:14 VIKY (Rec: 07/26/18 23:38 [facility] [id number]) BMI Required to complete PMH What is Patient's BMI 51.7 Past Medical History Unable History Recalled No Query Text:Pt Unable/Family Not Present Neurologic Medical History Hx Stroke/TIA No Hx Dementia/Alzheimer's No Hx Parkinson's Disease No Hx Seizures No Hx Multiple Sclerosis No Hx Migraines No Cardiac Medical History VTE Present on Admission No Hx of Deep Vein Thrombosis/VTE/PE No Hx Hypertension Yes Hx Chest Pain/Angina No Hx Heart Attack No Hx Cardiac Surgery/Stents/Etc. No Hx Heart Failure No Hx Pacemaker/AICD No Hx Irregular Heartbeat and/or Afib No Hx Anticoagulant Therapy Yes Query Text:(Coumadin, Aspirin, Plavix, Xarelto, etc.) Hx Pain in Legs when Walking/Leg Cramps Yes Respiratory Medical History Hx COPD Yes Hx Emphysema No Hx Smoking Yes Smoking Status Current every day smoker Tobacco Use Cigarettes Packs Smoked per Day 2 Hx Tobacco Use in last 12 months Yes Sent to [facility] Yes Hx of Pipe Smoking No Hx Sleep Apnea Yes: bipap CPAP No BIPAP Yes STOP Results Positive GI Medical History Hx Ulcer No Hx Hepatitis No Hx Cirrhosis No Hx GI Bleed No Hx Unplanned Weight Loss No Genitourinary Medical History Indwelling Catheter in Place on Arrival/ No Admission Hx Renal Disease No Hx Dialysis No Musculoskeletal History Hx Arthritis No Hx Rheumatoid Arthritis No Endocrine Medical History Hx Diabetes Yes: borderline Hx Thyroid Disease No Hematologic Medical History Hx of Blood Transfusion No Hx of Transfusion in last 3 Months No Ever experience any problems with No transfusion(s)? Hx of Preganancy in last 3 Months N/A Nurse Filling Out Transfusion & JGATCHALI Questions: Date: 07/26/18 Time: 23:37 Psycho/Social Medical History Hx Depression Yes Hx Anxiety Yes Hx Behavior Disorder No Hx Alcohol Use No Hx Substance Use Yes: WEED Other Medical History Hx Blood Disorders No Hx Anemia No Hx Cancer No Hx Drug Resistant Organism No Wound/Pressure Injury Present on Arrival No /Admission Query Text:If yes, chart assessment in Shift/Clinical Findings Central Line/PICC/VAD Present on Arrival No /Admission Antibiotics within last 7 days? No Methicillin Resistant Staphylococcus aureus Screening Active MRSA No Risk for Readmission Number of Risk Factors 6 At Risk for Readmission Patient is At Risk For Readmission Patient is eligible for Call Back Y Maternal Family History: - - Leukemia Paternal Family History: Cancer - lung, - - Social History Lives: With Family Smoking Status: Current every day smoker Tobacco Use: Cigarettes Review of Systems Constitutional:: Reports: Fatigue, Weight loss - unintentional, estimates 70 lbs in the last 6 months. Denies: Fever, Sweats, Appetite change, Chills Cardiovascular:: Reports: Dyspnea on exertion. Denies: Chest pain, Palpitations, Orthopnea, PND, Shortness of breath Respiratory: Reports: Shortness of Breath. Denies: Cough, Hemoptysis, Wheezing Gastrointestinal:: Denies: Abdominal pain, Nausea, Vomiting, Diarrhea, Constipation, Melena, Hematochezia, Reflux Genitourinary: Reports: Urinary frequency. Denies: Dysuria, Hematuria, Flank pain Musculoskeletal:: Reports: Back pain - chronic. Denies: Myalgia, Arthralgia Skin: Denies: Rash, Skin Changes, Wounds Neurological:: Denies: Headache, Dizziness, Numbness, Tingling, Muscle weakness, Visual changes, Tinnitus, Hearing loss Psychiatric: Denies: Anxiety, Depression, Homicidal Ideations, Suicidal Ideations Vital Signs Height 5 ft 11 in Weight: 375 lb Weight in Pounds 375.0 lbs Pulse Ox 98 Temperature 96.9 F Pulse Rate [7] 81 Pulse Rate [6] 82 Pulse Rate [5] 80 Pulse Rate [4] 77 Pulse Rate [3] 77 Pulse Rate [2] 76 Pulse Rate [1 (Initial 75 Baseline)] Pulse Rate 105 Respiratory Rate [7] 12 Respiratory Rate [6] 15 Respiratory Rate [5] 80 Respiratory Rate [4] 11 Respiratory Rate [3] 12 Respiratory Rate [2] 13 Respiratory Rate [1 (Initial 17 Baseline)] Respiratory Rate 18 Blood Pressure [7] 141/101 Blood Pressure [6] 150/90 Blood Pressure [5] 152/91 Blood Pressure [4] 133/93 Blood Pressure [3] 145/97 Blood Pressure [2] 142/99 Blood Pressure [1 (Initial 157/93 Baseline)] Blood Pressure 137/84 Blood Pressure Position Sitting - Physical Exam General: Alert, Oriented x3, No apparent distress HEENT: Atraumatic, Normocephalic, - - wears glasses Oropharynx:: Poor dentition. Negative for: Dry mucosa Neck:: Supple, Trachea midline. Negative for: JVD, bilateral Cardiac:: Regular rate, Regular rhythm, Normal S1, Normal S2. Negative for: Murmur Lungs: Diminished, Excusion symmetrical. Negative for: Rhonchi, Wheezes, Tachypneic, Increased respiratory effort Abdomen:: Bowel sounds x 4, Soft, Non-tender, Non-distended. Negative for: Hepatosplenomegaly - difficult to discern d/t large body habitus Neurological: Neuro grossly intact Skin:: Negative for: Lesions, Rash, Petechiae, Ecchymosis Psychiatric:: Appropriate affect, Euthymic Lymphatics:: Negative for: Cervical lymphadenopathy, Supraclavicular lymphadenopathy, Axillary lymphadenopathy Laboratory Data: Laboratory Tests 08/03/18 08/03/18 Range/Units 05:12 05:12 WBC 12.8 H (4.4-11.0) K/mm3 RBC 4.63 (4.6-6.2) M/mm3 Hgb 13.5 (13.0-16.5) g/dl Hct 41.3 (40-54) % MCV 89.2 (80-94) fL MCH 29.2 (27.0-32.0) pg MCHC 32.7 (32-36) g/gl RDW 15.0 H (11.6-14.6) % RDW Differential 48.5 H (35.1-43.9) fl Plt Count 201 (150-450) K/mm3 MPV 11.2 (6.2-12.0) fl Immature Gran % (Auto) 1.200 H (0.0-0.9) % Neut % (Auto) 76.1 H (47-70) % Lymph % (Auto) 11.5 L (19-41) % Dare % (Auto) 9.9 (0-10) % Eos % (Auto) 1.2 (0-5) % Baso % (Auto) 0.1 (0-1) % Absolute Neuts (auto) 9.8 H (2.0-7.7) X10^3/uL Absolute Lymphs (auto) 1.48 (0.83-4.51) X10^3/ul Total Counted Not Reportable Sodium 136 (136-145) mmol/L Potassium 4.1 (3.5-5.1) mmol/L Chloride 100 (98-107) mmol/L Carbon Dioxide 30.0 (21.0-32.0) mmol/L Anion Gap 6 (5-15) BUN 13 (7-18) mg/dL Creatinine 0.66 L (0.70-1.30) mg/dL Estim Creat Clear Calc 139.44 ml/min Est GFR (MDRD) Af Amer 164 (>60) mL/min Est GFR (MDRD) Non-Af 136 (>60) mL/min BUN/Creatinine Ratio 19.8 (10-20) RATIO Glucose 118 H (74-106) mg/dL Calcium 8.8 (8.5-10.1) mg/dL Diagnostic Data: Diagnostic Data Hip/Pelvis X-Ray 07/26/18 18:47 IMPRESSION: No fracture or dislocation in the pelvis or right hip. Stable moderate degenerative changes. Electronically Signed: Hadley Saunders, at 19:02 EDT Tel , Service support , Abdomen CT 07/26/18 23:40 IMPRESSION: 1. No free fluid or acute abdominal disease identified. Pelvic CT scanning not performed. 2. Hepatosplenomegaly. Small, solitary right hepatic lobe lesion, probably benign. 3. No abdominal lymphadenopathy. 4. Bilateral iliac osteolytic lesions, incompletely visualized and larger on the left, compatible with metastases. Individualized dose optimization techniques were used for this CT. at 0732 Reported and signed by: Jerry Ruiz MD Electronically Signed: Jerry Ruiz, at 7:31 EDT Tel , Service support , Chest CT 07/26/18 23:40 IMPRESSION: 1. Left perihilar and left upper lobe large irregular tumor in the 10 cm diameter range with secondary soft tissue invasion of the left hilum and upper left mediastinum. 2. Multiple bulky mediastinal and left hilar lymph nodes compatible with annie metastases. 3. Chronic lung disease with centrilobular and distal lobular emphysema. 4. Metastatic bone disease including pathologic fracture of the medial right clavicle. Individualized dose optimization techniques were used for this CT. at 0650 Reported and signed by: Jerry Ruiz MD Electronically Signed: Jerry Ruiz, at 6:49 EDT Tel , Service support , Lower Extremity CT 07/27/18 17:40 IMPRESSION: Findings which may be consistent with metastatic disease involving the right femoral head and mid to distal femoral shaft Electronically Signed: Jayson Parra MD at 19:28 EDT , Service support , Femur X-Ray 07/29/18 14:50 IMPRESSION: No definite radiographic evidence for metastatic disease. Electronically Signed: Marissa Watkins MD at 19:14 EDT , Service support , Forearm X-Ray 07/29/18 14:50 IMPRESSION: No radiographic evidence of metastatic disease. Electronically Signed: Marissa Watkins MD at 19:15 EDT , Service support , Humerus X-Ray 07/29/18 14:50 IMPRESSION: No radiographic evidence of metastatic disease. Electronically Signed: Onur Chaudhary MD at 16:58 EDT , Service support , Tibia/Fibula X-Ray 07/29/18 14:50 IMPRESSION: No radiographic evidence of suggest metastatic disease. Electronically Signed: Marissa Watkins MD at 19:21 EDT , Service support , Biopsy CT 07/30/18 11:31 IMPRESSION: Successful CT guided biopsy of the posterior aspect of the left iliac bone., as described above. Electronically Signed: Diony Denney, at 7:58 EDT , Service support , Hip X-Ray 07/30/18 19:23 IMPRESSION: Placement of intramedullary kate with interlocking femoral screw with no complications. Electronically Signed: Onur Chaudhary MD at 14:14 EDT , Service support , Chest X-Ray 07/31/18 08:51 IMPRESSION: Left upper lobe consolidation/mass corresponding to that seen on comparison CT evaluation. Electronically Signed: Jayson Corrales, at 10:07 EDT Tel , Service support , Assessment and Plan 1. Squamous cell carcinoma of the lung- Confirmed by tissue biopsy of endobronchial mass and POOJA washings during bronchoscopy on 07/29/18. He is not endorsing any focal neurologic symptoms at this time. 2. Cancer metastatic to bone- Biopsy of left posterior iliac crest obtained 07/30/18, pathology of which shows neuroendocrine carcinoma. Pain in sacral area continues. Patient with significant tobacco use history (2-3 packs per day since he was a teenager). The notion of a mixed tumor or two separate lung primaries is conceivable. Engaged in lengthy discussion explaining his pathology reports. Emotional s upport provided. Describes good support system at home by way of friends and children. He should be evaluated by Dr. Geiger at [facility] 1-2 days subsequent to discharge as he will require PET/CT, brain imaging and radiation oncology consultation. Case discussed with Dr. Geiger, who was in agreement with the aforementioned plan. Anamika Martinez, [employer], AOCNP Medications: Prescriptions This Visit Medication Instructions Recorded Celecoxib 200 mg PO DAILY 07/27/18 Fluticasone Propionate 2 spray NASAL BID 07/27/18 Nortriptyline HCl 50 mg PO QHS 07/27/18 Albuterol Aerosols [Ventolin 2.5 mg INHALATION Q2H PRN PRN 08/03/18 Aerosols] vial.neb. Dexamethasone [Decadron] 4 mg PO DAILY@0800 tablet 08/03/18 Enoxaparin [Lovenox] 170 mg SC BID syringe 08/03/18 Famotidine [Pepcid] 20 mg PO BID tablet 08/03/18 Ipratropium/Albuterol Sulfate 3 ml INHALATION Q6HWA.RT ampul.neb 08/03/18 [Duoneb] Nicotine [Nicoderm Cq] 21 mg TRANSDERM. DAILY patch 08/03/18 Nystatin Powder [Mycostatin Powder] 1 applic TOPICAL BID bottle 08/03/18 Oxycodone [Oxyir] 5 - 10 mg PO Q4H PRN PRN 3 Days 08/03/18 #40 tab Senna/Docusate Sodium [Senokot-S] 2 tablet PO BID tablet 08/03/18 Primary Care Provider: Mark Anthony Marcelo MD Referring Provider: Gilson Lopez MD
--- NOTE | 2018-08-03 17:08 | PCM.PN.HOSP ---
Patient Problems: Active and Suspected Problems Metastasis (Acute) Disseminated cancer (Acute) Squamous cell carcinoma lung (Acute) Neuroendocrine carcinoma (Acute) Cancer, metastatic to bone (Acute) Subjective: Patient without acute event overnight per self and nursing report. Patient notes with regimen changes his pain is much better controlled and currently out of 4-5/10 and continues to decrease whereas been out of 10 out of 10 the day prior. Patient denies fever, chills, nausea, emesis, abdominal pain, chest pain or dyspnea. Does state that he has not pooped recently. Patient agreeable to discharge to SNF for ongoing therapy while awaiting pathology; however, still awaiting pre-certification. Objective: Physical Examination: General: awake, alert, oriented x 3 and cooperative, seated upright in bed, notes pain improved. Skin: normal color, turgor, no icterus, cyanosis s/p R prophylactic anterograde femoral nailing w/ dressings in place. HEENT: AT/NC, EOMI, PERRLA, mildly dry MM. Lungs: CTA bilaterally, moderate effort, moderate decrease BL bases, no rales, ronchi or wheezing distant given habitus. Heart: Regular rate and rhythm; no gallop, rub audible. Abdomen: soft, morbidly obese, NTTP, ND, normal BS, distant bowel sounds. Extremities: no cyanosis, clubbing, s/p R prophylactic anterograde femoral nailing w/ dressings in place. Neurological: patient awake, alert, oriented x 3; cognitive function intact; pupils equally reactive to light and accomodation; cranial nerves II-XII grossly normal, moving all 4 extremities; however, extremely limited given habitus and recent intervention s/p R prophylactic anterograde femoral nailing w/ dressings in place, strength accordingly severely globally decreased. Psychiatric: affect appears improved, no acute evidence of depressive or anxiety feelings. Vitals/I&O's: Vital Signs Temp Pulse Resp BP Pulse Ox 97.4 F L 97 18 151/106 H 95 08/03/18 16:30 08/03/18 16:30 08/03/18 16:30 08/03/18 16:30 08/03/18 16:30 Oxygen Flow Rate (L/min) [7] 2 Oxygen Flow Rate (L/min) [6] 2 Oxygen Flow Rate (L/min) [5] 2 Oxygen Flow Rate (L/min) [4] 2 Oxygen Flow Rate (L/min) [3] 2 Oxygen Flow Rate (L/min) [2] 2 Oxygen Flow Rate (L/min) [1 ( 2 Initial Baseline)] Oxygen Flow Rate (L/min) 2 Oxygen Delivery Method [7] Nasal Cannula Oxygen Delivery Method [6] Nasal Cannula Oxygen Delivery Method [5] Nasal Cannula Oxygen Delivery Method [4] Nasal Cannula Oxygen Delivery Method [3] Nasal Cannula Oxygen Delivery Method [2] Nasal Cannula Oxygen Delivery Method [1 ( Nasal Cannula Initial Baseline)] Oxygen Delivery Method Room Air Weight: 375 lb Body Mass Index (BMI) 52.2 Intake and Output for Last 24 Hours 08/01/18 08/02/18 08/03/18 23:59 23:59 23:59 Intake Total 2120 / 2120 2220 / 2220 1200 / 1200 Output Total 2575 / 2575 200 / 200 1400 / 1400 Balance -455 / -455 2019 / 2019 -200 / -200 Laboratory Results 08/03/18 05:12: WBC 12.8 H, RBC 4.63, Hgb 13.5, Hct 41.3, MCV 89.2, MCH 29.2, MCHC 32.7, RDW 15.0 H, RDW Differential 48.5 H, Plt Count 201, MPV 11.2, Immature Gran % (Auto) 1.200 H, Neut % (Auto) 76.1 H, Lymph % (Auto) 11.5 L, [place] % (Auto) 9.9, Eos % (Auto) 1.2, Baso % (Auto) 0.1, Absolute Neuts (auto) 9.8 H, Absolute Lymphs (auto) 1.48, Total Counted Not Reportable 08/03/18 05:12: Sodium 136, Potassium 4.1, Chloride 100, Carbon Dioxide 30.0, Anion Gap 6, BUN 13, Creatinine 0.66 L, Estim Creat Clear Calc 139.44, Est GFR (MDRD) Af Amer 164, Est GFR (MDRD) Non-Af 136, BUN/Creatinine Ratio 19.8, Glucose 118 H, Calcium 8.8 Current Medications Albuterol Sulfate (Ventolin Aerosols) 2.5 mg INHALATION Q2H PRN PRN PRN Reason: sob or wheezes Albuterol/Ipratropium (Duoneb) 3 ml INHALATION Q6HWA.RT ALIE Last Admin: 05/21/19 13:22 Dose: 3 ml Celecoxib (Celebrex) 200 mg PO DAILY [facility] Last Admin: 08/03/18 07:58 Dose: 200 mg Cyclobenzaprine HCl (Flexeril) 10 mg PO TID PRN PRN PRN Reason: MUSCLE SPASM Last Admin: 08/02/18 21:35 Dose: 10 mg Dexamethasone (Decadron) 4 mg PO DAILY@0800 [facility] Last Admin: 08/03/18 07:58 Dose: 4 mg Dextrose (D50w Syringe) 0 gm IV X1 PRN; Protocol PRN Reason: Hypoglycemia Enoxaparin Sodium (Lovenox) 170 mg SC BID [facility] Last Admin: 08/03/18 08:00 Dose: 170 mg Famotidine (Pepcid) 20 mg PO BID [facility] Last Admin: 08/03/18 07:58 Dose: 20 mg Fluticasone Propionate (Flonase Nasal Tionesta) 2 spray NASAL BID [facility] Last Admin: 08/03/18 07:59 Dose: 2 spray Glucagon () 1 mg IM .X1 PRN PRN Reason: Hypoglycemia Morphine Sulfate () 4 mg IV Q3H PRN PRN PRN Reason: Severe pain (7-10/10) Last Admin: 08/01/18 17:39 Dose: 4 mg Nicotine (Nicoderm Cq (Pbkc)) 21 mg TRANSDERM. DAILY [facility] Last Admin: 08/03/18 07:58 Dose: 21 mg Nortriptyline HCl (Pamelor) 50 mg PO QHS [facility] Last Admin: 08/02/18 21:34 Dose: 50 mg Nystatin (Mycostatin Powder) 1 applic TOPICAL BID [facility]; Protocol Last Admin: 08/03/18 07:59 Dose: 1 applicatio Ondansetron HCl (Zofran) 4 mg IV Q8H PRN PRN PRN Reason: NAUSEA/VOMITING Last Admin: 07/31/18 02:15 Dose: 4 mg Oxycodone HCl (Oxyir) 5 - 10 mg PO Q4H PRN PRN PRN Reason: SEVERE PAIN (6-10/10) Last Admin: 08/03/18 16:08 Dose: 10 mg Senna/Docusate Sodium (Senokot-S, Libby-Colace) 2 tablet PO BID [facility] Last Admin: 08/03/18 07:58 Dose: 2 tablet Sodium Chloride () 5 - 15 ml IV UD PRN PRN Reason: SALINE FLUSH Last Admin: 08/01/18 17:40 Dose: 10 ml Medical Necessity - Tobacco Use Smoking Status: Current every day smoker Tobacco Use: Cigarettes Assessment/Plan All Active Problems Metastasis (Acute) Disseminated cancer (Acute) Squamous cell carcinoma lung (Acute) Neuroendocrine carcinoma (Acute) Cancer, metastatic to bone (Acute) The patient is a 53 y/o M w/ PMHx: JACK on CPAP q HS, Morbid Obesity, Chronic COPD, HTN, HLD, Depression and Anxiety Allergic Rhinitis who presents to the [facility] ED on 07/26/18 with history of 1 month progressively worsening right hip discomfort as well as coccyx pain. (1) Metastatic Cancer to the Bone (Neuroendocrine carcinoma) and concurrent Acute Squamous Cell Carcinoma of the Lung: ED evaluation with noted recent bone scan outpatient per primary care physician secondary to ongoing right hip pain which demonstrated concern for cancer with ongoing debility prompting ED evaluation. Patient admitted to medical surgical floor, imaging pursued including CT abdomen, CT chest and CT right lower extremity with noted bilateral iliac osteolytic lesions consistent with metastatic disease and a left perihilar and left upper lobe large irregular tumor in a 10 cm diameter range with secondary soft tissue invasion of the left hilum and upper left mediastinum with multiple bulky mediastinal and left hilar lymph nodes compatible with annie metastases with chronic lung disease with centrilobular and distal lobular emphysema as well as metastatic bone disease including pathologic fracture of the medial right clavicle as well as metastatic disease involving the right femoral head and mid to distal femoral shaft. Further evaluation included 07/30/18 right prophylactic anterograde femoral nailing, 07/30/18 CT guided biopsy of the posterior aspect of the left iliac bone obtained now resulting with neuroendocrine carcinoma, 07/29/18 Bronchoscopy (Left upper lobe mass, Left upper lobe lung mass) w/ endobronchial biopsy was performed and washings were obtained now resulting w/ Squamous cell carcinoma of the lung. Following surgical intervention and biopsy PT, OT evaluations as well as case management with plan to transition to nursing home facility for ongoing therapies. Given these pathology findings will plan follow-up with Oncology, Dr. Geiger at the [facility] in 1-2 days for outpatient set-up of PET/CT, brain imaging as well as radiation oncology consultation. (2) Chronic COPD: ATC duonebs, PRN albuterol, HOB, IS parameters. (3) Morbid Obesity: Weight loss and lifestyle changes encouraged, nutrition consulted. (4) Tobacco Abuse: Encouraged cessation, inpatient consultation per RT, NR if desired. (5) Intertrigo: Continue topical nystatin powder. (6) Allergic rhinitis: Continue home Flonase regimen. (7) Hypertension: Not on regimen, BP normal range, continue to trend and add agents as needed. (8) Hyperlipidemia: Not on regimen, defer to outpatient. (9) Anxiety and depression: Not on regimen, current mood appropriate response for acute presentation, will benefit from continued evaluations and addition of regimen/therapy as needed. (10) JACK: CPAP nightly. (11) DVT prophylaxis: SCDs, therapeutic Lovenox given immobility and metastatic cancer state with high risk for VTE as well as per pulmonary recommendation secondary to tumor encircling pulmonary artery as well. Code Visit Inpatient E&M: 51711 Subs Hosp L2
--- NOTE | 2018-08-03 17:15 | PN_ITS ---
Patient Problems: Active and Suspected Problems Metastasis (Acute) Disseminated cancer (Acute) Squamous cell carcinoma lung (Acute) Neuroendocrine carcinoma (Acute) Cancer, metastatic to bone (Acute) Subjective: Patient without acute event overnight per self and nursing report. Patient notes with regimen changes his pain is much better controlled and currently out of 4-5/10 and continues to decrease whereas been out of 10 out of 10 the day prior. Patient denies fever, chills, nausea, emesis, abdominal pain, chest pain or dyspnea. Does state that he has not pooped recently. Patient agreeable to discharge to SNF for ongoing therapy while awaiting pathology; however, still awaiting pre-certification. Objective: Physical Examination: General: awake, alert, oriented x 3 and cooperative, seated upright in bed, notes pain improved. Skin: normal color, turgor, no icterus, cyanosis s/p R prophylactic anterograde femoral nailing w/ dressings in place. HEENT: AT/NC, EOMI, PERRLA, mildly dry MM. Lungs: CTA bilaterally, moderate effort, moderate decrease BL bases, no rales, ronchi or wheezing distant given habitus. Heart: Regular rate and rhythm; no gallop, rub audible. Abdomen: soft, morbidly obese, NTTP, ND, normal BS, distant bowel sounds. Extremities: no cyanosis, clubbing, s/p R prophylactic anterograde femoral nailing w/ dressings in place. Neurological: patient awake, alert, oriented x 3; cognitive function intact; pupils equally reactive to light and accomodation; cranial nerves II-XII grossly normal, moving all 4 extremities; however, extremely limited given habitus and recent intervention s/p R prophylactic anterograde femoral nailing w/ dressings in place, strength accordingly severely globally decreased. Psychiatric: affect appears improved, no acute evidence of depressive or anxiety feelings. Vitals/I&O's: Vital Signs Temp Pulse Resp BP Pulse Ox 97.4 F L 97 18 151/106 H 95 08/03/18 16:30 08/03/18 16:30 08/03/18 16:30 08/03/18 16:30 08/03/18 16:30 Oxygen Flow Rate (L/min) [7] 2 Oxygen Flow Rate (L/min) [6] 2 Oxygen Flow Rate (L/min) [5] 2 Oxygen Flow Rate (L/min) [4] 2 Oxygen Flow Rate (L/min) [3] 2 Oxygen Flow Rate (L/min) [2] 2 Oxygen Flow Rate (L/min) [1 ( 2 Initial Baseline)] Oxygen Flow Rate (L/min) 2 Oxygen Delivery Method [7] Nasal Cannula Oxygen Delivery Method [6] Nasal Cannula Oxygen Delivery Method [5] Nasal Cannula Oxygen Delivery Method [4] Nasal Cannula Oxygen Delivery Method [3] Nasal Cannula Oxygen Delivery Method [2] Nasal Cannula Oxygen Delivery Method [1 ( Nasal Cannula Initial Baseline)] Oxygen Delivery Method Room Air Weight: 375 lb Body Mass Index (BMI) 52.2 Intake and Output for Last 24 Hours 08/01/18 08/02/18 08/03/18 23:59 23:59 23:59 Intake Total 2120 / 2120 2220 / 2220 1200 / 1200 Output Total 2575 / 2575 200 / 200 1400 / 1400 Balance -455 / -455 2019 / 2019 -200 / -200 Laboratory Results 08/03/18 05:12: WBC 12.8 H, RBC 4.63, Hgb 13.5, Hct 41.3, MCV 89.2, MCH 29.2, MCHC 32.7, RDW 15.0 H, RDW Differential 48.5 H, Plt Count 201, MPV 11.2, Immature Gran % (Auto) 1.200 H, Neut % (Auto) 76.1 H, Lymph % (Auto) 11.5 L, [place] % (Auto) 9.9, Eos % (Auto) 1.2, Baso % (Auto) 0.1, Absolute Neuts (auto) 9.8 H, Absolute Lymphs (auto) 1.48, Total Counted Not Reportable 08/03/18 05:12: Sodium 136, Potassium 4.1, Chloride 100, Carbon Dioxide 30.0, Anion Gap 6, BUN 13, Creatinine 0.66 L, Estim Creat Clear Calc 139.44, Est GFR (MDRD) Af Amer 164, Est GFR (MDRD) Non-Af 136, BUN/Creatinine Ratio 19.8, Glucose 118 H, Calcium 8.8 Current Medications Albuterol Sulfate (Ventolin Aerosols) 2.5 mg INHALATION Q2H PRN PRN PRN Reason: sob or wheezes Albuterol/Ipratropium (Duoneb) 3 ml INHALATION Q6HWA.RT [facility] Last Admin: 05/21/19 13:22 Dose: 3 ml Celecoxib (Celebrex) 200 mg PO DAILY [facility] Last Admin: 08/03/18 07:58 Dose: 200 mg Cyclobenzaprine HCl (Flexeril) 10 mg PO TID PRN PRN PRN Reason: MUSCLE SPASM Last Admin: 08/02/18 21:35 Dose: 10 mg Dexamethasone (Decadron) 4 mg PO DAILY@0800 [facility] Last Admin: 08/03/18 07:58 Dose: 4 mg Dextrose (D50w Syringe) 0 gm IV X1 PRN; Protocol PRN Reason: Hypoglycemia Enoxaparin Sodium (Lovenox) 170 mg SC BID [facility] Last Admin: 08/03/18 08:00 Dose: 170 mg Famotidine (Pepcid) 20 mg PO BID [facility] Last Admin: 08/03/18 07:58 Dose: 20 mg Fluticasone Propionate (Flonase Nasal [place]) 2 spray NASAL BID [facility] Last Admin: 08/03/18 07:59 Dose: 2 spray Glucagon () 1 mg IM .X1 PRN PRN Reason: Hypoglycemia Morphine Sulfate () 4 mg IV Q3H PRN PRN PRN Reason: Severe pain (7-10/10) Last Admin: 08/01/18 17:39 Dose: 4 mg Nicotine (Nicoderm Cq (Pbkc)) 21 mg TRANSDERM. DAILY [facility] Last Admin: 08/03/18 07:58 Dose: 21 mg Nortriptyline HCl (Pamelor) 50 mg PO QHS [facility] Last Admin: 08/02/18 21:34 Dose: 50 mg Nystatin (Mycostatin Powder) 1 applic TOPICAL BID [facility]; Protocol Last Admin: 08/03/18 07:59 Dose: 1 applicatio Ondansetron HCl (Zofran) 4 mg IV Q8H PRN PRN PRN Reason: NAUSEA/VOMITING Last Admin: 07/31/18 02:15 Dose: 4 mg Oxycodone HCl (Oxyir) 5 - 10 mg PO Q4H PRN PRN PRN Reason: SEVERE PAIN (6-10/10) Last Admin: 08/03/18 16:08 Dose: 10 mg Senna/Docusate Sodium (Senokot-S, Libby-Colace) 2 tablet PO BID [facility] Last Admin: 08/03/18 07:58 Dose: 2 tablet Sodium Chloride () 5 - 15 ml IV UD PRN PRN Reason: SALINE FLUSH Last Admin: 08/01/18 17:40 Dose: 10 ml Medical Necessity - Tobacco Use Smoking Status: Current every day smoker Tobacco Use: Cigarettes Assessment/Plan All Active Problems Metastasis (Acute) Disseminated cancer (Acute) Squamous cell carcinoma lung (Acute) Neuroendocrine carcinoma (Acute) Cancer, metastatic to bone (Acute) The patient is a 53 y/o M w/ PMHx: JACK on CPAP q HS, Morbid Obesity, Chronic COPD, HTN, HLD, Depression and Anxiety Allergic Rhinitis who presents to the [facility] ED on 07/26/18 with history of 1 month progressively worsening right hip discomfort as well as coccyx pain. (1) Metastatic Cancer to the Bone (Neuroendocrine carcinoma) and concurrent Acute Squamous Cell Carcinoma of the Lung: ED evaluation with noted recent bone scan outpatient per primary care physician secondary to ongoing right hip pain which demonstrated concern for cancer with ongoing debility prompting ED evaluation. Patient admitted to medical surgical floor, imaging pursued including CT abdomen, CT chest and CT right lower extremity with noted bilateral iliac osteolytic lesions consistent with metastatic disease and a left perihilar and left upper lobe large irregular tumor in a 10 cm diameter range with secondary soft tissue invasion of the left hilum and upper left mediastinum with multiple bulky mediastinal and left hilar lymph nodes compatible with annie metastases with chronic lung disease with centrilobular and distal lobular emphysema as well as metastatic bone disease including pathologic fracture of the medial right clavicle as well as metastatic disease involving the right femoral head and mid to distal femoral shaft. Further evaluation included 07/30/18 right prophylactic anterograde femoral nailing, 07/30/18 CT guided biopsy of the posterior aspect of the left iliac bone obtained now resulting with neuroendocrine carcinoma, 07/29/18 Bronchoscopy (Left upper lobe mass, Left upper lobe lung mass) w/ endobronchial biopsy was performed and washings were obtained now resulting w/ Squamous cell carcinoma of the lung. Following surgical intervention and biopsy PT, OT evaluations as well as case management with plan to transition to halfway facility for ongoing therapies. Given these pathology findings will plan follow-up with Oncology, Dr. Geiger at the [facility] in 1-2 days for outpatient set-up of PET/CT, brain imaging as well as radiation oncology consultation. (2) Chronic COPD: ATC duonebs, PRN albuterol, HOB, IS parameters. (3) Morbid Obesity: Weight loss and lifestyle changes encouraged, nutrition consulted. (4) Tobacco Abuse: Encouraged cessation, inpatient consultation per RT, NR if desired. (5) Intertrigo: Continue topical nystatin powder. (6) Allergic rhinitis: Continue home Flonase regimen. (7) Hypertension: Not on regimen, BP normal range, continue to trend and add agents as needed. (8) Hyperlipidemia: Not on regimen, defer to outpatient. (9) Anxiety and depression: Not on regimen, current mood appropriate response for acute presentation, will benefit from continued evaluations and addition of regimen/therapy as needed. (10) JACK: CPAP nightly. (11) DVT prophylaxis: SCDs, therapeutic Lovenox given immobility and metastatic cancer state with high risk for VTE as well as per pulmonary recommendation secondary to tumor encircling pulmonary artery as well. Code Visit Inpatient E&M: 32587 Subs Hosp L2
[2018-08-03] MEDS: Morphine 4 MG/ML Syringe IV ×2 (18:47→22:24)
[2018-08-03] MEDS: Nortriptyline 25 MG Capsule 50 MG PO (21:12)
[2018-08-03] MEDS: 0.9% NaCl Peripheral Flush Adult/Peds IV (22:24)
[2018-08-04] VITALS (8 sets, daily range): BP systolic 117–126; BP diastolic 66–72; PULSE 80–107; RESP 16–20; TEMP 35.9–36.8; O2SAT 92–96
[2018-08-04] MEDS: Morphine 4 MG/ML Syringe IV (02:47)
[2018-08-04] MEDS: 0.9% NaCl Peripheral Flush Adult/Peds IV ×2 (02:51→21:37)
[2018-08-04 06:23] LABS: Absolute Lymphocyte Count 1.92 X10^3/ul (0.83-4.51); Absolute Neutrophil Count 8.4 X10^3/uL (2.0-7.7); Basophil# 0.02 X10^3/uL; Basophil% 0.2 % (0-1); Eosinophil# 0.15 X10^3/uL; Eosinophils% 1.3 % (0-5); Hematocrit 39.5 % (40-54); Hemoglobin 12.7 g/dl (13.0-16.5); Lymphocyte # 1.92 X10^3/ul (4.0); Lymphocyte % 16.3 % (19-41); Mean Corp Hgb Conc 32.2 g/gl (32-36); Mean Corpuscular Hgb 28.7 pg (27.0-32.0); Mean Corpuscular Volume 89.4 fL (80-94); Mean Platelet Vol. 10.5 fl (6.2-12.0); Monocyte% 9.4 % (0-10); Neutrophil # 8.43 X10^3/uL (2.7-7.7); Neutrophil % 71.7 % (47-70); Platelet Count 197 K/mm3 (150-450); RBC Distribution Width CV 14.9 % (11.6-14.6); RBC Distribution Width SD 48.7 fl (35.1-43.9); Red Blood Count 4.42 M/mm3 (4.6-6.2); White Blood Count 11.8 K/mm3 (4.4-11.0)
[2018-08-04 06:27] LABS: POSITIVE COUNT NO; POSITIVE DIFFERENTIAL NO; POSITIVE MORPHOLOGY NO
[2018-08-04 06:49] LABS: Anion Gap 7 (5-15); BUN 13 mg/dL (7-18); BUN/Creat Ratio 18.3 RATIO (10-20); Calcium,Total 8.6 mg/dL (8.5-10.1); Chloride 102 mmol/L (98-107); Creatinine, Serum 0.71 mg/dL (0.70-1.30); EST Glomerular Filtration Rate 124 mL/min (>60); Est Glom Filt Rate - Afr Amer 150 mL/min (>60); Estimated Creatinine Clearance 129.62 ml/min; Glucose 105 mg/dL (74-106); Sodium Level 139 mmol/L (136-145)
[2018-08-04] MEDS: Ipratropium/Albuterol Sulfate 3 ML AMPUL.NEB INHALATION ×3 (06:58→19:25)
[2018-08-04] MEDS: oxyCODONE 5 MG Tablet PO ×4 (07:32→21:21)
--- NOTE | 2018-08-04 07:45 | RAD_ITS ---
STUDY: X-RAY - LEFT SHOULDER REASON FOR EXAM: Male, 53 years old. Pain and limitation range of motion following injury. TECHNIQUE: 4 view(s) of the shoulder. COMPARISON: None. FINDINGS: Normal glenohumeral articulation. Normal acromioclavicular joint. Normal acromion. Normal humeral head and visualized proximal humerus. The soft tissue structures are unremarkable. Normal visualized pulmonary apex. RAD/Shoulder min 2 Views IMPRESSION: Normal x-ray examination of the shoulder. Electronically Signed: Diony Denney, at 10:39 EDT , Service support ,
--- NOTE | 2018-08-04 09:39 | PCM.PN.HOSP ---
Patient Problems: Active and Suspected Problems Metastasis (Acute) Disseminated cancer (Acute) Squamous cell carcinoma lung (Acute) Neuroendocrine carcinoma (Acute) Cancer, metastatic to bone (Acute) Subjective: Patient overnight did have a fall backwards into his chair and did feel as though he hit his left shoulder and has had left shoulder discomfort since. Patient prior to this noted that pain has been controlled and would have been up working with physical therapy the day prior. Discussed plan of care which included plain film of the left shoulder and continued long-term facility precertification pending. Discussed also recent pathology results and patient understands need to follow-up with oncology within 1 to 2 days following transition to long-term facility. Patient denies fevers, chills, nausea, emesis, abdominal pain, chest pain or dyspnea. Objective: Physical Examination: General: awake, alert, oriented x 3 and cooperative, seated upright in bedside chair, notes L shoulder discomfort, specifically focal location, mild TTP. Skin: normal color, turgor, no icterus, cyanosis s/p R prophylactic anterograde femoral nailing, focal L superior shoulder discomfort, focal, mild TTP. HEENT: AT/NC, EOMI, PERRLA, improved MMM. Lungs: CTA bilaterally, moderate effort, moderate decrease BL bases, no rales, ronchi or wheezing distant given habitus. Heart: Regular rate and rhythm; no gallop, rub audible. Abdomen: soft, morbidly obese, NTTP, ND, normal BS, distant bowel sounds. Extremities: no cyanosis, clubbing, s/p R prophylactic anterograde femoral nailing w/ dressings in place, focal L superior shoulder discomfort, focal, mild TTP. Neurological: patient awake, alert, oriented x 3; cognitive function intact; pupils equally reactive to light and accomodation; cranial nerves II-XII grossly normal, moving all 4 extremities; however, extremely limited given habitus and recent intervention s/p R prophylactic anterograde femoral nailing w/ dressings in place and also recent discomfort to the L shoulder, strength accordingly severely globally decreased. Psychiatric: affect appears normal, no acute evidence of depressive or anxiety feelings. Vitals/I&O's: Vital Signs Temp Pulse Resp BP Pulse Ox 96.7 F L 83 16 117/66 93 08/04/18 02:53 08/04/18 06:58 08/04/18 06:58 08/04/18 02:53 08/04/18 06:59 Oxygen Flow Rate (L/min) [7] 2 Oxygen Flow Rate (L/min) [6] 2 Oxygen Flow Rate (L/min) [5] 2 Oxygen Flow Rate (L/min) [4] 2 Oxygen Flow Rate (L/min) [3] 2 Oxygen Flow Rate (L/min) [2] 2 Oxygen Flow Rate (L/min) [1 ( 2 Initial Baseline)] Oxygen Flow Rate (L/min) 2 Oxygen Delivery Method [7] Nasal Cannula Oxygen Delivery Method [6] Nasal Cannula Oxygen Delivery Method [5] Nasal Cannula Oxygen Delivery Method [4] Nasal Cannula Oxygen Delivery Method [3] Nasal Cannula Oxygen Delivery Method [2] Nasal Cannula Oxygen Delivery Method [1 ( Nasal Cannula Initial Baseline)] Oxygen Delivery Method Room Air Weight: 375 lb Body Mass Index (BMI) 52.2 Intake and Output for Last 24 Hours 08/02/18 08/03/18 08/04/18 23:59 23:59 23:59 Intake Total 2220 / 2220 4600 / 4600 800 / 800 Output Total 200 / 200 1400 / 1400 Balance 2019 3200 / 3200 800 / 800 Laboratory Results 08/04/18 05:54: WBC 11.8 H, RBC 4.42 L, Hgb 12.7 L, Hct 39.5 L, MCV 89.4, MCH 28.7, MCHC 32.2, RDW 14.9 H, RDW Differential 48.7 H, Plt Count 197, MPV 10.5, Immature Gran % (Auto) 1.100 H, Neut % (Auto) 71.7 H, Lymph % (Auto) 16.3 L, [place] % (Auto) 9.4, Eos % (Auto) 1.3, Baso % (Auto) 0.2, Absolute Neuts (auto) 8.4 H, Absolute Lymphs (auto) 1.92, Total Counted Not Reportable 08/04/18 05:54: Sodium 139, Potassium 4.0, Chloride 102, Carbon Dioxide 30.0, Anion Gap 7, BUN 13, Creatinine 0.71, Estim Creat Clear Calc 129.62, Est GFR (MDRD) Af Amer 150, Est GFR (MDRD) Non-Af 124, BUN/Creatinine Ratio 18.3, Glucose 105, Calcium 8.6 Current Medications Albuterol Sulfate (Ventolin Aerosols) 2.5 mg INHALATION Q2H PRN PRN PRN Reason: sob or wheezes Albuterol/Ipratropium (Duoneb) 3 ml INHALATION Q6HWA.RT [facility] Last Admin: 08/04/18 06:58 Dose: 3 ml Celecoxib (Celebrex) 200 mg PO DAILY [facility] Last Admin: 08/03/18 07:58 Dose: 200 mg Cyclobenzaprine HCl (Flexeril) 10 mg PO TID PRN PRN PRN Reason: MUSCLE SPASM Last Admin: 08/02/18 21:35 Dose: 10 mg Dexamethasone (Decadron) 4 mg PO DAILY@0800 [facility] Last Admin: 08/03/18 07:58 Dose: 4 mg Dextrose (D50w Syringe) 0 gm IV X1 PRN; Protocol PRN Reason: Hypoglycemia Enoxaparin Sodium (Lovenox) 170 mg SC BID [facility] Last Admin: 08/03/18 21:09 Dose: 170 mg Famotidine (Pepcid) 20 mg PO BID [facility] Last Admin: 08/03/18 21:08 Dose: 20 mg Fluticasone Propionate (Flonase Nasal [place]) 2 spray NASAL BID [facility] Last Admin: 08/03/18 21:08 Dose: 2 spray Glucagon () 1 mg IM .X1 PRN PRN Reason: Hypoglycemia Morphine Sulfate () 4 mg IV Q3H PRN PRN PRN Reason: Severe pain (7-10/10) Last Admin: 08/04/18 02:47 Dose: 4 mg Nicotine (Nicoderm Cq (Pbkc)) 21 mg TRANSDERM. DAILY [facility] Last Admin: 08/03/18 07:58 Dose: 21 mg Nortriptyline HCl (Pamelor) 50 mg PO QHS [facility] Last Admin: 08/03/18 21:12 Dose: 50 mg Nystatin (Mycostatin Powder) 1 applic TOPICAL BID [facility]; Protocol Last Admin: 08/03/18 21:08 Dose: 1 applicatio Ondansetron HCl (Zofran) 4 mg IV Q8H PRN PRN PRN Reason: NAUSEA/VOMITING Last Admin: 07/31/18 02:15 Dose: 4 mg Oxycodone HCl (Oxyir) 5 - 10 mg PO Q4H PRN PRN PRN Reason: SEVERE PAIN (6-10/10) Last Admin: 08/04/18 07:32 Dose: 10 mg Senna/Docusate Sodium (Senokot-S, Libby-Colace) 2 tablet PO BID [facility] Last Admin: 08/03/18 21:08 Dose: 2 tablet Sodium Chloride () 5 - 15 ml IV UD PRN PRN Reason: SALINE FLUSH Last Admin: 08/04/18 02:51 Dose: 10 ml Medical Necessity - Tobacco Use Smoking Status: Current every day smoker Tobacco Use: Cigarettes Assessment/Plan All Active Problems Metastasis (Acute) Disseminated cancer (Acute) Squamous cell carcinoma lung (Acute) Neuroendocrine carcinoma (Acute) Cancer, metastatic to bone (Acute) The patient is a 53 y/o M w/ PMHx: JACK on CPAP q HS, Morbid Obesity, Chronic COPD, HTN, HLD, Depression and Anxiety Allergic Rhinitis who presents to the [facility] ED on 07/26/18 with history of 1 month progressively worsening right hip discomfort as well as coccyx pain. (1) Metastatic Cancer to the Bone (Neuroendocrine carcinoma) and concurrent Acute Squamous Cell Carcinoma of the Lung: ED evaluation with noted recent bone scan outpatient per primary care physician secondary to ongoing right hip pain which demonstrated concern for cancer with ongoing debility prompting ED evaluation. Patient admitted to medical surgical floor, imaging pursued including CT abdomen, CT chest and CT right lower extremity with noted bilateral iliac osteolytic lesions consistent with metastatic disease and a left perihilar and left upper lobe large irregular tumor in a 10 cm diameter range with secondary soft tissue invasion of the left hilum and upper left mediastinum with multiple bulky mediastinal and left hilar lymph nodes compatible with annie metastases with chronic lung disease with centrilobular and distal lobular emphysema as well as metastatic bone disease including pathologic fracture of the medial right clavicle as well as metastatic disease involving the right femoral head and mid to distal femoral shaft. Further evaluation included 07/30/18 right prophylactic anterograde femoral nailing, 07/30/18 CT guided biopsy of the posterior aspect of the left iliac bone obtained now resulting with neuroendocrine carcinoma, 07/29/18 Bronchoscopy (Left upper lobe mass, Left upper lobe lung mass) w/ endobronchial biopsy was performed and washings were obtained now resulting w/ Squamous cell carcinoma of the lung. Given these pathology findings will plan follow-up with Oncology, Dr. Geiger at the [facility] in 1-2 days for outpatient set-up of PET/CT, brain imaging as well as radiation oncology consultation. Pending SNF precertification, once obtained unless L shoulder intervention needed will discharge to facility. (2) Mechanical Fall into Chair with Acute L Shoulder Discomfort: Notes fall backwards into chair, did not hit head nor floor, noted L shoulder discomfort following. Plain film L shoulder pending. (3) Chronic COPD: ATC duonebs, PRN albuterol, HOB, IS parameters. (4) Morbid Obesity: Weight loss and lifestyle changes encouraged, nutrition consulted. (5) Tobacco Abuse: Encouraged cessation, inpatient consultation per RT, NR if desired. (6) Intertrigo: Continue topical nystatin powder. (7) Allergic rhinitis: Continue home Flonase regimen. (8) Hypertension: Not on regimen, BP normal range, continue to trend and add agents as needed. (9) Hyperlipidemia: Not on regimen, defer to outpatient. (10) Anxiety and depression: Not on regimen, current mood appropriate response for acute presentation, will benefit from continued evaluations and addition of regimen/therapy as needed. (11) JACK: CPAP nightly. (12) DVT prophylaxis: SCDs, therapeutic Lovenox. Code Visit Inpatient E&M: 68908 Subs Hosp L2
--- NOTE | 2018-08-04 09:45 | PN_ITS ---
Patient Problems: Active and Suspected Problems Metastasis (Acute) Disseminated cancer (Acute) Squamous cell carcinoma lung (Acute) Neuroendocrine carcinoma (Acute) Cancer, metastatic to bone (Acute) Subjective: Patient overnight did have a fall backwards into his chair and did feel as though he hit his left shoulder and has had left shoulder discomfort since. Patient prior to this noted that pain has been controlled and would have been up working with physical therapy the day prior. Discussed plan of care which included plain film of the left shoulder and continued shelter facility precertification pending. Discussed also recent pathology results and patient understands need to follow-up with oncology within 1 to 2 days following transition to shelter facility. Patient denies fevers, chills, nausea, emesis, abdominal pain, chest pain or dyspnea. Objective: Physical Examination: General: awake, alert, oriented x 3 and cooperative, seated upright in bedside chair, notes L shoulder discomfort, specifically focal location, mild TTP. Skin: normal color, turgor, no icterus, cyanosis s/p R prophylactic anterograde femoral nailing, focal L superior shoulder discomfort, focal, mild TTP. HEENT: AT/NC, EOMI, PERRLA, improved MMM. Lungs: CTA bilaterally, moderate effort, moderate decrease BL bases, no rales, ronchi or wheezing distant given habitus. Heart: Regular rate and rhythm; no gallop, rub audible. Abdomen: soft, morbidly obese, NTTP, ND, normal BS, distant bowel sounds. Extremities: no cyanosis, clubbing, s/p R prophylactic anterograde femoral nailing w/ dressings in place, focal L superior shoulder discomfort, focal, mild TTP. Neurological: patient awake, alert, oriented x 3; cognitive function intact; pupils equally reactive to light and accomodation; cranial nerves II-XII grossly normal, moving all 4 extremities; however, extremely limited given habitus and recent intervention s/p R prophylactic anterograde femoral nailing w/ dressings in place and also recent discomfort to the L shoulder, strength accordingly severely globally decreased. Psychiatric: affect appears normal, no acute evidence of depressive or anxiety feelings. Vitals/I&O's: Vital Signs Temp Pulse Resp BP Pulse Ox 96.7 F L 83 16 117/66 93 08/04/18 02:53 08/04/18 06:58 08/04/18 06:58 08/04/18 02:53 08/04/18 06:59 Oxygen Flow Rate (L/min) [7] 2 Oxygen Flow Rate (L/min) [6] 2 Oxygen Flow Rate (L/min) [5] 2 Oxygen Flow Rate (L/min) [4] 2 Oxygen Flow Rate (L/min) [3] 2 Oxygen Flow Rate (L/min) [2] 2 Oxygen Flow Rate (L/min) [1 ( 2 Initial Baseline)] Oxygen Flow Rate (L/min) 2 Oxygen Delivery Method [7] Nasal Cannula Oxygen Delivery Method [6] Nasal Cannula Oxygen Delivery Method [5] Nasal Cannula Oxygen Delivery Method [4] Nasal Cannula Oxygen Delivery Method [3] Nasal Cannula Oxygen Delivery Method [2] Nasal Cannula Oxygen Delivery Method [1 ( Nasal Cannula Initial Baseline)] Oxygen Delivery Method Room Air Weight: 375 lb Body Mass Index (BMI) 52.2 Intake and Output for Last 24 Hours 08/02/18 08/03/18 08/04/18 23:59 23:59 23:59 Intake Total 2220 / 2220 4600 / 4600 800 / 800 Output Total 200 / 200 1400 / 1400 Balance 2019 3200 / 3200 800 / 800 Laboratory Results 08/04/18 05:54: WBC 11.8 H, RBC 4.42 L, Hgb 12.7 L, Hct 39.5 L, MCV 89.4, MCH 28.7, MCHC 32.2, RDW 14.9 H, RDW Differential 48.7 H, Plt Count 197, MPV 10.5, Immature Gran % (Auto) 1.100 H, Neut % (Auto) 71.7 H, Lymph % (Auto) 16.3 L, [place] % (Auto) 9.4, Eos % (Auto) 1.3, Baso % (Auto) 0.2, Absolute Neuts (auto) 8.4 H, Absolute Lymphs (auto) 1.92, Total Counted Not Reportable 08/04/18 05:54: Sodium 139, Potassium 4.0, Chloride 102, Carbon Dioxide 30.0, Anion Gap 7, BUN 13, Creatinine 0.71, Estim Creat Clear Calc 129.62, Est GFR (MDRD) Af Amer 150, Est GFR (MDRD) Non-Af 124, BUN/Creatinine Ratio 18.3, Glucose 105, Calcium 8.6 Current Medications Albuterol Sulfate (Ventolin Aerosols) 2.5 mg INHALATION Q2H PRN PRN PRN Reason: sob or wheezes Albuterol/Ipratropium (Duoneb) [address] [facility] Last Admin: 08/04/18 06:58 Dose: 3 ml Celecoxib (Celebrex) [address] [facility] Last Admin: 08/03/18 07:58 Dose: 200 mg Cyclobenzaprine HCl (Flexeril) 10 mg PO TID PRN PRN PRN Reason: MUSCLE SPASM Last Admin: 08/02/18 21:35 Dose: 10 mg Dexamethasone (Decadron) 4 mg PO DAILY@0800 [facility] Last Admin: 08/03/18 07:58 Dose: 4 mg Dextrose (D50w Syringe) 0 gm IV X1 PRN; Protocol PRN Reason: Hypoglycemia Enoxaparin Sodium (Lovenox) [address] [facility] Last Admin: 08/03/18 21:09 Dose: 170 mg Famotidine (Pepcid) [address] [facility] Last Admin: 08/03/18 21:08 Dose: 20 mg Fluticasone Propionate (Flonase Nasal [place]) [address] [facility] Last Admin: 08/03/18 21:08 Dose: 2 spray Glucagon () 1 mg IM .X1 PRN PRN Reason: Hypoglycemia Morphine Sulfate () 4 mg IV Q3H PRN PRN PRN Reason: Severe pain (7-10/10) Last Admin: 08/04/18 02:47 Dose: 4 mg Nicotine (Nicoderm Cq (Pbkc)) [address] [facility] Last Admin: 08/03/18 07:58 Dose: 21 mg Nortriptyline HCl (Pamelor) [address] [facility] Last Admin: 08/03/18 21:12 Dose: 50 mg Nystatin (Mycostatin Powder) [address] [facility]; Protocol Last Admin: 08/03/18 21:08 Dose: 1 applicatio Ondansetron HCl (Zofran) 4 mg IV Q8H PRN PRN PRN Reason: NAUSEA/VOMITING Last Admin: 07/31/18 02:15 Dose: 4 mg Oxycodone HCl (Oxyir) 5 - 10 mg PO Q4H PRN PRN PRN Reason: SEVERE PAIN (6-10/10) Last Admin: 08/04/18 07:32 Dose: 10 mg Senna/Docusate Sodium (Senokot-S, Libby-Colace) 2 tablet PO BID [facility] Last Admin: 08/03/18 21:08 Dose: 2 tablet Sodium Chloride () 5 - 15 ml IV UD PRN PRN Reason: SALINE FLUSH Last Admin: 08/04/18 02:51 Dose: 10 ml Medical Necessity - Tobacco Use Smoking Status: Current every day smoker Tobacco Use: Cigarettes Assessment/Plan All Active Problems Metastasis (Acute) Disseminated cancer (Acute) 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 on 07/26/18 with history of 1 month progressively worsening right hip discomfort as well as coccyx pain. (1) Metastatic Cancer to the Bone (Neuroendocrine carcinoma) and concurrent Acute Squamous Cell Carcinoma of the Lung: ED evaluation with noted recent bone scan outpatient per primary care physician secondary to ongoing right hip pain which demonstrated concern for cancer with ongoing debility prompting ED evaluation. Patient admitted to medical surgical floor, imaging pursued including CT abdomen, CT chest and CT right lower extremity with noted bilateral iliac osteolytic lesions consistent with metastatic disease and a left perihilar and left upper lobe large irregular tumor in a 10 cm diameter range with secondary soft tissue invasion of the left hilum and upper left mediastinum with multiple bulky mediastinal and left hilar lymph nodes compatible with annie metastases with chronic lung disease with centrilobular and distal lobular emphysema as well as metastatic bone disease including pathologic fracture of the medial right clavicle as well as metastatic disease involving the right femoral head and mid to distal femoral shaft. Further evaluation included 07/30/18 right prophylactic anterograde femoral nailing, 07/30/18 CT guided biopsy of the posterior aspect of the left iliac bone obtained now resulting with neuroendocrine carcinoma, 07/29/18 Bronchoscopy (Left upper lobe mass, Left upper lobe lung mass) w/ endobronchial biopsy was performed and washings were obtained now resulting w/ Squamous cell carcinoma of the lung. Given these pathology findings will plan follow-up with Oncology, Dr. Geiger at the [facility] in 1-2 days for outpatient set-up of PET/CT, brain imaging as well as radiation oncology consultation. Pending SNF precertification, once obtained unless L shoulder intervention needed will discharge to facility. (2) Mechanical Fall into Chair with Acute L Shoulder Discomfort: Notes fall backwards into chair, did not hit head nor floor, noted L shoulder discomfort following. Plain film L shoulder pending. (3) Chronic COPD: ATC duonebs, PRN albuterol, HOB, IS parameters. (4) Morbid Obesity: Weight loss and lifestyle changes encouraged, nutrition consulted. (5) Tobacco Abuse: Encouraged cessation, inpatient consultation per RT, NR if desired. (6) Intertrigo: Continue topical nystatin powder. (7) Allergic rhinitis: Continue home Flonase regimen. (8) Hypertension: Not on regimen, BP normal range, continue to trend and add agents as needed. (9) Hyperlipidemia: Not on regimen, defer to outpatient. (10) Anxiety and depression: Not on regimen, current mood appropriate response for acute presentation, will benefit from continued evaluations and addition of regimen/therapy as needed. (11) JACK: CPAP nightly. (12) DVT prophylaxis: SCDs, therapeutic Lovenox. Code Visit Inpatient E&M: 15076 Subs Hosp L2
--- NOTE | 2018-08-04 09:50 | CASEMGMT ---
Addendum entered by Jayla Man 08/04/18 13:18: DIANA faxed updated clinicals to [facility]. Original Note: Social Work Note DIANA placed a call to Kellie at [facility] and asked about update regarding pt's pre-cert. Kellie states she hasn't heard anything regarding pre-cert yet and has been in contact with their business office who submits information to pre-cert. Kellie states that their business office states that [employer] has been taking longer to get back to them. Kellie states she will continue to work on pt's pre-cert. Plan: [facility] pending pre-cert Jayla Man DIE ASSEMBLER, FAST FOOD RESTAURANT MANAGER
[2018-08-04] MEDS: Celecoxib 200 MG Capsule PO (10:30)
[2018-08-04] MEDS: dexAMETHasone 4 MG Tablet PO (10:30)
[2018-08-04] MEDS: Senna/Docusate Sodium 1 Tablet 2 TABLET PO ×2 (10:30→21:26)
[2018-08-04] MEDS: Famotidine 20 MG Tablet PO ×2 (10:30→21:25)
[2018-08-04] MEDS: Enoxaparin 100 MG/ML Syringe 170 MG SC ×2 (10:30→21:24)
[2018-08-04] MEDS: Nystatin Powder 15gm Bottle 1 APPLIC TOPICAL ×2 (10:31→21:24)
[2018-08-04] MEDS: Fluticasone 0.05% 1 SPRAY NASAL.SRY 2 SPRAY NASAL ×2 (10:31→21:23)
--- NOTE | 2018-08-04 14:59 | CASEMGMT ---
Addendum entered by Jayla Man 08/04/18 16:11: Kellie at [facility] was provided MS3 direct number in the event pre-cert is obtained after this worker leaves for the day. Green sheet on chart. Original Note: Social Work Note SW received call from Kellie at [facility] stating she has reached out to [facility] multiple times today and hasn't heard anything regarding pre-cert. Plan: [facility] pending pre-cert Jayla Man ASSESSMENT ANALYST, AUDIO TAPE LIBRARIAN
[2018-08-04] MEDS: Nortriptyline 25 MG Capsule 50 MG PO (21:25)
[2018-08-05] VITALS (8 sets, daily range): BP systolic 123–134; BP diastolic 71–74; PULSE 78–104; RESP 18–20; TEMP 36.6–37.2; O2SAT 92–96
[2018-08-05] MEDS: Morphine 4 MG/ML Syringe IV (00:44)
[2018-08-05] MEDS: oxyCODONE 5 MG Tablet PO ×3 (04:17→13:45)
[2018-08-05 05:54] LABS: Absolute Neutrophil Count 8.3 X10^3/uL (2.0-7.7); Basophil# 0.02 X10^3/uL; Basophil% 0.2 % (0-1); Eosinophil# 0.12 X10^3/uL; Hematocrit 39.1 % (40-54); Hemoglobin 12.8 g/dl (13.0-16.5); Lymphocyte % 14.8 % (19-41); Mean Corp Hgb Conc 32.7 g/gl (32-36); Mean Corpuscular Hgb 29.4 pg (27.0-32.0); Mean Corpuscular Volume 89.7 fL (80-94); Monocyte# 1.15 X10^3/uL; Neutrophil # 8.32 X10^3/uL (2.7-7.7); Neutrophil % 72.7 % (47-70); Platelet Count 215 K/mm3 (150-450); RBC Distribution Width CV 15.1 % (11.6-14.6); RBC Distribution Width SD 49.3 fl (35.1-43.9); Red Blood Count 4.36 M/mm3 (4.6-6.2); White Blood Count 11.5 K/mm3 (4.4-11.0)
[2018-08-05 05:56] LABS: POSITIVE COUNT NO; POSITIVE DIFFERENTIAL NO; POSITIVE MORPHOLOGY NO
[2018-08-05 06:04] LABS: Anion Gap 5 (5-15); BUN 16 mg/dL (7-18); BUN/Creat Ratio 23.8 RATIO (10-20); Calcium,Total 8.9 mg/dL (8.5-10.1); Chloride 101 mmol/L (98-107); Creatinine, Serum 0.67 mg/dL (0.70-1.30); EST Glomerular Filtration Rate 132 mL/min (>60); Est Glom Filt Rate - Afr Amer 159 mL/min (>60); Estimated Creatinine Clearance 137.36 ml/min; Glucose 95 mg/dL (74-106); Sodium Level 137 mmol/L (136-145)
[2018-08-05] MEDS: dexAMETHasone 4 MG Tablet PO (07:50)
[2018-08-05] MEDS: Famotidine 20 MG Tablet PO (09:56)
[2018-08-05] MEDS: Celecoxib 200 MG Capsule PO (09:56)
[2018-08-05] MEDS: Senna/Docusate Sodium 1 Tablet 2 TABLET PO (09:56)
[2018-08-05] MEDS: Fluticasone 0.05% 1 SPRAY NASAL.SRY 2 SPRAY NASAL (09:57)
[2018-08-05] MEDS: Nystatin Powder 15gm Bottle 1 APPLIC TOPICAL (09:57)
[2018-08-05] MEDS: Enoxaparin 100 MG/ML Syringe 170 MG SC (09:58)
[2018-08-05] MEDS: Albuterol 2.5 MG/3 ML VIAL.NEB. INHALATION (10:10)
--- NOTE | 2018-08-05 10:27 | PCM.HOSP.N ---
Hospitalist Note Please see patient discharge summary, dated 08/03/18 when initially started. Discharge date as noted 08/05/18. Discharge summary updated on this discharge note and also day of discharge note specifically for 08/05/18 added to the summary with update. Code Visit Inpatient E&M: 32634 Disch Hosp
[2018-08-05] MEDS: Ipratropium/Albuterol Sulfate 3 ML AMPUL.NEB INHALATION (13:41)
--- NOTE | 2018-08-05 13:48 | CASEMGMT ---
Social Work Note SW received call from Kellie at [facility] stating she received pre-cert and pt is able to discharge today. Physician updated. DIANA faxed completed discharge paperwork to [facility] including transfer to extended care facility, signed medication list and any scripts. Original in SNF folder and copy on pt's chart. DIANA completed [facility] in [facility]. Original in SNF folder and copy on pt's chart. SW spoke with pt, updated him on approval to [facility] and discharge to [facility] today. Pt states that he has called both of his daughters and none of them are able to transport pt. SW explained that this worker can attempt to arrange transportation via wheelchair van but isn't sure if there are any available. DIANA placed a call to [facility]. DIANA explained to [facility] that pt is 375lbs and asked if they had big enough wheelchair for pt to be transported in. [facility] states that they don't have any wheelchair vans big enough and that pt will need to be transported via bariatric cot. DIANA arranged transportation via bariatric cot for 4:00pm. RN updated. While this worker was completing transportation form, RN updated this worker that pt's daughter is able to transport pt around 5:00pm. DIANA placed a call back to [facility] and cancelled transportation. DIANA placed a call to Kellie at [facility], updated her on transportation time and asked for a different fax number as this worker has tried multiple times to send fax but hasn't been successful. Kellie provided fax number [phone]. DIANA refaxed discharge paperwork to [facility]. Plan: Pt to discharge to [facility] today skilled with family transportation via private vehicle at 5:00pm. Jayla Man COAL CONVEYOR OPERATOR, RISK DEVELOPER
--- NOTE | 2018-08-05 17:09 | CHAPLAIN ---
Type of Pastoral Visit ___ Initial Visit _x__ Follow-up Visit ___ On-call Visit ___ General Patient Visit ___ Spiritual Assessment ___ Family Conference ___ Bereavement ___ Rapid Response ___ Code Blue ___ Other (describe below) Pastoral Care Referral From _x__ Patient ___ Family ___ Nurse ___ Physician ___ Communications Administrator ___ Network Applications Specialist ___ Other (describe below) Sacrament/Intervention _x__ Active listening ___ Anointing ___ Episcopal ___ Bereavement ___ Communion ___ Eduarda exploration ___ ___ Life review ___ Prayer ___ Reconciliation ___ Sacrament of Sick _x__ Supportive presence ___ Wedding ___ Other (describe below) Pastoral Comments
== END 2018-08-05 18:12 | disposition skilled nursing facility (03) | DRG 680 ==
LOC: ED 19:05 → MS3 22:58
PROVIDERS: Anesthesiology; Family Medicine; Internal Medicine Critical Care Medicine; Orthopaedic Surgery; Admitting Provider Hospitalist; Emergency Provider Emergency Medicine; Family Provider Family Medicine; PCP Family Medicine; Referring Provider Hospitalist; Visit Provider Family Medicine
PROC: 0BJ08ZZ Inspection of Tracheobronchial Tree, Via Natural or Artificial Opening Endoscopic (ICD-10-PCS; CPT 31622; principal; 2018-07-29 12:30)
PROC: 0QHB06Z Insertion of Intramedullary Internal Fixation Device into Right Lower Femur, Open Approach (ICD-10-PCS; CPT 27245; principal; 2018-07-30 14:00)
DX: D3A.8 Other benign neuroendocrine tumors (principal); C34.90 Malignant neoplasm of unspecified part of unspecified bronchus or lung; C79.51 Secondary malignant neoplasm of bone; G47.33 Obstructive sleep apnea (adult) (pediatric); E66.01 Morbid (severe) obesity due to excess calories; I10 Essential (primary) hypertension; F41.9 Anxiety disorder, unspecified; F32.9 Major depressive disorder, single episode, unspecified; M84.511A Pathological fracture in neoplastic disease, right shoulder, initial encounter for fracture; E78.5 Hyperlipidemia, unspecified; F17.210 Nicotine dependence, cigarettes, uncomplicated; Z79.1 Long term (current) use of non-steroidal anti-inflammatories (NSAID); Z80.6 Family history of leukemia; Z68.43 Body mass index [BMI] 50.0-59.9, adult; L30.4 Erythema intertrigo; J30.9 Allergic rhinitis, unspecified; J43.2 Centrilobular emphysema; F12.90 Cannabis use, unspecified, uncomplicated; M53.3 Sacrococcygeal disorders, not elsewhere classified
CPT/HCPCS: 36415; 71046; 71270; 73030; 73060; 73090; 73502; 73552; 73590; 73700; 74170; 76000; 77012; 80048; 82962; 83735; 84100; 85025; 85610; 85730; 88108; 88161; 88172; 88305; 88311; 88313; 88341; 88342; 89050; 93005; 94640; 97110; 97116; 97162; 97166; 97530; 97535; 99156; 99157; 99285; 99406; C1713; J7040; Q9967; A4216; J2405

== ENCOUNTER → 2018-08-17 08:51 | Outpatient (CLI) | payer MEDICAID, SELFPAY ==
[2018-08-12 09:40] VITALS: BMI 53.1
[2018-08-16 09:07] VITALS: BMI 53.3
[2018-08-17] VITALS (14 sets, daily range): BP systolic 113–145; BP diastolic 53–105; PULSE 85–93; RESP 18–29; TEMP 36.6; O2SAT 26–98; BMI 50.3
--- NOTE | 2018-08-17 | ASPIGT_PTH ---
PATIENT: UNIQUE MOLINA LOC: CT U#:[id number] AGE/SX: 59/M ROOM: RE08/17/[address]: Dr. Gilson Geiger MD : 1965 BED: DIS: SPEC #: [id number] RECD: 08/17/18 10:00 STATUS: TIERA ELENITA #: [id number] PATTIE: 08/17/18 00:[address]: Gilson Geiger DEPT: SURGICAL PATHOLOGY RECD BY: Deniz Cespedes ENTERED: 08/17/18 10:33 SP TYPE: ASP RAD OTHR DR: Dr. Mark Anthony Marcelo MD Tissues: Lung, NOS Procedures: FNA Specimen Adequacy Special Stain Group II Surgery Specimen Level IV Imprint (control) HEADER OPERATION: CT guided left lung biopsy PRE-OP DIAGNOSIS: POOJA lung mass TISSUE SUBMITTED: Left lung mass 20 gauge x5 MICROSCOPIC DIAGNOSIS Left lung mass, CT-core biopsy: A few clusters of atypical epithelial cells noted with neuroendocrine phenotype. See comment. ROBERT:rg 08/20/18 COMMENT The specimen is evaluated at the time of biopsy by Dr. Cordon. Immediate Evaluation = Negative for malignant cells. The specimen predominantly consists of unremarkable lung parenchymal tissue with a few clusters of atypical epithelial cells. Immunohistochemistry ([id number]) supports the above diagnosis. Limited IHC panel is performed. The atypical cells are present only on a few of the immunohistochemical slides. Correlation with clinical, radiologic findings and appropriate follow up are necessary. Please make reference to previous specimen ([id number]) left iliac crest, CT-guided core biopsy with diagnosis of metastatic neuroendocrine carcinoma and ([id number]) right hip/femur remaining with diagnosis of crushed atypical epithelial cells with neuroendocrine phenotype and ([id number]) bronchial washings, left upper lobe lung with diagnosis of squamous cell carcinoma. Case has been reviewed in consultation with Dr. Morillo who concurs with the above diagnosis. IDC:AM MICROSCOPIC DESCRIPTION Slides are reviewed. GROSS DESCRIPTION Received in fixative is one container labeled with the patient's name and designated left lung. The specimen consists of multiple minute fragments of light tran soft tissue that in aggregate measure 1 x <0.1 x <0.1 cm. The specimen is totally submitted in one cassette. / AM:ericka 08/17/18 TC:5 CPT: 71540, 00453
--- NOTE | 2018-08-17 | IMM_PTH ---
PATIENT: UNIQUE MOLINA LOC: CT U#:[id number] AGE/SX: 59/M ROOM: RE08/17/[address]: Dr. Gilson Geiger MD : 1965 BED: DIS: SPEC #: [id number] RECD: 08/18/18 10:29 STATUS: TIERA REAndrea #: [id number] PATTIE: 08/17/18 00:[address]: Gilson Geiger DEPT: IMMUNOHISTOCHEMISTRY RECD BY: Cristel Owens ENTERED: 08/18/18 10:30 SP TYPE: IMMUNO OTHR DR: Dr. Mark Anthony Marcelo MD Tissues: Lung, NOS Procedures: Synapto (add) CK5-6 (initial) CD56 (add) CHROMO (add) CK7 (add) TTF1 (add) P40 (add) PHYSICIAN & INSTITUTION [place] [id number] SPECIMEN INFORMATION: Tissue Source: Left lung mass Clinical Info: Left lung mass Specimen Number: [id number] CPT code: 86505, 92423 x6 METHODOLOGY: Deparaffinized sections of prefer/formalin-fixed tissue or PAP/DQ stained slides are incubated with monoclonal/polyclonal antibodies/oligonucleotide probes. Localization is made via biotin free immunoperoxidase method. Appropriate controls are performed and reacted as expected. Results on target cell population are indicated in the following table: RESULTS: ANTIBODY / CLONE RESULT CK5-6 (D5 & 1684) noncontributory P40 (BC28) noncontributory CK7 (OV-TL12/30) negative TTF-1 (8G7G3/1) negative CD56 (123C3.D5) positive, weak Chromo (LK2H10) noncontributory Synapto (polyclonal) positive These tests were developed and their performance characteristics determined by [facility]. They may not have been cleared or approved by the U.S. Food and Drug Administration. The FDA has determined that such clearance or approval is not necessary. INTERPRETATION: Left lung mass, CT-guided biopsy: A few clusters of atypical epithelial cells noted with neuroendocrine phenotype. Clinical correlation is necessary. SJ:ericka 08/20/18 Case has been reviewed in consultation with Dr. Morillo who concurs with the above diagnosis. IDC:[place]
--- NOTE | 2018-08-17 09:09 | CT_ITS ---
PROCEDURE: CT GUIDED CORE NEEDLE BIOPSY OF A left upper lobe LUNG LESION INDICATION: Male, 53 years old. Metastatic lung cancer. PHYSICIAN: Dr. Denney. CONSENT: Written informed consent was obtained having explained the risks, benefits and alternatives in detail with the patient who accepted the risks and agreed to proceed. Laboratory review and clinical assessment was performed. CONSCIOUS SEDATION PROTOCOL: The Drugs used were: 2 mg Versed, IV., and 50 mcg Fentanyl, IV. The sedation time was: 24 minutes. Conscious sedation was started at 9:38 AM and terminated at 10:02 AM. The conscious sedation protocol was independently monitored. RADIATION DOSAGE (If Supplied By Facility): CTDIvol = ( 23.5 ) mGy, DLP = ( 500.61 ) mGycm Individualized dose optimization techniques were used for this CT. TECHNIQUE: The patient was placed in the supine position. A noncontrast CT was performed to localize the lesion in the left upper lobe . The skin surface was prepped and draped in a sterile fashion. 1% lidocaine was used for local anesthesia. Using CT guidance, a 20-gauge coaxial biopsy device was advanced to the periphery of the lesion. A total of 5 core specimens were obtained. The specimens were placed in a formalin solution. A post procedure CT demonstrated no adverse sequelae or pneumothorax. The patient tolerated the procedure well without adverse event. A negative biopsy does not exclude malignancy. Further imaging or clinical followup based on patient condition and degree of clinical suspicion for malignancy. Suggest rebiopsy, if biopsy results do not match with clinical scenario. CT/Biopsy/Inj or Needle Placement IMPRESSION: 1. CT directed core needle biopsy of the left upper lobe mass using CT image guidance with image documentation as described. Pathology results are pending. 2. Conscious Sedation protocol utilized with independent monitoring. Electronically Signed: Diony Denney, at 10:32 EDT , Service support ,
[2018-08-17] MEDS: Midazolam 2 MG/2 ML Syringe IV (09:38)
[2018-08-17] MEDS: fentaNYL 100 MCG/2 ML Ampul IV (09:41)
--- NOTE | 2018-08-17 10:30 | RAD_ITS ---
STUDY: X-RAY CHEST REASON FOR EXAM: Male, 53 years old. Post lung biopsy TECHNIQUE: Single AP portable view of the chest. COMPARISON: 07/31/2018 FINDINGS: As compared to the most recent prior exam, there is been increased development of presumed fluid/hemorrhage in the left upper lobe region. Given history of lung biopsy, hydropneumothorax cannot be excluded. Right lung is clear. Again noted is a mass in the left upper lobe. Osseous degenerative changes RAD/Chest Insp/Exp 2 View IMPRESSION: Again noted is mass in the left upper lobe however, development of increased fluid in the left upper lobe region. Given history of recent lung biopsy, hemorrhage cannot be excluded. Possibility for hydropneumothorax. Short-term interval follow-up is recommended. Right lung is clear Electronically Signed: Jaime Lerma DO at 10:26 EDT Tel , Service support ,
--- NOTE | 2018-08-17 12:30 | RAD_ITS ---
STUDY: X-RAY CHEST REASON FOR EXAM: Male, 53 years old. Lower post left lung biopsy radiograph. TECHNIQUE: AP inspiration and expiration views. COMPARISON: Comparison is made with prior study done earlier in the day. FINDINGS: No evidence of pneumothorax on the delayed post left lung biopsy radiograph. Stable mass lesion in the left upper lobe. Blunting of the left costophrenic angle. RAD/Chest Insp/Exp 2 View IMPRESSION: No evidence of pneumothorax on the delayed post left lung biopsy radiograph. Electronically Signed: Diony Denney, at 15:00 EDT , Service support ,
== END ==
PROVIDERS: Family Provider Family Medicine; PCP Family Medicine; Referring Provider Internal Medicine Medical Oncology; Visit Provider Internal Medicine Medical Oncology
DX: R91.8 Other nonspecific abnormal finding of lung field (principal)
CPT/HCPCS: 32405; 71046; 77012; 88172; 88305; 88313; 88341; 88342; 99156; 99157; J7040; A4216

== ENCOUNTER → 2018-08-23 13:09 | Outpatient (CLI) | payer MEDICAID, SELFPAY ==
[2018-08-16 09:07] VITALS: BMI 53.3
[2018-08-20 09:41] VITALS: BMI 52.2
--- NOTE | 2018-08-23 13:20 | RAD_ITS ---
HISTORY:CHRONIC PAIN, PT HAS BONE CANCER CHRONIC PAIN, PT HAS BONE CANCER EXAMINATION/TECHNIQUE: XR Sacrum/Coccyx Min 2 Views: COMPARISON: None FINDINGS: SACRUM/COCCYX: No displaced fracture, destructive or sclerotic lesions. Note that overlapping bowel shadows may however obscure fine detail in the frontal view. Right intramedullary nail and cannulated screw extending into the right femoral head and neck SACRO-ILIAC JOINTS: Limited visualization of the sacroiliac joints. There is suspected subchondral sclerosis seen bilaterally SOFT TISSUES: No soft tissue swelling or gas. RAD/Sacrum-Coccyx min 2 Views IMPRESSION: Post surgical changes seen within the right hip. Limited evaluation of the osseous structures of the pelvis If symptoms persist consider MRI for further evaluation at 2132 Reported and signed by: Arlene Camejo DO Electronically Signed: Arlene Camejo DO at 21:31 EDT Tel , Service support ,
--- NOTE | 2018-08-23 13:20 | RAD_ITS ---
HISTORY:CHRONIC PAIN, PT HAS BONE CANCER CHRONIC PAIN, PT HAS BONE CANCER EXAMINATION/TECHNIQUE: XR Spine Lumbar 2 or 3 Views: COMPARISON: None FINDINGS: VERTEBRAE: Preserved vertebral body height. No fracture. No spondylolisthesis. Degenerative changes of the posterior elements. Dextroscoliosis of lumbar spine DISCS: Degenerative changes are noted. Decreased disc space at the level of L4-5 INCLUDED ABDOMEN: Included bowel gas pattern is non-obstructive. RAD/Lumbar Spine 2 or 3 Views IMPRESSION: Degenerative changes. No acute fracture or spondylolisthesis. If symptoms persist consider mri for further evaluation if clinically indicated. at 2130 Reported and signed by: Arlene Camejo DO Electronically Signed: Arlene Camejo DO at 21:29 EDT Tel , Service support ,
== END ==
PROVIDERS: Family Provider Family Medicine; PCP Family Medicine; Referring Provider Anesthesiology Pain Medicine; Visit Provider Anesthesiology Pain Medicine
DX: M54.9 Dorsalgia, unspecified (principal)
CPT/HCPCS: 72100; 72220

== ENCOUNTER → 2018-08-24 12:40 | Outpatient (CLI) | payer MEDICAID, SELFPAY ==
[2018-08-16 09:07] VITALS: BMI 53.3
[2018-08-20 09:41] VITALS: BMI 52.2
--- NOTE | 2018-08-24 12:45 | RAD_ITS ---
STUDY: X-RAY - RIGHT FEMUR REASON FOR STUDY: Male, 53 years old. POST OP FEMUR. PT HX BONE METS TECHNIQUE: 2 view(s) of the femur. COMPARISON: Bone scan 07/21/2018, radiographs of 07/27/2018. FINDINGS: There is an IM kate along the entire length of the right femur with no evidence for complication or loosening. Diffuse moth-eaten appearance of the mid and lower femoral shaft seen consistent with known metastatic disease. No definite fractures. RAD/Femur Min 2 Views IMPRESSION: Satisfactory appearance of a femoral IM kate. No fracture. Metastatic disease throughout the femoral shaft. Electronically Signed: George Witt MD at 20:07 EDT , Service support ,
== END ==
PROVIDERS: Family Provider Family Medicine; PCP Family Medicine; Referring Provider Orthopaedic Surgery; Visit Provider Orthopaedic Surgery
DX: R52 Pain, unspecified (principal)
CPT/HCPCS: 73552

== ENCOUNTER → 2018-08-26 14:58 | Outpatient (CLI) | payer MEDICAID, SELFPAY ==
[2018-08-16 09:07] VITALS: BMI 53.3
[2018-08-24 13:17] VITALS: BMI 52.2
[2018-08-26 15:39] LABS: Absolute Lymphocyte Count 1.14 X10^3/ul (0.83-4.51); Absolute Neutrophil Count 12.2 X10^3/uL (2.0-7.7); Basophil# 0.01 X10^3/uL; Basophil% 0.1 % (0-1); Eosinophil# 0.01 X10^3/uL; Eosinophils% 0.1 % (0-5); Hematocrit 43.8 % (40-54); Hemoglobin 14.2 g/dl (13.0-16.5); Lymphocyte # 1.14 X10^3/ul (4.0); Lymphocyte % 8.4 % (19-41); Mean Corp Hgb Conc 32.4 g/gl (32-36); Mean Corpuscular Hgb 29.6 pg (27.0-32.0); Mean Corpuscular Volume 91.4 fL (80-94); Mean Platelet Vol. 9.9 fl (6.2-12.0); Monocyte# 0.04 X10^3/uL; Monocyte% 0.3 % (0-10); Neutrophil # 12.19 X10^3/uL (2.7-7.7); Neutrophil % 89.9 % (47-70); Platelet Count 215 K/mm3 (150-450); RBC Distribution Width CV 16.9 % (11.6-14.6); RBC Distribution Width SD 55.7 fl (35.1-43.9); Red Blood Count 4.79 M/mm3 (4.6-6.2); White Blood Count 13.6 K/mm3 (4.4-11.0)
[2018-08-26 15:40] LABS: POSITIVE COUNT NO; POSITIVE DIFFERENTIAL NO; POSITIVE MORPHOLOGY NO
[2018-08-26 15:47] LABS: International Normalized Ratio 1.1; Prothrombin Time (Protime)PT. 13.5 SECONDS (11.7-14.9)
[2018-08-26 15:54] LABS: ALB/GLOB Ratio 0.7 RATIO (0.9-2.4); AST(SGOT) 47 U/L (15-37); Alanine Aminotransfer ALT/SGPT 30 U/L (16-61); Albumin, Serum 2.9 g/dL (3.2-5.0); Alkaline Phosphatase 99 U/L (45-117); Anion Gap 5 (5-15); BUN 19 mg/dL (7-18); BUN/Creat Ratio 23.6 RATIO (10-20); Calcium,Total 8.7 mg/dL (8.5-10.1); Chloride 103 mmol/L (98-107); Creatinine, Serum 0.81 mg/dL (0.70-1.30); EST Glomerular Filtration Rate 107 mL/min (>60); Est Glom Filt Rate - Afr Amer 129 mL/min (>60); Globulin 4.4 g/dL (2.2-4.2); Glucose 155 mg/dL (74-106); Potassium 4.1 mmol/L (3.5-5.1); Protein, Total 7.3 g/dL (6.4-8.2); Sodium Level 135 mmol/L (136-145)
[2018-08-26 23:03] LABS: Xtra Tube EP Lab EXTRA TUBE
== END ==
PROVIDERS: Family Provider Family Medicine; PCP Family Medicine; Referring Provider Internal Medicine Medical Oncology; Visit Provider Internal Medicine Medical Oncology
DX: Z01.818 Encounter for other preprocedural examination (principal); C34.12 Malignant neoplasm of upper lobe, left bronchus or lung
CPT/HCPCS: 36415; 77412; 80053; 85025; 85610; 85730

== ENCOUNTER 2018-09-09 11:47 | Emergency (ER) | payer MEDICAID, SELFPAY ==
[2018-08-16 09:07] VITALS: BMI 53.3
[2018-09-03 10:13] VITALS: BMI 54.5
[2018-09-09] VITALS (8 sets, daily range): BP systolic 109–139; BP diastolic 69–78; PULSE 71–104; RESP 12–30; TEMP 36.7–37.2; O2SAT 91–98; BMI 56.0
--- NOTE | 2018-09-09 11:58 | EKG12_ITS ---
Test Reason : Blood Pressure : / mmHG Vent. Rate : 101 BPM Atrial Rate : 101 BPM P-R Int : 130 ms QRS Dur : 100 ms QT Int : 318 ms P-R-T Axes : 071 052 113 degrees QTc Int : 412 ms Sinus tachycardia Low Voltage QRS (Limb Leads) Nonspecific T wave abnormality Abnormal ECG Confirmed by DEXTER STRANGE, VICENTA ([id number]), managing editor ARIEL RAMSEY ([id number]) on 09/13/2018 2:18:40 PM Referred By: Ga Powell Confirmed By:VICENTA RENTERIA MD
--- NOTE | 2018-09-09 11:58 | RAD_ITS ---
STUDY: X-RAY CHEST REASON FOR EXAM: Male, 53 years old. X-ray TECHNIQUE: 1 view COMPARISON: August 17, 2018. FINDINGS: There is still noted large mass involving the left upper lobe with more opacification than seen before. There is eventration of the left hemidiaphragm. No significant associated pleural effusion. Underlying infiltrate in the left base cannot be ruled out. The right lung is relatively clear. The visualized bones are intact. Cardiac silhouette is not enlarged. RAD/Chest 1 View (Portable) IMPRESSION: Known mass in the left upper lobe with further opacification of the right apex. Electronically Signed: Carmelita Mroales, at 12:32 EDT Tel , Service support ,
--- NOTE | 2018-09-09 12:05 | ED.VIS.GEN ---
History of Present Illness Chief Complaint: Shortness of Breath Informant: Patient, PCP Onset: Days Context: Sudden Onset Timing: Continuous Quality: Shortness of breath and weight gain Location: Presents from nursing facility Current Severity: Moderate Maximum Severity: Severe Worsened by: Any type of activity Relieved by: Improved with oxygen Associated Symptoms: Non-productive cough Prior similar symptoms: No Recent Illness/Hospitalization: Yes - Past Medical History (1) Cancer, metastatic to bone Status: Acute (2) Diabetes Status: Acute (3) Hx of appendectomy Status: Acute (4) Hx of hernia repair Status: Acute Comment: X2 (5) Neuroendocrine carcinoma Status: Acute (6) Squamous cell carcinoma lung Status: Acute (7) Benign essential hypertension Status: Chronic (8) COPD (chronic obstructive pulmonary disease) Status: Chronic (9) Depression Status: Chronic (10) History of anxiety Status: Chronic (11) Hyperlipidemia Status: Chronic (12) Morbid obesity Status: Chronic (13) Obstructive sleep apnea syndrome Status: Chronic Past Medical History - Allergies and Home Meds Allergies/Adverse Reactions: Allergies METAL Allergy (Uncoded 09/03/18 10:12) Unknown Primary Care Physician: Mark Anthony Marcelo MD [Primary Care Provider] - Prior records reviewed: Yes Surgical History: appendectomy, herniorrhaphy - x2, - - Hand surgery Lives: Care Home Smoking Status: Current every day smoker Drugs: None - Family History Maternal Family History: Family History (Last Reviewed 09/05/18 @ 09:14 by Macario Roberts MD) Father Diabetes Lung cancer Mother Leukemia Family History: Reports: - - Leukemia Paternal Family History: Family History (Last Reviewed 09/05/18 @ 09:14 by Macario Roberts MD) Father Diabetes Lung cancer Mother Leukemia Family History: Reports: Cancer - lung, - Review of Systems General: Reports: Malaise, Sweats, - - 4 pound weight gain. Denies: Chills, Fever Eyes: Denies: Visual changes - bilaterally, Blurred Vision - bilaterally, Diplopia ENT: Denies: Bilateral ear pain, Rhinorrhea, Sore throat Cardiovascular: Denies: Chest pain, Palpitations Respiratory: Reports: Dyspnea, Cough, Dyspnea on exertion, Orthopnea. Denies: Sputum, Paroxysmal nocturnal dyspnea Gastrointestinal: Denies: Abdominal pain, Nausea, Vomiting, Diarrhea, Melena, Hematochezia Genitourinary: Denies: Dysuria, Hematuria, Frequency Musculoskeletal: Reports: Swelling. Denies: Myalgias, Arthralgias, Back pain, Extremity Pain Skin: Denies: Rash, Wounds Neurological: Reports: Weakness Psych: Reports: Depression Hematologic: Reports: Easy bruising, Easy bleeding Allergy: Denies: Uticaria Physical Exam Vital Signs/Narrative: Vital Signs Temp Pulse Resp BP Pulse Ox 09/09/18 11:49 98.1 F 104 H 30 H 137/75 H 94 Inital Vital Signs reviewed: Yes General: Well nourished, Well developed, Obese, No Acute Distress Head: Normocephalic, Atraumatic Eyes: Perrl, EOMI. Negative for: Pale conjunctiva, Scleral icterus ENT: Moist mucous membranes, No rhinorrhea, TM's clear, - - Poor dentition Neck: Supple, Nontender, No lymphadenopathy, No JVD, - - Unable to palpate trachea. Cardiovascular: Regular rhythm, No murmurs, Normal S1, Normal S2, Tachycardia Respiratory: Chest nontender, Rhonchi, Decreased Air Movement Abdomen: Soft, Nontender, Nondistended, Normal bowel sounds Back: Nontender, Normal Inspection Extremities: Nontender, Edema Skin: Normal color, No rash, Trauma - Multiple areas of ecchymosis most likely secondary to Lovenox. Negative for: Cyanosis, Diaphoresis, Jaundice Neurological: Alert, Oriented x3, Cranial nerves II-XII grossly intact, Normal Strength, Normal Sensation Psychological: Depressed Diagnostic/Tx/Re-eval Chest X-Ray - ED: 1 View, Read by ED Physician, Cardiomegaly, - - There is enlargement of the left pulmonary mass. There is probable atelectasis left lower lobe. The x-ray is slightly rotated. There is no evidence of free air. There is no obvious metastasis to ribs. Time of my interpretation 1232 Impressions Chest X-Ray 09/09/18 11:58 IMPRESSION: Known mass in the left upper lobe with further opacification of the right apex. Electronically Signed: Carmelita Morales, at 12:32 EDT Tel , Service support , 09/09/18 11:58 Chest 1 View (Portable) [RAD] Stat Laboratory Results 09/09/18 09/09/18 09/09/18 12:24 12:24 12:24 WBC 7.8 RBC 4.13 L Hgb 12.2 L Hct 38.2 L MCV 92.5 MCH 29.5 MCHC 31.9 L RDW 18.5 H RDW Differential 61.8 H Plt Count 126 L MPV 9.4 Immature Gran % (Auto) 0.500 Neut % (Auto) 91.7 H Lymph % (Auto) 3.7 L Bradford % (Auto) 4.0 Eos % (Auto) 0.1 Baso % (Auto) 0.0 Absolute Neuts (auto) 7.2 Absolute Lymphs (auto) 0.29 L Total Counted Not Reportable PT 14.2 INR 1.1 APTT 39.2 H Specimen Type Sample Site pH Bicarbonate Actual POC Total CO2 Base Excess O2 Saturation ABG pCO2 ABG pO2 Aidan Test O2 Delivery Device Liter Flow Blood Gas Notified Whom Blood Gas Notified Time Sodium 139 Potassium 4.1 Chloride 102 Carbon Dioxide 29.0 Anion Gap 8 BUN 10 Creatinine 0.63 L Estim Creat Clear Calc 146.08 Est GFR (MDRD) Af Amer 173 Est GFR (MDRD) Non-Af 143 BUN/Creatinine Ratio 16.0 Glucose 133 H Lactic Acid Calcium 8.6 Total Bilirubin 0.30 AST 45 H ALT 73 H Alkaline Phosphatase 117 Total Protein 6.9 Albumin 2.6 L Globulin 4.3 H Albumin/Globulin Ratio 0.6 L 09/09/18 09/09/18 12:24 12:26 WBC RBC Hgb Hct MCV MCH MCHC RDW RDW Differential Plt Count MPV Immature Gran % (Auto) Neut % (Auto) Lymph % (Auto) Bradford % (Auto) Eos % (Auto) Baso % (Auto) Absolute Neuts (auto) Absolute Lymphs (auto) Total Counted PT INR APTT Specimen Type ART Sample Site R Radial pH 7.44 Bicarbonate Actual 28.0 H POC Total CO2 29 Base Excess 4 H O2 Saturation 90 L ABG pCO2 41.0 ABG pO2 57 L Aidan Test POS O2 Delivery Device Nasal Can Liter Flow 2.0 Blood Gas Notified Whom ED Blood Gas Notified Time 1230 Sodium Potassium Chloride Carbon Dioxide Anion Gap BUN Creatinine Estim Creat Clear Calc Est GFR (MDRD) Af Amer Est GFR (MDRD) Non-Af BUN/Creatinine Ratio Glucose Lactic Acid 1.2 Calcium Total Bilirubin AST ALT Alkaline Phosphatase Total Protein Albumin Globulin Albumin/Globulin Ratio Radiologist incorrectly documented right side when it should be left side. - EKG Initial EKG Interpretation: Sinus Tachycardia - Ventricular rate 101. Artifact noted. MN interval 130 ms. QRS duration slightly prolonged 100 ms. QT interval 318 ms. [place] is normal. - Medical Decision Making Patient confirmed life expectancy 3 to 6 months. May have additional 3 to 6 months with chemotherapy. Plan was to start chemotherapy on Thursday. Discussed CODE STATUS, end-of-life issues and quality of life. Patient at the present time wishes everything to be done. Since patient is full go and tachycardic, tachypneic with abnormal respiratory sounds and cough will evaluate for pneumonia versus aspiration COPD. Patient is presently on Lovenox. EKG was obtained to evaluate for acute ischemia. Chest x-ray to evaluate for congestive heart failure since she was a 4 pound weight gain as well as pneumonia. Appropriate blood work was obtained. Patient was informed of his results. Patient states quality of life is more important to him. He has several questions which were answered. In light of these questions he was made DNR comfort care and hospice was contacted. ED Disposition - Plan for ED Patient: Diagnosis: Acute respiratory failure with hypoxia, Metastatic lung cancer (metastasis from lung to other site), Asthma exacerbation in COPD Referrals: Mark Anthony Marcelo MD [Primary Care Provider] -
[2018-09-09 12:30] LABS: Allen Test POS; Base Excess 4 mmol/L (-2 to +2); Blood Gas Specimen Type ART; O2 Delivery Device Nasal Can; PO2 57 mmHG (75-100); SITE R Radial; SO2 90 % (95-99); Time Given 1230; Total Carbon Dioxide 29 mmol/L; pH 7.44 (7.35-7.45)
--- NOTE | 2018-09-09 12:30 | CPS ---
ABG RESULTS TO DR. COLEMAN. PT REQUESTING BIPAP AT THIS TIME. STATES HIS HOME SETTINGS ARE [id number]. DR COLEMAN MADE AWARE AND VERBAL ORDER RECEIVED TO PLACE PT ON BIPAP HOME SETTINGS.
[2018-09-09 12:39] LABS: Absolute Lymphocyte Count 0.29 X10^3/ul (0.83-4.51); Absolute Neutrophil Count 7.2 X10^3/uL (2.0-7.7); Eosinophil# 0.01 X10^3/uL; Eosinophils% 0.1 % (0-5); Hematocrit 38.2 % (40-54); Hemoglobin 12.2 g/dl (13.0-16.5); Lymphocyte # 0.29 X10^3/ul (4.0); Lymphocyte % 3.7 % (19-41); Mean Corp Hgb Conc 31.9 g/gl (32-36); Mean Corpuscular Hgb 29.5 pg (27.0-32.0); Mean Corpuscular Volume 92.5 fL (80-94); Mean Platelet Vol. 9.4 fl (6.2-12.0); Monocyte# 0.31 X10^3/uL; Neutrophil # 7.18 X10^3/uL (2.7-7.7); Neutrophil % 91.7 % (47-70); Platelet Count 126 K/mm3 (150-450); RBC Distribution Width CV 18.5 % (11.6-14.6); RBC Distribution Width SD 61.8 fl (35.1-43.9); Red Blood Count 4.13 M/mm3 (4.6-6.2); White Blood Count 7.8 K/mm3 (4.4-11.0)
[2018-09-09 12:40] LABS: Differential Indicated SCAN CRITERIA MET; POSITIVE COUNT NO; POSITIVE DIFFERENTIAL YES; POSITIVE MORPHOLOGY NO
[2018-09-09 12:43] LABS: International Normalized Ratio 1.1; Prothrombin Time (Protime)PT. 14.2 SECONDS (11.7-14.9)
[2018-09-09 12:44] LABS: Partial Thromboplast Time 39.2 Seconds (24.1-36.2)
[2018-09-09 12:49] LABS: ALB/GLOB Ratio 0.6 RATIO (0.9-2.4); AST(SGOT) 45 U/L (15-37); Alanine Aminotransfer ALT/SGPT 73 U/L (16-61); Albumin, Serum 2.6 g/dL (3.2-5.0); Alkaline Phosphatase 117 U/L (45-117); Anion Gap 8 (5-15); BUN 10 mg/dL (7-18); Calcium,Total 8.6 mg/dL (8.5-10.1); Chloride 102 mmol/L (98-107); Creatinine, Serum 0.63 mg/dL (0.70-1.30); EST Glomerular Filtration Rate 143 mL/min (>60); Est Glom Filt Rate - Afr Amer 173 mL/min (>60); Estimated Creatinine Clearance 146.08 ml/min; Globulin 4.3 g/dL (2.2-4.2); Glucose 133 mg/dL (74-106); Potassium 4.1 mmol/L (3.5-5.1); Protein, Total 6.9 g/dL (6.4-8.2); Sodium Level 139 mmol/L (136-145)
[2018-09-09 12:59] LABS: Lactic Acid 1.2 mmol/L (0.4-2.0)
--- NOTE | 2018-09-09 13:45 | CM.ED ---
SOCIAL WORK UPDATED BY PHYSICIAN, HOSPICE CONSULT PLACED. MET WITH PATIENT AND PATIENT'S DAUGHTER AT BEDSIDE. EDUCATION ON HOSPICE AND EMOTIONAL SUPPORT PROVIDED. THIS WORKER TO REMAIN AVAILABLE FOR NEEDS. ROBI FERNANDEZ, GASOLINE LOCOMOTIVE CRANE OPERATOR, WET POUR MIXER.
--- NOTE | 2018-09-09 15:07 | CM.ED ---
SOCIAL WORK UPDATED BY DR. COLEMAN, HOSPICE COMPLETED CONSULT AND PATIENT HAS DECLINED HOSPICE SERVICES THROUGH [facility]. PATIENT WISHES TO RETURN TO [facility] UNDER THEIR HOSPICE CARE. CALL TO [facility] AND UPDATED ON THE ABOVE, SPOKE WITH SUNDAY. PER SUNDAY, THEIR HOSPICE SOFTWARE CONSULTANT IS PRESENT AT FACILITY NOW AND WILL MEET WITH PATIENT WHEN HE RETURNS. UPDATED NURSING AND DR. COLEMAN ON THE ABOVE. ROBI FERNANDEZ, METAL PATTERNMAKER APPRENTICE, OTR [employer] TRUCK DRIVER.
--- NOTE | 2018-09-09 15:24 | ED.RN ---
PT made DNR by Dr Paulino, denies [facility]. Pt wishes to be taken back to [facility] for their hospice. case management social worker involved spoke with [facility] and their hospice. RN report called to [facility], spoke with Briseida. Denies any questions, verbalizes understanding of situation. Pt to be discharged back to [facility], family at bedside and in agreement with plan.
--- NOTE | 2018-09-09 15:41 | ED.RN ---
transport at bedside, report given. Denies any questions or needs.
--- NOTE | 2018-09-09 15:42 | ED.RN ---
pt departs ED at this time
== END 2018-09-09 15:44 | disposition home or self-care (01) ==
PROVIDERS: Emergency Provider Emergency Medicine; Family Provider Family Medicine; PCP Family Medicine
DX: J96.01 Acute respiratory failure with hypoxia (principal); C78.00 Secondary malignant neoplasm of unspecified lung; J45.901 Unspecified asthma with (acute) exacerbation; J44.1 Chronic obstructive pulmonary disease with (acute) exacerbation; F32.9 Major depressive disorder, single episode, unspecified; F17.200 Nicotine dependence, unspecified, uncomplicated; G47.33 Obstructive sleep apnea (adult) (pediatric); E78.5 Hyperlipidemia, unspecified; E66.01 Morbid (severe) obesity due to excess calories; I10 Essential (primary) hypertension; E11.9 Type 2 diabetes mellitus without complications; Z66 Do not resuscitate; Z85.118 Personal history of other malignant neoplasm of bronchus and lung
CPT/HCPCS: 36600; 71045; 80053; 82803; 83605; 85025; 85610; 85730; 87040; 93005; 94002; 99285; A4216